=== PATIENT | female | born 1945 | race Caucasian/White ===

== ENCOUNTER 2021-12-26 06:00 | Outpatient (RCR) | payer MEDICARE, SELFPAY | END 2022-01-20 23:59 | disposition home or self-care (01) | LOC: MPT 06:00 | PROVIDERS: Referring Provider Nurse Practitioner Family; Visit Provider Nurse Practitioner Family | DX: N32.81 Overactive bladder (principal) | CPT/HCPCS: 97110; 97161; 97530 ==

== ENCOUNTER 2022-01-21 06:00 | Outpatient (RCR) | payer MEDICARE, SELFPAY | END 2022-02-20 23:59 | disposition home or self-care (01) | LOC: MPT 06:00 | PROVIDERS: Referring Provider Nurse Practitioner Family; Visit Provider Nurse Practitioner Family | DX: N32.81 Overactive bladder (principal) | CPT/HCPCS: 97140; 97530 ==

== ENCOUNTER 2022-02-21 06:00 | Outpatient (RCR) | payer MEDICARE, SELFPAY | END 2022-03-22 23:59 | disposition home or self-care (01) | LOC: MPT 06:00 | PROVIDERS: Referring Provider Nurse Practitioner Family; Visit Provider Nurse Practitioner Family | DX: N32.81 Overactive bladder (principal) | CPT/HCPCS: 97110; 97140; 97530 ==

== ENCOUNTER 2022-06-29 12:42 | Outpatient (CLI) | payer MEDICARE, SELFPAY ==
--- NOTE | 2022-06-29 12:57 | XR_ITS ---
WS: [id number] XR sacroiliac jts m 3V [id number] REASON FOR EXAM: SACROCOCCYGEAL DISORDER FINDINGS: No fracture or focal bone lesion. Orthopedic devices related to the left sacral wing and left sacroiliac joint. No previous examination for comparison. No bridging or fusion of the sacroiliac joints. There is moderate sclerosis along the margins of the joint line and distal osteophytosis. XR/XR sacroiliac jts m 3V [id number] IMPRESSION: Degenerative changes in the sacroiliac joint which may be posttraumatic.
== END 2022-06-29 12:43 | disposition home or self-care (01) ==
LOC: RAD 12:46
PROVIDERS: Visit Provider Family Medicine
DX: M53.3 Sacrococcygeal disorders, not elsewhere classified (principal)
CPT/HCPCS: 72202

== ENCOUNTER 2023-02-21 15:02 | Outpatient (CLI) | payer MEDICARE, SELFPAY ==
--- NOTE | 2023-02-21 16:19 | XR_ITS ---
WS: [id number] SCREENING DEXA SCAN [employer] CLINICAL INFORMATION: AGE RELATED OSTEOPOROSIS COMPARISON: None. FINDINGS: The LEFT forearm bone mineral density measures 0.5. This corresponds to a T score score of -4.3 and Z score of -1.6. Left femoral neck bone mineral density measures 0.757 g/cm2. This corresponds to a T score of -2.0 an d Z score of 0.2. Right femoral neck bone mineral density measures 0.733 g/cm2. This corresponds to a T score -2.2of an d Z score of 0.0. Mean femoral neck bone mineral density measures 0.745 g/cm2. This corresponds to a T score of -2.1 an d Z score of 0.1. XR/XR DEXA axial skeleton* [id number] IMPRESSION: Osteoporosis LEFT forearm. Osteopenia femoral necks. Patient's FRAX calculated 10 year probability for major osteoporotic fracture i s 16.1 % and osteoporotic hip fracture is 4.8%.
== END 2023-02-21 15:03 | disposition home or self-care (01) ==
PROVIDERS: PCP Family Medicine; Visit Provider Family Medicine
DX: M81.0 Age-related osteoporosis without current pathological fracture (principal); M85.852 Other specified disorders of bone density and structure, left thigh; M85.851 Other specified disorders of bone density and structure, right thigh
CPT/HCPCS: 77080

== ENCOUNTER → 2023-05-21 10:49 | Outpatient (BNVA) | payer MEDICARE, SELFPAY | PROVIDERS: PCP Family Medicine; Visit Provider Orthopaedic Surgery | DX: M41.56 Other secondary scoliosis, lumbar region (principal); M41.55 Other secondary scoliosis, thoracolumbar region; M47.815 Spondylosis without myelopathy or radiculopathy, thoracolumbar region; Z98.1 Arthrodesis status | CPT/HCPCS: 36415; 72100; 80053; 81003; 85025; 99204 ==

== ENCOUNTER 2023-06-17 12:04 | Outpatient (CLI) | payer MEDICARE, SELFPAY ==
--- NOTE | 2023-06-17 13:00 | MR_ITS ---
WS: [id number] MRI LUMBAR SPINE NONCONTRAST TECHNIQUE: Sagittal T1, T2 and STIR imaging. Axial T1 and T2 imaging. CLINICAL INFORMATION: Lumbar pain COMPARISON: None. FINDINGS: Severe thoracolumbar scoliosis limits evaluation. Lumbar scoliosis convex RIGHT with prior pedicle sc rew fixation L3-4. LEFT sacroiliac fusion. Small disc protrusions in the cervical spine on the credit card clerk imaging with mild central canal stenosis C3-C6. T12-L1: Mild disc bulging with slight narrowing of the subarticular recess bilaterally. Mild facet ar thropathy. Mild to moderate bilateral foraminal narrowing. L1-L2: Mild disc bulging with osteophytic ridging. Mild facet arthropathy. Moderate LEFT and mild RIG HT foraminal narrowing. L2-L3: Mild disc bulging with osteophytic ridging. Slight retrolisthesis. Mild central canal stenosis . Narrowing of the subarticular recess bilaterally. Mild bilateral foraminal narrowing. L3-L4: Slight anterolisthesis. Small canal and foramen are patent. L4-L5: Slight anterolisthesis with mild disc bulging. Narrowing of the RIGHT greater than LEFT subart icular recess. Moderate facet arthropathy. Pedicle screw fixation with dorsal fusion. Mild bilateral bony foraminal narrowing. Slight impingement on the traversing RIGHT L5 nerve root. L5-S1: Small central disc protrusion impinges the traversing S1 nerve roots bilaterally. Mild to mode rate central canal stenosis. Moderate facet arthropathy. Foramen are patent. Partially visualized tortuous lobulated thoracic and upper abdominal aortic aneurysm with extensive a theromatous disease and peripheral mural thrombus. Recommend further evaluation with CTA. IMPRESSION: 1. Advanced lumbar scoliosis with prior pedicle screw fixation L3-4. No acute compression fracture s. Slight anterolisthesis L3 on L4 and L4 on L5. 2. Mild central canal stenosis L2-3 with impingement on the traversing L3 nerve roots bilaterally. 3. Mild to moderate central canal stenosis L4-5 with impingement of traversing S1 nerve roots with a small central protrusion 4. Disc osteophytic ridging L4-5 slightly impinges the RIGHT subarticular recess and traversing RIGH T L5 nerve root. 5. Multilevel mild to moderate foraminal narrowing worse at LEFT T12-L1, LEFT L1-2 6. Partially visualized tortuous lobulated thoracic and upper abdominal aneurysm with associated mur al thrombus. Recommend further evaluation with CTA chest abdomen and pelvis. Partially visualized ass ociated mural thrombus.
== END 2023-06-17 12:05 | disposition home or self-care (01) ==
PROVIDERS: PCP Family Medicine; Visit Provider Orthopaedic Surgery
DX: Z01.818 Encounter for other preprocedural examination (principal); M41.9 Scoliosis, unspecified; M48.07 Spinal stenosis, lumbosacral region; M25.78 Osteophyte, vertebrae; I71.60 Thoracoabdominal aortic aneurysm, without rupture, unspecified; I74.8 Embolism and thrombosis of other arteries
CPT/HCPCS: 72148

== ENCOUNTER 2023-06-19 13:50 | Inpatient (IN) | payer MEDICARE, SELFPAY ==
[2023-06-18 12:14] VITALS: BMI 21.9
[2023-06-19] VITALS (30 sets, daily range): BP systolic 91–137; BP diastolic 54–93; PULSE 59–93; RESP 18–30; TEMP 36.3; O2SAT 92–100
--- NOTE | 2023-06-19 | XR_ITS ---
WS: [id number] Lumbar spine, C-arm fluoroscopy views, 06/19/2023 Clinical Data: t0 to pelvis fusion, or pic Comparison: Lumbar spine, 05/21/2023 Findings: Dr. Babb performed a thoracolumbar sacral posterior fusion Impression: Posterior thoracolumbar sacral fusion.
--- NOTE | 2023-06-19 08:39 | W.PM.OPSUD ---
Surgery/Procedure H&P Update DATE OF PROCEDURE: June 19, 2023 DATE H&P PERFORMED: 06/05/23 H&P UPDATE INFORMATION: I have reviewed H&P completed within last 30 days, I have examined patient prior to procedure and No changes to prior documentation PREOP DIAGNOSIS: Degenerative scoliosis, failed lumbar fusion lumbar stenosis PLANNED PROCEDURE: Operation Date: 06/19/23 09:50 Proposed Procedures p Thoracic Fusion(Not Applicable) - Tyler Babb DO s Sacroiliac Joint Fusion SI Joint Fusion(Not Applicable) - Tyler Babb DO
[2023-06-19] MEDS: sodium chloride 0.9% 1,000 ML 30 ML IV (08:52)
[2023-06-19] MEDS: methadone 10 mg Tablet PO (08:54)
--- NOTE | 2023-06-19 09:00 | ANES.PREANE2 ---
Pre-Anesthetic Assessment Height/Weight: Height 1.6 m Weight 56.245 kg Temp Pulse Resp BP Pulse Ox O2 Del Method 97.4 F L 67 18 137/81 99 Room Air 06/19/23 08:42 06/19/23 08:42 06/19/23 08:54 06/19/23 08:42 06/19/23 08:54 06/19/23 08:44 Preop Diagnosis: Degenerative scoliosis, failed lumbar fusion lumbar stenosis Operation Date: 06/19/23 09:50 Proposed Procedures p Thoracic Fusion(Not Applicable) - Tyler Babb DO s Sacroiliac Joint Fusion SI Joint Fusion(Not Applicable) - Tyler Babb DO Familial anesthetic complications: none Was Beta Gale taken within 24 hours: Yes Was Clonidine taken within 24 hours: N/A Last intake: Intake Last Liquid Date 06/18/23 Last Liquid Time 18:30 Last Solid Date 06/18/23 Last Solid Time 18:30 Social No alcohol and No tobacco Exam alert, oriented x 3, clear to auscultation bilaterally and regular rate & rhythm Airway Submandibular: within normal limits Cervical ROM: within normal limits Mallampati: Class II Dentition: chipped CV/HEM Hypertension, Murmur and Peripheral Vascular Disease (h/o ascending aorta repair and AVR--postop CVA) acral cyanosis Musc/skel Lower Back Pain and Osteoarthritis/DJD Neuropsych Cerebrovascular Accident (right side weak--postop from Ao repair emergently) Anesthetic Plan ASA status: 3 Anesthesia: General Other: A.line, discussed transfusion and ICU postop Medications/Allergies Home Medications Medication Instructions Recorded Confirmed Last Taken Type alendronate 70 mg tablet 70 mg PO .WEEKLY 03/13/22 06/18/23 06/15/23 History amlodipine 5 mg tablet 5 mg PO DAILY 03/13/22 06/18/23 06/18/23 History ascorbate calcium (vitamin C) 500 500 mg PO BID 03/13/22 06/18/23 06/12/23 History mg tablet aspirin 81 mg tablet,delayed 81 mg PO DAILY 03/13/22 06/18/23 06/12/23 History release calcium carbonate 600 mg calcium 600 mg PO DAILY 03/13/22 06/18/23 06/12/23 History (1,500 mg) tablet (Calcium) cetirizine 10 mg tablet 10 mg PO DAILY PRN allergies 03/13/22 06/18/23 Unknown History cholecalciferol (vitamin D3) 50 50 mcg PO DAILY 03/13/22 06/18/23 06/12/23 History mcg (2,000 unit) capsule duloxetine 60 mg capsule,delayed 60 mg PO DAILY 03/13/22 06/18/23 06/18/23 History release gabapentin 600 mg tablet 600 mg PO .HS 03/13/22 06/18/23 06/17/23 History hydrochlorothiazide 25 mg tablet 25 mg PO DAILY 03/13/22 06/18/23 06/17/23 History lisinopril 40 mg tablet 40 mg PO DAILY 03/13/22 06/18/23 06/18/23 History magnesium 30 mg tablet 60 mg PO DAILY 03/13/22 06/18/23 06/12/23 History magnesium hydroxide 400 mg/5 mL 5 ml PO .HS PRN Constipation 03/13/22 06/18/23 Unknown History oral suspension (Milk of Magnesia) metoprolol succinate 50 mg 50 mg PO DAILY 03/13/22 06/19/23 06/19/23 06:30 History tablet,extended release 24 hr potassium chloride 20 mEq 20 meq PO DAILY 03/13/22 06/18/23 06/18/23 History tablet,extended release ropinirole 1 mg tablet 1 mg PO .1 AT NOON 2 AT HS 03/13/22 06/18/23 06/18/23 History Bone growth stimulator #1 ea 06/03/23 06/18/23 Unknown Rx hydrocodone 5 mg-acetaminophen 325 1 tab PO Q4H 06/05/23 06/19/23 06/19/23 04:30 History mg tablet Allergies Allergy/AdvReac Type Severity Reaction Status Date / Time No Known Allergies Allergy Verified 06/19/23 08:38 Current Medications Generic Name Dose Route Start Last Admin Trade Name Freq PRN Reason Stop Dose Admin Sodium Chloride 1,000 mls @ 30 mls/hr 06/19/23 08:15 06/19/23 08:52 Sodium Chloride 0.9% IV 06/20/23 08:14 30 mls/hr .Q24H SHEYLA Administration PFSH Anesthesia Family History Father Depressed Heart disease Stroke Mother Hypertension Social History Smoking and tobacco status: never smoked Second hand smoke exposure: No Alcohol intake: never Data Anesthesia Cardiac Studies: No Data to Display
[2023-06-19] MEDS: ceFAZolin 2,000 MG in sodium chloride 0.9% (plus) 50 ML 100 MG IV ×2 (09:49→16:02)
[2023-06-19] MEDS: lidocaine-epi 1% 20 mL INJ INJECTION (11:06)
[2023-06-19] MEDS: vancomycin 1,000 MG SDV 1000 MG INTRA-ARTI (11:07)
[2023-06-19] MEDS: heparin, porcine 1,000 unit/mL INJ 10 mL 10000 UNIT IRRIGATION (11:07)
--- NOTE | 2023-06-19 13:34 | P.OP_ITS ---
Operative Report Date of procedure: June 19, 2023 Pre-op diagnosis: Degenerative scoliosis Post-op diagnosis: same Procedure done: 1. T10- Pelvis fusion 2. T10- S1 instrumentation 3. Lumbopelvic fixation 4. right open Sacral iliac fusion 5. Use of computer navigation 6. removal of deep hardware from spine Surgeon: Tyler Babb DO Procedure: 1. T10- Pelvis fusion 2. T10- S1 instrumentation 3. Lumbopelvic fixation 4. right open Sacral iliac fusion 5. Use of computer navigation 6. removal of deep hardware from spine Patient is brought to the operative suite.? After undergoing anesthesia, the patient had neuro monitoring attached.? Patient was then placed in the prone position on the Lucas table.? All areas of impingement were well-padded.? Patient was then prepped and draped in the normal sterile fashion.? Skin incision was then made L3 to sacrum.? Subperiosteal dissection was made out to the transverse processes of T10, T11, T12, L1, L2, L3 and L4 and L5 and sacral ala bilaterally. Previous hardware at L3-4 was identified.? The caps were removed the cross-link was removed and then the pedicle screws were removed but with a pedicle feeler and then replaced with 6 5 screws from [employer]. Next attention was brought to obtain the bone marrow aspirate.? This was done by using the regenerative bone marrow aspiration kit.? 20 cc of bone marrow aspirate were taken from the right iliac crest.? This was later used with the osteo amp bone graft. Next tension was brought to placing the fiducial for the computer navigation.? 2 pins were placed into the right iliac crest.? The fiducial was attached.? The C- arm was brought in and information from serum was then linked to the computer used for placing the screws.? The case. Next attention was brought to placing the pedicle screws.? This was done by using the gearshift probe.? The probe was used to identify the pedicle.? Then the pedicle feeler was used followed by placement of screw.? This was done at T10 bilaterally, T11 bilaterally, T12 bilaterally, L1 bilaterally, L2 bilaterally, L3 bilaterally, L4 bilaterally, L5 bilaterally and S1 bilaterally. Next attension was brought to placing the iliac screws.? This was done using the sacral ala iliac technique.? The gearshift probe linked to computer navigation was then placed through the sacral ala into the sacroiliac joint into the iliac crest.? Next the pedicle feeler was used followed by the computer navigated tap.? And then the screw was passed a 80 mm screw was placed on the right side. Next attension was brought to performing the open and sacral iliac fusion.? This was done by again using the gearshift probe linked to computer navigation.? Followed by pedicle feeler followed by placing a wire and then the drill drilled over the wire and then bone graft was packed into the sacroiliac joint and into the drill hole.? And the sacroiliac screw was then placed.? This technique was done on the right side. Wound was irrigated and the screw tulips were aligned and template was used to measure the appropriate size shbea. Rods bent to the appropriate band and attached to the screws from T10 down to S1 and attaching onto the iliac screw on the right side. Caps were torqued tightened down. This process was also repeated on the left side however there is no iliac screw on the left side. The screws were placed from T10-S1. She was brought to decorticating the lamina from T10 down to T12 and then the transverse processes of L1 to the sacral ala this was done bilaterally. Ostium bone graft was packed into the gutters and over the decortication sites then wound was closed in a layered fashion with 0 Vicryl 2-0 Vicryl and Monocryl suture. Deep drain was placed vancomycin powder was placed sterile dressings were applied patient was transferred to the PACU in stable condition.
[2023-06-19] MEDS: lactated ringers 1,000 ML 90 ML IV (14:10)
[2023-06-19] MEDS: morphine 4 mg/mL SDV 1 mL 2 MG IVP ×2 (14:16→15:54)
--- NOTE | 2023-06-19 16:38 | ANE.PACU2 ---
Inpatient post-anesthesia follow up: Airway intact: Yes Vital signs: Temperature 97.4 F Pulse Rate 67 Respiratory Rate 18 Blood Pressure 137/81 Pulse Oximetry 100 Oxygen Delivery Me thod Room Air Oxygen Flow Rate Fraction of Inspir ed Oxygen Hydration adequate: Yes Nausea and vomiting: No Pain level: 4 Mental status: Altered (sedated) Additional Comments: To ICU, extubated, stable.
[2023-06-19] MEDS: ketorolac 30 mg/mL INJ IVP (17:02)
[2023-06-19] MEDS: HYDROcodone-acetaminophen 5-325 mg Tablet PO (17:09)
[2023-06-19] MEDS: docusate sodium 100 mg Capsule PO (17:14)
[2023-06-19] MEDS: ascorbic acid 500 mg Tablet PO (17:14)
--- NOTE | 2023-06-19 18:18 | PC.NURSE ---
This nurse notified Dr. Babb of 450 ml out put from drain, order received to take train off suction
[2023-06-19] MEDS: gabapentin 300 mg Capsule 600 MG PO (20:53)
[2023-06-19] MEDS: ropinirole 1 mg Tablet 2 MG PO (20:53)
[2023-06-19] MEDS: cetirizine 10 mg Tablet PO (21:15)
[2023-06-19] MEDS: oxyCODONE-APAP 5-325 mg Tablet PO (22:15)
--- NOTE | 2023-06-19 23:07 | PC.NURSE ---
[address] Babb. Reported patient's vital signs, highlighting that her blood pressure has been trending down, drain output of 100ml bright red blood, and that her surgical dressing was reinforced with ABD pads because it was fully saturated with blood. Orders to transfuse 1 unit PRBCs.
[2023-06-20] VITALS (55 sets, daily range): BP systolic 79–132; BP diastolic 37–72; PULSE 61–122; RESP 15–37; TEMP 36.7–37; O2SAT 17–100
[2023-06-20] MEDS: lactated ringers 1,000 ML 90 ML IV ×3 (00:41→22:49)
[2023-06-20] MEDS: ceFAZolin 2,000 MG in sodium chloride 0.9% (plus) 50 ML 100 MG IV ×2 (00:41→08:25)
[2023-06-20] MEDS: oxyCODONE-APAP 5-325 mg Tablet PO ×4 (02:42→15:34)
[2023-06-20 04:47] LABS: Hematocrit 25.2 % (36-47)
--- NOTE | 2023-06-20 07:50 | PM.PN ---
Subjective Subjective: POD 1 Patient resting with family present. Reports lightheadedness and dizziness. Reports back pain. Denies chest pain shortness of breath. Vitals/I&O/Wt Last Vital Signs Temp 98.0 F 06/20/23 02:32 Pulse 74 06/20/23 06:00 Resp 20 H 06/20/23 07:34 BP 93/48 06/20/23 06:00 Pulse Ox 95 06/20/23 07:34 O2 Del Method Nasal Cannula 06/19/23 19:00 O2 Flow Rate 2 06/19/23 19:00 06/19/23 06/20/23 06/20/23 22:59 06:59 14:59 Intake Total 50 / 1100 1346.5 / 2446.5 Output Total 1050 / 1050 400 / 1450 Balance -1000 / 50 946.5 / 996.5 Weight last 48 hrs Weight 124 lb Weight 124 lb Physical Exam Narrative: Patient presents alert and oriented x3 with a good general appearance normal mood and affect. Normal coordination normal stability. Mild tenderness around the incisional site with the incision appear to have bloody discharge with Hemovac drain to gravity. No signs of erythema or drainage. No signs of infection. Patient denies any fevers or chills. 4/5 motor strength both lower extremities with negative straight leg raise bilaterally. Calves are supple no medial thigh tenderness. Pulses are 2+ at the dorsalis pedis and posterior tibial region. Good capillary refill throughout normal sensation light touch both lower extremities. Urinary Catheter Management: Hassan: Cath Placed During This Visit: yes Urinary Catheter Date of Insertion: 06/19/23 Urinary Catheter Time of Insertion: 10:25 Data 06/20/23 04:38 A&P Assessment and plan (1) Acute blood loss as cause of postoperative anemia: Continue Hemovac drain to gravity. Based on her being symptomatic with her low blood counts we will recommend 1 unit of packed red blood cells. H&H after. Abdominal binder to help with compression over the incisional site. Continue Hassan catheter. Encourage incentive spirometer for pulmonary toilet. She is high risk of bleeding so we will hold off on anticoagulants but continue SCDs for DVT prophylaxis. (2) S/P spinal fusion: Attestations Medical Necessity Statement*: Need to gain better pain control and medical stability Coding Level of Care Code Acute Code for Chg Fwd Diagnoses Acute blood loss as cause of postoperative anemia D62 S/P spinal fusion Z98.1
[2023-06-20] MEDS: cyanocobalamin 1,000 mcg Tablet 50 MCG PO (08:24)
[2023-06-20] MEDS: duloxetine 60 mg Capsule PO (08:24)
[2023-06-20] MEDS: aspirin 81 mg EC Tablet PO (08:24)
[2023-06-20] MEDS: potassium chloride ER 20 mEq Tablet PO (08:24)
[2023-06-20] MEDS: hydroCHLOROthiazide 25 mg Tablet PO (08:24)
[2023-06-20] MEDS: ascorbic acid 500 mg Tablet PO ×2 (08:24→17:00)
[2023-06-20] MEDS: docusate sodium 100 mg Capsule PO ×2 (08:24→17:00)
--- NOTE | 2023-06-20 08:44 | PC.NURSE ---
Dr. Dallin Sylvester came to bedside, gave order to transfuse 2nd unit of blood, recheck H&H after, start PT
[2023-06-20] MEDS: ropinirole 1 mg Tablet PO (11:12)
[2023-06-20] MEDS: ketorolac 30 mg/mL INJ IVP (11:57)
[2023-06-20 12:52] LABS: Basophils % 0.4 %; Eosinophils # 0.1 10^3/uL (0.0-0.8); Eosinophils % 0.9 %; Hematocrit 27.7 % (36-47); Lymphocytes # 1.1 10^3/uL (0.8-4.8); Lymphocytes % 18.8 %; Mean Corpuscular HGB Conc 33.2 g/dL (30-55); Mean Corpuscular Hemoglobin 31.3 pg (27-33); Mean Corpuscular Volume 94.2 fl (85-98); Mean Platelet Volume 9.8 fL (7.4-10.4); Monocytes # 0.4 10^3/uL (0.2-0.9); Monocytes % 7.1 %; Neutrophils # 4.11 10^3/uL (1.8-7.7); Neutrophils % 72.6 %; Nucleated Red Blood Cells % 0 %; Platelet Count 127 10^3/cmm (157-399); Red Blood Count 2.94 10^6/uL (3.85-5.65); Red Cell Distribution Width 14.6 % (12.1-15.1); White Blood Count 5.65 10^3/uL (3.29-11.43)
[2023-06-20] MEDS: morphine 4 mg/mL SDV 1 mL 2 MG IVP ×2 (13:30→16:48)
--- NOTE | 2023-06-20 15:36 | PC.NURSE ---
1330 O2 of 17 documented in error, RR of 17
[2023-06-20] MEDS: lactated ringers 500 ML 999 ML IV (16:14)
--- NOTE | 2023-06-20 16:19 | PC.NURSE ---
BP on softer side at times throughout shift, small amount of bleeding noted to back incision. Dr. Babb notified, gave order for 500 ml LR bolus
[2023-06-20 18:34] LABS: Anion Gap 10.3 (5-19); Blood Urea Nitrogen 23 mg/dL (8-23); Calcium 7.8 mg/dL (8.5-10.5); Carbon Dioxide 28 mmol/L (22-29); Chloride 104 mmol/L (98-107); Glucose 128 mg/dL (65-115); Osmolality Calculated 291 mOsm/kg (285-295); Potassium 4.3 mmol/L (3.5-5.1); Sodium 138 mmol/L (136-145)
--- NOTE | 2023-06-20 19:41 | PC.NURSE ---
Spoke to Dr. Babb to report low BP and irregular heart rhythm. Clarified order for art-line. Orders to consult [facility] for hemodynamics. Ok to discontinue art-line.
--- NOTE | 2023-06-20 19:45 | XRR_ITS ---
PROCEDURE INFORMATION: Exam: XR Chest Exam date and time: 06/20/2023 8:54 PM Age: 78 years old Clinical indication: Shortness of breath; Additional info: SOB, pain TECHNIQUE: Imaging protocol: Radiologic exam of the chest. Views: 1 view. COMPARISON: No relevant prior studies available. FINDINGS: Tubes, catheters and devices: There are sternal wires consistent with previous sternotomy incision. Lungs: Visualized portions of the lungs are clear. There is question of a 12 mm nodular opacity on the right projected over the right 3rd anterior interspace which could potentially represent pulmonary nodule. Follow-up PA and lateral radiographs are suggested to confirm this finding. Pleural spaces: Unremarkable. No pleural effusion. No pneumothorax. Heart/Mediastinum: The heart is mildly enlarged. Prosthetic aortic valve is noted. Vasculature: There is marked prominence of the aortic knob which measures almost 6 cm. This is worrisome for aneurysm of the aortic arch. Bones/joints: There are extensive surgical changes in the lower thoracic and upper lumbar spine with posterior metallic hardware including pedicle screws at multiple levels. XR/XR chest 1V portable [id number] IMPRESSION: 1. 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 Question of right pulmonary nodule, follow-up PA and lateral views suggested 3. Mild cardiomegaly 4. Postsurgical changes in the chest and spine.
--- NOTE | 2023-06-20 19:47 | ECG_ITS ---
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 Measurements Intervals [place] Rate: 68 P: 81 MA: 224 QRS: 62 QRSD: 90 T: 0 QT: 216 QTc: 230 Interpretive Statements SINUS RHYTHM WITH FIRST DEGREE AV BLOCK WITH OCCASIONAL SUPRAVENTRICULAR PREMATURE COMPLEXES LOW QRS VOLTAGE IN PRECORDIAL LEADS [QRS DEFLECTION < 1.0 mV IN CHEST LEADS] MODERATE ST DEPRESSION [0.05+ mV ST DEPRESSION] No previous ECG available for comparison Electronically Signed On 06-21-2023 10:59:52 CDT by Mehreen Palomo M.D. [email or web address]
[2023-06-20 20:16] LABS: Basophils % 0.4 %; Eosinophils # 0.1 10^3/uL (0.0-0.8); Eosinophils % 1.6 %; Hematocrit 28.3 % (36-47); Lymphocytes # 0.9 10^3/uL (0.8-4.8); Lymphocytes % 16.9 %; Mean Corpuscular HGB Conc 33.2 g/dL (30-55); Mean Corpuscular Hemoglobin 31.5 pg (27-33); Mean Platelet Volume 9.6 fL (7.4-10.4); Monocytes # 0.4 10^3/uL (0.2-0.9); Monocytes % 7.9 %; Neutrophils # 3.76 10^3/uL (1.8-7.7); Neutrophils % 72.8 %; Nucleated Red Blood Cells % 0 %; Platelet Count 129 10^3/cmm (157-399); Red Blood Count 2.98 10^6/uL (3.85-5.65); Red Cell Distribution Width 15.2 % (12.1-15.1); White Blood Count 5.16 10^3/uL (3.29-11.43)
--- NOTE | 2023-06-20 20:34 | P.CONIM_ITS ---
Providers/Reason For Consult Consulting Physician/Specialty*: Dr. Babb Reason for Consult*: Postoperative blood loss anemia, shock Attending Physician: Tyler Babb, Primary Care Provider: Flor Blount MD History of Present Illness History of Present Illness Viry Espinoza is a 78 year old female with a past medical history of aortic dissection, history of aortic valve replacement prosthetic, history of CVA, who presents to [facility] T10 to pelvis fusion, hospitalist team have been consulted due to hypotension. Currently patient is alert awake, following all commands, her back pain 3 out of 10, denies any lightheadedness, dizziness she worked with physical therapy, no lightheadedness, no dizziness, no chest pain, no palpitations, no shortness of breath. She tells me that in 2018 she had an aortic valve dissection, she was never intubated she did not require any significant blood transfusions, but 10 days after her surgery she suffered a major CVA with right-sided deficits for which she was admitted to rehab and eventually discharged home. She tells me that she was on Xarelto, she is not exactly sure why, no history of DVT or PE, but it was when she had the stroke, I asked her if she had A-fib she is not exactly sure, she tells that she was taken off Xarelto to aspirin by her primary care provider a few years ago but she does not remember the circumstances, denies any GI bleeds, no bloody or black stools, she has been told that she has iron deficiency anemia, she is never required blood transfusions, she has hypertension she is on multiple blood pressure medications, no history of significant bleeding, no history of bleeding di sorders, she did receive 4 of her blood pressure medications this morning Review of Systems Const: Denies: fever(s) Eyes: Denies: change in vision Card: Denies: chest pain Resp: Denies: dyspnea GI: Denies: abdominal pain : Denies: flank pain or difficulty voiding Musc: Reports: back pain; Denies: neck pain Skin/Breast: Denies: rash Neuro: Denies: headache(s), numbness in extremities, weakness in extremities or dizziness Endo: Denies: polyuria Medications/Allergies Home Medications Medication Instructions Recorded Confirmed Last Taken Type alendronate 70 mg tablet 70 mg PO .WEEKLY 03/13/22 06/18/23 06/15/23 History amlodipine 5 mg tablet 5 mg PO DAILY 03/13/22 06/18/23 06/18/23 History ascorbate calcium (vitamin C) 500 500 mg PO BID 03/13/22 06/18/23 06/12/23 Histo ry mg tablet aspirin 81 mg tablet,delayed 81 mg PO DAILY 03/13/22 06/18/23 06/12/23 History release calcium carbonate 600 mg calcium 600 mg PO DAILY 03/13/22 06/18/23 06/12/23 History (1,500 mg) tablet (Calcium) cetirizine 10 mg tablet 10 mg PO DAILY PRN allergies 03/13/22 06/18/23 Unknown History cholecalciferol (vitamin D3) 50 50 mcg PO DAILY 03/13/22 06/18/23 06/12/23 History mcg (2,000 unit) capsule duloxetine 60 mg capsule,delayed 60 mg PO DAILY 03/13/22 06/18/23 06/18/23 History release gabapentin 600 mg tablet 600 mg PO .HS 03/13/22 06/18/23 06/17/23 History hydrochlorothiazide 25 mg tablet 25 mg PO DAILY 03/13/22 06/18/23 06/17/23 History lisinopril 40 mg tablet 40 mg PO DAILY 03/13/22 06/18/23 06/18/23 History magnesium 30 mg tablet 60 mg PO DAILY 03/13/22 06/18/23 06/12/23 History magnesium hydroxide 400 mg/5 mL 5 ml PO .HS PRN Constipation 03/13/22 06/18/23 Unknown History oral suspension (Milk of Magnesia) metoprolol succinate 50 mg 50 mg PO DAILY 03/13/22 06/19/23 06/19/23 06:30 History tablet,extended release 24 hr potassium chloride 20 mEq 20 meq PO DAILY 03/13/22 06/18/23 06/18/23 History tablet,extended release ropinirole 1 mg tablet 1 mg PO .1 AT NOON 2 AT HS 03/13/22 06/18/23 06/18/23 His tory Bone growth stimulator #1 ea 06/03/23 06/18/23 Unknown Rx hydrocodone 5 mg-acetaminophen 325 1 tab PO Q4H 06/05/23 06/19/23 06/19/23 04:30 History mg tablet Allergies Allergy/AdvReac Type Severity Reaction Status Date / Time No Known Allergies Allergy Verified 06/19/23 08:38 Current Medications Generic Name Dose Route Start Last Admin Trade Name Frances PRN Reason Stop Dose Admin Amlodipine Besylate 5 mg 06/20/23 09:00 06/20/23 08:25 Amlodipine 5 Mg Tablet PO 5 mg DAILY SHEYLA Administration Ascorbic Acid 500 mg 06/19/23 18:00 06/20/23 17:00 Ascorbic Acid 500 Mg Tablet PO 500 mg BID SHEYLA Administration Aspirin 81 mg 06/20/23 09:00 06/20/23 08:24 Aspirin 81 Mg Ec Tablet PO 81 mg DAILY SHEYLA Administration Cetirizine HCl 10 mg 06/19/23 13:30 06/19/23 21:15 Cetirizine 10 Mg Tablet PO 10 mg DAILY PRN Administration allergies Cyanocobalamin 50 mcg 06/20/23 09:00 06/20/23 08:24 Cyanocobalamin 1,000 Mcg Tablet PO 50 mcg DAILY SHEYLA Administration Docusate Sodium 100 mg 06/19/23 18:00 06/20/23 17:00 Docusate Sodium 100 Mg Capsule PO 100 mg BID SHEYLA Administration Duloxetine HCl 60 mg 06/20/23 09:00 06/20/23 08:24 Duloxetine 60 Mg Capsule PO 60 mg DAILY SHEYLA Administration Gabapentin 600 mg 06/19/23 21:00 06/19/23 20:53 Gabapentin 300 Mg Capsule PO 600 mg BEDTIME SHEYLA Administration Hydrochlorothiazide 25 mg 06/20/23 09:00 06/20/23 08:24 Hydrochlorothiazide 25 Mg Tablet PO 25 mg DAILY SHEYLA Administration Lactated Ringer's 1,000 mls @ 90 mls/hr 06/19/23 13:30 06/20/23 12:07 Lactated Ringers IV 90 mls/hr .Q11H7M SHEYLA Administration Lisinopril 40 mg 06/20/23 09:00 06/20/23 08:23 Lisinopril 20 Mg Tablet PO 40 mg DAILY SHEYLA Administration Metoprolol Succinate 50 mg 06/20/23 09:00 06/20/23 08:24 Metoprolol Succinate Er (24 Hr) 50 Mg Tablet PO 50 mg DAILY SHEYLA Administration Morphine Sulfate 2 mg 06/19/23 13:28 06/20/23 16:48 Morphine 4 Mg/Ml Sdv 1 Ml IVP 2 mg Q1H PRN Administration SEVERE PAIN Non-Formulary Medication 600 mg 06/20/23 09:00 06/20/23 08:25 Calcium Carbonate [Calcium 600] PO Not Given DAILY SHEYLA Non-Formulary Medication 60 mg 06/20/23 09:00 06/20/23 08:26 Magnesium PO Not Given DAILY SHEYLA Oxycodone/Acetaminophen 1 - 2 tab 06/19/23 17:01 06/20/23 15:34 Oxycodone-Apap 5-325 Mg Tablet PO 1 tab Q4H PRN Administration MODERATE TO SEVERE PAIN Potassium Chloride 20 meq 06/20/23 09:00 06/20/23 08:24 Potassium Chloride Er 20 Meq Tablet PO 20 meq DAILY SHEYLA Administration Ropinirole HCl 1 mg 06/20/23 12:00 06/20/23 11:12 Ropinirole 1 Mg Tablet PO 1 mg 1200 SHEYLA Administration Ropinirole HCl 2 mg 06/19/23 21:00 06/19/23 20:53 Ropinirole 1 Mg Tablet PO 2 mg BEDTIME SHEYLA Administration PFSH Acute PFSH: Medical History (Updated 06/20/23 @ 20:40 by Gary Mclaughlin MD) Aortic dissection Essential hypertension Heart disease History of CVA (cerebrovascular accident) Hyperlipidemia Iron deficiency Surgical History (Updated 06/20/23 @ 20:39 by Gary Mclaughlin MD) History of prosthetic aortic valve Family History Father Depressed Heart disease Stroke Mother Hypertension Social History Smoking and tobacco status: never smoked Second hand smoke exposure: No Alcohol intake: never Vitals/I&O/Wt Last Vital Signs Temp 98.6 F 06/20/23 10:53 Pulse 122 H 06/20/23 18:30 Resp 17 06/20/23 18:30 BP 106/56 06/20/23 18:30 Pulse Ox 94 06/20/23 18:30 O2 Del Method Nasal Cannula 06/20/23 08:11 O2 Flow Rate 2 06/20/23 08:11 06/20/23 06/20/23 06/20/23 06:59 14:59 22:59 Intake Total 1346.5 / 2446.5 1950 / 1950 Output Total 400 / 1450 300 / 300 Balance 946.5 / 996.5 1949 / 1949 -300 / 1650 Physical Exam Const: COMMON NORMALS: no acute distress and patient oriented x3 GENERAL APPEARANCE: cooperative, well kempt and well developed HENMT: COMMON NORMALS: normocephalic, Normal external nose present and oropharynx normal HEAD & SCALP: normocephalic FACE & SINUS: normal facial exam NOSE: Normal external nose present MOUTH: Normal oral and palatal mucosa present THROAT: posterior oropharynx normal Eye: COMMON NORMALS: Equal, round and reactive pupils present, EOMs intact bilaterally, conjunctivae normal and no scleral icterus CONJUNCTIVA: Yes conjunctivae normal PUPIL: Yes Equal, round and reactive pupils present Neck/C-Spine: COMMON NORMALS: full ROM, no lymphadenopathy, no JVD, Thyroid normal and No carotid bruits THYROID: Thyroid normal Lymph: LYMPHATIC: no lymphadenopathy noted Chest: COMMONS NORMALS: normal inspection of the chest Resp: COMMON NORMALS: normal respiratory effort, No retractions, No use of accessory muscles and clear to auscultation bilaterally AUSCULTATION: clear to auscultation bilaterally Cardio: COMMON NORMALS: no JVD, regular rate, regular rhythm, S1 normal heart sound present, S2 normal heart sound present and Peripheral pulses 2+ throughout RATE: regular rate RHYTHM: regular rhythm HEART SOUNDS: S1 normal heart sound present and S2 normal heart sound present PERIPHERAL PULSES: Peripheral pulses 2+ throughout OTHER: Systolic murmur GI: COMMON NORMALS: Normal to inspection, nondistended, normoactive bowel sounds present, non-tender and No hepatosplenomegaly present PALPATION: Yes No hepatosplenomegaly present Extremity: COMMON NORMALS: normal to inspection, full ROM, capillary refill normal, no calf tenderness and no pedal edema Neuro: COMMON NORMALS: patient oriented x3, CN's II-XII intact bilaterally, moves all extremities, no focal motor deficits and no sensory deficits noted Psych: COMMON NORMALS: mental status grossly normal, Normal thought process present, cooperative and speech normal APPEARANCE: Yes well kempt SPEECH: Yes normal speech THOUGHT PROCESS: Normal thought process present Skin: COMMON NORMALS: turgor normal and no jaundice NARRATIVE SKIN EXAM: Back examination, has a PAUL drain in place, surgical site, with abdominal pads in place, T11 to pelvis surgery, abdominal pads are bloodsoaked, GENERAL SKIN EXAM: turgor normal Urinary Catheter Management: Hassan: Cath Placed During This Visit: yes Urinary Catheter Date of Insertion: 06/19/23 Urinary Catheter Time of Insertion: 10:25 Data 06/20/23 20:07 06/20/23 18:04 A&P Assessment and plan (1) Acute blood loss as cause of postoperative anemia: (2) Shock: (3) S/P spinal fusion: Plan Acute postoperative blood loss anemia, with postoperative shock -She did receive anesthetics which could be contributing -She had postoperative blood loss, total of 850cc so far, her surgical site abdominal pads are bloodsoaked, PAUL drain in place -She also received 4 blood pressure medications this morning -Her appetite and poor oral intake is also contributing -Denies any pain, no palpitations, shortness of breath Plan -CBC, CMP, lactic acid, troponin series, EKG, chest x-ray, UA -Continue normal saline -We will consider fluid boluses -Monitor hemoglobin closely -She has an art line in place, will see if its functional -No fevers, no chills -Hold blood pressure medications -She reports a history of being on Xarelto for a CVA? Unsure if it was an embo lic CVA or associate with atrial fibrillation, will get records from [facility] -For now hold aspirin -For now hold Toradol -Full code -SCDs for DVT prophylaxis Consult Attestations Medical Necessity Statement: Patient requires hospitalization, for acute postoperative blood loss anemia, postoperative shock, status post spinal fusion, Diagnoses Acute blood loss as cause of postoperative anemia D62 Shock R57.9 S/P spinal fusion Z98.1
[2023-06-20 20:38] LABS: INR 1.13 (0.8-1.2); Lactic Sepsis W/Reflex 1.8 mmol/L (0.5-2.2)
[2023-06-20 20:40] LABS: Troponin(5th) Baseline 46 ng/L (0-10)
[2023-06-20] MEDS: ropinirole 1 mg Tablet 2 MG PO (20:41)
[2023-06-20] MEDS: oxyCODONE 10 mg ER (12 HR) Tablet 20 MG PO (20:41)
[2023-06-20] MEDS: gabapentin 300 mg Capsule 600 MG PO (20:41)
[2023-06-20 20:50] LABS: Alanine Aminotransferase 11 U/L (0-33); Alkaline Phosphatase 51 U/L (35-105); Aspartate Amino Transferase 22 U/L (0-32); Blood Urea Nitrogen 22 mg/dL (8-23); C Reactive Protein 43.6 mg/L (0.0-4.9); Carbon Dioxide 27 mmol/L (22-29); Chloride 103 mmol/L (98-107); Globulin 1.5 g/dL (1.3-4.6); Glucose 169 mg/dL (65-115); NT Pro B Type Natriuretic Pept 2172 pg/mL (0-450); Osmolality Calculated 289 mOsm/kg (285-295); Sodium 136 mmol/L (136-145); Total Bilirubin 0.2 mg/dL (0.15-1.2); Total Protein 4.5 g/dL (6.6-8.7)
[2023-06-20 21:09] LABS: Urine Appearance Clear (CLEAR); Urine Color Yellow (Yellow)
[2023-06-20 21:10] LABS: Add Urine Microscopic? YES; Bilirubin Urine Neg (Negative); Blood Urine 2+ (Negative); Glucose Urine UA Norm (Normal); Ketones Urine Negative (Negative); Leukocyte Esterase Urine 1+ (Negative); Nitrate Urine Negative (Negative); Protein Urine Neg (Negative); Urobilinogen Urine Norm (Negative); pH Urine 5 (5-7)
[2023-06-20 21:11] LABS: Bacteria Urine TRACE /hpf; Hyaline Casts Urine RARE /lpf; Mucus Urine 1+ /hpf; Squamous Epithelial Cell Urine 0-4 /hpf (0-5); WBC Urine 15-25 /hpf (0-5)
[2023-06-20 21:12] LABS: Add Urine Culture? Yes
[2023-06-20 22:21] LABS: Troponin 5 2HR 48.05 ng/L (0-10)
[2023-06-20 22:25] LABS: Troponin 5 2HR Delta 2.05 ABS# (0-10)
[2023-06-20] MEDS: albumin 50 G/200 ML BAG 60 G IV (22:48)
[2023-06-20] MEDS: midodrine 5 mg TABLET 10 MG PO (22:49)
--- NOTE | 2023-06-20 23:19 | ECG_ITS ---
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 Measurements Intervals [place] Rate: 93 P: 0 NC: 0 QRS: 69 QRSD: 93 T: 0 QT: 342 QTc: 426 Interpretive Statements ATRIAL FIBRILLATION LOW QRS VOLTAGE IN PRECORDIAL LEADS [QRS DEFLECTION < 1.0 mV IN CHEST LEADS] MINIMAL ST DEPRESSION [0.025+ mV ST DEPRESSION] Compared to ECG 06/20/2023 21:02:02 Sinus rhythm no longer present First degree AV block no longer present ST (T wave) deviation still present Electronically Signed On 06-22-2023 9:44:02 CDT by Jeremiah Chester M.D. [id number]
[2023-06-21] VITALS (25 sets, daily range): BP systolic 96–143; BP diastolic 51–91; PULSE 60–107; RESP 14–24; TEMP 36.7–37; O2SAT 91–100
[2023-06-21] MEDS: oxyCODONE-APAP 5-325 mg Tablet PO ×5 (00:31→20:26)
[2023-06-21 02:25] LABS: Basophils % 0.4 %; Eosinophils # 0.1 10^3/uL (0.0-0.8); Eosinophils % 1.6 %; Lymphocytes # 0.9 10^3/uL (0.8-4.8); Lymphocytes % 17.8 %; Mean Corpuscular HGB Conc 32.8 g/dL (30-55); Mean Corpuscular Hemoglobin 30.6 pg (27-33); Mean Corpuscular Volume 93.3 fl (85-98); Mean Platelet Volume 9.9 fL (7.4-10.4); Monocytes # 0.5 10^3/uL (0.2-0.9); Monocytes % 10.2 %; Neutrophils # 3.56 10^3/uL (1.8-7.7); Neutrophils % 69.6 %; Nucleated Red Blood Cells % 0 %; Platelet Count 123 10^3/cmm (157-399); Red Blood Count 2.68 10^6/uL (3.85-5.65); Red Cell Distribution Width 15.1 % (12.1-15.1); White Blood Count 5.11 10^3/uL (3.29-11.43)
[2023-06-21 02:44] LABS: Troponin 5 6HR 52.12 ng/L (0-10)
[2023-06-21 02:47] LABS: Alanine Aminotransferase 14 U/L (0-33); Albumin Level 3.7 g/dL (3.5-5.2); Alkaline Phosphatase 51 U/L (35-105); Anion Gap 9.9 (5-19); Aspartate Amino Transferase 27 U/L (0-32); Blood Urea Nitrogen 19 mg/dL (8-23); Calcium 8.1 mg/dL (8.5-10.5); Carbon Dioxide 27 mmol/L (22-29); Chloride 103 mmol/L (98-107); Globulin 1.5 g/dL (1.3-4.6); Glucose 126 mg/dL (65-115); Magnesium 1.9 mg/dL (1.7-2.3); Osmolality Calculated 286 mOsm/kg (285-295); Phosphorus 2.1 mg/dL (2.5-4.5); Potassium 3.9 mmol/L (3.5-5.1); Sodium 136 mmol/L (136-145); Total Bilirubin 0.3 mg/dL (0.15-1.2); Total Protein 5.2 g/dL (6.6-8.7)
[2023-06-21 02:51] LABS: Troponin 5 6HR Delta 6.12 ng/L (0-12)
--- NOTE | 2023-06-21 02:53 | ECG_ITS ---
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 Measurements Intervals [place] Rate: 73 P: 78 WV: 231 QRS: 84 QRSD: 93 T: 23 QT: 328 QTc: 362 Interpretive Statements SINUS RHYTHM WITH FIRST DEGREE AV BLOCK WITH FREQUENT SUPRAVENTRICULAR PREMATURE COMPLEXES Compared to ECG 06/20/2023 23:19:32 First degree AV block now present Atrial fibrillation no longer present ST (T wave) deviation no longer present Electronically Signed On 06-21-2023 11:01:08 CDT by Mehreen Palomo M.D. [id number]
--- NOTE | 2023-06-21 06:42 | PC.NURSE ---
Reported blood pressure to Dr. Mclaughlin, clarified order for midodrine. Orders to hold AM dose of midodrine.
--- NOTE | 2023-06-21 06:47 | PM.PN ---
Subjective Subjective: POD 2 Patient resting comfortably. Very somnolent. Vitals/I&O/Wt Last Vital Signs Temp 98.1 F 06/20/23 19:00 Pulse 62 06/21/23 06:00 Resp 18 06/21/23 06:00 BP 131/75 06/21/23 06:00 Pulse Ox 96 06/21/23 06:00 O2 Del Method Nasal Cannula 06/20/23 23:05 O2 Flow Rate 2 06/20/23 23:05 06/20/23 06/20/23 06/21/23 14:59 22:59 06:59 Intake Total 1949 1063 / 3013 200 / 3213 Output Total 300 / 300 1300 / 1600 Balance 1949 763 / 2713 -1100 / 1613 Physical Exam Narrative: Patient presents alert and oriented x3 with a good general appearance normal mood and affect.? Normal coordination normal stability.? Mild tenderness around the incisional site with the incision appear to have mild bloody discharge with Hemovac drain to gravity.? No signs of erythema or drainage.? No signs of infection.? Patient denies any fevers or chills.? 4/5 motor strength both lower extremities with negative straight leg raise bilaterally.? Calves are supple no medial thigh tenderness.? Pulses are 2+ at the dorsalis pedis and posterior tibial region.? Good capillary refill throughout normal sensation light touch both lower extremities. Urinary Catheter Management: Hassan: Cath Placed During This Visit: yes Urinary Catheter Date of Insertion: 06/19/23 Urinary Catheter Time of Insertion: 10:25 Data 06/21/23 02:06 06/21/23 02:06 A&P Assessment and plan (1) S/P spinal fusion: Defer to medical team for medical management. We will discontinue the Hemovac drain. After physical therapy mobilizes and if she is medically stable would encourage discontinuation of the Hassan catheter. Encourage incentive spirometry for pulmonary toilet. Patient is high risk of bleeding so continue mechanical DVT prophylaxis with SCDs. Would request up in chair today. Continue compressive dressing to the incisional site with abdominal binder. (2) Acute blood loss as cause of postoperative anemia: Attestations Medical Necessity Statement*: Defer to medical team. Coding Level of Care Code Acute Code for Chg Fwd Diagnoses S/P spinal fusion Z98.1 Acute blood loss as cause of postoperative anemia D62
[2023-06-21] MEDS: docusate sodium 100 mg Capsule PO ×2 (08:24→17:25)
[2023-06-21] MEDS: ascorbic acid 500 mg Tablet PO ×2 (08:24→17:25)
[2023-06-21] MEDS: duloxetine 60 mg Capsule PO (08:25)
[2023-06-21] MEDS: cyanocobalamin 1,000 mcg Tablet 50 MCG PO (08:25)
[2023-06-21] MEDS: potassium chloride ER 20 mEq Tablet PO (08:25)
--- NOTE | 2023-06-21 10:28 | PC.NURSE ---
Dr. Woo came to bedside, with this nurse discussed BP, small amounts of blood noted to incision, patient up walking with PT. plan to change to med surg orders
[2023-06-21] MEDS: cefTRIAXone 1,000 MG in sodium chloride 0.9% (plus) 50 ML 100 MG IV (11:32)
[2023-06-21] MEDS: ropinirole 1 mg Tablet PO (11:32)
[2023-06-21] MEDS: midodrine 5 mg TABLET 10 MG PO ×2 (12:17→20:21)
--- NOTE | 2023-06-21 14:48 | P.PN_ITS ---
Subjective Subjective: She is working with PT. gets tired but states she is making it . Vitals/I&O/Wt Last Vital Signs Temp 98.1 F 06/20/23 19:00 Pulse 76 06/21/23 12:00 Resp 18 06/21/23 13:01 BP 125/64 06/21/23 12:00 Pulse Ox 96 06/21/23 13:01 O2 Del Method Nasal Cannula 06/20/23 23:05 O2 Flow Rate 2 06/20/23 23:05 06/20/23 06/21/23 06/21/23 22:59 06:59 14:59 Intake Total 1063 / 3013 200 / 3213 650 / 650 Output Total 300 / 300 1300 / 1600 Balance 763 / 2713 -1100 / 1613 650 / 650 Physical Exam Narrative: Up with PT and her son. Const: COMMON NORMALS: patient oriented x3 and alert GENERAL APPEARANCE: cooperative ORIENTATION/CONSCIOUSNESS: Yes awake HENMT: COMMON NORMALS: oropharynx normal Neck/C-Spine: COMMON NORMALS: no JVD Resp: COMMON NORMALS: normal respiratory effort and clear to auscultation bilaterally AUSCULTATION: clear to auscultation bilaterally Cardio: COMMON NORMALS: no JVD, regular rhythm, S1 normal heart sound present, S2 normal heart sound present and No murmurs present (Cardio) RHYTHM: regular rhythm HEART SOUNDS: S1 normal heart sound present and S2 normal heart sound present GI: COMMON NORMALS: Normal to inspection, nondistended, normoactive bowel sounds present, Soft to palpation and non-tender PALPATION: Yes Soft to palpation Back/Pelvis: OTHER: Wound drain Extremity: COMMON NORMALS: no joint enlargement and no pedal edema Neuro: COMMON NORMALS: patient oriented x3 and moves all extremities SENSORIUM/ORIENTATION: Yes alert Skin: COMMON NORMALS: no rashes or lesions noted GENERAL SKIN EXAM: no rashes or lesions noted Urinary Catheter Management: Hassan: Cath Placed During This Visit: yes Urinary Catheter Date of Insertion: 06/19/23 Urinary Catheter Time of Insertion: 10:25 Data 06/21/23 02:06 06/21/23 02:06 A&P Assessment and plan (1) Acute blood loss as cause of postoperative anemia: (2) Shock: (3) S/P spinal fusion: Plan Acute shock: Resolved so far. Clarifying with her RN she got HCTZ but did not get other BP medications, they will try to add a notation about that. Antihypertensives had since been discontinued, so far not restarted. We will withhold for now, monitor blood pressure. As blood pressure is improved so far, 125/64, will stop IV fluids. We will additionally recheck hemoglobin for symptomatic acute blood loss anemia, last hemoglobin noted 8.2 on review from this morning. Reviewed platelets as well noted on 123. She is continued on gabapentin. Ropinirole. Had been started on midodrine, continue for now. We will request orthostatic vital signs. Reviewed ortho spine notes. Discussed with case management. At risk of renal dysfunction, recheck chemistry. -She did receive anesthetics which could be contributing -She had postoperative blood loss, total of 850cc so far, her surgical site abdominal pads are bloodsoaked, PAUL drain in place -Her appetite and poor oral intake is also contributing Did need some IV morphine for pain last night. Monitor pain, DC IV pain meds if will not need any more. Continue mobilization with physical therapy. Has been walking using walker. Does get tired. States that she has a four-wheel walker at home. Discussed consideration of skilled nurse facility rehabilitation after discharge, but she and family prefer for her to return home, where she does have support from her son. Reviewed CBC, CMP, lactic acid, troponin series, EKG, chest x-ray, UA Possible UTI: ceftriaxone. Urine culture pending. Follow-up. Hx of anticoagulation, subsequently on ASA. Currently held. Attestations Medical Necessity Statement*: Continue admission for reassessment following shock, acute blood loss anemia, adjustment of antihypertensive regimen, UTI, postdischarge planning and arra ngements. Diagnoses Acute blood loss as cause of postoperative anemia D62 Shock R57.9 S/P spinal fusion Z98.1
[2023-06-21] MEDS: morphine 4 mg/mL SDV 1 mL 2 MG IVP ×2 (16:59→21:44)
--- NOTE | 2023-06-21 18:13 | PC.NURSE ---
Hemovac removed per Dr. Babb orders. Surgical dressing on back changed. No swelling, redness noted. Scant bleeding from incision site.
[2023-06-21] MEDS: ropinirole 1 mg Tablet 2 MG PO (20:21)
[2023-06-21] MEDS: gabapentin 300 mg Capsule 600 MG PO (20:21)
[2023-06-22] VITALS (15 sets, daily range): BP systolic 94–151; BP diastolic 57–92; PULSE 72–93; RESP 16–18; TEMP 36.2–36.9; O2SAT 93–99
[2023-06-22] MEDS: midodrine 5 mg TABLET 10 MG PO (04:30)
[2023-06-22] MEDS: oxyCODONE-APAP 5-325 mg Tablet PO ×5 (04:32→23:16)
[2023-06-22 04:51] LABS: Basophils % 0.2 %; Eosinophils # 0.1 10^3/uL (0.0-0.8); Hematocrit 29.7 % (36-47); Lymphocytes # 0.8 10^3/uL (0.8-4.8); Mean Corpuscular HGB Conc 33.3 g/dL (30-55); Mean Corpuscular Hemoglobin 31.4 pg (27-33); Mean Corpuscular Volume 94.3 fl (85-98); Monocytes # 0.6 10^3/uL (0.2-0.9); Monocytes % 9.9 %; Neutrophils # 4.76 10^3/uL (1.8-7.7); Nucleated Red Blood Cells % 0 %; Platelet Count 154 10^3/cmm (157-399); Red Blood Count 3.15 10^6/uL (3.85-5.65); White Blood Count 6.35 10^3/uL (3.29-11.43)
[2023-06-22] MEDS: morphine 4 mg/mL SDV 1 mL 2 MG IVP ×4 (05:01→19:56)
[2023-06-22] MEDS: ondansetron 2 mg/ML SDV 2 mL 4 MG IVP (05:01)
[2023-06-22 05:10] LABS: Alanine Aminotransferase 67 U/L (0-33); Albumin Level 3.5 g/dL (3.5-5.2); Alkaline Phosphatase 109 U/L (35-105); Aspartate Amino Transferase 95 U/L (0-32); Blood Urea Nitrogen 10 mg/dL (8-23); Calcium 8.3 mg/dL (8.5-10.5); Carbon Dioxide 30 mmol/L (22-29); Chloride 96 mmol/L (98-107); Glucose 126 mg/dL (65-115); Osmolality Calculated 277 mOsm/kg (285-295); Phosphorus 1.8 mg/dL (2.5-4.5); Sodium 133 mmol/L (136-145); Total Bilirubin 0.8 mg/dL (0.15-1.2); Total Protein 5.5 g/dL (6.6-8.7)
--- NOTE | 2023-06-22 07:13 | PM.PN ---
Subjective Subjective: POD 3 Patient resting comfortably. Continues to report back pain. Vitals/I&O/Wt Last Vital Signs Temp 98.1 F 06/22/23 03:57 Pulse 83 06/22/23 03:57 Resp 16 06/22/23 05:01 BP 151/75 06/22/23 03:57 Pulse Ox 98 06/22/23 04:32 O2 Del Method Room Air 06/22/23 03:57 O2 Flow Rate 1 06/21/23 19:54 06/21/23 06/22/23 06/22/23 22:59 06:59 14:59 Intake Total 1550 / 2200 Output Total 900 / 900 1150 / 2050 Balance 650 / 1300 -1150 / 150 Physical Exam Narrative: Patient presents alert and oriented x3 with a good general appearance normal mood and affect.? Normal coordination normal stability.? Mild tenderness around the incisional site with the incision appear to have mild bloody discharge. No signs of erythema or drainage.? No signs of infection.? Patient denies any fevers or chills.? 4/5 motor strength both lower extremities with negative straight leg raise bilaterally.? Calves are supple no medial thigh tenderness.? Pulses are 2+ at the dorsalis pedis and posterior tibial region.? Good capillary refill throughout normal sensation light touch both lower extremities. Urinary Catheter Management: Hassan: Cath Placed During This Visit: yes Urinary Catheter Date of Insertion: 06/19/23 Urinary Catheter Time of Insertion: 10:25 Data 06/22/23 04:30 06/22/23 04:30 A&P Assessment and plan (1) S/P spinal fusion: Physical therapy to continue mobilizing. Discontinue Hassan catheter. Continue incentive spirometer for pulmonary toilet. managed services consultant for placement. (2) Acute blood loss as cause of postoperative anemia: Attestations Medical Necessity Statement*: Await placement. Coding Level of Care Code Acute Code for Chg Fwd Diagnoses S/P spinal fusion Z98.1 Acute blood loss as cause of postoperative anemia D62
[2023-06-22] MEDS: docusate sodium 100 mg Capsule PO ×2 (09:02→17:26)
[2023-06-22] MEDS: ascorbic acid 500 mg Tablet PO ×2 (09:02→17:26)
[2023-06-22] MEDS: potassium chloride ER 20 mEq Tablet PO (09:03)
[2023-06-22] MEDS: duloxetine 60 mg Capsule PO (09:03)
[2023-06-22] MEDS: cefTRIAXone 1,000 MG in sodium chloride 0.9% (plus) 50 ML 100 MG IV (11:56)
[2023-06-22] MEDS: ropinirole 1 mg Tablet PO (11:57)
--- NOTE | 2023-06-22 12:15 | P.PN_ITS ---
Subjective Subjective: She has lost her Chapstick and candy. Lips are dry. Denies pain discomfort or other issues currently. No trouble breathing. Vitals/I&O/Wt Last Vital Signs Temp 98.5 F 06/22/23 08:00 Pulse 81 06/22/23 08:00 Resp 18 06/22/23 11:21 BP 133/87 06/22/23 08:00 Pulse Ox 95 06/22/23 08:00 O2 Del Method Nasal Cannula 06/22/23 07:59 O2 Flow Rate 1 06/22/23 07:59 06/21/23 06/22/23 06/22/23 22:59 06:59 14:59 Intake Total 1550 / 2200 Output Total 900 / 900 1150 / 2050 Balance 650 / 1300 -1150 / 150 Physical Exam Narrative: Up with PT and her son. Const: COMMON NORMALS: patient oriented x3 and alert GENERAL APPEARANCE: cooperative ORIENTATION/CONSCIOUSNESS: Yes awake HENMT: COMMON NORMALS: oropharynx normal Neck/C-Spine: COMMON NORMALS: no JVD Resp: COMMON NORMALS: normal respiratory effort and clear to auscultation bilaterally AUSCULTATION: clear to auscultation bilaterally Cardio: COMMON NORMALS: no JVD, regular rhythm, S1 normal heart sound present, S2 normal heart sound present and No murmurs present (Cardio) RHYTHM: regular rhythm HEART SOUNDS: S1 normal heart sound present and S2 normal heart sound present GI: COMMON NORMALS: Normal to inspection, nondistended, normoactive bowel sounds present, Soft to palpation and non-tender PALPATION: Yes Soft to palpation Extremity: COMMON NORMALS: no joint enlargement and no pedal edema Neuro: COMMON NORMALS: patient oriented x3 and moves all extremities SENSORIUM/ORIENTATION: Yes alert Skin: COMMON NORMALS: no rashes or lesions noted GENERAL SKIN EXAM: no rashes or lesions noted Urinary Catheter Management: Hassan: Cath Placed During This Visit: yes Urinary Catheter Date of Insertion: 06/19/23 Urinary Catheter Time of Insertion: 10:25 Data 06/22/23 04:30 06/22/23 04:30 Micro: Microbiology 06/20/23 20:45 Urine Culture - Preliminary Urine,Clean Catch A&P Assessment and plan (1) Acute blood loss as cause of postoperative anemia: (2) Shock: (3) S/P spinal fusion: Plan Anemia: Reviewed hemoglobin, noted with improvement to 9.9. Follow-up CBC requested. s/p 2 units RBC. Reassess blood counts, resume low-dose aspirin if safe. S/p spinal fusion: Continue PT. Reviewed case management documentation. Discu ssed with orthopedics. Arrangements for rehabilitation after discharge underway. Still requiring IV morphine for pain. Monitor pain, DC IV pain meds if will not need any more. Multimodal pain control with Tylenol, Percocet as needed. Acute shock: Blood pressures are better. Stop midodrine. Still fluctuation, down to 108/64 last night, hold off resuming her antihypertensives for now. She is continued on gabapentin. Ropinirole. Reviewed kidney function, BUN, creatinine normal. Noted mild pneumonitis, mild shock liver following acute shock, hypotension. Reassess chemistry with liver parameters. -Her appetite and poor oral intake is also contributing Possible UTI: ceftriaxone. Reviewed urine culture. So far no growth. Follow- up. Hx of anticoagulation, subsequently on ASA. Currently held. Attestations Medical Necessity Statement*: Continue admission for reassessment following shock, acute? blood loss anemia, adjustment of antihypertensive regimen, UTI, postdischarge planning and arra ngements. Diagnoses Acute blood loss as cause of postoperative anemia D62 Shock R57.9 S/P spinal fusion Z98.1
[2023-06-22] MEDS: pantoprazole DR 40 mg Tablet PO (14:04)
[2023-06-22] MEDS: magnesium hydroxide 30 mL UDC PO (17:26)
[2023-06-22] MEDS: ropinirole 1 mg Tablet 2 MG PO (20:23)
[2023-06-22] MEDS: gabapentin 300 mg Capsule 600 MG PO (20:23)
[2023-06-22] MEDS: ketorolac 30 mg/mL INJ 15 MG IVP (21:59)
[2023-06-23] VITALS (15 sets, daily range): BP systolic 101–150; BP diastolic 66–84; PULSE 69–109; RESP 14–18; TEMP 36.3–36.8; O2SAT 90–95
[2023-06-23] MEDS: morphine 4 mg/mL SDV 1 mL 2 MG IVP ×3 (01:53→23:03)
[2023-06-23] MEDS: oxyCODONE-APAP 5-325 mg Tablet PO ×5 (03:17→21:49)
[2023-06-23 05:18] LABS: Basophils % 0.4 %; Eosinophils # 0.2 10^3/uL (0.0-0.8); Eosinophils % 3.2 %; Hematocrit 26.5 % (36-47); Lymphocytes # 0.8 10^3/uL (0.8-4.8); Lymphocytes % 16.7 %; Mean Corpuscular HGB Conc 32.8 g/dL (30-55); Mean Corpuscular Hemoglobin 30.4 pg (27-33); Mean Corpuscular Volume 92.7 fl (85-98); Mean Platelet Volume 9.9 fL (7.4-10.4); Monocytes # 0.6 10^3/uL (0.2-0.9); Monocytes % 13.1 %; Neutrophils # 3.08 10^3/uL (1.8-7.7); Nucleated Red Blood Cells % 0 %; Platelet Count 187 10^3/cmm (157-399); Red Blood Count 2.86 10^6/uL (3.85-5.65); Red Cell Distribution Width 13.3 % (12.1-15.1); White Blood Count 4.67 10^3/uL (3.29-11.43)
[2023-06-23 05:40] LABS: Alanine Aminotransferase 40 U/L (0-33); Albumin Level 2.7 g/dL (3.5-5.2); Alkaline Phosphatase 107 U/L (35-105); Anion Gap 10.6 (5-19); Aspartate Amino Transferase 46 U/L (0-32); Blood Urea Nitrogen 11 mg/dL (8-23); Calcium 7.6 mg/dL (8.5-10.5); Carbon Dioxide 30 mmol/L (22-29); Chloride 92 mmol/L (98-107); Globulin 2.1 g/dL (1.3-4.6); Glucose 121 mg/dL (65-115); Magnesium 2.4 mg/dL (1.7-2.3); Osmolality Calculated 269 mOsm/kg (285-295); Phosphorus 2.1 mg/dL (2.5-4.5); Potassium 3.6 mmol/L (3.5-5.1); Sodium 129 mmol/L (136-145); Total Bilirubin 0.6 mg/dL (0.15-1.2); Total Protein 4.8 g/dL (6.6-8.7)
--- NOTE | 2023-06-23 07:33 | P.PN_ITS ---
Subjective Subjective: Patient up this morning watching [employer] with family present. Improving back and leg pain. Denies chest pain shortness of breath or headaches. Vitals/I&O/Wt Last Vital Signs Temp 97.3 F L 06/23/23 04:00 Pulse 72 06/23/23 04:00 Resp 18 06/23/23 04:00 BP 126/84 06/23/23 04:00 Pulse Ox 95 06/23/23 04:00 O2 Del Method Nasal Cannula 06/23/23 00:00 O2 Flow Rate 2 06/23/23 00:00 06/22/23 06/23/23 06/23/23 22:59 06:59 14:59 Intake Total 530 / 530 Balance 530 / -170 Physical Exam Narrative: Patient presents alert and oriented x3 with a good general appearance normal mood and affect. Normal coordination normal stability. Mild tenderness around the incisional site with the incision appear to be healing nicely. No signs of erythema or drainage. No signs of infection. Patient denies any fevers or chills. 5/5 motor strength both lower extremities with negative straight leg raise bilaterally. Calves are supple no medial thigh tenderness. Pulses are 2+ at the dorsalis pedis and posterior tibial region. Good capillary refill thr oughout normal sensation light touch both lower extremities. Urinary Catheter Management: Hassan: Cath Placed During This Visit: yes Urinary Catheter Date of Insertion: 06/19/23 Urinary Catheter Time of Insertion: 10:25 Data 06/23/23 04:45 06/23/23 04:45 Micro: Microbiology 06/20/23 20:45 Urine Culture - Preliminary Urine,Clean Catch A&P Assessment and plan (1) S/P spinal fusion: Continue mobilize with physical therapy. Okay to shower change dressing after showering. Continue incentive spirometry for pulmonary toilet. student financial services counselor were consulted to help with placement. (2) Acute blood loss as cause of postoperative anemia: Attestations Medical Necessity Statement*: Awaiting placement Coding Level of Care Code Acute Code for Chg Fwd Diagnoses S/P spinal fusion Z98.1 Acute blood loss as cause of postoperative anemia D62
[2023-06-23] MEDS: ketorolac 30 mg/mL INJ 15 MG IVP ×3 (08:02→20:29)
[2023-06-23] MEDS: pantoprazole DR 40 mg Tablet PO (09:14)
[2023-06-23] MEDS: potassium chloride ER 20 mEq Tablet PO (09:14)
[2023-06-23] MEDS: duloxetine 60 mg Capsule PO (09:14)
[2023-06-23] MEDS: docusate sodium 100 mg Capsule PO ×2 (09:14→17:24)
[2023-06-23] MEDS: ascorbic acid 500 mg Tablet PO ×2 (09:14→17:24)
[2023-06-23] MEDS: methocarbamol 500 mg Tablet PO ×2 (10:45→19:52)
[2023-06-23] MEDS: cefTRIAXone 1,000 MG in sodium chloride 0.9% (plus) 50 ML 100 MG IV (11:32)
[2023-06-23] MEDS: ropinirole 1 mg Tablet PO (11:32)
--- NOTE | 2023-06-23 15:25 | P.PN_ITS ---
Subjective Subjective: Is having pain and some spasms in the back muscles. Vitals/I&O/Wt Last Vital Signs Temp 98.2 F 06/23/23 11:40 Pulse 84 06/23/23 11:40 Resp 16 06/23/23 13:27 BP 135/82 06/23/23 11:40 Pulse Ox 93 06/23/23 11:40 O2 Del Method Nasal Cannula 06/23/23 00:00 O2 Flow Rate 2 06/23/23 00:00 06/23/23 06/23/23 06/23/23 06:59 14:59 22:59 Intake Total 530 / 530 Balance 530 / 530 Physical Exam Narrative: Visited by her daughter. Const: COMMON NORMALS: patient oriented x3 and alert GENERAL APPEARANCE: cooperative ORIENTATION/CONSCIOUSNESS: Yes awake OTHER: Uncomfortable, in pain HENMT: COMMON NORMALS: oropharynx normal Neck/C-Spine: COMMON NORMALS: no JVD Resp: COMMON NORMALS: normal respiratory effort and clear to auscultation bilaterally AUSCULTATION: clear to auscultation bilaterally Cardio: COMMON NORMALS: no JVD, regular rhythm, S1 normal heart sound present, S2 normal heart sound present and No murmurs present (Cardio) RHYTHM: regular rhythm HEART SOUNDS: S1 normal heart sound present and S2 normal heart sound present GI: COMMON NORMALS: Normal to inspection, nondistended, normoactive bowel sounds present, Soft to palpation and non-tender PALPATION: Yes Soft to palpation Extremity: COMMON NORMALS: no joint enlargement and no pedal edema Neuro: COMMON NORMALS: patient oriented x3 and moves all extremities SENSORIUM/ORIENTATION: Yes alert Skin: COMMON NORMALS: no rashes or lesions noted GENERAL SKIN EXAM: no rashes or lesions noted Urinary Catheter Management: Hassan: Cath Placed During This Visit: yes Urinary Catheter Date of Insertion: 06/19/23 Urinary Catheter Time of Insertion: 10:25 Data 06/23/23 04:45 06/23/23 04:45 Micro: Microbiology 06/20/23 20:45 Urine Culture - Final Urine,Clean Catch A&P Assessment and plan (1) Acute blood loss as cause of postoperative anemia: (2) Shock: (3) S/P spinal fusion: Plan Anemia: Reviewed hemoglobin, noted 8.7. Reviewed platelets, 187. Follow-up CBC requested. s/p 2 units RBC. Repeat CBC requested. We will check Hemoccult to locate any additional sources of anemia. Check TIBC panel, ferritin. Reassess blood counts, resume low-dose aspirin if safe. S/p spinal fusion: Bothered by pain today. Requiring IV morphine. Discussed with nursing staff, muscle relaxer has been added as well by orthopedics. Discussed with her and her daughter risks of adverse effects, delirium, hypotension, etc., monitor blood pressures, mental status. Noted muscle lectur es are scheduled, changed to as needed once symptoms better controlled. Continue PT. reviewed orthopedic note. Case working on postdischarge rehabilitation. Continue I-S. Hyponatremia: Sodium reviewed, noted 129. Regular diet. Recheck sodium level. Acute shock: Blood pressures are better. Midodrine has been stopped. Hold off resuming antihypertensives for now. BP 135/82. Monitor. Still fluctuation, down to 108/64 last night, hold off resuming her antihypertensives for now. She is continued on gabapentin. Ropinirole. Reviewed kidney function, BUN, creatinine normal. Noted mild pneumonitis, mild shock liver following acute shock, hypotension. Reassess chemistry with liver parameters. Reviewed liver parameters, shock liver resolving. Follow-up chemistry. -Her appetite and poor oral intake is also contributing Hypomagnesemia: Takes magnesium at home. Held for now, noted hypomagnesemia. Recheck magnesium level. Possible UTI: Reviewed urine culture. No growth. Stop ceftriaxone. Hx of anticoagulation, subsequently on ASA. Currently held. Attestations Medical Necessity Statement*: Continue admission for reassessment following shock, acute? blood loss anemia, pain control, postdischarge planning and arrangements. and High MDM includes described risk of complication, morbidity or mortality of management as documented Diagnoses Acute blood loss as cause of postoperative anemia D62 Shock R57.9 S/P spinal fusion Z98.1
[2023-06-23] MEDS: gabapentin 300 mg Capsule 600 MG PO (20:31)
[2023-06-23] MEDS: acetaminophen 325 mg Tablet 650 MG PO (20:32)
[2023-06-23] MEDS: ropinirole 1 mg Tablet 2 MG PO (20:33)
[2023-06-24] VITALS (10 sets, daily range): BP systolic 114–156; BP diastolic 59–95; PULSE 75–89; RESP 16–21; TEMP 36.4–36.5; O2SAT 90–97
--- NOTE | 2023-06-24 01:09 | ECG_ITS ---
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 Measurements Intervals [place] Rate: 66 P: 69 [place]: 221 QRS: 73 QRSD: 85 T: 78 QT: 377 QTc: 395 Interpretive Statements SINUS RHYTHM WITH FIRST DEGREE AV BLOCK WITH OCCASIONAL SUPRAVENTRICULAR PREMATURE COMPLEXES ST DEVIATION AND MODERATE T-WAVE ABNORMALITY, CONSIDER ANTERIOR ISCHEMIA [-0.1+ mV T-WAVE IN V3/V4] Compared to ECG 06/21/2023 02:53:59 T-wave abnormality now present Possible ischemia now present Electronically Signed On 06-24-2023 8:20:25 CDT by Jeremiah Chester M.D. [id number]
[2023-06-24] MEDS: methocarbamol 500 mg Tablet PO (04:22)
[2023-06-24] MEDS: oxyCODONE-APAP 5-325 mg Tablet PO ×4 (04:30→21:10)
[2023-06-24 05:02] LABS: Basophils % 0.6 %; Eosinophils # 0.2 10^3/uL (0.0-0.8); Eosinophils % 3.8 %; Lymphocytes # 0.9 10^3/uL (0.8-4.8); Lymphocytes % 18.3 %; Mean Corpuscular HGB Conc 32.9 g/dL (30-55); Mean Corpuscular Hemoglobin 30.4 pg (27-33); Mean Corpuscular Volume 92.5 fl (85-98); Mean Platelet Volume 9.6 fL (7.4-10.4); Monocytes # 0.6 10^3/uL (0.2-0.9); Monocytes % 12.3 %; Neutrophils # 3.23 10^3/uL (1.8-7.7); Nucleated Red Blood Cells % 0 %; Platelet Count 268 10^3/cmm (157-399); Red Blood Count 3.35 10^6/uL (3.85-5.65); Red Cell Distribution Width 12.9 % (12.1-15.1); White Blood Count 5.04 10^3/uL (3.29-11.43)
[2023-06-24 05:17] LABS: Alanine Aminotransferase 39 U/L (0-33); Albumin Level 3.2 g/dL (3.5-5.2); Alkaline Phosphatase 119 U/L (35-105); Anion Gap 11.5 (5-19); Aspartate Amino Transferase 38 U/L (0-32); Blood Urea Nitrogen 13 mg/dL (8-23); Calcium 8.4 mg/dL (8.5-10.5); Carbon Dioxide 32 mmol/L (22-29); Chloride 90 mmol/L (98-107); Globulin 2.6 g/dL (1.3-4.6); Glucose 106 mg/dL (65-115); Iron 31 ug/dL (37-145); Osmolality Calculated 269 mOsm/kg (285-295); Percent Saturation 19.8 % (20-50); Potassium 4.5 mmol/L (3.5-5.1); Sodium 129 mmol/L (136-145); Total Bilirubin 0.6 mg/dL (0.15-1.2); Total Iron Binding Capacity 156 mcg/dl; Total Protein 5.8 g/dL (6.6-8.7); Unsaturated Iron Binding 125 ug/dL (112-347)
[2023-06-24 05:23] LABS: Ferritin 339 ng/mL (15-150)
--- NOTE | 2023-06-24 06:48 | PM.PN ---
Subjective Subjective: POD 5 Patient sitting up in the chair feeling much better. Denies chest pain, shortness of breath, headaches. Vitals/I&O/Wt Last Vital Signs Temp 97.7 F 06/24/23 04:00 Pulse 75 06/24/23 04:00 Resp 18 06/24/23 04:30 BP 134/63 06/24/23 04:00 Pulse Ox 92 06/24/23 04:30 O2 Del Method Nasal Cannula 06/23/23 00:00 O2 Flow Rate 2 06/23/23 00:00 06/23/23 06/23/23 06/24/23 14:59 22:59 06:59 Intake Total 530 / 530 240 / 770 Balance 530 / 530 240 / 770 Physical Exam Narrative: Patient presents alert and oriented x3 with a good general appearance normal mood and affect.? Normal coordination normal stability.? Mild tenderness around the incisional site with the incision appear to be healing nicely.? No signs of erythema or drainage.? No signs of infection.? Patient denies any fevers or chills.? 5/5 motor strength both lower extremities with negative straight leg raise bilaterally.? Calves are supple no medial thigh tenderness.? Pulses are 2+ at the dorsalis pedis and posterior tibial region.? Good capillary refill throughout normal sensation light touch both lower extremities. Urinary Catheter Management: Hassan: Cath Placed During This Visit: yes, but has since been removed by the nurse Reason for Continuing Indwelling Catheter: Decision to DC Catheter Urinary Catheter Date of Insertion: 06/19/23 Urinary Catheter Time of Insertion: 10:25 Date Urinary Catheter Removed: 06/22/23 Time Urinary Catheter Discontinued: 13:00 Data 06/24/23 04:13 06/24/23 04:13 Micro: Microbiology 06/20/23 20:45 Urine Culture - Final Urine,Clean Catch A&P Assessment and plan (1) S/P spinal fusion: Continue to work with physical therapy for mobilization. We will await nursing home social worker consultation for placement. Continue incentive spirometry for pulmonary toilet. Okay for the patient to shower change dressing with Silver[place] after. High risk of bleeding continue SCDs for DVT prophylaxis. Attestations Medical Necessity Statement*: Awaiting placement Coding Level of Care Code Acute Code for Chg Fwd Diagnoses S/P spinal fusion Z98.1
[2023-06-24] MEDS: ketorolac 30 mg/mL INJ 15 MG IVP ×3 (08:00→21:18)
[2023-06-24] MEDS: docusate sodium 100 mg Capsule PO ×2 (09:05→17:02)
[2023-06-24] MEDS: ferrous gluconate 324 mg Tablet PO (09:05)
[2023-06-24] MEDS: duloxetine 60 mg Capsule PO (09:05)
[2023-06-24] MEDS: FUROsemide 20 mg Tablet PO (09:05)
[2023-06-24] MEDS: potassium chloride ER 20 mEq Tablet PO (09:05)
[2023-06-24] MEDS: pantoprazole DR 40 mg Tablet PO (09:05)
[2023-06-24] MEDS: ascorbic acid 500 mg Tablet PO ×2 (09:05→17:02)
[2023-06-24 09:43] LABS: Phosphorus 2.5 mg/dL (2.5-4.5)
[2023-06-24 09:54] LABS: Estmated Average Glucose 103; Hemoglobin A1C 5.2 % (4.0-6.0)
[2023-06-24 10:01] LABS: Thyroid Stimulating Hormone 1.46 uIU/mL (0.27-4.20); Vitamin B12 1553 pg/mL (232-1245)
[2023-06-24] MEDS: ropinirole 1 mg Tablet PO (12:04)
--- NOTE | 2023-06-24 12:15 | XRR_ITS ---
PROCEDURE INFORMATION: Exam: XR Abdomen Exam date and time: 06/24/2023 12:51 PM Age: 78 years old Clinical indication: Constipation; Abdominal pain; Generalized; Prior surgery; Surgery date: 6+ months; Surgery type: Back; Additional info: Abd pain, constipation TECHNIQUE: Imaging protocol: Radiologic exam of the abdomen. Views: 2 Views. Upright and supine views. COMPARISON: CR (CHEST, ) 06/20/2023 8:54 PM FINDINGS: Tubes, catheters and devices: Posterior spinal instrumentation. [place] rightward lumbar curvature. 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 Pleural spaces: Small left-sided pleural effusion. Gastrointestinal tract: Normal. No bowel dilation. Intraperitoneal space: Normal. No free air. Bones/joints: Previous median sternotomy. Previous aortic valve replacement. XR/XR acute abdomen series 68230 IMPRESSION: No acute findings.
--- NOTE | 2023-06-24 12:19 | PC.SOCIAL ---
IMM Update pg 2 of IMM updated and reviewed w/ patient. Copy provided and copy in chart dated, and initialed.
[2023-06-24] MEDS: magnesium hydroxide 30 mL UDC PO (12:23)
[2023-06-24] MEDS: cyclobenzaprine 10 mg Tablet PO ×3 (13:28→20:25)
[2023-06-24] MEDS: fentaNYL 25 mcg Patch 1 PATCH TRANSDERMA (13:28)
--- NOTE | 2023-06-24 14:47 | P.PN_ITS ---
Subjective Subjective: Hospital course, labs appreciated. Today morning seen sitting at edge of the bed with daughter at bedside. Patient seems to be in distress because of back pain. Daughter states patient having extreme back spasms. Patient also states she has not had a bowel movement since 2 days prior to admission. Complaining of abdomen distention but denies any nausea. Blood work appreciated for stable hemoglobin of 10.2, CMP showing a stable sodium of 129, potassium of 4.5. Vitals/I&O/Wt Last Vital Signs Temp 97.5 F L 06/24/23 12:00 Pulse 82 06/24/23 12:00 Resp 18 06/24/23 12:00 BP 156/95 06/24/23 12:00 Pulse Ox 97 06/24/23 12:00 O2 Del Method Nasal Cannula 06/23/23 00:00 O2 Flow Rate 2 06/23/23 00:00 06/23/23 06/24/23 06/24/23 22:59 06:59 14:59 Intake Total 240 / 770 350 / 350 Balance 240 / 770 350 / 350 Physical Exam Narrative: Visited by her daughter. Const: COMMON NORMALS: no acute distress, patient oriented x3 and alert GENERAL APPEARANCE: cooperative, well kempt and well developed ORIENTATION/CONSCIOUSNESS: Yes awake OTHER: Uncomfortable, in pain HENMT: COMMON NORMALS: normocephalic, Normal external nose present and oropharynx normal HEAD & SCALP: normocephalic FACE & SINUS: normal facial exam NOSE: Normal external nose present MOUTH: Normal oral and palatal mucosa present THROAT: posterior oropharynx normal Eye: COMMON NORMALS: Equal, round and reactive pupils present, EOMs intact bilaterally, conjunctivae normal and no scleral icterus CONJUNCTIVA: Yes conjunctivae normal PUPIL: Yes Equal, round and reactive pupils present Neck/C-Spine: COMMON NORMALS: full ROM, no lymphadenopathy, no JVD, Thyroid n ormal and No carotid bruits THYROID: Thyroid normal Lymph: LYMPHATIC: no lymphadenopathy noted Chest: COMMONS NORMALS: normal inspection of the chest Resp: COMMON NORMALS: normal respiratory effort, No retractions, No use of accessory muscles and clear to auscultation bilaterally AUSCULTATION: clear to auscultation bilaterally Cardio: COMMON NORMALS: no JVD, regular rate, regular rhythm, S1 normal heart sound present, S2 normal heart sound present, No murmurs present (Cardio) and Peripheral pulses 2+ throughout RATE: regular rate RHYTHM: regular rhythm HEART SOUNDS: S1 normal heart sound present and S2 normal heart sound present PERIPHERAL PULSES: Peripheral pulses 2+ throughout OTHER: Systolic murmur GI: COMMON NORMALS: Normal to inspection, nondistended, normoactive bowel sounds present, Soft to palpation, non-tender and No hepatosplenomegaly present PALPATION: Yes Soft to palpation and Yes No hepatosplenomegaly present Back/Pelvis: OTHER: Wound drain Extremity: COMMON NORMALS: normal to inspection, full ROM, capillary refill normal, no joint enlargement, no calf tenderness and no pedal edema Neuro: COMMON NORMALS: patient oriented x3, CN's II-XII intact bilaterally, moves all extremities, no focal motor deficits and no sensory deficits noted SENSORIUM/ORIENTATION: Yes alert Psych: COMMON NORMALS: mental status grossly normal, Normal thought process present, cooperative and speech normal APPEARANCE: Yes well kempt SPEECH: Yes normal speech THOUGHT PROCESS: Normal thought process present Skin: COMMON NORMALS: no rashes or lesions noted, turgor normal and no j aundice NARRATIVE SKIN EXAM: Back examination, has a PAUL drain in place, surgical site, with abdominal pads in place, T11 to pelvis surgery, abdominal pads are bloodsoaked, GENERAL SKIN EXAM: no rashes or lesions noted and turgor normal Urinary Catheter Management: Hassan: Cath Placed During This Visit: yes, but has since been removed by the nurse Reason for Continuing Indwelling Catheter: Decision to DC Catheter Urinary Catheter Date of Insertion: 06/19/23 Urinary Catheter Time of Insertion: 10:25 Date Urinary Catheter Removed: 06/22/23 Time Urinary Catheter Discontinued: 13:00 Data 06/24/23 04:13 06/24/23 04:13 Micro: Microbiology 06/20/23 20:45 Urine Culture - Final Urine,Clean Catch A&P Assessment and plan (1) Acute blood loss as cause of postoperative anemia: (2) Shock: (3) S/P spinal fusion: Plan Anemia: Most likely acute blood loss anemia secondary to procedure. Post 2 unit of blood transfusion. Hemoglobin stable and good response at 10.2. Appreciate CBC and iron panel. Start on oral iron supplementation every other day. Can restart home dose of baby aspirin. Anticoagulation as per primary team. S/p spinal fusion: Uncomfortable and bothered by pain. Continue with pain medication as per primary team. Add standing order of Flexeril 10 mg 3 times daily, fentanyl patch. Monitor mentation. Continue with PT. Incentive spirometry. Monitor renal functions. Constipation: Check abdominal series to rule out bowel obstruction. Aggressive bowel regimen with milk of magnesia and senna Colace. If no response will plan for enema. Discussed in detail with patient and daughter at bedside. Agreeable. Hyponatremia: Acute on chronic. Most likely in setting of pain medication and poor oral intake. Stable for now. Does take hydrochlorothiazide at home. 20 mg oral Lasix one- time. Monitor CMP daily for now. Acute shock: Most likely in setting of blood loss anemia. Blood pressures improving. Midodrine has been stopped. Monitor blood pressures daily. Goal blood pressure less than 140/90 mmHg with mean over 65. For now hold off on home antihypertensives. Will add as per goal blood pressures. Out of bed to chair. Continue home dose of gabapentin, Ropinirole. Full code Regular diet Anticoagulation as per primary team postoperatively. SCDs for now. Protonix for PUD prophylaxis Care discussed in detail with patient's daughter, patient and nurse at bedside. All the questions were answered Thank you for involving us in care of Ms. Espinoza. Please call back with any questions. Attestations Medical Necessity Statement*: As per primary team. Diagnoses Acute blood loss as cause of postoperative anemia D62 Shock R57.9 S/P spinal fusion Z98.1
[2023-06-24] MEDS: sennosides-docusate Tablet 1 TAB PO (17:02)
[2023-06-24] MEDS: ropinirole 1 mg Tablet 2 MG PO (20:25)
[2023-06-24] MEDS: gabapentin 300 mg Capsule 600 MG PO (20:25)
[2023-06-25] VITALS (11 sets, daily range): BP systolic 101–163; BP diastolic 57–83; PULSE 62–92; RESP 14–20; TEMP 36.4–37; O2SAT 92–99
[2023-06-25] MEDS: oxyCODONE-APAP 5-325 mg Tablet PO ×4 (05:19→19:46)
[2023-06-25 05:57] LABS: Basophils % 0.4 %; Eosinophils # 0.2 10^3/uL (0.0-0.8); Eosinophils % 3.3 %; Hematocrit 28.6 % (36-47); Lymphocytes # 0.7 10^3/uL (0.8-4.8); Lymphocytes % 15.4 %; Mean Corpuscular HGB Conc 33.2 g/dL (30-55); Mean Corpuscular Hemoglobin 31.1 pg (27-33); Mean Corpuscular Volume 93.8 fl (85-98); Mean Platelet Volume 9.2 fL (7.4-10.4); Monocytes # 0.6 10^3/uL (0.2-0.9); Monocytes % 12.7 %; Neutrophils # 3.23 10^3/uL (1.8-7.7); Neutrophils % 67.2 %; Nucleated Red Blood Cells % 0 %; Platelet Count 274 10^3/cmm (157-399); Red Blood Count 3.05 10^6/uL (3.85-5.65); Red Cell Distribution Width 12.8 % (12.1-15.1); White Blood Count 4.81 10^3/uL (3.29-11.43)
[2023-06-25 06:27] LABS: Magnesium 2.3 mg/dL (1.7-2.3); Phosphorus 2.3 mg/dL (2.5-4.5)
[2023-06-25 06:29] LABS: Alanine Aminotransferase 29 U/L (0-33); Albumin Level 3.1 g/dL (3.5-5.2); Alkaline Phosphatase 117 U/L (35-105); Anion Gap 11.6 (5-19); Aspartate Amino Transferase 33 U/L (0-32); Blood Urea Nitrogen 14 mg/dL (8-23); Calcium 8.6 mg/dL (8.5-10.5); Carbon Dioxide 31 mmol/L (22-29); Chloride 91 mmol/L (98-107); Globulin 2.5 g/dL (1.3-4.6); Glucose 107 mg/dL (65-115); Osmolality Calculated 269 mOsm/kg (285-295); Potassium 4.6 mmol/L (3.5-5.1); Sodium 129 mmol/L (136-145); Total Bilirubin 0.4 mg/dL (0.15-1.2); Total Protein 5.6 g/dL (6.6-8.7)
[2023-06-25 06:42] LABS: Folate Level 6.1 ng/mL (4.8-37.3)
[2023-06-25] MEDS: magnesium citrate Btl 296 mL PO (06:52)
--- NOTE | 2023-06-25 07:16 | PM.PN ---
Subjective Subjective: POD 6 Resting comfortably. No complaints this morning Vitals/I&O/Wt Last Vital Signs Temp 97.7 F 06/25/23 04:00 Pulse 72 06/25/23 04:00 Resp 18 06/25/23 05:19 BP 163/83 06/25/23 04:00 Pulse Ox 96 06/25/23 05:19 O2 Del Method Room Air 06/25/23 04:00 O2 Flow Rate 2 06/23/23 00:00 06/24/23 06/25/23 06/25/23 22:59 06:59 14:59 Intake Total 320 / 670 250 / 920 Output Total 50 / 50 Balance 270 / 620 250 / 870 Physical Exam Narrative: Patient presents alert and oriented x3 with a good general appearance normal mood and affect.? Normal coordination normal stability.? Mild tenderness around the incisional site with the incision appear to be healing nicely.? No signs of erythema or drainage.? No signs of infection.? Patient denies any fevers or chills.? 5/5 motor strength both lower extremities with negative straight leg raise bilaterally.? Calves are supple no medial thigh tenderness.? Pulses are 2+ at the dorsalis pedis and posterior tibial region.? Good capillary refill throughout normal sensation light touch both lower extremities. Urinary Catheter Management: Hassan: Cath Placed During This Visit: yes, but has since been removed by the nurse Reason for Continuing Indwelling Catheter: Decision to DC Catheter Urinary Catheter Date of Insertion: 06/19/23 Urinary Catheter Time of Insertion: 10:25 Date Urinary Catheter Removed: 06/22/23 Time Urinary Catheter Discontinued: 13:00 Data 06/25/23 05:30 06/25/23 05:30 A&P Assessment and plan (1) S/P spinal fusion: Continue to mobilize. Dressing change as needed. Continue incentive spirometer for pulmonary toilet. Ready for discharge to secondary facility once bed available. Attestations Medical Necessity Statement*: Transfer when bed available. Coding Level of Care Code Acute Code for Chg Fwd Diagnoses S/P spinal fusion Z98.1
[2023-06-25] MEDS: cyclobenzaprine 10 mg Tablet PO ×3 (09:28→20:31)
[2023-06-25] MEDS: duloxetine 60 mg Capsule PO (09:28)
[2023-06-25] MEDS: pantoprazole DR 40 mg Tablet PO (09:28)
[2023-06-25] MEDS: ascorbic acid 500 mg Tablet PO ×2 (09:28→17:28)
[2023-06-25] MEDS: ketorolac 30 mg/mL INJ 15 MG IVP ×2 (11:03→17:28)
[2023-06-25] MEDS: ropinirole 1 mg Tablet PO (11:04)
[2023-06-25] MEDS: ropinirole 1 mg Tablet 2 MG PO (20:31)
[2023-06-25] MEDS: gabapentin 300 mg Capsule 600 MG PO (20:31)
[2023-06-26] VITALS (12 sets, daily range): BP systolic 109–155; BP diastolic 59–77; PULSE 72–98; RESP 16–18; TEMP 36.4–36.7; O2SAT 93–99
[2023-06-26] MEDS: ketorolac 30 mg/mL INJ 15 MG IVP ×3 (00:27→17:08)
[2023-06-26] MEDS: oxyCODONE-APAP 5-325 mg Tablet PO ×5 (04:26→21:11)
[2023-06-26 05:45] LABS: Basophils % 0.4 %; Eosinophils # 0.2 10^3/uL (0.0-0.8); Eosinophils % 4.7 %; Hematocrit 25.5 % (36-47); Lymphocytes # 0.7 10^3/uL (0.8-4.8); Lymphocytes % 16.4 %; Mean Corpuscular HGB Conc 32.5 g/dL (30-55); Mean Corpuscular Hemoglobin 30.9 pg (27-33); Mean Corpuscular Volume 94.8 fl (85-98); Mean Platelet Volume 9.1 fL (7.4-10.4); Monocytes # 0.6 10^3/uL (0.2-0.9); Monocytes % 14.2 %; Neutrophils # 2.82 10^3/uL (1.8-7.7); Neutrophils % 62.5 %; Nucleated Red Blood Cells % 0 %; Platelet Count 274 10^3/cmm (157-399); Red Blood Count 2.69 10^6/uL (3.85-5.65); White Blood Count 4.51 10^3/uL (3.29-11.43)
[2023-06-26 06:05] LABS: Albumin Level 2.9 g/dL (3.5-5.2); Chloride 92 mmol/L (98-107); Potassium 4.7 mmol/L (3.5-5.1); Sodium 127 mmol/L (136-145)
[2023-06-26 06:11] LABS: Magnesium 2.5 mg/dL (1.7-2.3); Phosphorus 3.2 mg/dL (2.5-4.5)
[2023-06-26 06:28] LABS: Alanine Aminotransferase 29 U/L (0-33); Alkaline Phosphatase 111 U/L (35-105); Anion Gap 12.9 (5-19); Aspartate Amino Transferase 32 U/L (0-32); Blood Urea Nitrogen 22 mg/dL (8-23); Calcium 8.3 mg/dL (8.5-10.5); Carbon Dioxide 28 mmol/L (22-29); Globulin 1.7 g/dL (1.3-4.6); Glucose 98 mg/dL (65-115); Osmolality Calculated 269 mOsm/kg (285-295); Total Bilirubin 0.3 mg/dL (0.15-1.2); Total Protein 4.6 g/dL (6.6-8.7)
--- NOTE | 2023-06-26 06:51 | PM.PN ---
Subjective Subjective: POD 7 Patient with no complaints, awaiting placement Vitals/I&O/Wt Last Vital Signs Temp 97.9 F 06/26/23 04:15 Pulse 72 06/26/23 04:15 Resp 16 06/26/23 04:26 BP 109/65 06/26/23 04:15 Pulse Ox 93 06/26/23 04:26 O2 Del Method Room Air 06/26/23 00:00 O2 Flow Rate 2 06/23/23 00:00 06/25/23 06/25/23 06/26/23 14:59 22:59 06:59 Intake Total 720 / 720 740 / 1460 500 / 1960 Balance 720 / 720 740 / 1460 500 / 1960 Physical Exam Narrative: Patient presents alert and oriented x3 with a good general appearance normal mood and affect.? Normal coordination normal stability.? Mild tenderness around the incisional site with the incision appear to be healing nicely.? No signs of erythema or drainage.? No signs of infection.? Patient denies any fevers or chills.? 5/5 motor strength both lower extremities with negative straight leg raise bilaterally.? Calves are supple no medial thigh tenderness.? Pulses are 2+ at the dorsalis pedis and posterior tibial region.? Good capillary refill throughout normal sensation light touch both lower extremities. Urinary Catheter Management: Hassan: Cath Placed During This Visit: yes, but has since been removed by the nurse Reason for Continuing Indwelling Catheter: Decision to DC Catheter Urinary Catheter Date of Insertion: 06/19/23 Urinary Catheter Time of Insertion: 10:25 Date Urinary Catheter Removed: 06/22/23 Time Urinary Catheter Discontinued: 13:00 Data 06/26/23 05:25 06/26/23 05:25 Micro: Microbiology 06/25/23 09:10 Occult Blood (FIT) - Final Stool Routine Collection A&P Assessment and plan (1) S/P spinal fusion: Ready for transfer when placement found. Follow-up in the office in 1 week's time for wound check. Continue walking program no bending lifting or twisting. Attestations Medical Necessity Statement*: Awaiting placement Coding Level of Care Code Acute Code for Chg Fwd Diagnoses S/P spinal fusion Z98.1
[2023-06-26] MEDS: ascorbic acid 500 mg Tablet PO ×2 (08:05→16:34)
[2023-06-26] MEDS: pantoprazole DR 40 mg Tablet PO ×2 (08:05→16:34)
[2023-06-26] MEDS: duloxetine 60 mg Capsule PO (08:05)
[2023-06-26] MEDS: ferrous gluconate 324 mg Tablet PO (08:06)
[2023-06-26] MEDS: cyclobenzaprine 10 mg Tablet PO ×3 (08:06→21:12)
[2023-06-26 10:47] LABS: SARS Covid-2 Antigen negative (Negative)
[2023-06-26] MEDS: ropinirole 1 mg Tablet PO (11:08)
[2023-06-26] MEDS: sucralfate 1 gm Tablet PO ×3 (11:10→21:12)
--- NOTE | 2023-06-26 16:47 | P.PN_ITS ---
Subjective Subjective: No acute events overnight. Patient has remained hemodynamically stable and afebrile. Today morning seen sitting up in chair. Has worked with physical therapy. States overall she is feeling fine other than the pain in her back especially during ambulation. Blood work shows hemoglobin down to 8.3.5 yesterday. Patient denies any melena. Sodium level 127 from 129 yesterday. Stool for occult blood positive. Vitals/I&O/Wt Last Vital Signs Temp 98.0 F 06/26/23 15:58 Pulse 98 06/26/23 15:58 Resp 18 06/26/23 15:58 BP 122/72 06/26/23 15:58 Pulse Ox 98 06/26/23 11:16 O2 Del Method Room Air 06/26/23 11:16 O2 Flow Rate 2 06/23/23 00:00 06/26/23 06/26/23 06/26/23 06:59 14:59 22:59 Intake Total 500 / 1960 240 / 240 Balance 500 / 1960 240 / 240 Physical Exam Narrative: Visited by her daughter. Const: COMMON NORMALS: no acute distress, patient oriented x3 and alert GENERAL APPEARANCE: cooperative, well kempt and well developed ORIENT ATION/CONSCIOUSNESS: Yes awake OTHER: Uncomfortable, in pain HENMT: COMMON NORMALS: normocephalic, Normal external nose present and oropharynx normal HEAD & SCALP: normocephalic FACE & SINUS: normal facial exam NOSE: Normal external nose present MOUTH: Normal oral and palatal mucosa present THROAT: posterior oropharynx normal Eye: COMMON NORMALS: Equal, round and reactive pupils present, EOMs intact bilaterally, conjunctivae normal and no scleral icterus CONJUNCTIVA: Yes conjunctivae normal PUPIL: Yes Equal, round and reactive pupils present Neck/C-Spine: COMMON NORMALS: full ROM, no lymphadenopathy, no JVD, Thyroid normal and No carotid bruits THYROID: Thyroid normal Lymph: LYMPHATIC: no lymphadenopathy noted Chest: COMMONS NORMALS: normal inspection of the chest Resp: COMMON NORMALS: normal respiratory effort, No retractions, No use of accessory muscles and clear to auscultation bilaterally AUSCULTATION: clear to auscultation bilaterally Cardio: COMMON NORMALS: no JVD, regular rate, regular rhythm, S1 normal heart sound present, S2 normal heart sound present, No murmurs present (Cardio) and Peripheral pulses 2+ throughout RATE: regular rate RHYTHM: regular rhythm HEART SOUNDS: S1 normal heart sound present and S2 normal heart sound present PERIPHERAL PULSES: Peripheral pulses 2+ throughout OTHER: Systolic murmur GI: COMMON NORMALS: Normal to inspection, nondistended, normoactive bowel sounds present, Soft to palpation, non-tender and No hepatosplenomegaly present PALPATION: Yes Soft to palpation and Yes No hepatosplenomegaly present Back/Pelvis: OTHER: Wound drain Extremity: COMMON NORMALS: normal to inspection, full ROM, capillary refill normal, no joint enlargement, no calf tenderness and no pedal edema Neuro: COMMON NORMALS: patient oriented x3, CN's II-XII intact bilaterally, moves all extremities, no focal motor deficits and no sensory deficits noted SENSORIUM/ORIENTATION: Yes alert Psych: COMMON NORMALS: mental status grossly normal, Normal thought process present, cooperative and speech normal APPEARANCE: Yes well kempt SPEECH: Yes normal speech THOUGHT PROCESS: Normal thought process present Skin: COMMON NORMALS: no rashes or lesions noted, turgor normal and no jaundice NARRATIVE SKIN EXAM: Back examination, has a PAUL drain in place, surgical site, with abdominal pads in place, T11 to pelvis surgery, abdominal pads are bloodsoaked, GENERAL SKIN EXAM: no rashes or lesions noted and turgor normal Urinary Catheter Management: Hassan: Cath Placed During This Visit: yes, but has since been removed by the nurse Reason for Continuing Indwelling Catheter: Decision to DC Catheter Urinary Catheter Date of Insertion: 06/19/23 Urinary Catheter Time of Insertion: 10:25 Date Urinary Catheter Removed: 06/22/23 Time Urinary Catheter Discontinued: 13:00 Data 06/26/23 05:25 06/26/23 05:25 Micro: Microbiology 06/25/23 09:10 Occult Blood (FIT) - Final Stool Routine Collection A&P Assessment and plan (1) Acute blood loss as cause of postoperative anemia: (2) Shock: (3) S/P spinal fusion: Plan Anemia: Most likely acute blood loss anemia secondary to procedure. Post 2 unit of blood transfusion. Hemoglobin slightly trending down to 8.3. No melena. Protonix twice daily, Carafate ACHS. Hold off on baby aspirin. Oral iron supplementation. S/p spinal fusion: Uncomfortable and bothered by pain. Continue with pain medication as per primary team. Add standing order of Flexeril 10 mg 3 times daily, fentanyl patch. Monitor mentation. Continue with PT. Incentive spirometry. Monitor renal functions. Constipation: Check abdominal series to rule out bowel obstruction. Aggressive bowel regimen with milk of magnesia and senna Colace. If no response will plan for enema. Discussed in detail with patient and daughter at bedside. Agreeable. Hyponatremia: Acute on chronic. Most likely in setting of pain medication and poor oral intake. Stable for now. Does take hydrochlorothiazide at home. 20 mg oral Lasix one- time. Monitor CMP daily for now. Acute shock: Most likely in setting of blood loss anemia. Blood pressures improving. Midodrine has been stopped. Monitor blood pressures daily. Goal blood pressure less than 140/90 mmHg with mean over 65. For now hold off on home antihypertensives. Will add as per goal blood pressures. Out of bed to chair. Continue home dose of gabapentin, Ropinirole. Full code Regular diet Anticoagulation as per primary team postoperatively. SCDs for now. Protonix for PUD prophylaxis Plan for the day: Continue with regular diet. Start on oral salt supplementation. We will plan for 14 days of oral salt tablets twice daily. Hemoglobin so far over 8. No melena. Stool for occult blood positive. Continue with oral iron supplementation. Change Protonix to 40 mg twice daily. Add Carafate ACHS. Patient should be discharged on Carafate before meals and at bedtime for next 4 weeks and Protonix twice daily. Will advise patient to get a repeat CBC and CMP done in 1 week. Patient is stable to be discharged from medicine team once placement is sought. Discussed discharge planning in detail with patient. Discussed recommendation for repeat CBC and CMP in 1 week and continuation of PPIs twice daily along with Carafate for next 4 weeks. Patient verbalized understanding. Care discussed in detail with patient's daughter, patient and nurse at bedside. All the questions were answered Thank you for involving us in care of Ms. Espinoza. Please call back with any questions. Attestations Medical Necessity Statement*: As per primary team. Diagnoses Acute blood loss as cause of postoperative anemia D62 Shock R57.9 S/P spinal fusion Z98.1
[2023-06-26] MEDS: sodium chloride 1 gm Tablet PO (17:04)
[2023-06-26] MEDS: gabapentin 300 mg Capsule 600 MG PO (21:12)
[2023-06-26] MEDS: ropinirole 1 mg Tablet 2 MG PO (21:12)
[2023-06-27 04:12] VITALS: BP 122/60; PULSE 64; RESP 18; TEMP 36.4; O2SAT 99
[2023-06-27 04:25] VITALS: RESP 18
[2023-06-27] MEDS: oxyCODONE-APAP 5-325 mg Tablet PO ×2 (04:25→12:41)
[2023-06-27 06:02] LABS: Magnesium 2.6 mg/dL (1.7-2.3); Phosphorus 4.3 mg/dL (2.5-4.5)
--- NOTE | 2023-06-27 07:37 | PM.PN ---
Subjective Subjective: Patient mobilizing in the room ready for discharge. Vitals/I&O/Wt Last Vital Signs Temp 97.6 F 06/27/23 04:12 Pulse 64 06/27/23 04:12 Resp 18 06/27/23 04:25 BP 122/60 06/27/23 04:12 Pulse Ox 99 06/27/23 04:12 O2 Del Method Room Air 06/27/23 04:12 O2 Flow Rate 2 06/23/23 00:00 06/26/23 06/27/23 06/27/23 22:59 06:59 14:59 Intake Total 240 / 480 Balance 240 / 480 Physical Exam Narrative: Patient presents alert and oriented x3 with a good general appearance normal mood and affect. Normal coordination normal stability. Mild tenderness around the incisional site with the incision appear to be healing nicely. No signs of erythema or drainage. No signs of infection. Patient denies any fevers or chills. 5/5 motor strength both lower extremities with negative straight leg raise bilaterally. Calves are supple no medial thigh tenderness. Pulses are 2+ at the dorsalis pedis and posterior tibial region. Good capillary refill throughout normal sensation light touch both lower extremities. Urinary Catheter Management: Hassan: Cath Placed During This Visit: yes, but has since been removed by the nurse Reason for Continuing Indwelling Catheter: Decision to DC Catheter Urinary Catheter Date of Insertion: 06/19/23 Urinary Catheter Time of Insertion: 10: Date Urinary Catheter Removed: 06/22/23 Time Urinary Catheter Discontinued: 13:00 Data 06/26/23 05:25 06/26/23 05:25 A&P Assessment and plan (1) S/P spinal fusion: Transfer when bed available. Return to the office in 1 to 2 weeks for wound check. Continue incentive spirometry for pulmonary toilet. Continue mobilizing with physical therapy. Attestations Medical Necessity Statement*: Ready for discharge when bed available. Coding Level of Care Code Acute Code for Chg Fwd Diagnoses S/P spinal fusion Z98.1
[2023-06-27 07:46] VITALS: BP 155/76; PULSE 96; RESP 16; TEMP 36.7; O2SAT 96
[2023-06-27] MEDS: sucralfate 1 gm Tablet PO (09:26)
[2023-06-27] MEDS: sodium chloride 1 gm Tablet PO (09:26)
[2023-06-27] MEDS: ascorbic acid 500 mg Tablet PO (09:26)
[2023-06-27] MEDS: cyclobenzaprine 10 mg Tablet PO (09:26)
[2023-06-27] MEDS: sennosides-docusate Tablet 1 TAB PO (09:26)
[2023-06-27] MEDS: pantoprazole DR 40 mg Tablet PO (09:27)
[2023-06-27] MEDS: docusate sodium 100 mg Capsule PO (09:27)
[2023-06-27] MEDS: duloxetine 60 mg Capsule PO (09:27)
--- NOTE | 2023-06-27 09:44 | PC.NURSE ---
0830 - Walks in pt room to perform assessment and administer pain medication. Pt states, you're too late. I already took my own. Pt proceeds to show this nurse 8 Hydrocodone 5-325mg tablets. She states that she will not give them to this nurse. She admits to taking 2 pills. Charge nurse, Kira, is able to retrieve pain medication from pt. Counted Hydrocodone, filled out paperwork per protocol, and places into [facility]. Notified Dallin , physician shipping and receiving assistant for Dr. Babb. Dallin states to administer next dose based on time that she took home medications. Next dose of pain medication due at 1230 based on Q4H schedule.
[2023-06-27 12:00] VITALS: BP 125/82; PULSE 99; RESP 16; TEMP 36.6; O2SAT 96
[2023-06-27] MEDS: fentaNYL 25 mcg Patch 1 PATCH TRANSDERMA (12:40)
[2023-06-27] MEDS: ropinirole 1 mg Tablet PO (12:41)
--- NOTE | 2023-06-27 12:44 | PC.NURSE ---
Fentanyl patch placed on 06/24/2023 not found. Verified with Charge Nurse, Kira Escobedo RN. New Fentanyl patch placed per order on right lower abd.
--- NOTE | 2023-06-27 12:48 | P.PN_ITS ---
Subjective Subjective: No acute events overnight. Patient had a restful night. As per the case management she has been discharged to SNF today. As per the nursing staff they found out that patient has been taking her own home medications as well while being given medication from the hospital also. She was counseled in detail not to do the same in future as it could be dangerous for her without monitoring of her medications they could be duplication. Patient verbalized understanding. Vitals/I&O/Wt Last Vital Signs Temp 97.9 F 06/27/23 12:00 Pulse 99 06/27/23 12:00 Resp 16 06/27/23 12:00 BP 125/82 06/27/23 12:00 Pulse Ox 96 06/27/23 12:00 O2 Del Method Room Air 06/27/23 04:12 O2 Flow Rate 2 06/23/23 00:00 06/26/23 06/27/23 06/27/23 22:59 06:59 14:59 Intake Total 240 / 480 480 / 480 Balance 240 / 480 480 / 480 Physical Exam Narrative: Visited by her daughter. Const: COMMON NORMALS: no acute distress, patient oriented x3 and alert GENERAL APPEARANCE: cooperative, well kempt and well developed ORIENTATION/CONSCIOUSNESS: Yes awake OTHER: Uncomfortable, in pain HENMT: COMMON NORMALS: normocephalic, Normal external nose present and oropharynx normal HEAD & SCALP: normocephalic FACE & SINUS: normal facial exam NOSE: Normal external nose present MOUTH: Normal oral and palatal mucosa present THROAT: posterior oropharynx normal Eye: COMMON NORMALS: Equal, round and reactive pupils present, EOMs intact bilaterally, conjunctivae normal and no scleral icterus CONJUNCTIVA: Yes conjunctivae normal PUPIL: Yes Equal, round and reactive pupils present Neck/C-Spine: COMMON NORMALS: full ROM, no lymphadenopathy, no JVD, Thyroid normal and No carotid bruits THYROID: Thyroid normal Lymph: LYMPHATIC: no lymphadenopathy noted Chest: COMMONS NORMALS: normal inspection of the chest Resp: COMMON NORMALS: normal respiratory effort, No retractions, No use of accessory muscles and clear to auscultation bilaterally AUSCULTATION: clear to auscultation bilaterally Cardio: COMMON NORMALS: no JVD, regular rate, regular rhythm, S1 normal heart sound present, S2 normal heart sound present, No murmurs present (Cardio) and Peripheral pulses 2+ throughout RATE: regular rate RHYTHM: regular rhythm HEART SOUNDS: S1 normal heart sound present and S2 normal heart sound present PERIPHERAL PULSES: Peripheral pulses 2+ throughout OTHER: Systolic murmur GI: COMMON NORMALS: Normal to inspection, nondistended, normoactive bowel sounds present, Soft to palpation, non-tender and No hepatosplenomegaly present PALPATION: Yes Soft to palpation and Yes No hepatosplenomegaly present Back/Pelvis: OTHER: Wound drain Extremity: COMMON NORMALS: normal to inspection, full ROM, capillary refill normal, no joint enlargement, no calf tenderness and no pedal edema Neuro: COMMON NORMALS: patient oriented x3, CN's II-XII intact bilaterally, moves all extremities, no focal motor deficits and no sensory deficits noted SENSORIUM/ORIENTATION: Yes alert Psych: COMMON NORMALS: mental status grossly normal, Normal thought process present, cooperative and speech normal APPEARANCE: Yes well kempt SPEECH: Yes normal speech THOUGHT PROCESS: Normal thought process present Skin: COMMON NORMALS: no rashes or lesions noted, turgor normal and no jaundi ce NARRATIVE SKIN EXAM: Back examination, has a PAUL drain in place, surgical site, with abdominal pads in place, T11 to pelvis surgery, abdominal pads are bloodsoaked, GENERAL SKIN EXAM: no rashes or lesions noted and turgor normal Urinary Catheter Management: Hassan: Cath Placed During This Visit: yes, but has since been removed by the nurse Reason for Continuing Indwelling Catheter: Decision to DC Catheter Urinary Catheter Date of Insertion: 06/19/23 Urinary Catheter Time of Insertion: 10:25 Date Urinary Catheter Removed: 06/22/23 Time Urinary Catheter Discontinued: 13:00 Data 06/26/23 05:25 06/26/23 05:25 A&P Assessment and plan (1) Acute blood loss as cause of postoperative anemia: (2) Shock: (3) S/P spinal fusion: Plan Anemia: Most likely acute blood loss anemia secondary to procedure. Post 2 unit of blood transfusion. Hemoglobin slightly trending down to 8.3. No melena. Protonix twice daily, Carafate ACHS. Hold off on baby aspirin. Oral iron supplementation. S/p spinal fusion: Uncomfortable and bothered by pain. Continue with pain medication as per primary team. Add standing order of Flexeril 10 mg 3 times daily, fentanyl patch. Monitor mentation. Continue with PT. Incentive spirometry. Monitor renal functions. Constipation: Check abdominal series to rule out bowel obstruction. Aggressive bowel regimen with milk of magnesia and senna Colace. If no response will plan for enema. Discussed in detail with patient and daughter at bedside. Agreeable. Hyponatremia: Acute on chronic. Most likely in setting of pain medication and poor oral intake. Stable for now. Does take hydrochlorothiazide at home. 20 mg oral Lasix one- time. Monitor CMP daily for now. Acute shock: Most likely in setting of blood loss anemia. Blood pressures improving. Midodrine has been stopped. Monitor blood pressures daily. Goal blood pressure less than 140/90 mmHg with mean over 65. For now hold off on home antihypertensives. Will add as per goal blood pressures. Out of bed to chair. Continue home dose of gabapentin, Ropinirole. Full code Regular diet Anticoagulation as per primary team postoperatively. SCDs for now. Protonix for PUD prophylaxis Plan for the day: Plan to discharge as per primary team patient has been accepted to SNF. Can be discharged on current medications. Amlodipine 5 mg daily will be added to medication list. Patient to also take Protonix twice daily for next 4 weeks along with Carafate ACHS. She should have a repeat CBC and a CMP in next 1 week. Care discussed in detail with patient's daughter, patient and nurse at bedside. All the questions were answered Thank you for involving us in care of Ms. Espinoza. Please call back with any questions. Attestations Medical Necessity Statement*: Per primary team being discharged to SNF today. Diagnoses Acute blood loss as cause of postoperative anemia D62 Shock R57.9 S/P spinal fusion Z98.1
--- NOTE | 2023-06-27 13:25 | DCPLANNER ---
Report called into [facility] at [facility].
--- NOTE | 2023-06-27 14:20 | PC.NURSE ---
Pt does not have discharge orders for Fentanyl Patch. Removed and wasted with Keiry Godfrey RN.
--- NOTE | 2023-06-27 14:42 | PC.NURSE ---
Eight Hydrocodone pills sent with daughter upon discharge.
[2023-06-27 15:00] VITALS: BP 125/82; PULSE 99; RESP 16; TEMP 36.6; O2SAT 96
--- NOTE | 2023-07-01 06:36 | PM.DCS ---
Discharge Providers Date of Admission: 06/19/23 13:50 Date of Discharge: June 27, 2023 Attending Provider at Admission: Tyler Babb DO Attending Provider at Discharge: Tyler Babb DO Primary Care Provider: Flor Blount MD Diagnoses at Discharge Discharge Diagnosis (1) Acute blood loss as cause of postoperative anemia: Status: Acute (2) Shock: Status: Resolved (3) S/P spinal fusion: Status: Acute Reason for Visit Reason for Visit: m54.9, m54.50 Physical Exam Urinary Catheter Management: Hassan: Cath Placed During This Visit: yes, but has since been removed by the nurse Reason for Continuing Indwelling Catheter: Decision to DC Catheter Urinary Catheter Date of Insertion: 06/19/23 Urinary Catheter Time of Insertion: 10:25 Date Urinary Catheter Removed: 06/22/23 Time Urinary Catheter Discontinued: 13:00 Discharge Data Studies Completed and Pending Completed Studies During Hospitalization Category Date Time Status XR acute abdomen series [id number] Routine Exams 06/24/23 12:15 Completed XR chest 1V portable [id number] Routine Exams 06/20/23 19:45 Completed XR lumbar spine 2-3V* [id number] Routine Exams 06/19/23 Completed Radiology Impressions Chest X-Ray 06/20/23 19:45 IMPRESSION: 1. 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 Question of right pulmonary nodule, follow-up PA and lateral views suggested 3. Mild cardiomegaly 4. Postsurgical changes in the chest and spine. Chest/Abdomen X-ray 06/24/23 12:15 IMPRESSION: No acute findings. Laboratory Results WBC 4.51 10^3/uL (3.29-11.43) 06/26/23 05:25 RBC 2.69 10^6/uL (3.85-5.65) L 06/26/23 05:25 Hgb 8.30 g/dL (11.27-16.99) L 06/26/23 05:25 Hct 25.5 % (36-47) L 06/26/23 05:25 MCV 94.8 fl (85-98) 06/26/23 05:25 MCH 30.9 pg (27-33) 06/26/23 05:25 MCHC 32.5 g/dL (30-55) 06/26/23 05:25 RDW 13.0 % (12.1-15.1) 06/26/23 05:25 Plt Count 274 10^3/cmm (157-399) 06/26/23 05:25 MPV 9.1 fL (7.4-10.4) 06/26/23 05:25 Neut % (Auto) 62.5 % 06/26/23 05:25 Lymph % (Auto) 16.4 % 06/26/23 05:25 [place] % (Auto) 14.2 % 06/26/23 05:25 Eos % (Auto) 4.7 % 06/26/23 05:25 Baso % (Auto) 0.4 % 06/26/23 05:25 Neut # (Auto) 2.82 10^3/uL (1.8-7.7) 06/26/23 05:25 Lymph # (Auto) 0.7 10^3/uL (0.8-4.8) L 06/26/23 05:25 [place] # (Auto) 0.6 10^3/uL (0.2-0.9) 06/26/23 05:25 Eos # (Auto) 0.2 10^3/uL (0.0-0.8) 06/26/23 05:25 Baso # (Auto) 0.0 10^3/uL (0.0-0.1) 06/26/23 05:25 Nucleated RBC % (auto) 0 % 06/26/23 05:25 Nucleated RBCs # 0.0 /100WBC 06/26/23 05:25 PT 14.90 SECONDS (12.1-14.9) 06/20/23 20:07 INR 1.13 (0.8-1.2) 06/20/23 20:07 Sodium 127 mmol/L (136-145) L 06/26/23 05:25 Potassium 4.7 mmol/L (3.5-5.1) 06/26/23 05:25 Chloride 92 mmol/L (98-107) L 06/26/23 05:25 Carbon Dioxide 28 mmol/L (22-29) 06/26/23 05:25 Anion Gap 12.9 (5-19) 06/26/23 05:25 BUN 22 mg/dL (8-23) 06/26/23 05:25 Creatinine 0.8 mg/dL (0.5-0.9) 06/26/23 05:25 GFR Calculation Not Reportable 06/26/23 05:25 Glucose 98 mg/dL (65-115) 06/26/23 05:25 Estimat Average Glucose 103 06/24/23 04:13 Hemoglobin A1c 5.2 % (4.0-6.0) 06/24/23 04:13 Calculated Osmolality 269 mOsm/kg (285-295) L 06/26/23 05:25 Lactic Acid 1.8 mmol/L (0.5-2.2) 06/20/23 20:07 Calcium 8.3 mg/dL (8.5-10.5) L 06/26/23 05:25 Phosphorus 4.3 mg/dL (2.5-4.5) 06/27/23 05:09 Magnesium 2.6 mg/dL (1.7-2.3) H 06/27/23 05:09 Iron 31 ug/dL (37-145) L 06/24/23 04:13 TIBC 156 mcg/dl 06/24/23 04:13 % Saturation 19.8 % (20-50) L 06/24/23 04:13 Unsat Iron Binding 125 ug/dL (112-347) 06/24/23 04:13 Ferritin 339 ng/mL (15-150) H 06/24/23 04:13 Total Bilirubin 0.3 mg/dL (0.15-1.2) 06/26/23 05:25 AST 32 U/L (0-32) 06/26/23 05:25 ALT 29 U/L (0-33) 06/26/23 05:25 Alkaline Phosphatase 111 U/L (35-105) H 06/26/23 05:25 Troponin T Baseline 46 ng/L (0-10) H 06/20/23 20:07 Troponin T 120 Minute 48.05 ng/L (0-10) H 06/20/23 21:58 Delta Troponin T 2.05 ABS# (0-10) 06/20/23 21:58 Troponin T Hi Sens 6Hr 52.12 ng/L (0-10) H 06/21/23 02:06 Troponin T Hi Sens 6Hr Delta 6.12 ng/L (0-12) 06/21/23 02:06 C-Reactive Protein 43.6 mg/L (0.0-4.9) H 06/20/23 20:07 NT-Pro-B Natriuret Pep 2172 pg/mL (0-450) H 06/20/23 20:07 Total Protein 4.6 g/dL (6.6-8.7) L 06/26/23 05:25 Albumin 2.9 g/dL (3.5-5.2) L 06/26/23 05:25 Globulin 1.7 g/dL (1.3-4.6) 06/26/23 05:25 Vitamin B12 1553 pg/mL (232-1245) H 06/24/23 04:13 Folate 6.1 ng/mL (4.8-37.3) 06/25/23 05:30 TSH 1.46 uIU/mL (0.27-4.20) 06/24/23 04:13 Urine Color Yellow (Yellow) 06/20/23 20:45 Urine Appearance Clear (CLEAR) 06/20/23 20:45 Urine pH 5 (5-7) 06/20/23 20:45 Ur Specific [place] 1.020 (1.005-1.030) 06/20/23 20:45 Urine Protein Neg (Negative) 06/20/23 20:45 Urine Glucose (UA) Norm (Normal) 06/20/23 20:45 Urine Ketones Negative (Negative) 06/20/23 20:45 Urine Blood 2+ (Negative) H 06/20/23 20:45 Urine Nitrate Negative (Negative) 06/20/23 20:45 Urine Bilirubin Neg (Negative) 06/20/23 20:45 Urine Urobilinogen Norm mg/dL (Negative) 06/20/23 20:45 Ur Leukocyte Esterase 1+ (Negative) H 06/20/23 20:45 Urine RBC 10-15 /hpf (0-2) H 06/20/23 20:45 Urine WBC 15-25 /hpf (0-5) H 06/20/23 20:45 Ur Squamous Epith Cells 0-4 /hpf (0-5) H 06/20/23 20:45 Amorphous Sediment Not Reportable 06/20/23 20:45 Urine Bacteria Trace /hpf (NONE) 06/20/23 20:45 Hyaline Casts Rare /lpf 06/20/23 20:45 Urine Mucus 1+ /hpf 06/20/23 20:45 SARS-CoV-2 Ag (Rapid) negative (Negative) 06/26/23 10:25 Blood Type A Positive 06/19/23 08:45 Rho(D) Type Positive 06/19/23 08:45 Antibody Screen Negative 06/19/23 08:45 Crossmatch See Detail 06/19/23 08:45 Vitals Last Vital Signs Temp 97.9 F 06/27/23 15:00 Pulse 99 06/27/23 15:00 Resp 16 06/27/23 15:00 BP 125/82 06/27/23 15:00 Pulse Ox 96 06/27/23 15:00 O2 Del Method Room Air 06/27/23 04:12 O2 Flow Rate 2 06/23/23 00:00 Discharge Plan Discharge Patient Disposition: Xfer SNF Condition: Stable Prescriptions: New sucralfate 1 gram Tablet 1 g PO AC&BEDTIME 28 Days Qty: 120 0RF pantoprazole 40 mg Tablet,Delayed Release (Dr/Ec) 40 mg PO BID Qty: 60 0RF Continued alendronate 70 mg tablet 70 mg PO .WEEKLY aspirin 81 mg tablet,delayed release (DR/EC) 81 mg PO DAILY calcium carbonate [Calcium 600] 600 mg calcium (1,500 mg) tablet 600 mg PO DAILY cetirizine 10 mg tablet 10 mg PO DAILY PRN (Reason: allergies) duloxetine 60 mg capsule,delayed release(DR/EC) 60 mg PO DAILY gabapentin 600 mg tablet 600 mg PO .HS hydrochlorothiazide 25 mg tablet 25 mg PO DAILY lisinopril 40 mg tablet 40 mg PO DAILY magnesium 30 mg tablet 60 mg PO DAILY metoprolol succinate 50 mg tablet extended release 24 hr 50 mg PO DAILY magnesium hydroxide [Milk of Magnesia] 400 mg/5 mL suspension 5 ml PO .HS PRN (Reason: Constipation) potassium chloride 20 mEq tablet extended release 20 meq PO DAILY ropinirole 1 mg tablet 1 mg PO .1 AT NOON 2 AT HS ascorbate calcium (vitamin C) 500 mg tablet 500 mg PO BID cholecalciferol (vitamin D3) 50 mcg (2,000 unit) capsule 50 mcg PO DAILY (DME) Bone growth stimulator See Rx Instructions .Route .MEDSUPPLY Qty: 1 0RF Rx Instructions: As directed Changed amlodipine 5 mg tablet 10 mg PO DAILY Qty: 60 0RF No Action hydrocodone-acetaminophen 5-325 mg tablet 1 tab PO Q4H 5 Days Qty: 30 0RF fentanyl 25 mcg/hr patch 72 hour 1 patch transdermal Q72H Qty: 2 0RF Discharge Orders: Discharge Order (Routine); Ordered 06/27/23 Ordered By: Dallin Verdugo Referrals: [facility] [Outside] Tyler Babb DO [Physician] - 07/02/23 8:30 am Discharge Diet: Advance as tolerated Discharge Activity: Limit activity as instructed Patient Instructions: Sucralfate (By mouth) (Carafate), Pantoprazole (By mouth) (Protonix), Lumbar Spinal Fusion (DC), Opioid Safety Activity Restrictions/Additional Instructions: Thank you for choosing [facility] for your care! The following is a list of instructions, from your provider, to follow upon your discharge to ensure you have the optimal recovery from your recent injury or surgery. Follow-up care is a noble part of your treatment and safety. Be sure to make and go to all appointments and call your doctor if you are having problems. If you do not already have a follow-up appointment made, call Dr. Babb's] office in the next 1-3 days to make follow up appointment for [1-2] weeks at [phone]. It is also a good idea to know your test results and keep a list of the medicines you take. Medications will be prescribed for you at your provider's discretion. These medications are to be used as instructed; if they are taken more often that prescribed they will not be refilled early and in most cases will not be refilled at all. > When a refill is needed, you should contact miquel carpenter 2-3 business days before your prescription runs out. Medications will NOT be refilled by application chemist providers after hours! > Many pain medications contain Tylenol (Acetaminophen). Do not consume more than 4,000 mg of Tylenol per day in total with any combination of medications. > Pain medications can cause constipation. Please use an over the counter stool softener as directed, while taking pain medications. Consult your local pharmacist with questions or recommendations on stool softeners. If constipation persists, contact our office or your primary care provider. > While under our care, you are not to receive pain medications or other controlled substances from any other provider unless our office is notified and approves. Any attempts to do so will result in refusal to prescribe any further pain medications and possible dismissal from our practice. ? Walking is essential for the healing process after surgery. We would like you to slowly advance your walking. This should be done on relatively flat clear ground (inside or out) or can be done on a treadmill. Remember this goal does not have to happen all at once, slowly increase your distance and duration. This can be broken into more more than one walk per day as tolerated. Patients who walk as directed after surgery rarely require Physical Therapy. In the unlikely event this issue arises your provider will direct hospital staff to make the appropriate arrangements. ? No lifting over 5 pounds {a gallon of milk) or bending/twisting until further notice. Each of these activities places an unnecessary amount of stress onto the body and can impede the delicate healing process. > Instead of bending at the waist, keep your back straight and bend at the knees. > Instead of twisting your torso, keep your back straight and turn your entire body with your feet. ? You may sleep in any position which makes you comfortable. Many patients find comfort sleeping in a reclining chair. It is not abnormal to have difficulty sleeping for the first several weeks following your surgery. We recommend trying Benadry! or Tylenol PM as directed to help with your sleeping difficulties. Both medications are over the counter and available without prescription. ? NO SMOKING!!! Smoking dramatically increases the probability of developing postoperative wound infections. ? Common complaints after lumbar and/or thoracic spine surgery include, but are not limited to: numbness and/or tingling in the legs, pain around the incision and surrounding tissues, muscle spasms, or stiffness of the middle to low back. Contact our office if these symptoms persist or if an acute change occurs. ? No driving for the first 3-5days, and not while taking narcotics until seen at your follow-up appointment and cleared. There are no restrictions for riding on short trips, however if you take a longer trip, arrangements should be made to make regular stops to get out of the vehicle and stretch . ? Swelling is an unfortunate event that will take place with any surgery and is the primary source of your postoperative discomfort. While walking and regular approved activities helps control inflammation, there are additional steps you can take to minimize swelling. > Place ice over the surgical site and surrounding tissue for twenty minutes, followed by applying a low/medium heat (heating pad) for an additional twenty minutes every 1-2 hours as needed for painrelief. > You may use of over the counter anti-inflammatory medications (Ibuprofen, Motrin, Aleve, Advil, etc) as directed on the package label. These types of medicines will significantly reduce the amount of discomfort you experience after surgery from swelling. It should be noted that if you have and allergy to any of these medications, or a history of ulcers or kidney disease you should consult you primary care provider prior to starting these medications. Repeat CBC and CMP in next 1 week. Discharge Attestations Time Spent in Discharge Care*: less than 30 min Quality Metrics Clinical Quality Measures [ No reported AMI, CVA or VTE this stay] Coding Level of Care Code Acute Code for Chg Fwd Diagnoses Acute blood loss as cause of postoperative anemia D62 Shock R57.9 S/P spinal fusion Z98.1
== END 2023-06-27 15:01 | disposition skilled nursing facility (03) | DRG 453 ==
LOC: ICU 13:50 → MEDSURG 06-21 14:24
PROVIDERS: Family Medicine; Internal Medicine; Physician Assistant; Student in an Organized Health Care Education/Training Program; Admitting Provider Orthopaedic Surgery; PCP Family Medicine; Visit Provider Orthopaedic Surgery
PROC: 0RG707J Fusion of 2 to 7 Thoracic Vertebral Joints with Autologous Tissue Substitute, Posterior Approach, Anterior Column, Open Approach (ICD-10-PCS; principal; 2023-06-19 09:50)
PROC: 0RG707J Fusion of 2 to 7 Thoracic Vertebral Joints with Autologous Tissue Substitute, Posterior Approach, Anterior Column, Open Approach (ICD-10-PCS; CPT 27280; 2023-06-19 09:50)
DX: T84.296A Other mechanical complication of internal fixation device of vertebrae, initial encounter (principal); T81.19XA Other postprocedural shock, initial encounter; D62 Acute posthemorrhagic anemia; E87.1 Hypo-osmolality and hyponatremia; N39.0 Urinary tract infection, site not specified; I69.951 Hemiplegia and hemiparesis following unspecified cerebrovascular disease affecting right dominant side; M48.061 Spinal stenosis, lumbar region without neurogenic claudication; Y79.8 Miscellaneous orthopedic devices associated with adverse incidents, not elsewhere classified; M41.56 Other secondary scoliosis, lumbar region; Y83.8 Other surgical procedures as the cause of abnormal reaction of the patient, or of later complication, without mention of misadventure at the time of the procedure; K59.00 Constipation, unspecified; Z79.82 Long term (current) use of aspirin; Z79.891 Long term (current) use of opiate analgesic; M62.830 Muscle spasm of back; Z75.1 Person awaiting admission to adequate facility elsewhere; E78.5 Hyperlipidemia, unspecified; I95.81 Postprocedural hypotension; Z95.2 Presence of prosthetic heart valve; I73.9 Peripheral vascular disease, unspecified; R01.1 Cardiac murmur, unspecified; I10 Essential (primary) hypertension; M41.55 Other secondary scoliosis, thoracolumbar region
CPT/HCPCS: 36415; 36430; 51702; 71045; 72100; 72148; 74022; 76000; 80048; 80053; 81001; 82274; 82607; 82728; 82746; 83036; 83540; 83550; 83605; 83735; 83880; 84100; 84443; 84484; 85014; 85018; 85025; 85610; 86140; 86850; 86900; 86920; 87086; 87426; 93005; 97110; 97116; 97163; 97530; C1713; C1762; J0131; J0330; J0690; J0696; J1100; J1170; J1644; J1885; J2270; J2405; J2704; J3010; J3370; J3490; J7030; J7120; P9016; P9045; P9046

== ENCOUNTER 2023-06-28 18:51 | Emergency (ER) | payer MEDICARE, SELFPAY ==
[2023-06-28 18:55] VITALS: BP 133/67; PULSE 70; RESP 20; TEMP 36.6; O2SAT 98
[2023-06-28 19:06] VITALS: BP 133/67; PULSE 66; RESP 16; O2SAT 98
--- NOTE | 2023-06-28 19:14 | CTR_ITS ---
PROCEDURE INFORMATION: Exam: CT Lumbar Spine With Contrast Exam date and time: 06/28/2023 7:29 PM Age: 78 years old Clinical indication: Other: Incision drainage; Prior surgery; Surgery date: <1 month; Surgery type: Spinal/sacral fusion 06/19/2023; Patient HX: C/O worsening low back pain with drainage to incision site post spinal/sacral fusion on 06/19/2023. History of aortic dissection. ; Additional info: Back pain, drainage sp lumbar fusion TECHNIQUE: Imaging protocol: Computed tomography of the lumbar spine with contrast. Radiation optimization: All CT scans at this facility use at least one of these dose optimization techniques: automated exposure control; mA and/or kV adjustment per patient size (includes targeted exams where dose is matched to clinical indication); or iterative reconstruction. Contrast material: OMNI 350; Contrast volume: 100 ml; Contrast route: INTRAVENOUS (IV); REPORTING DATA: Count of CT and Cardiac NM exams in prior 12 months: This patient has received 0 known CTs and 0 known cardiac nuclear medicine studies in the 12 months prior to the current study. COMPARISON: MR lumbar spine wo con* [id number] 06/17/2023 1:23 PM RADIATION DOSE METRICS: Total DLP (mGy-cm): 709.42 FINDINGS: Bones/joints: Scoliosis of the lumbar spine, convex to the right. Status post posterior fusion. There are paired spinal rods with anchoring pedicle screws from T10 through S1. Hardware appears intact. Intervertebral spacers are noted at the L3-L4 and L4-L5 levels. No acute lumbar fractures are noted. 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 Soft tissues: Paraspinous soft tissues appear unremarkable. CT/CT lumbar spine w con [id number] IMPRESSION: 1. Scoliosis of the lumbar spine, convex to the right. 2. Status post posterior fusion. There are paired spinal rods with anchoring pedicle screws from T10 through S1. Hardware appears intact. 3. No acute osseous abnormality demonstrated. 4. 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 No previous CT studies of the chest or abdomen available for further comparison.
--- NOTE | 2023-06-28 19:20 | W.ED.WOUNDLC ---
HPI - Wound/Laceration General: Chief Complaint: Wound/Laceration Stated Complaint: low back pain Time Seen by Provider: 06/28/23 18:55 Source: patient History of Present Illness: 78-year-old female who is status post lumbar fusion surgery last week. She is currently in a residential environment. She complains of significant lower back pain. No fever. No nausea vomiting. She has had some drainage from her incision. It was last changed today. No radicular pain down the legs. Onset (ago): day(s) Associated symptoms: Denies fever(s), nausea or vomiting Review of Systems Const: Denies: fever(s) Card: Denies: chest pain Resp: Denies: dyspnea, productive cough or non-productive cough GI: Denies: abdominal pain, nausea or vomiting Skin/Breast: Denies: rash PFSH ED PFSH: Medical History Aortic dissection Essential hypertension Heart disease History of CVA (cerebrovascular accident) Hyperlipidemia Iron deficiency Surgical History History of prosthetic aortic valve S/P spinal fusion Family History Father Depressed Heart disease Stroke Mother Hypertension Social History Smoking and tobacco status: never smoked Second hand smoke exposure: No Alcohol intake: never Physical Exam Const: COMMON NORMALS: no acute distress GENERAL APPEARANCE: not ill appearing HENMT: COMMON NORMALS: normocephalic and atraumatic HEAD & SCALP: normocephalic and atraumatic FACE & SINUS: normal facial exam Eye: COMMON NORMALS: Equal, round and reactive pupils present and EOMs intact bilaterally PUPIL: Yes Equal, round and reactive pupils present Chest: CHEST: Yes Symmetrical chest wall rise Resp: COMMON NORMALS: normal respiratory effort Cardio: COMMON NORMALS: regular rate and regular rhythm RATE: regular rate RHYTHM: regular rhythm GI: COMMON NORMALS: Soft to palpation and non-tender PALPATION: Yes Soft to palpation Extremity: COMMON NORMALS: no pedal edema Neuro: ALEXUS COMA SCALE: document GCS findings [place] coma scale eye opening: Spontaneous [place] coma scale verbal response: Orientated Alexus coma scale motor response: Obey commands [place] coma scale total score: 15 Psych: COMMON NORMALS: mental status grossly normal Skin: NARRATIVE SKIN EXAM: Incision closed. Mild amount of bloody drainage inferiorly. No cellulitis. Course Vital Signs: Vital signs: Vital Signs Temperature 98 F 06/28/23 18:55 Pulse Rate 97 06/28/23 20:28 Respiratory Rate 16 06/28/23 20:28 Blood Pressure 142/89 06/28/23 20:28 Pulse Oximetry 97 06/28/23 20:28 Oxygen Delivery Me thod Room Air 06/28/23 20:28 MDM - Wound/Laceration Medical Decision Making No fever, no leukocytosis. Hemoglobin is stable. Sodium is 132 which is actually increased from her admission. CRP is minimally elevated. Procalcitonin is not. Lumbar spine CT shows intact hardware with no significant hematoma. Known thoraco abdominal aortic dissection is again seen. Pain control has been inadequate. She was switched back to oxycodone in the residential 5 mg. This is still not adequate to control her pain. We will place her on low-dose Duragesic patch for baseline pain control, and use Percocet for breakthrough pain. She will go back to the residential. Lab Data 06/28/23 19:06/28/23 19:22 Radiology Impressions Lumbar Spine CT 06/28/23 19:14 IMPRESSION: 1. Scoliosis of the lumbar spine, convex to the right. 2. Status post posterior fusion. There are paired spinal rods with anchoring pedicle screws from T10 through S1. Hardware appears intact. 3. No acute osseous abnormality demonstrated. 4. 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 No previous CT studies of the chest or abdomen available for further comparison. Laboratory Results WBC 5.43 10^3/uL (3.29-11.43) 06/28/23 19: RBC 3.16 10^6/uL (3.85-5.65) L 06/28/23 19: Hgb 9.60 g/dL (11.27-16.99) L 06/28/23 19: Hct 29.7 % (36-47) L 06/28/23 19: MCV 94.0 fl (85-98) 06/28/23 19: MCH 30.4 pg (27-33) 06/28/23 19:22 MCHC 32.3 g/dL (30-55) 06/28/23 19:22 RDW 13.2 % (12.1-15.1) 06/28/23 19:22 Plt Count 336 10^3/cmm (157-399) 06/28/23 19:22 MPV 8.5 fL (7.4-10.4) 06/28/23 19:22 Neut % (Auto) 71.1 % 06/28/23 19:22 Lymph % (Auto) 15.1 % 06/28/23 19:22 [place] % (Auto) 9.6 % 06/28/23 19:22 Eos % (Auto) 2.0 % 06/28/23:22 Baso % (Auto) 0.7 % 06/28/23: Neut # (Auto) 3.86 10^3/uL (1.8-7.7) 06/28/23 19:22 Lymph # (Auto) 0.8 10^3/uL (0.8-4.8) 06/28/23 19:22 [place] # (Auto) 0.5 10^3/uL (0.2-0.9) 06/28/23 19:22 Eos # (Auto) 0.1 10^3/uL (0.0-0.8) 06/28/23:22 Baso # (Auto) 0.0 10^3/uL (0.0-0.1) 06/28/23 19:22 Nucleated RBC % (auto) 0 % 06/28/23: Nucleated RBCs # 0.0 /100WBC 06/28/23 19:22 Sodium 132 mmol/L (136-145) L 06/28/23 19:22 Potassium 4.3 mmol/L (3.5-5.1) 06/28/23 19:22 Chloride 94 mmol/L (98-107) L 06/28/23 19:22 Carbon Dioxide 28 mmol/L (22-29) 06/28/23 19:22 Anion Gap 14.3 (5-19) 06/28/23 19:22 BUN 14 mg/dL (8-23) 06/28/23 19:22 Creatinine 0.7 mg/dL (0.5-0.9) 06/28/23 19:22 GFR Calculation Not Reportable 06/28/23 19:22 Glucose 122 mg/dL (65-115) H 06/28/23 19:22 Calculated Osmolality 276 mOsm/kg (285-295) L 06/28/23 19:22 Calcium 9.4 mg/dL (8.5-10.5) 06/28/23 19:22 Total Bilirubin 0.4 mg/dL (0.15-1.2) 06/28/23 19:22 AST 34 U/L (0-32) H 06/28/23 19:22 ALT 34 U/L (0-33) H 06/28/23 19:22 Alkaline Phosphatase 190 U/L (35-105) H 06/28/23 19:22 C-Reactive Protein 65.2 mg/L (0.0-4.9) H 06/28/23 19:22 Total Protein 6.3 g/dL (6.6-8.7) L 06/28/23 19:22 Albumin 3.6 g/dL (3.5-5.2) 06/28/23 19:22 Globulin 2.7 g/dL (1.3-4.6) 06/28/23 19:22 Procalcitonin 0.06 ng/mL (0-0.5) 06/28/23 19:22 All radiology interpretation(s) finalized by discharge Discharge Plan Discharge Patient Disposition: Home Clinical Impression: S/P spinal fusion, Back pain Condition: Stable Prescriptions: New fentanyl 25 mcg/hr patch 72 hour 1 patch transdermal Q72H Qty: 2 0RF No Action alendronate 70 mg tablet 70 mg PO .WEEKLY aspirin 81 mg tablet,delayed release (DR/EC) 81 mg PO DAILY calcium carbonate [Calcium 600] 600 mg calcium (1,500 mg) tablet 600 mg PO DAILY cetirizine 10 mg tablet 10 mg PO DAILY PRN (Reason: allergies) duloxetine 60 mg capsule,delayed release(DR/EC) 60 mg PO DAILY gabapentin 600 mg tablet 600 mg PO .HS hydrochlorothiazide 25 mg tablet 25 mg PO DAILY lisinopril 40 mg tablet 40 mg PO DAILY magnesium 30 mg tablet 60 mg PO DAILY metoprolol succinate 50 mg tablet extended release 24 hr 50 mg PO DAILY magnesium hydroxide [Milk of Magnesia] 400 mg/5 mL suspension 5 ml PO .HS PRN (Reason: Constipation) potassium chloride 20 mEq tablet extended release 20 meq PO DAILY ropinirole 1 mg tablet 1 mg PO .1 AT NOON 2 AT HS ascorbate calcium (vitamin C) 500 mg tablet 500 mg PO BID cholecalciferol (vitamin D3) 50 mcg (2,000 unit) capsule 50 mcg PO DAILY (DME) Bone growth stimulator See Rx Instructions .Route .MEDSUPPLY Qty: 1 0RF Rx Instructions: As directed hydrocodone-acetaminophen 5-325 mg tablet 1 tab PO Q4H 5 Days Qty: 30 0RF sucralfate 1 gram Tablet 1 g PO AC&BEDTIME 28 Days Qty: 120 0RF pantoprazole 40 mg Tablet,Delayed Release (Dr/Ec) 40 mg PO BID Qty: 60 0RF amlodipine 5 mg tablet 10 mg PO DAILY Qty: 60 0RF Discharge Orders: Discharge ED (Routine); Ordered 06/28/23 Ordered By: Santo Haskins Referrals: Tyler Babb DO [Physician] - 1-3 days Flor Blount MD [Primary Care Provider] - Patient Instructions: Back Pain (ED), Opioid Safety, Pain Management Activity Restrictions/Additional Instructions: Use the small dose fentanyl patch in conjunction with oxycodone previously ordered. If you are feeling sedated, peel the patch off. Return for altered mental status, fever, worsening drainage, other concerning symptoms. Coding Level of Care Code ED Quality Assurance Representative for Raoul [facility]
[2023-06-28 19:28] LABS: Basophils % 0.7 %; Eosinophils # 0.1 10^3/uL (0.0-0.8); Hematocrit 29.7 % (36-47); Lymphocytes # 0.8 10^3/uL (0.8-4.8); Lymphocytes % 15.1 %; Mean Corpuscular HGB Conc 32.3 g/dL (30-55); Mean Corpuscular Hemoglobin 30.4 pg (27-33); Mean Platelet Volume 8.5 fL (7.4-10.4); Monocytes # 0.5 10^3/uL (0.2-0.9); Monocytes % 9.6 %; Neutrophils # 3.86 10^3/uL (1.8-7.7); Neutrophils % 71.1 %; Nucleated Red Blood Cells % 0 %; Platelet Count 336 10^3/cmm (157-399); Red Blood Count 3.16 10^6/uL (3.85-5.65); Red Cell Distribution Width 13.2 % (12.1-15.1); White Blood Count 5.43 10^3/uL (3.29-11.43)
[2023-06-28] MEDS: iohexol 350 mg/mL 500 mL Btl (per mL) IV (19:33)
[2023-06-28 19:49] LABS: Alanine Aminotransferase 34 U/L (0-33); Albumin Level 3.6 g/dL (3.5-5.2); Alkaline Phosphatase 190 U/L (35-105); Anion Gap 14.3 (5-19); Aspartate Amino Transferase 34 U/L (0-32); Blood Urea Nitrogen 14 mg/dL (8-23); C Reactive Protein 65.2 mg/L (0.0-4.9); Calcium 9.4 mg/dL (8.5-10.5); Carbon Dioxide 28 mmol/L (22-29); Chloride 94 mmol/L (98-107); Globulin 2.7 g/dL (1.3-4.6); Glucose 122 mg/dL (65-115); Osmolality Calculated 276 mOsm/kg (285-295); Potassium 4.3 mmol/L (3.5-5.1); Sodium 132 mmol/L (136-145); Total Bilirubin 0.4 mg/dL (0.15-1.2); Total Protein 6.3 g/dL (6.6-8.7)
[2023-06-28 19:54] LABS: Procalcitonin 0.06 ng/mL (0-0.5)
[2023-06-28] MEDS: ondansetron 2 mg/ML SDV 2 mL 4 MG IVP (20:23)
[2023-06-28 20:26] VITALS: RESP 16; O2SAT 96
[2023-06-28] MEDS: morphine 4 mg/mL SDV 1 mL IVP (20:26)
[2023-06-28 20:28] VITALS: BP 142/89; PULSE 97; RESP 16; O2SAT 97
[2023-06-28] MEDS: fentaNYL 25 mcg Patch 1 PATCH TRANSDERMA (21:44)
[2023-06-29] MEDS: ondansetron 2 mg/ML SDV 2 mL 4 MG IVP (00:03)
[2023-06-29] MEDS: ketorolac 30 mg/mL INJ 15 MG IVP (00:04)
[2023-06-29 00:05] VITALS: RESP 20; O2SAT 94
[2023-06-29] MEDS: oxyCODONE-APAP 5-325 mg Tablet 1 TAB PO (00:05)
[2023-06-29 03:57] VITALS: BP 134/70; PULSE 92; RESP 16; O2SAT 94
== END 2023-06-29 03:59 | disposition home or self-care (01) ==
PROVIDERS: Emergency Provider Emergency Medicine; PCP Family Medicine
DX: M54.50 Low back pain, unspecified (principal); Z98.890 Other specified postprocedural states; Z79.82 Long term (current) use of aspirin; M41.9 Scoliosis, unspecified; I10 Essential (primary) hypertension; Z86.73 Personal history of transient ischemic attack (TIA), and cerebral infarction without residual deficits; E78.5 Hyperlipidemia, unspecified
CPT/HCPCS: 36415; 72132; 80053; 84145; 85025; 86140; 96374; 96375; 96376; 99285; J1885; J2270; J2405; Q9967

== ENCOUNTER → 2023-07-02 15:05 | Outpatient (BNVA) | payer MEDICARE, SELFPAY | PROVIDERS: PCP Family Medicine; Visit Provider Orthopaedic Surgery | DX: Z98.1 Arthrodesis status (principal); Z47.89 Encounter for other orthopedic aftercare | CPT/HCPCS: 72100; 99024 ==

== ENCOUNTER → 2023-07-30 15:20 | Outpatient (BNVA) | payer MEDICARE, SELFPAY | PROVIDERS: PCP Family Medicine; Visit Provider Orthopaedic Surgery | DX: Z98.1 Arthrodesis status (principal) | CPT/HCPCS: 72100; 99024 ==

== ENCOUNTER → 2023-09-10 15:12 | Outpatient (BNVA) | payer MEDICARE, SELFPAY | PROVIDERS: PCP Family Medicine; Visit Provider Orthopaedic Surgery | DX: Z98.1 Arthrodesis status (principal); Z01.812 Encounter for preprocedural laboratory examination; M48.54XA Collapsed vertebra, not elsewhere classified, thoracic region, initial encounter for fracture; Z47.89 Encounter for other orthopedic aftercare | CPT/HCPCS: 72100; 80053; 81001; 85025; 99024 ==

== ENCOUNTER → 2023-10-30 11:14 | Outpatient (BNVA) | payer MEDICARE, SELFPAY | PROVIDERS: PCP Family Medicine; Visit Provider Family Medicine | DX: Z01.818 Encounter for other preprocedural examination (principal) | CPT/HCPCS: 80053; 81003; 85025 ==

== ENCOUNTER 2023-11-06 10:13 | Inpatient (IN) | payer MEDICARE, SELFPAY ==
[2023-11-06] VITALS (19 sets, daily range): BP systolic 93–168; BP diastolic 49–105; PULSE 62–112; RESP 14–23; TEMP 35.9–36.8; O2SAT 92–100; BMI 23.6
--- NOTE | 2023-11-06 | XR_ITS ---
WS: [id number] Lumbar spine, C-arm fluoroscopy views, 11/06/2023 Clinical Data: HARDWARE REVISION Comparison: Lumbar spine, 09/10/2023 Findings: Dr. Babb revised the thoracolumbar fusion. Impression: Revision of fusion of thoracolumbar spine.
[2023-11-06] MEDS: sodium chloride 0.9% 1,000 ML 30 ML IV (06:18)
[2023-11-06] MEDS: methadone 10 mg Tablet PO (06:23)
--- NOTE | 2023-11-06 06:27 | W.PM.OPSUD ---
Surgery/Procedure H&P Update DATE OF PROCEDURE: November 06, 2023 DATE H&P PERFORMED: 10/30/23 H&P UPDATE INFORMATION: I have reviewed H&P completed within last 30 days, I have examined patient prior to procedure and No changes to prior documentation PLANNED PROCEDURE: Operation Date: 11/06/23 07:00 Proposed Procedures p Thoracic Fusion(Not Applicable) - Tyler Babb DO
[2023-11-06] MEDS: ceFAZolin 2,000 MG in sodium chloride 0.9% (plus) 50 ML 100 MG IV ×3 (07:04→18:20)
--- NOTE | 2023-11-06 07:42 | ANES.PREANE2 ---
Pre-Anesthetic Assessment Height/Weight: Height 1.6 m Weight 56.699 kg Temp Pulse Resp BP Pulse Ox O2 Del Method 97.6 F 87 17 166/105 96 Room Air 11/06/23 06:03 11/06/23 06:03 11/06/23 06:03 11/06/23 06:03 11/06/23 06:03 11/06/23 06:03 Preop Diagnosis: proximal junctional kyphosis Operation Date: 11/06/23 07:00 Proposed Procedures p Thoracic Fusion(Not Applicable) - Tyler Babb DO Familial anesthetic complications: none Was Beta Gale taken within 24 hours: Yes Was Clonidine taken within 24 hours: N/A Last intake: Intake Last Liquid Date 11/05/23 Last Liquid Time 18:00 Last Solid Date 11/05/23 Last Solid Time 18:00 Social No alcohol and No tobacco Exam alert, oriented x 3 and regular rate & rhythm Airway Submandibular: within normal limits Cervical ROM: within normal limits Mallampati: Class II Dentition: chipped CV/HEM Anemia and Hypertension PVDz Metabolic Hyperlipidemia [facility] [place] Lower Back Pain and Osteoarthritis/DJD Neuropsych Cerebrovascular Accident Anesthetic Plan ASA status: 3 Anesthesia: General Other: A.line, discussed transfusion and postop ICU Medications/Allergies Home Medications Medication Instructions Recorded Confirmed Last Taken Type alendronate 70 mg tablet 70 mg PO .WEEKLY 03/13/22 11/06/23 11/05/23 History ascorbate calcium (vitamin C) 500 500 mg PO BID 03/13/22 11/06/23 11/05/23 History mg tablet aspirin 81 mg tablet,delayed 81 mg PO DAILY 03/13/22 11/05/23 1 Week Ago History release ~10/29/23 calcium carbonate 600 mg calcium 600 mg PO DAILY 03/13/22 11/06/23 06/12/23 History (1,500 mg) tablet (Calcium) cetirizine 10 mg tablet 10 mg PO DAILY PRN allergies 03/13/22 11/06/23 Unknown History cholecalciferol (vitamin D3) 50 50 mcg PO DAILY 03/13/22 11/06/23 11/05/23 History mcg (2,000 unit) capsule duloxetine 60 mg capsule,delayed 60 mg PO DAILY 03/13/22 11/06/23 11/05/23 History release gabapentin 600 mg tablet 600 mg PO .HS 03/13/22 11/05/23 1 Day Ago History ~11/04/23 lisinopril 40 mg tablet 40 mg PO DAILY 03/13/22 11/06/23 11/05/23 History magnesium 30 mg tablet 60 mg PO DAILY 03/13/22 11/06/23 11/05/23 History magnesium hydroxide 400 mg/5 mL 5 ml PO .HS PRN Constipation 03/13/22 11/05/23 Unknown History oral suspension (Milk of Magnesia) metoprolol succinate 50 mg 50 mg PO DAILY 03/13/22 11/06/23 11/05/23 History tablet,extended release 24 hr potassium chloride 20 mEq 20 meq PO DAILY 03/13/22 11/06/23 11/05/23 History tablet,extended release ropinirole 1 mg tablet 1 mg PO .1 AT NOON 2 AT HS 03/13/22 11/06/23 11/05/23 History Bone growth stimulator #1 ea 06/03/23 09/10/23 Unknown Rx amlodipine 5 mg tablet 10 mg (2 x 5 mg) PO DAILY #60 tabs 06/26/23 11/06/23 11/05/23 Rx hydrocodone 5 mg-acetaminophen 325 1 tab PO Q4H Postoperative pain 5 06/27/23 11/06/23 11/05/23 Rx mg tablet days #30 tabs mirabegron 25 mg tablet,extended 25 mg PO DAILY 10/30/23 11/06/23 11/05/23 History release 24 hr (Myrbetriq) simvastatin 20 mg tablet 20 mg PO DAILY 10/30/23 11/06/23 11/05/23 History Allergies Allergy/AdvReac Type Severity Reaction Status Date / Time No Known Allergies Allergy Verified 11/05/23 17:24 Current Medications Generic Name Dose Route Start Last Admin Trade Name Freq PRN Reason Stop Dose Admin Sodium Chloride 1,000 mls @ 30 mls/hr 11/06/23 05:45 11/06/23 06:18 Sodium Chloride 0.9% IV 11/07/23 05:44 30 mls/hr .Q24H SHEYLA Administration PFSH Anesthesia Medical History Aortic dissection Essential hypertension Hyperlipidemia Heart disease Iron deficiency History of CVA (cerebrovascular accident) Surgical History History of prosthetic aortic valve S/P spinal fusion Family History Father Depression Heart disease Stroke Mother Hypertension Social History Smoking and tobacco/nicotine status: never used tobacco/nicotine Second hand smoke exposure: No Alcohol intake: never Data Anesthesia Blood Bank 11/06/23 06:17 Blood Type A Positive Rho(D) Type Rh positive Antibody Screen Negative Cardiac Studies: No Data to Display
[2023-11-06] MEDS: lidocaine-epi 1% 20 mL INJ INJECTION (08:49)
[2023-11-06] MEDS: vancomycin 1,000 MG SDV 1000 MG XX (08:50)
--- NOTE | 2023-11-06 10:29 | PM.OP ---
Operative Report Date of procedure: November 06, 2023 Pre-op diagnosis: Proximal junctional kyphosis Post-op diagnosis: same Procedure done: 1. T6-T10 posterior spine fusion 2. T6-T10 instrumentation posterior 3. Use of computer navigation/stereotactic for spine 4. Deformity correction of thoracolumbar spine 5. Removal of deep hardware from spine 6. Use of allograft. Surgeon: Tyler Babb DO Estimated blood loss (mL): 100 Procedure: 1. T6-T10 posterior spine fusion 2. T6-T10 instrumentation posterior 3. Use of computer navigation/stereotactic for spine 4. Deformity correction of thoracolumbar spine 5. Removal of deep hardware from spine 6. Use of allograft Patient brought the op suite after undergoing anesthesia was placed in the prone position. All eyes appear well-padded patient's prepped draped normal fashion. Skin incision made over the previous incision at the top and extended up to the T6 level. Subperiosteal dissection was made out from T6 to the TPs down to T10 where the previous hardware was T11 screw was also exposed. The caps for T10 and T11 were removed. And then the T10 screws were removed. The rods were then bent down in order to align with where the upper thoracic screws would go. Next the fiducial was attached to the spinous process at T10. The C-arm was then brought in and spun around the patient. The information from the C-arm was then loaded in the computer this was later used for placing the pedicle screws. It was brought to placing the pedicle screws. This was done by using the gearshift probe after using the drill gearshift probe was placed on the pedicle. Measured and then pedicle feeler was used followed by placement of screws using computer navigation. These were all 5 5 screws placed there were 40 mm in length. This was done at T9 bilaterally T8 bilaterally T7 bilaterally and T6 bilaterally. Next the della connector was placed at the end of the sheba. Tightened down and then the connecting sheba was then connected and then 4 caps were placed to hold the sheba in position on the 4 screws. This was done bilaterally. The screws were then torqued into place position. Wound was then irrigated. Decorticated and posterior bone graft was then used back in the gutters. And vancomycin powder was placed deep drain was placed. And wound was closed in layered fashion with 0 Vicryl 2-0 Vicryl and Monocryl suture. Patient was then transferred to the PACU in stable condition.
[2023-11-06] MEDS: ketorolac 30 mg/mL INJ IVP ×2 (12:05→18:19)
[2023-11-06] MEDS: ropinirole 1 mg Tablet PO (12:12)
[2023-11-06] MEDS: lactated ringers 1,000 ML 90 ML IV ×2 (12:16→23:55)
--- NOTE | 2023-11-06 13:39 | ANE.PACU2 ---
Inpatient post-anesthesia follow up: Airway intact: Yes Vital signs: Temperature 96.7 F Pulse Rate 94 Respiratory Rate 17 Blood Pressure 168/87 Pulse Oximetry 100 Oxygen Delivery Me thod Nasal Cannula Oxygen Flow Rate 4 Fraction of Inspir ed Oxygen Hydration adequate: Yes Nausea and vomiting: No Pain level: 3 Mental status: Baseline
[2023-11-06] MEDS: docusate sodium 100 mg Capsule PO (17:24)
[2023-11-06] MEDS: HYDROcodone-acetaminophen 5-325 mg Tablet PO ×2 (17:25→23:56)
[2023-11-06] MEDS: gabapentin 300 mg Capsule 600 MG PO (22:06)
[2023-11-06] MEDS: ropinirole 1 mg Tablet 2 MG PO (22:07)
[2023-11-07] VITALS (8 sets, daily range): BP systolic 94–116; BP diastolic 54–72; PULSE 51–75; RESP 16–18; TEMP 36.3–36.9; O2SAT 91–95
[2023-11-07] MEDS: ceFAZolin 2,000 MG in sodium chloride 0.9% (plus) 50 ML 100 MG IV (04:13)
[2023-11-07] MEDS: HYDROcodone-acetaminophen 5-325 mg Tablet PO ×3 (06:42→15:12)
--- NOTE | 2023-11-07 06:51 | PM.PN ---
Subjective Subjective: Patient complaining of severe pain this morning. Has not received any pain meds since 11 PM last night. Vitals/I&O/Wt Last Vital Signs Temp 97.4 F L 11/07/23 05:12 Pulse 69 11/07/23 05:12 Resp 16 11/07/23 05:12 BP 100/57 11/07/23 05:12 Pulse Ox 94 11/07/23 05:12 O2 Del Method Room Air 11/07/23 05:12 O2 Flow Rate 2 11/06/23 19:22 11/06/23 11/06/23 11/07/23 14:59 22:59 06:59 Intake Total 1850 / 1850 170 / 2020 1110 / 3130 Output Total 2700 / 2700 300 / 3000 1325 / 4325 Balance -850 / -850 -130 / -980 -215 / -1195 Weight last 48 hrs Weight 140 lb 3.2 oz Weight 133 lb 8 oz Weight 125 lb Physical Exam Narrative: Patient is slouched over in bed TV on extremely loud hard to hear her. Urinary Catheter Management: Hassan: Cath Placed During This Visit: yes Reason for Continuing Indwelling Catheter: Required Immobilization for Trauma or Surgery or Anesthesia Urinary Catheter Date of Insertion: 11/06/23 Urinary Catheter Time of Insertion: 07:30 A&P Assessment and plan (1) Status post lumbar spinal fusion: Patient is postop day #1 T6-T10 posterior spine fusion. Up with physical therapy Encourage getting pain meds on a regular basis DC Hemovac drain Will recheck this afternoon Attestations Medical Necessity Statement*: Pain control Coding Level of Care Code Acute Code for Chg Fwd Diagnoses Status post lumbar spinal fusion Z98.1
[2023-11-07] MEDS: atorvastatin 40 mg Tablet 20 MG PO (08:22)
[2023-11-07] MEDS: docusate sodium 100 mg Capsule PO ×2 (08:23→17:35)
[2023-11-07] MEDS: potassium chloride ER 20 mEq Tablet PO (08:24)
[2023-11-07] MEDS: lisinopril 20 mg Tablet 40 MG PO (08:24)
[2023-11-07] MEDS: amlodipine 5 mg Tablet 10 MG PO (08:25)
[2023-11-07] MEDS: metoprolol succinate ER (24 HR) 50 mg Tablet PO (08:25)
[2023-11-07] MEDS: duloxetine 60 mg Capsule PO (08:25)
[2023-11-07] MEDS: ketorolac 30 mg/mL INJ IVP ×2 (08:26→17:35)
--- NOTE | 2023-11-07 09:01 | PC.PHAR ---
PT STATES DOSAGE CHANGED ON ROPINEROLE 1 MG TO 1 IN AM, 1 AT NOON, AND 2 AT BEDTIME. PT ALSO STATES TAKING NORCO 5/325 1/2 TABLET TWICE DAILY- TO WEEN OFF. PHARMACY VERIFIED AMLODIPINE IS 5 MG IN AM, AND SIMVASTATIN IS 20 MG DAILY. 11/07/23
[2023-11-07] MEDS: lactated ringers 1,000 ML 90 ML IV ×2 (11:36→23:03)
[2023-11-07] MEDS: ropinirole 1 mg Tablet PO (12:55)
--- NOTE | 2023-11-07 17:39 | PC.NURSE ---
hemovac Pulled hemovac drain after looking at old orders.
[2023-11-07] MEDS: ropinirole 1 mg Tablet 2 MG PO (20:19)
[2023-11-07] MEDS: gabapentin 300 mg Capsule 600 MG PO (20:19)
[2023-11-08] VITALS: BP 121/73; PULSE 76; RESP 18; TEMP 36.8; O2SAT 90
[2023-11-08 05:59] VITALS: BP 144/77; PULSE 96; RESP 19; TEMP 36.4; O2SAT 96; BMI 25.1
[2023-11-08] MEDS: HYDROcodone-acetaminophen 5-325 mg Tablet PO ×2 (06:02→10:21)
[2023-11-08 07:31] VITALS: BP 148/76; PULSE 67; RESP 18; TEMP 36.4; O2SAT 96
--- NOTE | 2023-11-08 07:49 | P.DS_ITS ---
Discharge Providers Date of Admission: 11/06/23 10:13 Date of Discharge: November 08, 2023 Attending Provider at Admission: Tyler Babb DO Attending Provider at Discharge: Tyler Babb DO Primary Care Provider: Terry Beasley Diagnoses at Discharge Discharge Diagnosis (1) Status post lumbar spinal fusion: Status: Acute Reason for Visit Reason for Visit: Z98.1 Physical Exam Narrative: Patient comfortable sitting up in chair. Urinary Catheter Management: Hassan: Cath Placed During This Visit: yes, but has since been removed by the nurse Reason for Continuing Indwelling Catheter: Decision to DC Catheter Urinary Catheter Date of Insertion: 11/06/23 Urinary Catheter Time of Insertion: 07:30 Date Urinary Catheter Removed: 11/07/23 Time Urinary Catheter Discontinued: 07:00 Discharge Data Studies Completed and Pending Completed Studies During Hospitalization Category Date Time Status XR lumbar spine 1V 12610 Routine Exams 11/06/23 Completed Laboratory Results Blood Type A Positive 11/06/23 06:17 Rho(D) Type Rh positive 11/06/23 06:17 Antibody Screen Negative 11/06/23 06:17 Vitals Last Vital Signs Temp 97.5 F L 11/08/23 07:31 Pulse 67 11/08/23 07:31 Resp 18 11/08/23 07:31 BP 148/76 11/08/23 07:31 Pulse Ox 96 11/08/23 07:31 O2 Del Method Room Air 11/08/23 07:31 O2 Flow Rate 2 11/06/23 19:22 Discharge Plan Discharge Patient Disposition: Home Condition: Stable Prescriptions: New hydrocodone-acetaminophen 5-325 mg tablet 1 - 2 tab PO .Q4-6H Qty: 40 0RF Continued simvastatin 20 mg tablet 20 mg PO DAILY Myrbetriq 25 mg tablet extended release 24 hr 25 mg PO DAILY alendronate 70 mg tablet 70 mg PO .WEEKLY Rx Instructions: ON SATURDAY aspirin 81 mg tablet,delayed release (DR/EC) 81 mg PO DAILY cetirizine 10 mg tablet 10 mg PO DAILY PRN (Reason: allergies) duloxetine 60 mg capsule,delayed release(DR/EC) 60 mg PO DAILY gabapentin 600 mg tablet 600 mg PO BEDTIME lisinopril 40 mg tablet 40 mg PO DAILY potassium chloride 20 mEq tablet extended release 20 meq PO DAILY ropinirole 1 mg tablet See Rx Instructions .ROUTE .COMPLEX Rx Instructions: TAKE 1 TABLET BY MOUTH IN THE MORNING, 1 TABLET AT NOON, AND 2 TABLETS AT BEDTIME. ascorbate calcium (vitamin C) 500 mg tablet 500 mg PO DAILY cholecalciferol (vitamin D3) 50 mcg (2,000 unit) capsule 50 mcg PO DAILY (DME) Bone growth stimulator See Rx Instructions .Route .MEDSUPPLY Qty: 1 0RF Rx Instructions: As directed hydrocodone-acetaminophen 5-325 mg tablet 1 tab PO Q4H 5 Days Qty: 30 0RF Patient Comments: take 1-2 per day, trying to get off of them magnesium gluconate 30 mg (550 mg) Tablet 30 mg PO DAILY calcium carbonate 500 mg calcium (1,250 mg) Tablet 500 mg PO DAILY amlodipine 5 mg tablet 5 mg PO QAM Discharge Orders: Discharge Order (Routine); Ordered 11/08/23 Ordered By: Tyler Babb Discharge Diet: Advance as tolerated Discharge Activity: Limit activity as instructed Patient Instructions: Opioid Safety Activity Restrictions/Additional Instructions: Thank you for [facility] for your care! The following is a list of instructions, from your provider, to follow upon your discharge to ensure you have the optimal recovery from your recent injury orsurgery. Follow-up care is a noble part of your treatment and safety. Be sure to make and go to all appointments, and call your doctor if you are having problems. If you do not already have a follow-up appointment made, call Dr. Babb office in the next 1-3 days to make follow up appointment for 2 weeks at [phone]. It is also a good idea to know your test results and keep a list of the medicines you take. Medications will be prescribed for you at your provider's discretion. These medications are to be used as instructed; if they are taken more often that prescribed they will not be refilled early and in most cases will not be refilled at all. > When a refill is needed,you should contact miquel carpenter 2-3 business days before your prescription runs out. Medications will NOT be refilled by [employer] providers after hours! > Many pain medications contain Tylenol (Acetaminophen). Do not consume more than 4,000 mg of Tylenol per day in total with any combination ofmedications. > Pain medications can cause constipation. Please use an over the counter stool softener as directed, while taking pain medications. Consulty our local pharmacist with questions or recommendations on stool softeners. If constipation persists, contact our office or your primary care provider. > While under our care,you are not to receive pain medications or other controlled substances from any other provider unless our office is notified and approves. Any attempts to do so will result in refusal to prescribe any further pain medications and possible dismissal from our practice. ? Your wound and/or dressing should remain clean and dry for 2 days after surgery. On postoperative day 2 (48 hours after your surgery) the dressing (if present) should be removed and it is okay to shower and get the incision wet. Pad dry afterwards. No further dressing should be required from that point on. Do not put any creams or ointments on theincision > It is normal for there to be a small amount of discharge (bloody or blood tinged) present from a surgical wound for the first 1-3days. > The wound should be examined twice a day for signs of infection. Mild redness or bruising is to be expected but indications that an infection maybe starting would include; An increase in redness, swelling, or discharge, a foul odor present around the incision, and/or a fever greater than 101 ?F ? Showering is permitted, however we ask that you do not take a bath, sit in a whirlpool / Jacuzzi, or go swimming for 1 month. For only the first 2 days after surgery, lt wilt be necessary for you to cover your wound/dressing with plastic and tape to keep it dry. ? Walking is essential for the healing process after surgery. We would like you to slowly advance your walking. This should be done on relatively flat clear ground (inside or out) or can be done on a treadmill. Remember this goal does not have to happen all at once, slowly increase your distance and duration. This can be broken into more more than one walk per day a s tolerated. Patients who walk as directed after surgery rarely require Physical Therapy. In the unlikely event this issue arises your provider will direct hospital staff to make the appropriate arrangements. ? No lifting over 5 pounds {a gallon of milk) or bending/twisting until further notice. Each of these activities places an unnecessary amount of stress onto the body and can impede the delicate healing process. > Instead of bending at the waist, keep your back straight and bend at the knees. > Instead of twisting your torso, keep your back straight and turn your entire body with your feet. ? You may sleep in any position which makes you comfortable. Many patients find comfort sleeping in a reclining chair. It is not abnormal to have difficulty sleeping for the first several weeks following your surgery. We recommend trying Benadry! or Tylenol PM as directed to help with your sleeping difficulties. Both medications are over the counter and available wit houtprescription. ? NO SMOKING!!! Smoking dramatically increases the probability of developing postoperative wound infections. ? Common complaints after lumbar and/or thoracic spine surgery include, but are not limited to: numbness and/or tingling in the legs, pain around the incision and surrounding tissues, muscle spasms, or stiffness of the middle to low back. Contact our office if these symptoms persist or if an acute change occurs. ? No driving for the first 3-5days, and not while taking narcotics until seen at your follow-up appointment and cleared. There are no restrictions for riding on short trips, however if you take a longer trip, arrangements should be made to make regular stops to get out of the vehicle and stretch . ? Swelling is an unfortunate event that will take place with any surgery and is the primary source of your postoperative discomfort. While walking and regular approved activities helps control inflammation, there are additional steps you can take to minimizeswelling. > Place ice over the surgical site and surrounding tissue for twenty minutes, followed by applying a low/medium heat (heating pad) for an additional twenty minutes every 1-2 hours as needed for painrelief. > You may use of over the counter anti-inflammatory medications (Ibuprofen, Motrin, Aleve, Advil, etc) as directed on the package label. These types of medicines wm significantly reduce the amount of discomfort you experience after surgery from swelling. It should be noted that if you have and allergy to any of these medications, or a history of ulcers or kidney disease you should consult you primary care provider prior to starting these medications. Discharge Attestations Time Spent in Discharge Care*: less than 30 min Quality Metrics Clinical Quality Measures [ No reported AMI, CVA or VTE this stay] Coding Level of Care Code Acute Code for Chg Fwd Diagnoses Status post lumbar spinal fusion Z98.1
[2023-11-08] MEDS: metoprolol succinate ER (24 HR) 50 mg Tablet PO (08:35)
[2023-11-08] MEDS: duloxetine 60 mg Capsule PO (08:35)
[2023-11-08] MEDS: atorvastatin 40 mg Tablet 20 MG PO (08:35)
[2023-11-08] MEDS: lisinopril 20 mg Tablet 40 MG PO (08:35)
[2023-11-08] MEDS: docusate sodium 100 mg Capsule PO (08:36)
[2023-11-08] MEDS: potassium chloride ER 20 mEq Tablet PO (08:36)
[2023-11-08] MEDS: amlodipine 5 mg Tablet 10 MG PO (08:36)
[2023-11-08 11:32] VITALS: BP 146/88; PULSE 88; RESP 20; TEMP 36.2; O2SAT 92
--- NOTE | 2023-11-08 11:32 | PC.SOCIAL ---
IMM Update pg 2 of IMM updated and reviewed w/ patient. Copy provided and copy dated, initialed and placed in chart.
[2023-11-08] MEDS: ropinirole 1 mg Tablet PO (12:39)
[2023-11-08] MEDS: acetaminophen 325 mg Tablet 650 MG PO (12:41)
[2023-11-08 14:15] VITALS: BP 146/88; PULSE 88; RESP 20; TEMP 36.2; O2SAT 92
== END 2023-11-08 14:00 | disposition home or self-care (01) | DRG 457 ==
LOC: MEDSURG 11:12
PROVIDERS: Admitting Provider Orthopaedic Surgery; PCP Family Medicine; Visit Provider Orthopaedic Surgery
PROC: 8E0WXBZ Computer Assisted Procedure of Trunk Region (ICD-10-PCS; principal; 2023-11-06 07:00)
DX: M48.54XA Collapsed vertebra, not elsewhere classified, thoracic region, initial encounter for fracture (principal); T84.296A Other mechanical complication of internal fixation device of vertebrae, initial encounter; M40.294 Other kyphosis, thoracic region; E78.5 Hyperlipidemia, unspecified; Z86.73 Personal history of transient ischemic attack (TIA), and cerebral infarction without residual deficits; Z95.2 Presence of prosthetic heart valve; I11.9 Hypertensive heart disease without heart failure; Z79.82 Long term (current) use of aspirin; Z86.79 Personal history of other diseases of the circulatory system; Y79.3 Surgical instruments, materials and orthopedic devices (including sutures) associated with adverse incidents
CPT/HCPCS: 36415; 51702; 72020; 76000; 86850; 86900; 97116; 97161; 97530; C1713; J0690; J1170; J1885; J2704; J3010; J3370; J3490; J7030; J7120; L0456; P9045

== ENCOUNTER 2023-11-12 17:00 | Emergency (ER) | payer MEDICARE, SELFPAY ==
[2023-11-12 17:01] VITALS: BP 104/69; PULSE 93; RESP 16; TEMP 36.3; O2SAT 99
--- NOTE | 2023-11-12 17:27 | XRR_ITS ---
PROCEDURE INFORMATION: Exam: XR Thoracic Spine Exam date and time: 11/12/2023 5:45 PM Age: 78 years old Clinical indication: Injury or trauma; Fall; Blunt trauma (contusions or hematomas); Prior surgery; Surgery date: 3-7 days post-operative; Surgery type: T. Spine L. Spine; Additional info: Fall, pain, 6d S/P spinal fusion TECHNIQUE: Imaging protocol: Radiologic exam of the thoracic spine. Views: 3 views. COMPARISON: CR (CHEST, ) 11/12/2023 5:42 PM FINDINGS: Bones/joints: Extensive thoracolumbar spinal fusion hardware appears intact. There is exaggeration of the normal thoracic kyphosis. There is fracture of a lower thoracic vertebral body which is chronic. No acute fractures are seen. Soft tissues: Unremarkable. XR/XR thoracic spine 3V* [id number] IMPRESSION: No plain film evidence of acute fracture.
--- NOTE | 2023-11-12 17:27 | XRR_ITS ---
PROCEDURE INFORMATION: Exam: XR Lumbosacral Spine Exam date and time: 11/12/2023 5:49 PM Age: 78 years old Clinical indication: Injury or trauma; Fall; Blunt trauma (contusions or hematomas); Prior surgery; Surgery date: 3-7 days post-operative; Surgery type: T. Spine L. Spine; Additional info: Fall, pain, 6d S/P spinal fusion TECHNIQUE: Imaging protocol: Radiologic exam of the lumbosacral spine. Views: 2 or 3 views. COMPARISON: CR XR lumbar spine 2-3V* [id number] 09/10/2023 3:13 PM FINDINGS: Bones/joints: Extensive lumbosacral fusion hardware appears intact. The bones are demineralized. No obvious fractures are seen on plain film radiography though evaluation is limited by osseous demineralization. The appearance is grossly stable compared to 09/10/2023. Soft tissues: Unremarkable. Vasculature: Atherosclerotic calcifications of the aorta. XR/XR lumbar spine 2-3V* [id number] IMPRESSION: No plain film evidence of acute fracture. Evaluation limited by osseous demineralization.
--- NOTE | 2023-11-12 17:27 | XRR_ITS ---
PROCEDURE INFORMATION: Exam: XR Chest Exam date and time: 11/12/2023 5:42 PM Age: 78 years old Clinical indication: Injury or trauma; Fall; Blunt trauma (contusions or hematomas); Prior surgery; Surgery date: 3-7 days post-operative; Surgery type: T. Spine L. Spine; Additional info: Fall, pain TECHNIQUE: Imaging protocol: Radiologic exam of the chest. Views: 1 view. COMPARISON: CR (CHEST, ) 06/20/2023 8:54 PM FINDINGS: Lungs: Mild left basilar atelectasis and possible consolidation. The lungs are otherwise clear. Pleural spaces: Minimal blunting of the left costophrenic angle suggesting trace left pleural effusion. No pneumothorax. Heart/Mediastinum: Unchanged mediastinum. Bones/joints: Extensive thoracolumbar fusion hardware extending from the lower thoracolumbar spine compared to prior study. XR/XR chest 1V portable [id number] IMPRESSION: Trace left pleural effusion with adjacent atelectasis and/or consolidation.
--- NOTE | 2023-11-12 17:27 | W.ED.BACK ---
HPI - Back Pain/Injury General: Chief Complaint: Back Pain/Injury Stated Complaint: 6 days post surgey, fall, back pain Time Seen by Provider: 11/12/23 17:14 Source: patient and family Mode of arrival: ambulatory Limitations: no limitations History of Present Illness: 78yo female presents with friend for evaluation of upper back pain that has been ongoing since she fell out of bed 2 days ago. Patient reports she is not certain, but she may have struck her stool that she uses to get into bed as well as landed on her walker. She states that she was unable to get up on her own. She reports that she did lay on the floor until her was able to help her up Saturday morning. States that she has been able to walk with her walker, but she is slow with her activity. Patient states that she does have persistent pain to the midline upper back, at the area of surgery. Family member reports that her surgery was in order to place an extension on her previous lumbar fusion due to the bones collapsing. Patient denies fever, headache, numbness/tingling, incontinence, any other concern at this time. Associated symptoms: Deny chills, fever(s) or vomiting Review of Systems Const: Denies: fever(s) or chills Card: Denies: chest pain Resp: Denies: dyspnea GI: Denies: vomiting Musc: Reports: back pain; Denies: extremity swelling Neuro: Denies: headache(s), numbness in extremities or weakness in extremities CR[facility] ACCESS [facility] ED PFSH: Medical History Aortic dissection Essential hypertension Hyperlipidemia Heart disease Iron deficiency History of CVA (cerebrovascular accident) Surgical History History of prosthetic aortic valve S/P spinal fusion Family History Father Depression Heart disease Stroke Mother Hypertension Social History Smoking and tobacco/nicotine status: never used tobacco/nicotine Second hand smoke exposure: No Alcohol intake: never Physical Exam Const: COMMON NORMALS: no acute distress and alert ORIENTATION/CONSCIOUSNESS: Yes awake OTHER: Patient is sitting upright on stretcher no acute distress. She is able to give history with no difficulty. She is interactive with exam appropriately. Family/friend at bedside HENMT: COMMON NORMALS: normocephalic HEAD & SCALP: normocephalic Neck/C-Spine: COMMON NORMALS: full ROM Chest: CHEST: Yes Symmetrical chest wall rise Resp: COMMON NORMALS: normal respiratory effort and clear to auscultation bilaterally EFFORT & INSPECTION: Yes able to speak in complete sentences AUSCULTATION: clear to auscultation bilaterally Cardio: COMMON NORMALS: regular rate RATE: regular rate Back/Pelvis: THORACIC SPINE/UPPER BACK: Yes thoracic spinal tenderness T-spine tenderness location: T4 T-spine tenderness details: other (surgical dressing in place to midline spine. No saturation of dressing noted. ) Extremity: NARRATIVE EXTREMITY EXAM: Patient is able to straight leg raise bilaterally with no significant difficulty. + Movement bilateral toes. Sensation intact and equal bilateral lower extremities. Neuro: SENSORIUM/ORIENTATION: Yes alert Psych: ATTITUDE: Yes calm Skin: WOUNDS: Yes surgical site (Dressing is clean, dry, and intact to midline spine) Course Vital Signs: Vital signs: Vital Signs Temperature 97.4 F L 11/12/23 17:01 Pulse Rate 93 11/12/23 17:01 Respiratory Rate 16 11/12/23 17:01 Blood Pressure 104/69 11/12/23 17:01 Pulse Oximetry 99 11/12/23 17:01 Oxygen Delivery Me thod Room Air 11/12/23 17:01 MDM - Back Pain/Injury Medical Decision Making 78yo female here with friend/family for persistent upper back pain after falling out of the bed 2 nights ago. Patient is 6 days status post spinal fusion. Patient does state that she contacted her surgeon's office today, but did not hear back from them. She reports that she is taking her hydrocodone, gabapentin, and duloxetine as prescribed but is still having pain. Patient denies fever, headache, extremity weakness, incontinence, decrease sensation to her extremities. Patient is nontoxic in appearance. Vital signs are stable. On exam, surgical bandage was noted to be in place to the midline spine. Patient declined removal of the bandage. Bandage was noted to be clean, dry, and intact. Proceeded with imaging given patient's recent surgery and fall. Differential diagnosis include, but not limited to: spinal fracture, rib fracture, displacement of hardware, muscular injury, contusion, wound dehiscence X-ray of the lumbar spine and x-ray thoracic spine with hardware noted, but no acute bony abnormalities noted. Chest x-ray with concern of consolidation versus atelectasis to the left lower lobe. Given that the patient is 6 days that is post fusion and has not been moving around as much as she typically would, increase likelihood of consolidation. Will begin doxycycline for treatment of pneumonia. Will add tizanidine to patient's current medication regimen to see if that will help her pain more. Discussed sedation precautions. Strongly encourage patient to call her surgeon again tomorrow to discuss her fall as well as a follow-up. Recommend she return to the emergency department if any rapid worsening symptoms, further injury, and as needed. Patient and friend state understanding and have no further questions or concerns at this time. Medical Records I reviewed the patient's medical records. Labs Radiology Impressions Chest X-Ray 11/12/23 17:27 IMPRESSION: Trace left pleural effusion with adjacent atelectasis and/or consolidation. Lumbar Spine X-Ray 11/12/23 17:27 IMPRESSION: No plain film evidence of acute fracture. Evaluation limited by osseous demineralization. Thoracic Spine X-Ray 11/12/23 17:27 IMPRESSION: No plain film evidence of acute fracture. All radiology interpretation(s) finalized by discharge Discharge Plan Discharge Patient Disposition: Home Clinical Impression: Left lower lobe consolidation, S/P spinal fusion, Thoracic back pain, Fall from bed Condition: Stable Prescriptions: New doxycycline hyclate 100 mg capsule 100 mg PO BID 10 Days Qty: 20 0RF tizanidine 2 mg tablet 2 mg PO Q8H PRN (Reason: muscle spasticity, pain) Qty: 20 0RF No Action simvastatin 20 mg tablet 20 mg PO DAILY Myrbetriq 25 mg tablet extended release 24 hr 25 mg PO DAILY alendronate 70 mg tablet 70 mg PO .WEEKLY Rx Instructions: ON SATURDAY aspirin 81 mg tablet,delayed release (DR/EC) 81 mg PO DAILY cetirizine 10 mg tablet 10 mg PO DAILY PRN (Reason: allergies) duloxetine 60 mg capsule,delayed release(DR/EC) 60 mg PO DAILY gabapentin 600 mg tablet 600 mg PO BEDTIME lisinopril 40 mg tablet 40 mg PO DAILY potassium chloride 20 mEq tablet extended release 20 meq PO DAILY ropinirole 1 mg tablet See Rx Instructions .ROUTE .COMPLEX Rx Instructions: TAKE 1 TABLET BY MOUTH IN THE MORNING, 1 TABLET AT NOON, AND 2 TABLETS AT BEDTIME. ascorbate calcium (vitamin C) 500 mg tablet 500 mg PO DAILY cholecalciferol (vitamin D3) 50 mcg (2,000 unit) capsule 50 mcg PO DAILY (DME) Bone growth stimulator See Rx Instructions .Route .MEDSUPPLY Qty: 1 0RF Rx Instructions: As directed hydrocodone-acetaminophen 5-325 mg tablet 1 tab PO Q4H 5 Days Qty: 30 0RF Patient Comments: take 1-2 per day, trying to get off of them magnesium gluconate 30 mg (550 mg) Tablet 30 mg PO DAILY calcium carbonate 500 mg calcium (1,250 mg) Tablet 500 mg PO DAILY amlodipine 5 mg tablet 5 mg PO QAM hydrocodone-acetaminophen 5-325 mg tablet 1 - 2 tab PO .Q4-6H Qty: 40 0RF Discharge Orders: Discharge ED (Routine); Ordered 11/12/23 Ordered By: Boris Thurston Referrals: Terry Beasley [Primary Care Provider] - Discharge Diet: Usual diet Discharge Activity: Increase activity as tolerated Patient Instructions: Opioid Safety, Pain Management Activity Restrictions/Additional Instructions: No fractures or acute bony abnormalities noted on the imaging today There was concern of a possible pneumonia in the left lower lung. We have started doxycycline to treat the possible pneumonia Tizanidine has been sent to your pharmacy to use in addition to your previously prescribed medications. Please do not take this medication at the same time that you are taking your hydrocodone as it may cause increased sedation. It would be best to wait a couple of hours after taking your hydrocodone before taking the tizanidine Please call your surgeon again tomorrow to let them know that you were seen in the emergency department and to discuss a possible recheck Return to the emergency department if any further injury, rapid worsening symptoms, and as needed Coding Level of Care Code ED [employer] for Raoul Camp
[2023-11-12] MEDS: tizanidine 4 mg Tablet 2 MG PO (19:23)
[2023-11-12] MEDS: doxycycline 100 mg Tablet PO (19:24)
[2023-11-12 19:43] VITALS: BP 95/60; PULSE 62; O2SAT 97
== END 2023-11-12 19:45 | disposition home or self-care (01) ==
PROVIDERS: Emergency Provider Nurse Practitioner; PCP Family Medicine
DX: M54.6 Pain in thoracic spine (principal); J18.1 Lobar pneumonia, unspecified organism; Z98.890 Other specified postprocedural states; Z79.82 Long term (current) use of aspirin; I10 Essential (primary) hypertension; E78.5 Hyperlipidemia, unspecified; Z86.73 Personal history of transient ischemic attack (TIA), and cerebral infarction without residual deficits
CPT/HCPCS: 71045; 72072; 72100; 99284

== ENCOUNTER 2023-11-18 19:35 | Emergency (ER) | payer MEDICARE, SELFPAY ==
--- NOTE | 2023-11-18 19:39 | XRR_ITS ---
PROCEDURE INFORMATION: Exam: XR Chest Exam date and time: 11/18/2023 8:07 PM Age: 78 years old Clinical indication: Shortness of breath; Additional info: SOB TECHNIQUE: Imaging protocol: Radiologic exam of the chest. Views: 1 view. COMPARISON: CR (CHEST, ) 11/12/2023 5:42 PM FINDINGS: Lungs: Unremarkable. No consolidation or mass. Pleural spaces: Unremarkable. No pleural effusion. No pneumothorax. Heart/Mediastinum: See Bones/joints finding. Bones/joints: Sternal sutures are noted along with a prosthetic heart valve. Metallic rods are noted throughout the thoracolumbar spine. XR/XR chest 1V portable [id number] IMPRESSION: I see no acute abnormality.
--- NOTE | 2023-11-18 19:43 | ECG_ITS ---
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 Measurements Intervals [place] Rate: 102 P: 0 CA: 0 QRS: 100 QRSD: 89 T: -90 QT: 363 QTc: 475 Interpretive Statements ATRIAL FIBRILLATION WITH RAPID VENTRICULAR RESPONSE INDETERMINATE AXIS POSSIBLE RIGHT VENTRICULAR CONDUCTION DELAY [RSR (QR) IN V1/V2] ST DEVIATION AND MODERATE T-WAVE ABNORMALITY, CONSIDER ANTERIOR ISCHEMIA [-0.1+ mV T-WAVE IN V3/V4] Compared to ECG 06/24/2023 01:09:02 Indeterminate axis now present Sinus rhythm no longer present First degree AV block no longer present T-wave abnormality still present Possible ischemia still present Electronically Signed On 11-19-2023 0:41:41 [employer] by Kurt Weathers M.D. [id number]
[2023-11-18 19:49] VITALS: BP 148/90; PULSE 100; RESP 12; TEMP 36.6; O2SAT 98; BMI 22.1
[2023-11-18 20:00] LABS: Basophils % 0.3 %; Eosinophils # 0.1 10^3/uL (0.0-0.8); Eosinophils % 0.9 %; Hematocrit 36.9 % (36-47); Lymphocytes # 1.1 10^3/uL (0.8-4.8); Lymphocytes % 16.7 %; Mean Corpuscular Hemoglobin 26.9 pg (27-33); Mean Corpuscular Volume 84.1 fl (85-98); Mean Platelet Volume 8.6 fL (7.4-10.4); Monocytes # 0.5 10^3/uL (0.2-0.9); Monocytes % 8.3 %; Neutrophils # 4.62 10^3/uL (1.8-7.7); Neutrophils % 72.9 %; Nucleated Red Blood Cells % 0 %; Platelet Count 417 10^3/cmm (157-399); Red Blood Count 4.39 10^6/uL (3.85-5.65); Red Cell Distribution Width 16.3 % (12.1-15.1); White Blood Count 6.35 10^3/uL (3.29-11.43)
[2023-11-18 20:07] LABS: INR 0.98 (0.8-1.2)
[2023-11-18 20:12] LABS: Troponin(5th) Baseline 26 ng/L (0-10)
[2023-11-18 20:27] LABS: Alanine Aminotransferase 16 U/L (0-33); Alkaline Phosphatase 142 U/L (35-105); Aspartate Amino Transferase 26 U/L (0-32); Blood Urea Nitrogen 12 mg/dL (8-23); Calcium 9.3 mg/dL (8.5-10.5); Carbon Dioxide 31 mmol/L (22-29); Chloride 89 mmol/L (98-107); Creatinine Clr Calc Pharmacy 47.9184; Globulin 2.5 g/dL (1.3-4.6); Glucose 122 mg/dL (65-115); NT Pro B Type Natriuretic Pept 751 pg/mL (0-450); Osmolality Calculated 275 mOsm/kg (285-295); Sodium 132 mmol/L (136-145); Total Bilirubin 0.4 mg/dL (0.15-1.2); Total Protein 6.5 g/dL (6.6-8.7)
[2023-11-18 20:58] VITALS: BP 151/113; PULSE 96; RESP 16; O2SAT 99
--- NOTE | 2023-11-18 21:05 | ED_ITS ---
Documented by User: Ishan Logan DO 11/19/23 05:30 HPI - Chest Pain 2 General: Chief Complaint: Chest Pain Stated Complaint: sob pnemonia + pain in chest when breath Time Seen by Provider: 11/18/23 20:53 History of Present Illness: Patient presents to the ER with worsening chest pain when she takes a big deep breath or moves. Patient had a recent fall and came to the ER last Saturday and was diagnosed with pneumonia and was told she had some bruising most likely from falling. Now patient states it hurts to breathe or move. Patient has taken hydrocodone once or twice at home since then and does not seem to help. Patient satting 99% on room air and does not appear to be in acute distress. 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 Sarmiento at [facility] in [place] repaired it and replaced a valve. This was back in 2018. Review of Systems 2 General: Reports: 10 or more systems reviewed and unremarkable except in HPI and below PFSH ED 2 PFSH: Medical History Aortic dissection Essential hypertension Hyperlipidemia Heart disease Iron deficiency History of CVA (cerebrovascular accident) Surgical History History of prosthetic aortic valve S/P spinal fusion Family History Father Depression Heart disease Stroke Mother Hypertension Social History Smoking and tobacco/nicotine status: never used tobacco/nicotine Second hand smoke exposure: No Alcohol intake: never Physical Exam 2 Const: COMMON NORMALS: no acute distress, average body habitus, patient oriented x3, no limitations, healthy appearing, alert and well nourished HENMT: COMMON NORMALS: normocephalic, atraumatic, hearing grossly normal bilaterally, external ears normal, EAC's normal, Normal external nose present, moist oral mucous membranes and oropharynx normal HEAD & SCALP: normocephalic and atraumatic NOSE: Normal external nose present EXTERNAL EAR: Yes external ears normal EXTERNAL AUDITORY CANAL: EAC's normal Neck/C-Spine: COMMON NORMALS: no JVD Chest: COMMONS NORMALS: normal inspection of the chest and normal palpation of entire chest wall Resp: COMMON NORMALS: normal respiratory effort, No retractions, No use of accessory muscles and clear to auscultation bilaterally AUSCULTATION: clear to auscultation bilaterally Cardio: COMMON NORMALS: no JVD, regular rate, S1 normal heart sound present, S2 normal heart sound present, No gallops present (Cardio), No clicks present (Cardio), No murmurs present (Cardio) and No rub (Cardio); negative for regular rhythm (Irregular irregular rhythm) RATE: regular rate RHYTHM: abnormal rhythm (Irregular irregular rhythm) HEART SOUNDS: S1 normal heart sound present and S2 normal heart sound present GI: COMMON NORMALS: Normal to inspection, nondistended, normoactive bowel sounds present, Soft to palpation, non-tender, No hepatosplenomegaly present and no masses PALPATION: Yes Soft to palpation and Yes No hepatosplenomegaly present Neuro: COMMON NORMALS: patient oriented x3 SENSORIUM/ORIENTATION: Yes alert Course 2 Vital Signs: Vital signs: Vital Signs Temperature 97.9 F 11/18/23 19:49 Pulse Rate 100 11/19/23 11:29 Respiratory Rate 17 11/19/23 11:15 Blood Pressure 135/96 11/19/23 11:00 Pulse Oximetry 100 11/19/23 11:00 Oxygen Delivery Me thod Room Air 11/19/23 11:00 MDM - Chest Pain Medical Decision Making Discussed case with Dr. Sarmiento CT surgeon who did do an patient's original surgery Prater read him the official report he feels that the ascending aorta that he repaired in the past will still show a chronic dissection but he cannot comment on the descending aorta but if the aneurysms are increasing in size they do need to be dealt with. We called the transfer center back at [facility] and asked to speak to either the vascular surgeon or the in-house radiologist as we want someone to actually look at the images we have put up on the cloud and compared them to their images to see if this is changing. We have called them multiple times we have not been able to speak with anyone except the flight operations coordinator. charge coordinator said she has called them multiple times and is unable to get anyone to answer their phone. The patient and the her family was informed of this and due to the potential severity of the situation they are electing to stay here until we figure out if this has any acute changes. charge coordinator called back and said she finally got a hold of someone and they are sending the images from 2018 that they have to [facility] so they can compare their images to our images done today. Differential Diagnosis Unlikely acute massive pulmonary embolism, acute respiratory failure, acute myocardial infarction, cardiac arrest or sudden cardiac Medical Records I reviewed the patient's medical records. Lab Data I reviewed the patient's lab results. 11/18/23 19:50 11/18/23 19:50 Radiology Impressions Chest X-Ray 11/18/23 19:39 IMPRESSION: I see no acute abnormality. Chest CT 11/18/23 23:02 IMPRESSION: 1. Negative for acute traumatic injury to the chest. 2. Small to moderate bilateral pleural effusions. 3. Cardiomegaly. 4. CABG changes. 5. Thoracic arge aneurysmal dilation to 5 cm along with descending thoracic aortic aneurysmal dilation to 4.9 cm. Possible descending thoracic aortic dissection is seen, for instance on series 5, image 30, a CT with contrast could better assess this. 6. Sternotomy wires. 7. Surgical hardware throughout the spine bridging a T10 vertebral body likely chronic compression fracture. Chest/Abdomen/Pelvis CTA 11/18/23 23:56 IMPRESSION: 1. Aortic dissection seen in the ascending thoracic aorta, thoracic aortic arch and descending thoracic aorta with aneurysmal dilation of the thoracic aortic arch to 5 cm and descending thoracic aorta to 5.1 cm. The dissection extends to the level of the renal arteries in the abdominal aorta. Negative for rupture seen. Finding may potentially be chronic, please correlate with history. 2. Emphysematous changes. 3. Small bilateral pleural effusions. 4. Bilateral dependent atelectasis versus infiltrate. 5. Surgical hardware seen throughout the spine with a chronic T10 vertebral body compression fracture. 6. Median sternotomy wires. 7. Constipation. 8. Left kidney cyst, negative for follow-up advised. 9. Bilateral dependent atelectasis versus minimal infiltrate. 10. Artificial aortic valve. ADDENDUM: 11/19/23 0045 THIS REPORT CONTAINS FINDINGS THAT MAY BE CRITICAL TO PATIENT CARE. The findings were verbally communicated via telephone conference with Ishan Logan at 12:43 AM BLUNGER MACHINE OPERATOR on 11/19/2023. The findings were acknowledged and understood. ADDENDUM: 11/19/23 0747 Addendum: I was asked to compare this study with the prior from 06/27/2018 and determine if there have been changes in the aortic aneurysm risen/dissection. Within the ascending aorta, the dissection appears different in the the true lumen has become larger in the false lumen has become smaller. Both now enhance to the same degree. When measured on series 13, image 58, it measures 5.6 x 4.3 cm. When measured in a similar location on the previous study, it measured 5.3 x 4.3 cm. This is minimally bigger in transverse dimension. Beginning in the arch however it becomes markedly larger primarily due to interval enlargement of the false lumen. The true lumen is also larger but the false lumen is much larger than before. The false lumen is partially thrombosed posteriorly When measured on series 13, image 77, it measures 5.9 x 5.0 cm. When measured in a similar location on the previous study, it measured 3.1 x 3.2 cm. This continues to involve the entire descending thoracic aorta and extend into the upper abdominal aorta. When measured just above the diaphragms, it measures 5.0 x 4.7 cm. When measured in a similar location on the previous study, it measured 3.1 x 3.1 cm. Within the abdomen, previously, the false lumen was not demonstrated to be patent. It is patent on the current study. The celiac axis comes off the false lumen and is patent. The superior mesenteric artery and both renal arteries, off the true lumen. When measured just above the celiac axis, it measures 5.6 x 3.1 cm. When measured in a similar location on the prior study it measured 4.0 x 2.3 cm. This addendum was discussed with Dr. Espinoza on 11/19/2023 725 a.m. central time. Laboratory Results WBC 6.35 10^3/uL (3.29-11.43) 11/18/23 19:50 RBC 4.39 10^6/uL (3.85-5.65) 11/18/23 19:50 Hgb 11.80 g/dL (11.27-16.99) 11/18/23 19:50 Hct 36.9 % (36-47) 11/18/23 19:50 MCV 84.1 fl (85-98) L 11/18/23 19:50 MCH 26.9 pg (27-33) L 11/18/23 19:50 MCHC 32.0 g/dL (30-55) 11/18/23 19:50 RDW 16.3 % (12.1-15.1) H 11/18/23 19:50 Plt Count 417 10^3/cmm (157-399) H 11/18/23 19:50 MPV 8.6 fL (7.4-10.4) 11/18/23 19:50 Neut % (Auto) 72.9 % 11/18/23 19:50 Lymph % (Auto) 16.7 % 11/18/23 19:50 Mckenzie % (Auto) 8.3 % 11/18/23 19:50 Eos % (Auto) 0.9 % 11/18/23 19:50 Baso % (Auto) 0.3 % 11/18/23 19:50 Neut # (Auto) 4.62 10^3/uL (1.8-7.7) 11/18/23 19:50 Lymph # (Auto) 1.1 10^3/uL (0.8-4.8) 11/18/23 19:50 Mckenzie # (Auto) 0.5 10^3/uL (0.2-0.9) 11/18/23 19:50 Eos # (Auto) 0.1 10^3/uL (0.0-0.8) 11/18/23 19:50 Baso # (Auto) 0.0 10^3/uL (0.0-0.1) 11/18/23 19:50 Nucleated RBC % (auto) 0 % 11/18/23 19:50 Nucleated RBCs # 0.0 /100WBC 11/18/23 19:50 PT 13.30 SECONDS (12.1-14.9) 11/18/23 19:50 INR 0.98 (0.8-1.2) 11/18/23 19:50 Sodium 132 mmol/L (136-145) L 11/18/23 19:50 Potassium 3.0 mmol/L (3.5-5.1) L 11/18/23 19:50 Chloride 89 mmol/L (98-107) L 11/18/23 19:50 Carbon Dioxide 31 mmol/L (22-29) H 11/18/23 19:50 Anion Gap 15.0 (5-19) 11/18/23 19:50 BUN 12 mg/dL (8-23) 11/18/23 19:50 Creatinine 0.6 mg/dL (0.5-0.9) 11/18/23 19:50 GFR Calculation Not Reportable 11/18/23 19:50 Glucose 122 mg/dL (65-115) H 11/18/23 19:50 Calculated Osmolality 275 mOsm/kg (285-295) L 11/18/23 19:50 Calcium 9.3 mg/dL (8.5-10.5) 11/18/23 19:50 Total Bilirubin 0.4 mg/dL (0.15-1.2) 11/18/23 19:50 AST 26 U/L (0-32) 11/18/23 19:50 ALT 16 U/L (0-33) 11/18/23 19:50 Alkaline Phosphatase 142 U/L (35-105) H 11/18/23 19:50 Troponin T Baseline 26 ng/L (0-10) H 11/18/23 19:50 Troponin T 120 Minute 29.38 ng/L (0-10) H 11/18/23 21:30 Delta Troponin T 3.38 ABS# (0-10) 11/18/23 21:30 Troponin T Hi Sens 6Hr 22.96 ng/L (0-10) H 11/19/23 02:05 Troponin T Hi Sens 6Hr Delta -3.04 ng/L (0-12) L 11/19/23 02:05 NT-Pro-B Natriuret Pep 751 pg/mL (0-450) H 11/18/23 19:50 Total Protein 6.5 g/dL (6.6-8.7) L 11/18/23 19:50 Albumin 4.0 g/dL (3.5-5.2) 11/18/23 19:50 Globulin 2.5 g/dL (1.3-4.6) 11/18/23 19:50 Influenza Type A Ag negative (Negative) 11/18/23 21:00 Influenza Type B Ag negative (Negative) 11/18/23 21:00 All radiology interpretation(s) finalized by discharge EKG Data EKG 1: I personally reviewed and interpreted this EKG as follows: EKG interpretation date: 02/26/24 EKG interpretation time: 19:43 Prior EKG tracings: not available for review Interpretation: Ventricular rate 102 bpm, QRS duration 89, QTc of 422, atrial fibrillation with rapid ventricular response, EKG 2: I personally reviewed and interpreted this EKG as follows: EKG interpretation date: 11/18/23 EKG interpretation time: 22:31 Prior EKG tracings: not available for review Interpretation: Ventricular rate 84 bpm, MD interval 205, QRS duration 85, QTc of 416, sinus rhythm with frequent PVCs, Discharge Plan Discharge Patient Disposition: Xfer Short-Term Hosp Clinical Impression: Thoracoabdominal aortic dissection, HTN (hypertension) Condition: Stable Referrals: Terry Beasley [Primary Care Provider] - Coding Level of Care Code ED Tire Balancer for Chg Fwd Documented by User: John Espinoza DO 11/21/23 06:02 HPI - Chest Pain 2 General: Chief Complaint: Chest Pain Stated Complaint: sob pnemonia + pain in chest when breath Time Seen by Provider: 11/18/23 20:53 PFSH ED 2 PFSH: Medical History Aortic dissection Essential hypertension Hyperlipidemia Heart disease Iron deficiency History of CVA (cerebrovascular accident) Surgical History History of prosthetic aortic valve S/P spinal fusion Family History Father Depression Heart disease Stroke Mother Hypertension Social History Smoking and tobacco/nicotine status: never used tobacco/nicotine Second hand smoke exposure: No Alcohol intake: never Course 2 Vital Signs: Vital signs: Vital Signs Temperature 97.9 F 11/18/23 19:49 Pulse Rate 100 11/19/23 11:29 Respiratory Rate 17 11/19/23 11:15 Blood Pressure 135/96 11/19/23 11:00 Pulse Oximetry 100 02/27/24 11:00 Oxygen Delivery Me thod Room Air 11/19/23 11:00 MDM - Chest Pain Medical Decision Making Discussed case with Dr. Sarmiento CT surgeon who did do an patient's original surgery Prater read him the official report he feels that the ascending aorta that he repaired in the past will still show a chronic dissection but he cannot comment on the descending aorta but if the aneurysms are increasing in size they do need to be dealt with. We called the transfer center back at [facility] and asked to speak to either the vascular surgeon or the in-house radiologist as we want someone to actually look at the images we have put up on the cloud and compared them to their images to see if this is changing. We have called them multiple times we have not been able to speak with anyone except the flight operations coordinator. charge coordinator said she has called them multiple times and is unable to get anyone to answer their phone. The patient and the her family was informed of this and due to the potential severity of the situation they are electing to stay here until we figure out if this has any acute changes. charge coordinator called back and said she finally got a hold of someone and they are sending the images from 2018 that they have to [facility] so they can compare their images to our images done today. Discussed patient with Dr. Cooper at [facility], he has reviewed the films and feels the aneurysm from the transverse portion of the aortic arch extending inferiorly is a new dissection. He does not feel that they can manage at [facility] and recommends transfer to [place]. Discussed with on-call vascular surgery at [place]. They will accept the patient on transfer to their ER. Patient has been started on nicardipine and esmolol. Transferred via air ambulance. Lab Data 11/18/23 19:50 11/18/23 19:50 Radiology Impressions Chest X-Ray 11/18/23 19:39 IMPRESSION: I see no acute abnormality. Chest CT 11/18/23 23:02 IMPRESSION: 1. Negative for acute traumatic injury to the chest. 2. Small to moderate bilateral pleural effusions. 3. Cardiomegaly. 4. CABG changes. 5. Thoracic arge aneurysmal dilation to 5 cm along with descending thoracic aortic aneurysmal dilation to 4.9 cm. Possible descending thoracic aortic dissection is seen, for instance on series 5, image 30, a CT with contrast could better assess this. 6. Sternotomy wires. 7. Surgical hardware throughout the spine bridging a T10 vertebral body likely chronic compression fracture. Chest/Abdomen/Pelvis CTA 11/18/23 23:56 IMPRESSION: 1. Aortic dissection seen in the ascending thoracic aorta, thoracic aortic arch and descending thoracic aorta with aneurysmal dilation of the thoracic aortic arch to 5 cm and descending thoracic aorta to 5.1 cm. The dissection extends to the level of the renal arteries in the abdominal aorta. Negative for rupture seen. Finding may potentially be chronic, please correlate with history. 2. Emphysematous changes. 3. Small bilateral pleural effusions. 4. Bilateral dependent atelectasis versus infiltrate. 5. Surgical hardware seen throughout the spine with a chronic T10 vertebral body compression fracture. 6. Median sternotomy wires. 7. Constipation. 8. Left kidney cyst, negative for follow-up advised. 9. Bilateral dependent atelectasis versus minimal infiltrate. 10. Artificial aortic valve. ADDENDUM: 11/19/23 0045 THIS REPORT CONTAINS FINDINGS THAT MAY BE CRITICAL TO PATIENT CARE. The findings were verbally communicated via telephone conference with Ishan Logan at 12:43 AM BLUNGER MACHINE OPERATOR on 11/19/2023. The findings were acknowledged and understood. ADDENDUM: 11/19/23 0747 Addendum: I was asked to compare this study with the prior from 06/27/2018 and determine if there have been changes in the aortic aneurysm risen/dissection. Within the ascending aorta, the dissection appears different in the the true lumen has become larger in the false lumen has become smaller. Both now enhance to the same degree. When measured on series 13, image 58, it measures 5.6 x 4.3 cm. When measured in a similar location on the previous study, it measured 5.3 x 4.3 cm. This is minimally bigger in transverse dimension. Beginning in the arch however it becomes markedly larger primarily due to interval enlargement of the false lumen. The true lumen is also larger but the false lumen is much larger than before. The false lumen is partially thrombosed posteriorly When measured on series 13, image 77, it measures 5.9 x 5.0 cm. When measured in a similar location on the previous study, it measured 3.1 x 3.2 cm. This continues to involve the entire descending thoracic aorta and extend into the upper abdominal aorta. When measured just above the diaphragms, it measures 5.0 x 4.7 cm. When measured in a similar location on the previous study, it measured 3.1 x 3.1 cm. Within the abdomen, previously, the false lumen was not demonstrated to be patent. It is patent on the current study. The celiac axis comes off the false lumen and is patent. The superior mesenteric artery and both renal arteries, off the true lumen. When measured just above the celiac axis, it measures 5.6 x 3.1 cm. When measured in a similar location on the prior study it measured 4.0 x 2.3 cm. This addendum was discussed with Dr. Espinoza on 11/19/2023 725 a.m. central time. Laboratory Results WBC 6.35 10^3/uL (3.29-11.43) 11/18/23 19:50 RBC 4.39 10^6/uL (3.85-5.65) 11/18/23 19:50 Hgb 11.80 g/dL (11.27-16.99) 11/18/23 19:50 Hct 36.9 % (36-47) 11/18/23 19:50 MCV 84.1 fl (85-98) L 11/18/23 19:50 MCH 26.9 pg (27-33) L 11/18/23 19:50 MCHC 32.0 g/dL (30-55) 11/18/23 19:50 RDW 16.3 % (12.1-15.1) H 11/18/23 19:50 Plt Count 417 10^3/cmm (157-399) H 11/18/23 19:50 MPV 8.6 fL (7.4-10.4) 11/18/23 19:50 Neut % (Auto) 72.9 % 11/18/23 19:50 Lymph % (Auto) 16.7 % 11/18/23 19:50 Mckenzie % (Auto) 8.3 % 11/18/23 19:50 Eos % (Auto) 0.9 % 11/18/23 19:50 Baso % (Auto) 0.3 % 11/18/23 19:50 Neut # (Auto) 4.62 10^3/uL (1.8-7.7) 11/18/23 19:50 Lymph # (Auto) 1.1 10^3/uL (0.8-4.8) 11/18/23 19:50 Mckenzie # (Auto) 0.5 10^3/uL (0.2-0.9) 11/18/23 19:50 Eos # (Auto) 0.1 10^3/uL (0.0-0.8) 11/18/23 19:50 Baso # (Auto) 0.0 10^3/uL (0.0-0.1) 11/18/23 19:50 Nucleated RBC % (auto) 0 % 11/18/23 19:50 Nucleated RBCs # 0.0 /100WBC 11/18/23 19:50 PT 13.30 SECONDS (12.1-14.9) 11/18/23 19:50 INR 0.98 (0.8-1.2) 11/18/23 19:50 Sodium 132 mmol/L (136-145) L 11/18/23 19:50 Potassium 3.0 mmol/L (3.5-5.1) L 11/18/23 19:50 Chloride 89 mmol/L (98-107) L 11/18/23 19:50 Carbon Dioxide 31 mmol/L (22-29) H 11/18/23 19:50 Anion Gap 15.0 (5-19) 11/18/23 19:50 BUN 12 mg/dL (8-23) 11/18/23 19:50 Creatinine 0.6 mg/dL (0.5-0.9) 11/18/23 19:50 GFR Calculation Not Reportable 11/18/23 19:50 Glucose 122 mg/dL (65-115) H 11/18/23 19:50 Calculated Osmolality 275 mOsm/kg (285-295) L 11/18/23 19:50 Calcium 9.3 mg/dL (8.5-10.5) 11/18/23 19:50 Total Bilirubin 0.4 mg/dL (0.15-1.2) 11/18/23 19:50 AST 26 U/L (0-32) 11/18/23 19:50 ALT 16 U/L (0-33) 11/18/23 19:50 Alkaline Phosphatase 142 U/L (35-105) H 11/18/23 19:50 Troponin T Baseline 26 ng/L (0-10) H 11/18/23 19:50 Troponin T 120 Minute 29.38 ng/L (0-10) H 11/18/23 21:30 Delta Troponin T 3.38 ABS# (0-10) 11/18/23 21:30 Troponin T Hi Sens 6Hr 22.96 ng/L (0-10) H 11/19/23 02:05 Troponin T Hi Sens 6Hr Delta -3.04 ng/L (0-12) L 11/19/23 02:05 NT-Pro-B Natriuret Pep 751 pg/mL (0-450) H 11/18/23 19:50 Total Protein 6.5 g/dL (6.6-8.7) L 11/18/23 19:50 Albumin 4.0 g/dL (3.5-5.2) 11/18/23 19:50 Globulin 2.5 g/dL (1.3-4.6) 11/18/23 19:50 Influenza Type A Ag negative (Negative) 11/18/23 21:00 Influenza Type B Ag negative (Negative) 11/18/23 21:00 Discharge Plan Discharge Patient Disposition: Xfer Short-Term Hosp Clinical Impression: Thoracoabdominal aortic dissection, HTN (hypertension) Condition: Stable Referrals: Terry Beasley [Primary Care Provider] - Coding Level of Care Code ED Tire Balancer for [place]
[2023-11-18] MEDS: ketorolac 30 mg/mL INJ IM (21:12)
[2023-11-18] MEDS: potassium chloride ER 20 mEq Tablet 40 MEQ PO (21:12)
[2023-11-18] MEDS: ondansetron 2 mg/ML SDV 2 mL 4 MG IM (21:12)
[2023-11-18 21:20] LABS: Influenza A by IFA negative (Negative); Influenza B by IFA negative (Negative)
[2023-11-18 21:56] LABS: Troponin 5 2HR 29.38 ng/L (0-10); Troponin 5 2HR Delta 3.38 ABS# (0-10)
--- NOTE | 2023-11-18 22:31 | ECG_ITS ---
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 Measurements Intervals [facility] Rate: 84 P: 106 AK: 205 QRS: 106 QRSD: 85 T: 3 QT: 375 QTc: 444 Interpretive Statements SINUS RHYTHM WITH FREQUENT SUPRAVENTRICULAR PREMATURE COMPLEXES INDETERMINATE AXIS POSSIBLE RIGHT VENTRICULAR CONDUCTION DELAY [RSR (QR) IN V1/V2] NONSPECIFIC T-WAVE ABNORMALITY Compared to ECG 11/18/2023 19:43:14 Atrial fibrillation no longer present Possible ischemia no longer present T-wave abnormality still present Electronically Signed On 11-19-2023 7:52:15 CHILD DAY CARE PROVIDER by Jeremiah Chester M.D. [email or web address]
[2023-11-18 22:58] VITALS: BP 160/99; PULSE 91; RESP 16; O2SAT 96
--- NOTE | 2023-11-18 23:02 | CTR_ITS ---
PROCEDURE INFORMATION: Exam: CT Chest Without Contrast; Diagnostic Exam date and time: 11/18/2023 11:11 PM Age: 78 years old Clinical indication: Injury or trauma; Dyspnea and shortness of breath; Blunt trauma (contusions or hematomas); Prior surgery; Surgery date: 6+ months; Surgery type: Aortic valve. Spinal fusion; Patient HX: SOB with dyspnea. Recent pneumonia. Fall one week ago. ; Additional info: Fall, rib/chest pain, hurts to breath TECHNIQUE: Imaging protocol: Diagnostic computed tomography of the chest without contrast. Radiation optimization: All CT scans at this facility use at least one of these dose optimization techniques: automated exposure control; mA and/or kV adjustment per patient size (includes targeted exams where dose is matched to clinical indication); or iterative reconstruction. COMPARISON: CR XR chest 1V portable [id number] 11/18/2023 8:07 PM RADIATION DOSE METRICS: Total DLP (mGy-cm): 1221.8 FINDINGS: Lungs: Unremarkable. No consolidation. No masses. Pleural spaces: Small to moderate bilateral pleural effusions. Heart: Cardiomegaly. Coronary arteries: CABG changes. Lymph nodes: Unremarkable. No enlarged lymph nodes. Vasculature: Thoracic arge aneurysmal dilation to 5 cm along with descending thoracic aortic aneurysmal dilation to 4.9 cm. Possible descending thoracic aortic dissection is seen, for instance on series 5, image 30, a CT with contrast could better assess this. Bones/joints: Sternotomy wires. Surgical hardware throughout the spine bridging a T10 vertebral body likely chronic compression fracture. Soft tissues: Unremarkable. CT/CT chest wo con [id number] IMPRESSION: 1. Negative for acute traumatic injury to the chest. 2. Small to moderate bilateral pleural effusions. 3. Cardiomegaly. 4. CABG changes. 5. Thoracic arge aneurysmal dilation to 5 cm along with descending thoracic aortic aneurysmal dilation to 4.9 cm. Possible descending thoracic aortic dissection is seen, for instance on series 5, image 30, a CT with contrast could better assess this. 6. Sternotomy wires. 7. Surgical hardware throughout the spine bridging a T10 vertebral body likely chronic compression fracture.
--- NOTE | 2023-11-18 23:56 | CTR_ITS ---
PROCEDURE INFORMATION: Exam: CTA Abdomen and Pelvis With Contrast Exam date and time: 11/19/2023 12:04 AM Age: 78 years old Clinical indication: Other: Possible dissection; Prior surgery; Surgery date: 6+ months; Surgery type: Aortic valve. Spinal fusion; Patient HX: Concern for dissection on chest w/o. ; Additional info: Abnormal aorta on noncon CT chest, chest pain TECHNIQUE: Imaging protocol: Computed tomographic angiography of the abdomen and pelvis with contrast. Exam focused on the arteries. 3D rendering (Not supervised by radiologist): MIP and/or 3D reconstructed images were created by the technologist. Radiation optimization: All CT scans at this facility use at least one of these dose optimization techniques: automated exposure control; mA and/or kV adjustment per patient size (includes targeted exams where dose is matched to clinical indication); or iterative reconstruction. Contrast material: OMNI 350; Contrast volume: 100 ml; Contrast route: INTRAVENOUS (IV); COMPARISON: CR XR acute abdomen series [id number] 06/24/2023 12:51 PM RADIATION DOSE METRICS: Total DLP (mGy-cm): 573.2 FINDINGS: Lungs: Emphysematous changes. Bilateral dependent atelectasis versus infiltrate. Bilateral dependent atelectasis versus minimal infiltrate. Pleural spaces: Small bilateral pleural effusions. Heart: Artificial aortic valve. Aorta: Aortic dissection seen in the ascending thoracic aorta, thoracic aortic arch and descending thoracic aorta with aneurysmal dilation of the thoracic aortic arch to 5 cm and descending thoracic aorta to 5.1 cm. The dissection extends to the level of the renal arteries in the abdominal aorta. Negative for rupture seen. Celiac trunk and mesenteric arteries: No occlusion or significant stenosis. Renal arteries: See Aorta finding. Right iliac arteries: No occlusion or significant stenosis. Left iliac arteries: No occlusion or significant stenosis. Liver: No mass. Gallbladder and bile ducts: Unremarkable. No calcified stones. No ductal dilation. Pancreas: Unremarkable. No mass. No ductal dilation. Spleen: Unremarkable. No splenomegaly. Adrenal glands: Unremarkable. No mass. Kidneys and ureters: Left kidney cyst, negative for follow-up advised. Stomach and bowel: Constipation. Appendix: No evidence of appendicitis. Intraperitoneal space: Unremarkable. No free air. No significant fluid collection. Lymph nodes: Unremarkable. No enlarged lymph nodes. Urinary bladder: Unremarkable. No mass. Reproductive: Unremarkable as visualized. Bones/joints: Surgical hardware seen throughout the spine with a chronic T10 vertebral body compression fracture. Median sternotomy wires. Soft tissues: Unremarkable. CT/CT rosi harman abdpel [id number] IMPRESSION: 1. Aortic dissection seen in the ascending thoracic aorta, thoracic aortic arch and descending thoracic aorta with aneurysmal dilation of the thoracic aortic arch to 5 cm and descending thoracic aorta to 5.1 cm. The dissection extends to the level of the renal arteries in the abdominal aorta. Negative for rupture seen. Finding may potentially be chronic, please correlate with history. 2. Emphysematous changes. 3. Small bilateral pleural effusions. 4. Bilateral dependent atelectasis versus infiltrate. 5. Surgical hardware seen throughout the spine with a chronic T10 vertebral body compression fracture. 6. Median sternotomy wires. 7. Constipation. 8. Left kidney cyst, negative for follow-up advised. 9. Bilateral dependent atelectasis versus minimal infiltrate. 10. Artificial aortic valve.
[2023-11-19] VITALS (18 sets, daily range): BP systolic 135–153; BP diastolic 89–118; PULSE 91–117; RESP 16–33; O2SAT 91–100
[2023-11-19] MEDS: iohexol 350 mg/mL 500 mL Btl (per mL) IV (00:15)
[2023-11-19 02:27] LABS: Troponin 5 6HR 22.96 ng/L (0-10)
[2023-11-19] MEDS: ondansetron 2 mg/ML SDV 2 mL 4 MG IVP ×2 (02:29→09:54)
[2023-11-19] MEDS: morphine 4 mg/mL SDV 1 mL 2 MG IVP ×2 (02:29→09:53)
[2023-11-19 02:31] LABS: Troponin 5 6HR Delta -3.04 ng/L (0-12)
--- NOTE | 2023-11-19 07:29 | PC.PHAR ---
Addendum entered by Mis García 11/19/23 07:33: pt states she dced her metoprolol succinate er 25mg daily filled 05/13/23 90d/s and hctz 25mg daily filled 04/13/23 90d/s and premarin vag cream three times a week Original Note: pt and pts daughter verified pts medications-pt states she is still taking gabapentin 600mg hs ext shows last filled 08/07/23 30d/s-pt also states she is still taking prescription kcl 20meq daily ext shows last filled 07/23/23 30d/s-notes are made in the pharmacy comment
[2023-11-19] MEDS: amlodipine 5 mg Tablet PO (08:51)
[2023-11-19] MEDS: lisinopril 20 mg Tablet 40 MG PO (08:51)
[2023-11-19] MEDS: sodium chlor 0.9% + KCl 20 mEq 20 MEQ/1,000 ML BAG 100 MEQ IV (10:13)
[2023-11-19] MEDS: nicardipine 20 MG/200 ML PREMIX 50 MG IV (10:42)
[2023-11-19] MEDS: esmolol drip 2,500 MG/250 ML PREMIX 17.0100000000000016 MG IV (10:59)
[2023-11-19] MEDS: HYDROmorphone 1 mg/mL INJ 1 mL 0.5 MG IVP (11:15)
== END 2023-11-19 11:33 | disposition short-term general hospital (02) ==
PROVIDERS: Emergency Medicine; Emergency Provider Family Medicine; PCP Family Medicine
DX: I71.03 Dissection of thoracoabdominal aorta (principal); I10 Essential (primary) hypertension; E78.5 Hyperlipidemia, unspecified; Z86.73 Personal history of transient ischemic attack (TIA), and cerebral infarction without residual deficits
CPT/HCPCS: 36415; 71045; 71250; 71275; 74174; 80053; 83880; 84484; 85025; 85610; 87804; 93005; 96372; 96374; 96375; 96376; 99285; J1170; J1885; J2270; J2405; J3480; J3490; Q9967

== ENCOUNTER 2024-02-26 06:00 | Outpatient (RCR) | payer MEDICARE, SELFPAY | END 2024-03-22 23:59 | disposition home or self-care (01) | LOC: MPT 06:00 | PROVIDERS: PCP Family Medicine; Visit Provider Nurse Practitioner Family | DX: M54.16 Radiculopathy, lumbar region (principal) | CPT/HCPCS: 97110; 97140; 97162; G0283 ==

== ENCOUNTER → 2024-02-28 18:03 | Outpatient (BNVA) | payer MEDICARE, SELFPAY | PROVIDERS: PCP Nurse Practitioner Family; Visit Provider Emergency Medicine | DX: R30.0 Dysuria (principal); Z98.1 Arthrodesis status | CPT/HCPCS: 81000; 87077; 87086; 87184 ==

== ENCOUNTER 2024-03-23 06:00 | Outpatient (RCR) | payer MEDICARE, SELFPAY | END 2024-04-22 23:59 | disposition home or self-care (01) | LOC: MPT 06:00 | PROVIDERS: PCP Nurse Practitioner Family; Visit Provider Nurse Practitioner Family | DX: M54.16 Radiculopathy, lumbar region (principal) | CPT/HCPCS: 97110; G0283 ==

== ENCOUNTER 2024-04-23 06:00 | Outpatient (RCR) | payer MEDICARE, SELFPAY | END 2024-05-23 23:59 | disposition home or self-care (01) | LOC: MPT 06:00 | PROVIDERS: PCP Nurse Practitioner; Visit Provider Nurse Practitioner Family | DX: M54.16 Radiculopathy, lumbar region (principal) | CPT/HCPCS: 97110; G0283 ==

== ENCOUNTER 2024-05-24 06:00 | Outpatient (RCR) | payer MEDICARE, SELFPAY | END 2024-06-22 23:59 | disposition home or self-care (01) | LOC: MPT 06:00 | PROVIDERS: PCP Nurse Practitioner; Visit Provider Nurse Practitioner Family | DX: M54.16 Radiculopathy, lumbar region (principal) | CPT/HCPCS: 97110; G0283 ==

== ENCOUNTER → 2024-07-08 09:51 | Outpatient (BNVA) | payer MEDICARE, SELFPAY | PROVIDERS: PCP Nurse Practitioner; Visit Provider Obstetrics & Gynecology | DX: N39.46 Mixed incontinence (principal) | CPT/HCPCS: 81001; 87086 ==

== ENCOUNTER 2024-07-28 09:52 | Observation (INO) | payer MEDICARE, SELFPAY ==
[2024-07-08 13:11] LABS: Bilirubin Urine Negative (Negative); Blood Urine Negative (Negative); Glucose Urine UA Negative (Normal); Ketones Urine Negative (Negative); Leukocyte Esterase Urine Trace (Negative); Nitrate Urine Positive (Negative); Protein Urine Trace (Negative); Specific Gravity, Urine 1.015 (1.005-1.030); Urine Appearance Turbid (CLEAR); Urine Color Yellow (Yellow); pH Urine 7.5 (5-7)
[2024-07-08 13:15] LABS: Add Urine Microscopic? YES; Bacteria Urine 4+ /hpf; Hyaline Casts Urine 1.21 /lpf; RBC Urine 0-2 /hpf (0-2); Squamous Epithelial Cell Urine 0-5 /hpf (0-5)
--- NOTE | 2024-07-08 13:19 | P.ANESASSM_ITS ---
Pre-Anesthetic Assessment Height/Weight: Height 5 ft 2 in Preop Diagnosis: mixed incontinence Operation Date: 07/28/24 07:10 Proposed Procedures p Sling Single Incision Midurethral Sling 53130, N39.3(Not Applicable) - Gerald Ram MD Was Beta Gale taken within 24 hours: N/A Was Clonidine taken within 24 hours: N/A Social No alcohol and No tobacco Exam alert, oriented x 3, clear to auscultation bilaterally and regular rate & rhythm Airway Submandibular: within normal limits Cervical ROM: within normal limits Mallampati: Class II Dentition: full Anesthetic Plan ASA status: 3 Anesthesia: General Other: Patient reports no prior issues with anesthesia Plan to be n.p.o. midnight prior to surgery Labs today are pending Patient has a history of aortic root replacement with artificial aortic valve. Significant systolic flow murmur on auscultation. Patient has been off Xarelto for 3 years Patient notes ambulating with walker, denies shortness of breath with exertion. Able to perform ADLs History of hypertension on lisinopril and amlodipine S/p spinal fusion EKG showing sinus rhythm with PVCs. Mild ventricular conduction delay noted Plan for general anesthesia Medications/Allergies Home Medications Medication Instructions Recorded Confirmed Last Taken Type alendronate 70 mg tablet 70 mg PO Q7D 03/13/22 07/08/24 07/04/24 History ascorbate calcium (vitamin C) 500 500 mg PO DAILY 03/13/22 07/08/24 07/08/24 History mg tablet aspirin 81 mg tablet,delayed 81 mg PO DAILY 03/13/22 07/08/24 07/08/24 History release cetirizine 10 mg tablet 10 mg PO DAILY 03/13/22 07/08/24 07/08/24 History potassium chloride 20 mEq 20 meq PO DAILY 03/13/22 07/08/24 07/08/24 History tablet,extended release simvastatin 20 mg tablet 20 mg PO DAILY 10/30/23 07/08/24 07/08/24 History calcium carbonate 500 mg PO DAILY 11/07/23 07/08/24 07/08/24 History cholecalciferol (vitamin D3) 25 25 mcg PO DAILY 11/19/23 07/08/24 07/08/24 History mcg (1,000 unit) capsule (Vitamin D3) duloxetine 60 mg capsule,delayed 60 mg PO DAILY 04/14/24 07/08/24 07/08/24 History release amlodipine 5 mg tablet 5 mg PO DAILY #90 tabs 04/16/24 07/08/24 07/08/24 Rx lisinopril 10 mg tablet 10 mg PO DAILY #90 tabs 04/16/24 07/08/24 07/08/24 Rx celecoxib 200 mg capsule (Celebrex) 200 mg PO BID #60 caps 04/23/24 07/08/24 07/08/24 Rx oxybutynin chloride 5 mg 5 mg PO DAILY #30 tabs 06/12/24 07/08/24 07/08/24 Rx tablet,extended release 24 hr capsicum (cayenne) 447 mg capsule 447 mg PO DAILY 07/08/24 07/08/24 07/08/24 History ropinirole 1 mg tablet 1 mg PO DAILY 07/08/24 07/08/24 07/08/24 History Allergies Allergy/AdvReac Type Severity Reaction Status Date / Time No Known Allergies Allergy Verified 07/08/24 09:07 [facility] Anesthesia Medical History Generalized anxiety disorder COPD (chronic obstructive pulmonary disease) RLS (restless legs syndrome) Lumbar spondylolysis Scoliosis Aortic dissection Essential hypertension Hyperlipidemia Heart disease Iron deficiency History of CVA (cerebrovascular accident) Surgical History History of prosthetic aortic valve S/P spinal fusion Family History (Updated 06/12/24 @ 09:49 by Shira Power) Father Depression Heart disease Stroke Mother Hypertension Sister Hypertension Denies family history of Colon cancer Ovarian cancer Prostate cancer Diabetes Hyperlipidemia Breast cancer Uterine cancer Thyroid disease Social History Smoking and tobacco/nicotine status: never used tobacco/nicotine Second hand smoke exposure: No Alcohol intake: never Data Anesthesia Cardiac Studies: No Data to Display
--- NOTE | 2024-07-08 13:22 | SUR.PREOP ---
1250 pt here for in person pre-op,urine collected and pt refused blood-work,stated that she would get day of surgery
[2024-07-08 13:56] LABS: Add Urine Culture? Yes
[2024-07-28] VITALS (15 sets, daily range): BP systolic 118–176; BP diastolic 65–105; PULSE 56–95; RESP 16–18; TEMP 36.1–36.6; O2SAT 94–100; BMI 22.1
[2024-07-28 07:54] LABS: Basophils % 0.5 %; Eosinophils # 0.1 10^3/uL (0.0-0.8); Eosinophils % 3.1 %; Hematocrit 36.2 % (36-47); Lymphocytes # 0.9 10^3/uL (0.8-4.8); Lymphocytes % 21.7 %; Mean Corpuscular Hemoglobin 31.1 pg (27-33); Mean Corpuscular Volume 97.1 fl (85-98); Mean Platelet Volume 10.6 fL (7.4-10.4); Monocytes # 0.4 10^3/uL (0.2-0.9); Neutrophils % 64.5 %; Nucleated Red Blood Cells % 0 %; Platelet Count 174 10^3/cmm (157-399); Red Blood Count 3.73 10^6/uL (3.85-5.65); Red Cell Distribution Width 13.2 % (12.1-15.1); White Blood Count 4.19 10^3/uL (3.29-11.43)
[2024-07-28] MEDS: sodium chloride 0.9% 500 ML IV (07:57)
[2024-07-28] MEDS: scopolamine 1.5 Patch 1 PATCH TRANSDERMA (07:57)
[2024-07-28] MEDS: enoxaparin 30 mg/0.3 mL Syringe SUBCUT (07:58)
--- NOTE | 2024-07-28 08:15 | P.ANESUD_ITS ---
Pre-Anesthetic Update Pre-Anesthetic Assessment: Date of Surgery/Procedure: 07/28/24 Preop Destini gnosis: mixed incontinence Proposed Procedure: Operation Date: 07/28/24 08:15 Proposed Procedures p Sling Single Incision Midurethral Sling 46560, N39.3(Not Applicable) - Gerald Ram MD Any changes to Pre-Anesthetic Assessment?: No Last Intake: Intake Last Liquid Date 07/27/24 Last Solid Date 07/27/24 Labs Last 48hrs: Short CBC 07/28/24 Range/Units 07:45 WBC 4.19 (3.29-11.43) 10^ 3/uL Hgb 11.60 (11.27-16.99) g/ dL Hct 36.2 (36-47) % MCV 97.1 (85-98) fl Plt Count 174 (157-399) 10^3/c mm Neut % (Auto) 64.5 % Neut # (Auto) 2.70 (1.8-7.7) 10^3/u L Vitals: Temperature 97.3 F L 07/28/24 07:51 Temperature Source Temporal Artery S can 07/28/24 07:51 Pulse Rate 56 L 07/28/24 07:51 Pulse Rhythm Regular 07/28/24 07:44 Pulse Strength 3+ Normal 07/28/24 07:44 Respiratory Rate 16 07/28/24 07:51 Blood Pressure 156/81 07/28/24 07:51 Blood Pressure Abbie n 106 07/28/24 07:51 Pulse Oximetry 96 07/28/24 07:51 Oxygen Delivery Me thod Room Air 07/28/24 07:51 Exam: Pre-Anes Outpt Exam: alert, oriented x 3, clear to auscultation bilaterally and regular rate & rhythm Cardiac Studies: No Data to Display
--- NOTE | 2024-07-28 08:16 | W.PM.OPSUD ---
Surgery/Procedure H&P Update DATE OF PROCEDURE: July 28, 2024 DATE H&P PERFORMED: 07/08/24 H&P UPDATE INFORMATION: I have reviewed H&P completed within last 30 days, I have examined patient prior to procedure and No changes to prior documentation PREOP DIAGNOSIS: mixed incontinence PLANNED PROCEDURE: Operation Date: 07/28/24 08:15 Proposed Procedures p Sling Single Incision Midurethral Sling 76236, N39.3(Not Applicable) - Gerald Ram MD
[2024-07-28 08:17] LABS: Blood Urea Nitrogen 24 mg/dL (8-23); Calcium 8.5 mg/dL (8.5-10.5); Carbon Dioxide 26 mmol/L (22-29); Chloride 101 mmol/L (98-107); Creatinine Clr Calc Pharmacy 45.2865; Glucose 94 mg/dL (65-115); Osmolality Calculated 288 mOsm/kg (285-295); Sodium 137 mmol/L (136-145)
[2024-07-28 08:26] LABS: Anion Gap 14.3 (5-19); Potassium 4.3 mmol/L (3.5-5.1)
[2024-07-28] MEDS: ceFAZolin 2,000 mg SDV 2000 MG IVP (08:40)
[2024-07-28] MEDS: lidocaine-epi 1% PF 1:200,000 30 mL SDV 10 ML INJECTION (09:00)
--- NOTE | 2024-07-28 09:31 | PM.OP ---
Operative Report Date of procedure: July 28, 2024 Pre-op diagnosis: Mixed urinary incontinence Post-op diagnosis: same Procedure done: Mid urethral sling Implants: Coloplast Altis sling Surgeon: Gerald Ram MD Estimated blood loss (mL): 10 IV fluids (mL): 1,000 Urine output (mL): 150 Complications: none Brief History: Mrs. Espinoza 79-year-old female with a history of post colpocleisis experiencing mixed urinary incontinence. Postop report for colpocleisis did not described placement of mid urethral sling. Procedure: After obtaining informed consent, the patient was taken to the operating room and placed in the supine position, given general anesthesia, and prepped and draped in sterile fashion. The abdomen, vulva and vagina were prepped and draped in a sterile manner. A time out procedure was performed. The anterior vaginal mucosa beneath the midurethra was infiltrated with 2% lidocaine with epinephrine. A vertical midline incision was made beneath the midurethra, nearly 1.5 cm length. Careful submucosal dissection was performed bilaterally up to the interior portion of the inferior pubic ramus. The insertion of adductor longus tendon on the patient?s pubic ramus was identified as reference land navneet. Palpated the notch along the internal edge of ischiopubic ramus where the adductor longus tendon and the inferior pubic ramus meet. The Altis single incision sling (SIS) was selected. Then the needle of the SIS inserted aiming at the location of this notch. One of the integrated self-fixating tips place onto the needle by sliding it over the end of the needle. The needle/sling assembly was inserted toward the location of identified reference notch making sure that the flat of the handle is perpendicular to the desired path. The needle was tracked along the posterior surface of the ischiopubic ramus until the midline navneet on the mesh is approximately at the midline position under the urethra. The needle was removed and the same was repeated on the contralateral side until the appropriate sling tension under the urethra was achieved ensuring that the mesh lays flat. The needle was removed and vaginal incision was closed in a running interlocking fashion with 2-0 Vicryl. Bludigo IV was given. The Hassan catheter was noted yielding clear urine. Excellent hemostasis was obtained. Sponge, lap, needle, and instrument counts were correct times three. The patient was taken to the recovery room, awake and in stable condition.
--- NOTE | 2024-07-28 10:10 | ANE.PACU2 ---
Inpatient post-anesthesia follow up: Airway intact: Yes Vital signs: Temperature 97.3 F Pulse Rate 82 Respiratory Rate 16 Blood Pressure 133/86 Pulse Oximetry 94 Oxygen Delivery Me thod Room Air Oxygen Flow Rate 8 Fraction of Inspir ed Oxygen Hydration adequate: Yes Nausea and vomiting: No Pain level: 1 Mental status: Baseline
[2024-07-28] MEDS: ketorolac 30 mg/mL INJ IVP ×3 (11:08→23:16)
[2024-07-28] MEDS: dextrose 5%-lactated ringers 1,000 ML 125 ML IV ×2 (13:15→21:40)
[2024-07-28] MEDS: docusate sodium 100 mg Capsule PO (18:18)
[2024-07-28] MEDS: simethicone 80 mg Chew PO (20:37)
[2024-07-28] MEDS: ropinirole 1 mg Tablet PO (23:16)
[2024-07-29] MEDS: ketorolac 30 mg/mL INJ IVP (04:30)
[2024-07-29 04:39] VITALS: BP 131/79; PULSE 76; RESP 16; TEMP 36.6
[2024-07-29 05:03] LABS: Hematocrit 30.3 % (36-47); Mean Corpuscular HGB Conc 31.7 g/dL (30-55); Mean Corpuscular Hemoglobin 30.9 pg (27-33); Mean Corpuscular Volume 97.4 fl (85-98); Platelet Count 176 10^3/cmm (157-399); Red Blood Count 3.11 10^6/uL (3.85-5.65); White Blood Count 6.93 10^3/uL (3.29-11.43)
[2024-07-29] MEDS: HYDROcodone-acetaminophen 5-325 mg Tablet PO (07:22)
[2024-07-29] MEDS: cholecalciferol (vitamin D3) 1,000 unit Tablet 1000 UNIT PO (09:30)
[2024-07-29] MEDS: duloxetine 60 mg Capsule PO (09:31)
[2024-07-29] MEDS: aspirin 81 mg EC Tablet PO (09:31)
[2024-07-29] MEDS: ascorbic acid 500 mg Tablet PO (09:31)
[2024-07-29] MEDS: potassium chloride ER 10 mEq Tablet 20 MEQ PO (09:31)
[2024-07-29] MEDS: cetirizine 10 mg Tablet PO (09:32)
[2024-07-29] MEDS: flu vacc pf 24-25 (6 mos+) SYRINGE 45 MCG IM (09:33)
[2024-07-29 10:30] VITALS: BP 131/76; PULSE 61; RESP 14; TEMP 36.8; O2SAT 98
--- NOTE | 2024-07-29 10:54 | P.DS_ITS ---
Discharge Providers STUD [employer]EP [employer]ER Date of Admission: 07/28/24 09:52 Date of Discharge: 07/29/24 Attending Provider at Admission: Gerald Ram MD Attending Provider at Discharge: Gerald Ram MD Primary Care Provider: Nora Coyle APN Reason for Visit Reason for Visit: N39.3 Hospital Course Hospital Course Mrs. Espinoza 79-year-old female with a history of mixed urinary incontinence, unresponsive to oxybutynin treatment. Past surgical history significant for colpocleisis performed due to to prolapse but no documentation of urethral support. She was admitted for planned mid urethral sling. The procedure was performed without complications, overnight observation was uneventful. Tolerating diet well. Ambulating without difficulty. PVR within normal limits. She is afebrile hemodynamically stable postoperative day 1. She was counseled regarding pelvic rest for 6 weeks (no sex, no tampons, no vaginal douches). Return to the emergency room if any fever, increased bleeding or pain. Physical Exam Narrative: GA: Alert and oriented ?3. HEENT: WNL. Heart: Regular rate and rhythm. Lungs: Clear to auscultation bilaterally. Abdomen: Bowel sounds present, nontender.. [employer]: spotting bleeding. Extremities: No edema, no cyanosis, no calves pain. Urinary Catheter Management: Hassan: Cath Placed During This Visit: yes, but has since been removed by the nurse Reason for Continuing Indwelling Catheter: Decision to DC Catheter Urinary Catheter Date of Insertion: 07/28/24 Date Urinary Catheter Removed: 07/29/24 Time Urinary Catheter Discontinued: 05:55 History History History 2 Term 2 0 Miscarriages/Ectopic 0 Living Children 2 Discharge Data Studies Completed and Pending Laboratory Results WBC 6.93 10^3/uL (3.29-11.43) 07/29/24 04:34 RBC 3.11 10^6/uL (3.85-5.65) L 07/29/24 04:34 Hgb 9.60 g/dL (11.27-16.99) L 07/29/24 04:34 Hct 30.3 % (36-47) L 07/29/24 04:34 MCV 97.4 fl (85-98) 07/29/24 04:34 MCH 30.9 pg (27-33) 07/29/24 04:34 MCHC 31.7 g/dL (30-55) 07/29/24 04:34 RDW 13.0 % (12.1-15.1) 07/29/24 04:34 Plt Count 176 10^3/cmm (157-399) 07/29/24 04:34 MPV 11.0 fL (7.4-10.4) H 07/29/24 04:34 Neut % (Auto) 64.5 % 07/28/24 07:45 Lymph % (Auto) 21.7 % 07/28/24 07:45 [place] % (Auto) 10.0 % 07/28/24 07:45 Eos % (Auto) 3.1 % 07/28/24 07:45 Baso % (Auto) 0.5 % 07/28/24 07:45 Neut # (Auto) 2.70 10^3/uL (1.8-7.7) 07/28/24 07:45 Lymph # (Auto) 0.9 10^3/uL (0.8-4.8) 07/28/24 07:45 [place] # (Auto) 0.4 10^3/uL (0.2-0.9) 07/28/24 07:45 Eos # (Auto) 0.1 10^3/uL (0.0-0.8) 07/28/24 07:45 Baso # (Auto) 0.0 10^3/uL (0.0-0.1) 07/28/24 07:45 Nucleated RBC % (auto) 0 % 07/28/24 07:45 Nucleated RBCs # 0.0 /100WBC 07/28/24 07:45 Sodium 137 mmol/L (136-145) 07/28/24 07:45 Potassium 4.3 mmol/L (3.5-5.1) 07/28/24 07:45 Chloride 101 mmol/L (98-107) 07/28/24 07:45 Carbon Dioxide 26 mmol/L (22-29) 07/28/24 07:45 Anion Gap 14.3 (5-19) 07/28/24 07:45 BUN 24 mg/dL (8-23) H 07/28/24 07:45 Creatinine 0.5 mg/dL (0.5-0.9) 07/28/24 07:45 GFR Calculation Not Reportable 07/28/24 07:45 Glucose 94 mg/dL (65-115) 07/28/24 07:45 Calculated Osmolality 288 mOsm/kg (285-295) 07/28/24 07:45 Calcium 8.5 mg/dL (8.5-10.5) 07/28/24 07:45 Urine Color Yellow (Yellow) 07/08/24 12:24 Urine Appearance Turbid (CLEAR) A 07/08/24 12:24 Urine pH 7.5 (5-7) 07/08/24 12:24 Ur Specific [place] 1.015 (1.005-1.030) 07/08/24 12:24 Urine Protein Trace (Negative) A 07/08/24 12:24 Urine Glucose (UA) Negative (Normal) 07/08/24 12:24 Urine Ketones Negative (Negative) 07/08/24 12:24 Urine Blood Negative (Negative) 07/08/24 12:24 Urine Nitrate Positive (Negative) A 07/08/24 12:24 Urine Bilirubin Negative (Negative) 07/08/24 12:24 Urine Urobilinogen 1.0 mg/dL (Negative) 07/08/24 12:24 Ur Leukocyte Esterase Trace (Negative) A 07/08/24 12:24 Urine RBC 0-2 /hpf (0-2) 07/08/24 12:24 Urine WBC 11-20 /hpf (0-5) H 07/08/24 12:24 Ur Squamous Epith Cells 0-5 /hpf (0-5) 07/08/24 12:24 Amorphous Sediment Not Reportable 07/08/24 12:24 Urine Bacteria 4+ /hpf (NONE) H 07/08/24 12:24 Hyaline Casts 1.21 /lpf 07/08/24 12:24 Blood Type A Positive 07/28/24 07:45 Rho(D) Type Rh positive 07/28/24 07:45 Antibody Screen Negative 07/28/24 07:45 Procedures Performed Single incision mid urethral sling Vitals Last Vital Signs Temp 97.9 F 07/29/24 04:39 Pulse 76 07/29/24 04:39 Resp 16 07/29/24 04:39 BP 131/79 07/29/24 04:39 Pulse Ox 96 07/28/24 22:00 O2 Del Method Room Air 07/29/24 04:39 O2 Flow Rate 8 07/28/24 09:41 Results Labs OB ([facility]): Blood Type A Positive 07/28/24 Antibody Screen Negative 07/28/24 Hct 30.3 % (36-47) L 07/29/24 Hgb 9.60 g/dL (11.27-16.99) L 07/29/24 Rho(D) Type Rh positive 07/28/24 Plt Count 176 10^3/cmm (157-399) 07/29/24 TSH 1.46 uIU/mL (0.27-4.20) 06/24/23 Hemoglobin A1c 5.2 % (4.0-6.0) 06/24/23 Micro Urine Specimen 07/08/24 Discharge Plan Discharge Patient Disposition: Home Condition: Stable Prescriptions: New ibuprofen 800 mg tablet 800 mg PO TID PRN (Reason: pain) Qty: 60 0RF acetaminophen 325 mg capsule 325 mg PO Q4H PRN (Reason: fever or pain) Qty: 60 0RF mirabegron 25 mg tablet extended release 24 hr 25 mg PO DAILY Qty: 30 0RF Continued simvastatin 20 mg tablet 20 mg PO DAILY celecoxib [Celebrex] 200 mg capsule 200 mg PO BID Qty: 60 1RF Rx Instructions: Back pain oxybutynin chloride 5 mg tablet extended release 24hr 5 mg PO DAILY Qty: 30 0RF alendronate 70 mg tablet 70 mg PO Q7D Rx Instructions: ON SATURDAY aspirin 81 mg tablet,delayed release (DR/EC) 81 mg PO DAILY cetirizine 10 mg tablet 10 mg PO DAILY potassium chloride 20 mEq tablet extended release 20 meq PO DAILY ascorbate calcium (vitamin C) 500 mg tablet 500 mg PO DAILY duloxetine 60 mg capsule,delayed release(DR/EC) 60 mg PO DAILY amlodipine 5 mg tablet 5 mg PO DAILY Qty: 90 1RF lisinopril 10 mg tablet 10 mg PO DAILY Qty: 90 1RF ropinirole 1 mg tablet 1 mg PO DAILY Qty: 90 0RF Rx Instructions: TAKE 1 TABLET BY MOUTH AT NOON, AND 2 TABLETS AT BEDTIME. Medication is for restless legs calcium carbonate 500 mg calcium (1,250 mg) Tablet 500 mg PO DAILY cholecalciferol (vitamin D3) [Vitamin D3] 25 mcg (1,000 unit) Capsule 25 mcg PO DAILY Cayenne PDR 447 mg Capsule 447 mg PO DAILY Discharge Orders: Discharge Order (Routine); Ordered 07/29/24 Ordered By: Gerald Ram Referrals: Gerald Ram MD [Physician] - 2 weeks Discharge Diet: Usual diet Discharge Activity: Limit activity as instructed Patient Instructions: Acute Wound Care (DC), Opioid Safety, Post Anesthesia Care, Bladder Sling for Women (GEN), Urinary Urgency and Frequency (GEN), Overactive Bladder (GEN), Urinary Incontinence (GEN) Activity Restrictions/Additional Instructions: 1. Please call [facility] on next working day to make your post-operative appointment in 2 weeks. 2. Please stay home until you come back to the clinic on first post- hospatilization check up. 3. Please follow instructions on your medications CAREFULLY. 4. If you have abdominal incision, do not cover it unless dressing is necessary because of drainage. OK to shower, but avoid bath. Leave steri-strips until they fall off. If they are still on one week after surgery, you may remove them. 5. If you had vaginal surgery or vaginal repair, Dr. Ram may instruct you to take SITZ bath. 6. Yellow, blood tinged odorous vaginal discharge is usually normal after hysterectomy or vaginal surgeries. 7. No SEXUAL INTERCOURSE, tampons, or douches until you are completely released from the post-operative care. 8. Avoid constipation by eating right and maybe using some Metamucil or Milk of Magnesia. 9. All prescription refills are given during the working hours. Please do no wait till it runs out. Call the clinic at [phone] before your medication runs out. The clinic will get in touch with your doctor to prescribe medications if necessary. 10. Please remain within 40 mile radius from our hospital because emergencies do happen now and then during the post-operative period. 11. If you have stairs at home, take one step at a time slowly and minimize the number of trips. It helps to stay in one floor for the next few days. No lifting except what you can lift by one hand until you are released from the post-operative care. 12. Driving is discouraged until you are well healed. It may be 3-4 weeks before you feel strong enough to drive. You should be able to turn and look through the rear window without pain and you should be able to push the brake pedal very hard without pain before you drive. No fast rules, but SAFETY should be your primary concern. DO NOT drive if you are on sedating medications such as narcotics. 13. Call the clinic (during working hours) to make urgent appointment or go to the Emergency room, if any of the following occurs: i. Vaginal bleeding becomes heavy, more than a period. ii. Incision becomes red and sore, or drains pus. iii. Your TEMPERATURE is over 100.4F or you have chill. iv. IV site becomes red and swollen (a little ``knot?? is usually OK) v. Persistent nausea and vomiting vi. Persistent constipation or diarrhea vii. Rash or allergic reaction to medications. 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
[2024-07-29 12:15] VITALS: BP 126/77; PULSE 74; RESP 16; TEMP 36.6; O2SAT 99
== END 2024-07-29 13:00 | disposition home or self-care (01) ==
LOC: OBGYN 10:07
PROVIDERS: Admitting Provider Obstetrics & Gynecology; PCP Nurse Practitioner; Visit Provider Obstetrics & Gynecology
PROC: (CPT 57288; principal; 2024-07-28 08:15)
DX: N39.46 Mixed incontinence (principal); I10 Essential (primary) hypertension; Z98.1 Arthrodesis status; Z79.82 Long term (current) use of aspirin; F41.1 Generalized anxiety disorder; J44.9 Chronic obstructive pulmonary disease, unspecified; E78.5 Hyperlipidemia, unspecified; Z86.73 Personal history of transient ischemic attack (TIA), and cerebral infarction without residual deficits
CPT/HCPCS: 57288; 36415; 51798; 80048; 81001; 85025; 85027; 86850; 86900; 87077; 87086; 87186; 90471; 90686; 96374; 96376; C1713; G0378; J0690; J1100; J1650; J1885; J2405; J2704; J3010; J3490; J7040; J7121

== ENCOUNTER → 2024-08-13 16:16 | Outpatient (BNVA) | payer MEDICARE, SELFPAY | PROVIDERS: PCP Nurse Practitioner; Visit Provider Nurse Practitioner Women's Health | DX: R32 Unspecified urinary incontinence (principal); R35.0 Frequency of micturition | CPT/HCPCS: 84315; 87086 ==

== ENCOUNTER → 2024-09-10 16:01 | Outpatient (BNVA) | payer MEDICARE, SELFPAY | PROVIDERS: PCP Nurse Practitioner; Visit Provider Orthopaedic Surgery | DX: Z98.1 Arthrodesis status (principal) | CPT/HCPCS: 72072; 99214 ==

== ENCOUNTER 2024-09-14 16:25 | Emergency (ER) | payer MEDICARE, SELFPAY ==
[2024-09-14] VITALS (9 sets, daily range): BP systolic 144–155; BP diastolic 84–107; PULSE 69–112; RESP 16–21; TEMP 36.3; O2SAT 94–99
--- NOTE | 2024-09-14 16:43 | XRR_ITS ---
PROCEDURE INFORMATION: Exam: XR Right Wrist Exam date and time: 09/14/2024 4:45 PM Age: 79 years old Clinical indication: Injury or trauma; Fall; Fracture, traumatic injury; Displaced; Wrist; Right; Additional info: Fall today, right wrist deformity TECHNIQUE: Imaging protocol: Radiologic exam of the right wrist. Comminuted and angulated intra-articular fracture of the distal radius Views: 3 or more views. COMPARISON: No relevant prior studies available. FINDINGS: Bones/joints: Comminuted intra-articular fracture of the distal radius. There is dorsal angulation of the distal fracture fragment. Distal ulnar fracture is noted as well. Questionable lucency through the body of the scaphoid concerning also for nondisplaced fracture. No obvious dislocation. Diffusely decreased bone mineralization. Soft tissues: Soft tissue swelling and deformity about the fracture site. XR/XR wrist RT min 3V* [id number] IMPRESSION: As above.
[2024-09-14] MEDS: ondansetron 2 mg/ML SDV 2 mL 4 MG IVP (17:39)
[2024-09-14] MEDS: morphine 4 mg/mL SDV 1 mL IVP (17:42)
--- NOTE | 2024-09-14 17:48 | W.ED.EXTPRO ---
Documented by User: John Espinoza, 09/15/24 16:53 HPI - Extremity Problem General: Chief complaint: Extremity Injury, Upper Stated complaint: wrist injury Time Seen by Provider: 09/14/24 16:43 History of Present Illness: 79-year-old female presents emergency room with complaint of left wrist pain. She was at home where your [place] tree fell forward landed on an outstretched left hand has an obvious deformity she denies any other injuries at the time of the fall. Associated symptoms: Deny chest pain, fever(s) or rash Related Data Home Medications Medication Instructions Recorded Confirmed alendronate 70 mg tablet 70 mg PO Q7D 03/13/22 09/11/24 ascorbate calcium (vitamin C) 500 500 mg PO DAILY 03/13/22 09/11/24 mg tablet aspirin 81 mg tablet,delayed 81 mg PO DAILY 03/13/22 09/11/24 release cetirizine 10 mg tablet 10 mg PO DAILY 03/13/22 09/11/24 potassium chloride 20 mEq 20 meq PO DAILY 03/13/22 09/11/24 tablet,extended release simvastatin 20 mg tablet 20 mg PO DAILY 10/30/23 09/11/24 calcium carbonate 500 mg PO DAILY 11/07/23 09/11/24 cholecalciferol (vitamin D3) 25 25 mcg PO DAILY 11/19/23 09/11/24 mcg (1,000 unit) capsule (Vitamin D3) duloxetine 60 mg capsule,delayed 60 mg PO DAILY 04/14/24 09/11/24 release capsicum (cayenne) 447 mg capsule 447 mg PO DAILY 07/08/24 09/11/24 Previous Rx's Medication Instructions Recorded celecoxib 200 mg capsule (Celebrex) 200 mg PO BID #60 caps 04/23/24 amlodipine 5 mg tablet 5 mg PO DAILY #90 tabs 07/10/24 lisinopril 10 mg tablet 10 mg PO DAILY #90 tabs 07/10/24 acetaminophen 325 mg capsule 325 mg PO Q4H PRN fever or pain 07/29/24 #60 caps ibuprofen 800 mg tablet 800 mg PO TID PRN pain #60 tabs 07/29/24 mirabegron 25 mg tablet,extended 25 mg PO DAILY #30 tabs 07/29/24 release 24 hr ropinirole 1 mg tablet See Rx Instructions PO DAILY #90 08/06/24 tabs oxybutynin chloride 5 mg See Rx Instructions .Route 09/02/24 tablet,extended release 24 hr .COMPLEX #60 tabs cyclobenzaprine 10 mg tablet 10 mg PO TID PRN muscle spasm 14 09/10/24 days #42 tabs tizanidine 2 mg tablet 2 mg PO DAILY PRN muscle 09/10/24 spasticity #7 tabs hydrocodone 5 mg-acetaminophen 325 1 tab PO Q8H PRN pain #10 tabs 09/14/24 mg tablet Allergies Allergy/AdvReac Type Severity Reaction Status Date / Time No Known Allergies Allergy Verified 09/14/24 16:39 Review of Systems Const: Denies: fever(s) or chills Card: Denies: chest pain Resp: Denies: dyspnea GI: Denies: abdominal pain : Denies: dysuria, urinary frequency or urinary urgency Musc: Reports: joint pain and joint swelling; Denies: neck pain or back pain Skin/Breast: Denies: rash PFSH ED PFSH: Medical History Cerebral vascular accident (~2017) Thoracoabdominal aortic dissection Generalized anxiety disorder COPD (chronic obstructive pulmonary disease) RLS (restless legs syndrome) Lumbar spondylolysis Scoliosis Aortic dissection Essential hypertension Hyperlipidemia Heart disease Iron deficiency History of CVA (cerebrovascular accident) Surgical History History of colpocleisis (~01/2022) Dr Taveras in [facility] H/O midurethral sling procedure (~07/28/24) performed by Yo for mixed incontinence. History of prosthetic aortic valve S/P spinal fusion Family History Father Depression Heart disease Stroke Mother Hypertension Sister Hypertension Denies family history of Colon cancer Ovarian cancer Prostate cancer Diabetes Hyperlipidemia Breast cancer Uterine cancer Thyroid disease Social History Smoking and tobacco/nicotine status: never used tobacco/nicotine Second hand smoke exposure: No Alcohol intake: never Physical Exam Const: COMMON NORMALS: no acute distress GENERAL APPEARANCE: cooperative and comfortable ORIENTATION/CONSCIOUSNESS: Yes awake, Yes oriented to person, Yes oriented to place and Yes oriented to time HENMT: COMMON NORMALS: normocephalic, atraumatic and hearing grossly normal bilaterally HEAD & SCALP: normocephalic and atraumatic Resp: COMMON NORMALS: normal respiratory effort, No retractions, No use of accessory muscles and clear to auscultation bilaterally AUSCULTATION: clear to auscultation bilaterally Cardio: COMMON NORMALS: regular rate, regular rhythm and No murmurs present (Cardio) RATE: regular rate RHYTHM: regular rhythm GI: COMMON NORMALS: Soft to palpation and No hepatosplenomegaly present AUSCULTATION: Yes normoactive bowel sounds PALPATION: Yes Soft to palpation, No Tenderness to palpation present (GI), No Guarding due to palpation present (GI) and Yes No hepatosplenomegaly present Extremity: COMMON NORMALS: normal to inspection, capillary refill normal, no clubbing, cyanosis or edema, no calf tenderness and no pedal edema Neuro: SENSORIUM/ORIENTATION: Yes oriented to person, Yes oriented to place and Yes oriented to time Skin: COMMON NORMALS: no rashes or lesions noted GENERAL SKIN EXAM: no rashes or lesions noted Course Vital Signs: Vital signs: Vital Signs Temperature 97.4 F L 09/14/24 16:29 Pulse Rate 89 09/14/24 19:31 Respiratory Rate 21 H 09/14/24 19:31 Blood Pressure 152/84 09/14/24 19:31 Pulse Oximetry 97 09/14/24 19:31 Oxygen Delivery Me thod Nasal Cannula 09/14/24 19:15 Oxygen Flow Rate 2 09/14/24 19:15 MDM - Extremity (Nontraumatic) Medical Decision Making Care signed out to Dr. Haskins at change of shift. See final notes for diagnosis and disposition. 79-year-old female checked out at shift change. She has a comminuted displaced distal radius fracture. It was reduced under conscious sedation successfully without complication. She is placed in a sugar-tong splint. we spoke with orthopedics from the emergency department. She will follow-up as an outpatient in a few days for repeat x-ray, and further management as needed. Lab Data Radiology Impressions Wrist X-Ray 09/14/24 18:57 IMPRESSION: As above. Discharge Plan Discharge Patient Disposition: Home Clinical Impression: Fracture of wrist Qualifiers: Encounter type: initial encounter Fracture type: closed Laterality: right Qualified Code(s): S62.101A - Fracture of unspecified carpal bone, right wrist, initial encounter for closed fracture Condition: Stable Prescriptions: New hydrocodone-acetaminophen 5-325 mg tablet 1 tab PO Q8H PRN (Reason: pain) Qty: 10 0RF No Action simvastatin 20 mg tablet 20 mg PO DAILY celecoxib [Celebrex] 200 mg capsule 200 mg PO BID Qty: 60 1RF Rx Instructions: Back pain cyclobenzaprine 10 mg tablet 10 mg PO TID PRN (Reason: muscle spasm) 14 Days Qty: 42 0RF tizanidine 2 mg tablet 2 mg PO DAILY PRN (Reason: muscle spasticity) Qty: 7 0RF alendronate 70 mg tablet 70 mg PO Q7D Rx Instructions: ON SATURDAY aspirin 81 mg tablet,delayed release (DR/EC) 81 mg PO DAILY cetirizine 10 mg tablet 10 mg PO DAILY potassium chloride 20 mEq tablet extended release 20 meq PO DAILY ascorbate calcium (vitamin C) 500 mg tablet 500 mg PO DAILY duloxetine 60 mg capsule,delayed release(DR/EC) 60 mg PO DAILY amlodipine 5 mg tablet 5 mg PO DAILY Qty: 90 1RF lisinopril 10 mg tablet 10 mg PO DAILY Qty: 90 1RF ropinirole 1 mg tablet See Rx Instructions PO DAILY Qty: 90 3RF Rx Instructions: orally daily; TAKE 1 TABLET BY MOUTH AT NOON, AND 2 TABLETS AT BEDTIME. Medication is for restless legs oxybutynin chloride 5 mg tablet extended release 24hr See Rx Instructions .ROUTE .COMPLEX Qty: 60 0RF Dose Instruction: TAKE 1 TABLET BY MOUTH IN THE MORNING AND 2 TABLETS IN THE EVENING FOR FOR BLADDER Rx Instructions: TAKE 1 TABLET BY MOUTH IN THE MORNING AND 2 TABLETS IN THE EVENING FOR FOR BLADDER calcium carbonate 500 mg calcium (1,250 mg) Tablet 500 mg PO DAILY cholecalciferol (vitamin D3) [Vitamin D3] 25 mcg (1,000 unit) Capsule 25 mcg PO DAILY capsicum (cayenne) 447 mg Capsule 447 mg PO DAILY ibuprofen 800 mg tablet 800 mg PO TID PRN (Reason: pain) Qty: 60 0RF acetaminophen 325 mg capsule 325 mg PO Q4H PRN (Reason: fever or pain) Qty: 60 0RF mirabegron 25 mg tablet extended release 24 hr 25 mg PO DAILY Qty: 30 0RF Discharge Orders: Discharge ED (Routine); Ordered 09/14/24 Ordered By: Santo Haskins Referrals: Nora Coyle FNP [Primary Care Provider] - Otf Valiente DO [Physician] - 4-7 days Patient Instructions: Wrist Fracture in Adults (ED), Closed Reduction (ED), Opioid Safety, Pain Management Activity Restrictions/Additional Instructions: Stay in splint until seen by orthopedics. Call in the morning for an appointment Coding Level of Care Code ED Clinical Consultant for Chg Fwd Documented by User: Santo Haskins DO 09/14/24 20:28 HPI - Extremity Problem General: Chief complaint: Extremity Injury, Upper Stated complaint: wrist injury Time Seen by Provider: 09/14/24 16:43 Related Data Home Medications Medication Instructions Recorded Confirmed alendronate 70 mg tablet 70 mg PO Q7D 03/13/22 09/11/24 ascorbate calcium (vitamin C) 500 500 mg PO DAILY 03/13/22 09/11/24 mg tablet aspirin 81 mg tablet,delayed 81 mg PO DAILY 03/13/22 09/11/24 release cetirizine 10 mg tablet 10 mg PO DAILY 03/13/22 09/11/24 potassium chloride 20 mEq 20 meq PO DAILY 03/13/22 09/11/24 tablet,extended release simvastatin 20 mg tablet 20 mg PO DAILY 10/30/23 09/11/24 calcium carbonate 500 mg PO DAILY 11/07/23 09/11/24 cholecalciferol (vitamin D3) 25 25 mcg PO DAILY 11/19/23 09/11/24 mcg (1,000 unit) capsule (Vitamin D3) duloxetine 60 mg capsule,delayed 60 mg PO DAILY 04/14/24 09/11/24 release capsicum (cayenne) 447 mg capsule 447 mg PO DAILY 07/08/24 09/11/24 Previous Rx's Medication Instructions Recorded celecoxib 200 mg capsule (Celebrex) 200 mg PO BID #60 caps 08/01/24 amlodipine 5 mg tablet 5 mg PO DAILY #90 tabs 07/10/24 lisinopril 10 mg tablet 10 mg PO DAILY #90 tabs 07/10/24 acetaminophen 325 mg capsule 325 mg PO Q4H PRN fever or pain 07/29/24 #60 caps ibuprofen 800 mg tablet 800 mg PO TID PRN pain #60 tabs 07/29/24 mirabegron 25 mg tablet,extended 25 mg PO DAILY #30 tabs 07/29/24 release 24 hr ropinirole 1 mg tablet See Rx Instructions PO DAILY #90 08/06/24 tabs oxybutynin chloride 5 mg See Rx Instructions .Route 09/02/24 tablet,extended release 24 hr .COMPLEX #60 tabs cyclobenzaprine 10 mg tablet 10 mg PO TID PRN muscle spasm 14 09/10/24 days #42 tabs tizanidine 2 mg tablet 2 mg PO DAILY PRN muscle 09/10/24 spasticity #7 tabs hydrocodone 5 mg-acetaminophen 325 1 tab PO Q8H PRN pain #10 tabs 09/14/24 mg tablet Allergies Allergy/AdvReac Type Severity Reaction Status Date / Time No Known Allergies Allergy Verified 09/14/24 16:39 [facility] ED PFSH: Medical History Cerebral vascular accident (~2017) Thoracoabdominal aortic dissection Generalized anxiety disorder COPD (chronic obstructive pulmonary disease) RLS (restless legs syndrome) Lumbar spondylolysis Scoliosis Aortic dissection Essential hypertension Hyperlipidemia Heart disease Iron deficiency History of CVA (cerebrovascular accident) Surgical History History of colpocleisis (~01/2022) Dr Taveras in [facility] H/O midurethral sling procedure (~07/28/24) performed by Yo for mixed incontinence. History of prosthetic aortic valve S/P spinal fusion Family History Father Depression Heart disease Stroke Mother Hypertension Sister Hypertension Denies family history of Colon cancer Ovarian cancer Prostate cancer Diabetes Hyperlipidemia Breast cancer Uterine cancer Thyroid disease Social History Smoking and tobacco/nicotine status: never used tobacco/nicotine Second hand smoke exposure: No Alcohol intake: never Physical Exam Extremity: NARRATIVE EXTREMITY EXAM: Examination of the right upper extremity reveals right wrist deformity. There is swelling and discomfort. Finger flexion and extension is intact without extreme pain. Capillary refill is normal. Sensation is intact to fingers. Pulses are normal. Procedures Orthopedic Fracture Reduction Fracture #1: Time Out Performed: Yes Side: right Fracture Reduction Location: radius and ulna Analgesia: procedural sedation Technique: direct manipulation and traction/counter-traction Post Reduction X-rays Demonstrate: acceptable reduction Post-reduction neuro exam: intact Post-reduction vascular exam: intact Splint Applied: Yes Patient Tolerated Procedure: well and no complications Procedural Sedation Indication: fracture/dislocation reduction ASA Class: II Preparation: bicycle courier applied, pulse oximeter, supplemental O2 applied, suction/airway equipment at bedside and IV secured IV Propofol dose (mg): 70 Patient Tolerated Procedure: well and no complications Complications: none Course Vital Signs: Vital signs: Vital Signs Temperature 97.4 F L 09/14/24 16:29 Pulse Rate 89 09/14/24 19:31 Respiratory Rate 21 H 09/14/24 19:31 Blood Pressure 152/84 09/14/24 19:31 Pulse Oximetry 97 09/14/24 19:31 Oxygen Delivery Me thod Nasal Cannula 09/14/24 19:15 Oxygen Flow Rate 2 09/14/24 19:15 MDM - Extremity (Nontraumatic) Medical Decision Making 79-year-old female checked out at shift change. She has a comminuted displaced distal radius fracture. It was reduced under conscious sedation successfully without complication. She is placed in a sugar-tong splint. we spoke with orthopedics from the emergency department. She will follow-up as an outpatient in a few days for repeat x-ray, and further management as needed. Lab Data Radiology Impressions Wrist X-Ray 09/14/24 18:57 IMPRESSION: As above. All radiology interpretation(s) finalized by discharge Discharge Plan Discharge Patient Disposition: Home Clinical Impression: Fracture of wrist Qualifiers: Encounter type: initial encounter Fracture type: closed Laterality: right Qualified Code(s): S62.101A - Fracture of unspecified carpal bone, right wrist, initial encounter for closed fracture Condition: Stable Prescriptions: New hydrocodone-acetaminophen 5-325 mg tablet 1 tab PO Q8H PRN (Reason: pain) Qty: 10 0RF No Action simvastatin 20 mg tablet 20 mg PO DAILY celecoxib [Celebrex] 200 mg capsule 200 mg PO BID Qty: 60 1RF Rx Instructions: Back pain cyclobenzaprine 10 mg tablet 10 mg PO TID PRN (Reason: muscle spasm) 14 Days Qty: 42 0RF tizanidine 2 mg tablet 2 mg PO DAILY PRN (Reason: muscle spasticity) Qty: 7 0RF alendronate 70 mg tablet 70 mg PO Q7D Rx Instructions: ON SATURDAY aspirin 81 mg tablet,delayed release (DR/EC) 81 mg PO DAILY cetirizine 10 mg tablet 10 mg PO DAILY potassium chloride 20 mEq tablet extended release 20 meq PO DAILY ascorbate calcium (vitamin C) 500 mg tablet 500 mg PO DAILY duloxetine 60 mg capsule,delayed release(DR/EC) 60 mg PO DAILY amlodipine 5 mg tablet 5 mg PO DAILY Qty: 90 1RF lisinopril 10 mg tablet 10 mg PO DAILY Qty: 90 1RF ropinirole 1 mg tablet See Rx Instructions PO DAILY Qty: 90 3RF Rx Instructions: orally daily; TAKE 1 TABLET BY MOUTH AT NOON, AND 2 TABLETS AT BEDTIME. Medication is for restless legs oxybutynin chloride 5 mg tablet extended release 24hr See Rx Instructions .ROUTE .COMPLEX Qty: 60 0RF Dose Instruction: TAKE 1 TABLET BY MOUTH IN THE MORNING AND 2 TABLETS IN THE EVENING FOR FOR BLADDER Rx Instructions: TAKE 1 TABLET BY MOUTH IN THE MORNING AND 2 TABLETS IN THE EVENING FOR FOR BLADDER calcium carbonate 500 mg calcium (1,250 mg) Tablet 500 mg PO DAILY cholecalciferol (vitamin D3) [Vitamin D3] 25 mcg (1,000 unit) Capsule 25 mcg PO DAILY capsicum (cayenne) 447 mg Capsule 447 mg PO DAILY ibuprofen 800 mg tablet 800 mg PO TID PRN (Reason: pain) Qty: 60 0RF acetaminophen 325 mg capsule 325 mg PO Q4H PRN (Reason: fever or pain) Qty: 60 0RF mirabegron 25 mg tablet extended release 24 hr 25 mg PO DAILY Qty: 30 0RF Discharge Orders: Discharge ED (Routine); Ordered 09/14/24 Ordered By: Santo Haskins Referrals: Nora Coyle FNP [Primary Care Provider] - Otf Valiente DO [Physician] - 4-7 days Patient Instructions: Wrist Fracture in Adults (ED), Closed Reduction (ED), Opioid Safety, Pain Management Activity Restrictions/Additional Instructions: Stay in splint until seen by orthopedics. Call in the morning for an appointment Coding Level of Care Code ED Clinical Consultant for [place]oul [place]
[2024-09-14] MEDS: propofol 10 mg/mL SDV 20 mL 100 MG IV (18:51)
--- NOTE | 2024-09-14 18:57 | XRR_ITS ---
PROCEDURE INFORMATION: Exam: XR Right Wrist Exam date and time: 09/14/2024 7:00 PM Age: 79 years old Clinical indication: Pain; Wrist; Right; Additional info: Reset TECHNIQUE: Imaging protocol: Radiologic exam of the right wrist. Views: 1 or 2 views. COMPARISON: CR (UP EX, ) 09/14/2024 4:45 PM FINDINGS: Bones/joints: Improved alignment of the distal radius and ulnar fractures. Near anatomic alignment. Soft tissues: Normal. Other findings: Postreduction radiographs. XR/XR wrist RT [id number] IMPRESSION: As above.
--- NOTE | 2024-09-16 09:28 | DCPLANNER ---
Referral sent to Home health-
== END 2024-09-14 20:06 | disposition home or self-care (01) ==
PROVIDERS: Emergency Provider Emergency Medicine; PCP Nurse Practitioner
DX: S62.101A Fracture of unspecified carpal bone, right wrist, initial encounter for closed fracture (principal); Z79.82 Long term (current) use of aspirin; Z86.73 Personal history of transient ischemic attack (TIA), and cerebral infarction without residual deficits; E78.5 Hyperlipidemia, unspecified; I10 Essential (primary) hypertension; J44.9 Chronic obstructive pulmonary disease, unspecified; W19.XXXA Unspecified fall, initial encounter
CPT/HCPCS: 25635; 73100; 73110; 96374; 96375; 99152; 99285; J2270; J2405; J2704

== ENCOUNTER 2024-09-22 11:46 | Emergency (ER) | payer MEDICARE, SELFPAY ==
[2024-09-22 11:58] VITALS: BP 160/80; PULSE 65; TEMP 36.4; O2SAT 98; BMI 21.9
--- NOTE | 2024-09-22 12:12 | W.ED.EXTPRO ---
HPI - Extremity Problem General: Chief complaint: Extremity Injury, Upper Stated complaint: arm injury Time Seen by Provider: 09/22/24 12:07 History of Present Illness: 79-year-old female who is seen last week for wrist fracture is a significant amount of ecchymosis in the arm she has been using a sling keeping her arm supported. No chest pain no shortness of breath. Patient has swelling and ecchymosis just above the splint on the right arm. Mild swelling in the hands. Associated symptoms: Deny chest pain, fever(s) or rash Related Data Home Medications Medication Instructions Recorded Confirmed alendronate 70 mg tablet 70 mg PO Q7D 03/13/22 09/22/24 ascorbate calcium (vitamin C) 500 500 mg PO DAILY 03/13/22 09/22/24 mg tablet aspirin 81 mg tablet,delayed 81 mg PO DAILY 03/13/22 09/22/24 release cetirizine 10 mg tablet 10 mg PO DAILY 03/13/22 09/22/24 potassium chloride 20 mEq 20 meq PO DAILY 03/13/22 09/22/24 tablet,extended release simvastatin 20 mg tablet 20 mg PO DAILY 10/30/23 09/22/24 calcium carbonate 500 mg PO DAILY 11/07/23 09/22/24 cholecalciferol (vitamin D3) 25 25 mcg PO DAILY 11/19/23 09/22/24 mcg (1,000 unit) capsule (Vitamin D3) duloxetine 60 mg capsule,delayed 60 mg PO DAILY 04/14/24 09/22/24 release capsicum (cayenne) 447 mg capsule 447 mg PO DAILY 07/08/24 09/22/24 Previous Rx's Medication Instructions Recorded celecoxib 200 mg capsule (Celebrex) 200 mg PO BID #60 caps 04/23/24 amlodipine 5 mg tablet 5 mg PO DAILY #90 tabs 07/10/24 lisinopril 10 mg tablet 10 mg PO DAILY #90 tabs 07/10/24 acetaminophen 325 mg capsule 325 mg PO Q4H PRN fever or pain 07/29/24 #60 caps ibuprofen 800 mg tablet 800 mg PO TID PRN pain #60 tabs 07/29/24 mirabegron 25 mg tablet,extended 25 mg PO DAILY #30 tabs 07/29/24 release 24 hr ropinirole 1 mg tablet See Rx Instructions PO DAILY #90 08/06/24 tabs oxybutynin chloride 5 mg See Rx Instructions .Route 09/02/24 tablet,extended release 24 hr .COMPLEX #60 tabs cyclobenzaprine 10 mg tablet 10 mg PO TID PRN muscle spasm 14 09/10/24 days #42 tabs tizanidine 2 mg tablet 2 mg PO DAILY PRN muscle 09/10/24 spasticity #7 tabs hydrocodone 5 mg-acetaminophen 325 1 tab PO Q8H PRN pain #10 tabs 09/14/24 mg tablet Allergies Allergy/AdvReac Type Severity Reaction Status Date / Time No Known Allergies Allergy Verified 09/22/24 12:05 Review of Systems Const: Denies: fever(s) or chills Card: Denies: chest pain Resp: Denies: dyspnea GI: Denies: abdominal pain : Denies: dysuria, urinary frequency or urinary urgency Musc: Denies: neck pain or back pain Skin/Breast: Denies: rash PFSH ED PFSH: Medical History Cerebral vascular accident (~2017) Thoracoabdominal aortic dissection Generalized anxiety disorder COPD (chronic obstructive pulmonary disease) RLS (restless legs syndrome) Lumbar spondylolysis Scoliosis Aortic dissection Essential hypertension Hyperlipidemia Heart disease Iron deficiency History of CVA (cerebrovascular accident) Surgical History History of colpocleisis (~01/2022) Dr Taveras in [facility] H/O midurethral sling procedure (~07/28/24) performed by Yo for mixed incontinence. History of prosthetic aortic valve S/P spinal fusion Family History Father Depression Heart disease Stroke Mother Hypertension Sister Hypertension Denies family history of Colon cancer Ovarian cancer Prostate cancer Diabetes Hyperlipidemia Breast cancer Uterine cancer Thyroid disease Social History Smoking and tobacco/nicotine status: never used tobacco/nicotine Second hand smoke exposure: No Alcohol intake: never Physical Exam Const: GENERAL APPEARANCE: cooperative ORIENTATION/CONSCIOUSNESS: Yes awake, Yes oriented to person, Yes oriented to place and Yes oriented to time HENMT: COMMON NORMALS: normocephalic, atraumatic and hearing grossly normal bilaterally HEAD & SCALP: normocephalic and atraumatic Resp: COMMON NORMALS: normal respiratory effort, No retractions, No use of accessory muscles and clear to auscultation bilaterally AUSCULTATION: clear to auscultation bilaterally Cardio: COMMON NORMALS: regular rate, regular rhythm and No murmurs present (Cardio) RATE: regular rate RHYTHM: regular rhythm GI: COMMON NORMALS: Soft to palpation and No hepatosplenomegaly present AUSCULTATION: Yes normoactive bowel sounds PALPATION: Yes Soft to palpation, No Tenderness to palpation present (GI), No Guarding due to palpation present (GI) and Yes No hepatosplenomegaly present Extremity: COMMON NORMALS: normal to inspection, capillary refill normal, no clubbing, cyanosis or edema, no calf tenderness and no pedal edema Neuro: SENSORIUM/ORIENTATION: Yes oriented to person, Yes oriented to place and Yes oriented to time Skin: COMMON NORMALS: no rashes or lesions noted GENERAL SKIN EXAM: no rashes or lesions noted Course Vital Signs: Vital signs: Vital Signs Temperature 97.5 F L 09/22/24 11:58 Pulse Rate 70 09/22/24 12:30 Blood Pressure 131/67 09/22/24 12:30 Pulse Oximetry 94 09/22/24 12:30 Oxygen Delivery Me thod Room Air 09/22/24 11:58 MDM - Extremity (Nontraumatic) Medical Decision Making Ecchymosis seen is from fracture wrist fracture was quite severe and she is having some dependent edema shifted to the elbow because of positioning of her arm in a sling along with the Justice wrap. Not concerned about a venous clot at this point this blood is all extravascular from the fracture. Discussed with the patient discharged home follow-up as with Ortho as planned Medical Records I reviewed the patient's medical records. Lab Data I reviewed the patient's lab results. No radiology studies performed this visit Discharge Plan Discharge Patient Disposition: Home Clinical Impression: Hematoma, Fracture of right wrist Condition: Stable Prescriptions: No Action simvastatin 20 mg tablet 20 mg PO DAILY celecoxib [Celebrex] 200 mg capsule 200 mg PO BID Qty: 60 1RF Rx Instructions: Back pain cyclobenzaprine 10 mg tablet 10 mg PO TID PRN (Reason: muscle spasm) 14 Days Qty: 42 0RF tizanidine 2 mg tablet 2 mg PO DAILY PRN (Reason: muscle spasticity) Qty: 7 0RF alendronate 70 mg tablet 70 mg PO Q7D Rx Instructions: ON SATURDAY aspirin 81 mg tablet,delayed release (DR/EC) 81 mg PO DAILY cetirizine 10 mg tablet 10 mg PO DAILY potassium chloride 20 mEq tablet extended release 20 meq PO DAILY ascorbate calcium (vitamin C) 500 mg tablet 500 mg PO DAILY duloxetine 60 mg capsule,delayed release(DR/EC) 60 mg PO DAILY amlodipine 5 mg tablet 5 mg PO DAILY Qty: 90 1RF lisinopril 10 mg tablet 10 mg PO DAILY Qty: 90 1RF ropinirole 1 mg tablet See Rx Instructions PO DAILY Qty: 90 3RF Rx Instructions: orally daily; TAKE 1 TABLET BY MOUTH AT NOON, AND 2 TABLETS AT BEDTIME. Medication is for restless legs oxybutynin chloride 5 mg tablet extended release 24hr See Rx Instructions .ROUTE .COMPLEX Qty: 60 0RF Dose Instruction: TAKE 1 TABLET BY MOUTH IN THE MORNING AND 2 TABLETS IN THE EVENING FOR FOR BLADDER Rx Instructions: TAKE 1 TABLET BY MOUTH IN THE MORNING AND 2 TABLETS IN THE EVENING FOR FOR BLADDER calcium carbonate 500 mg calcium (1,250 mg) Tablet 500 mg PO DAILY hydrocodone-acetaminophen 5-325 mg tablet 1 tab PO Q8H PRN (Reason: pain) Qty: 10 0RF cholecalciferol (vitamin D3) [Vitamin D3] 25 mcg (1,000 unit) Capsule 25 mcg PO DAILY capsicum (cayenne) 447 mg Capsule 447 mg PO DAILY ibuprofen 800 mg tablet 800 mg PO TID PRN (Reason: pain) Qty: 60 0RF acetaminophen 325 mg capsule 325 mg PO Q4H PRN (Reason: fever or pain) Qty: 60 0RF mirabegron 25 mg tablet extended release 24 hr 25 mg PO DAILY Qty: 30 0RF Discharge Orders: Discharge ED (Routine); Ordered 09/22/24 Ordered By: John Espinoza Referrals: Nora Coyle FNP [Primary Care Provider] - Patient Instructions: Opioid Safety, Pain Management Activity Restrictions/Additional Instructions: Thank you for choosing [facility] for your healthcare needs today. It is very important that you follow up as instructed or that you return to the Emergency Department should you have concerns or if your condition changes or worsens in any way. You were seen today because of swelling and bruising from your wrist fracture. The blood is under the skin does not represent a risk for a intravascular clot. 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
[2024-09-22 12:30] VITALS: BP 131/67; PULSE 70; O2SAT 94
== END 2024-09-22 12:31 | disposition home or self-care (01) ==
PROVIDERS: Emergency Provider Family Medicine; PCP Nurse Practitioner
DX: S60.211A Contusion of right wrist, initial encounter (principal); S62.101G Fracture of unspecified carpal bone, right wrist, subsequent encounter for fracture with delayed healing; X58.XXXA Exposure to other specified factors, initial encounter
CPT/HCPCS: 99281

== ENCOUNTER 2024-09-29 08:55 | Outpatient (CLI) | payer MEDICARE, SELFPAY ==
--- NOTE | 2024-09-29 09:00 | CTR_ITS ---
PROCEDURE INFORMATION: Exam: CT Lumbar Spine Without Contrast Exam date and time: 09/29/2024 9:26 AM Age: 79 years old Clinical indication: Low back pain; Prior surgery; Surgery date: 6+ months; Surgery type: T and L spine TECHNIQUE: Imaging protocol: Computed tomography of the lumbar spine without contrast. Radiation optimization: All CT scans at this facility use at least one of these dose optimization techniques: automated exposure control; mA and/or kV adjustment per patient size (includes targeted exams where dose is matched to clinical indication); or iterative reconstruction. COMPARISON: CT lumbar spine w con [id number] 06/28/2023 7:29 PM RADIATION DOSE METRICS: Total DLP (mGy-cm): 479.63 FINDINGS: Bones/joints: There is intact posterolateral fusion from L2 through S1. There is lucency surrounding the left S1 pedicle screw diffusely which is new since 06/28/2023. There is lucency surrounding the right SI joint screw which is new since 06/28/2023. There is intact arthrodesis of the left SI joint without evidence of loosening. There is moderate broad-based convex right lumbar scoliosis centered at L2. Alignment in the sagittal plane is normal. Vertebral body height is maintained. Bones are diffusely osteopenic. No acute fracture. The visible portion of the pelvis and sacrum is intact. No severe spinal stenosis. Lungs: Lung bases are clear. Vasculature: There is chronic dissection of the distal thoracic and upper abdominal aorta measuring up to 4.6 cm diameter, similar to findings on 06/28/2023. Soft tissues: Unremarkable. CT/CT lumbar spine wo con* [id number] IMPRESSION: 1. No acute findings. 2. Intact posterolateral fusion from T12 through S1 with intact hardware. There is evidence of loosening of left S1 pedicle and right SI joint screws which is new since 06/28/2023. 3. Chronic dissection of distal descending and upper abdominal aorta with similar caliber compared to 06/28/2023.
--- NOTE | 2024-09-29 09:30 | CTR_ITS ---
PROCEDURE INFORMATION: Exam: CT Thoracic Spine Without Contrast Exam date and time: 09/29/2024 9:19 AM Age: 79 years old Clinical indication: Pain in thoracic spine; Prior surgery; Surgery date: 6+ months; Surgery type: T and L spine TECHNIQUE: Imaging protocol: Computed tomography of the thoracic spine without contrast. Radiation optimization: All CT scans at this facility use at least one of these dose optimization techniques: automated exposure control; mA and/or kV adjustment per patient size (includes targeted exams where dose is matched to clinical indication); or iterative reconstruction. COMPARISON: 1. CR XR thoracic spine 3V* [id number] 09/10/2024 4:[address] ang ches abdpel [id number] 11/19/2023 12:04 AM RADIATION DOSE METRICS: Total DLP (mGy-cm): 575.71 FINDINGS: Bones/joints: Mild broad-based thoracic kyphosis. Trace anterolisthesis of T5 on T6. Mild convex right scoliosis at the thoracolumbar junction. Intact posterolateral fusion hardware from T6 through T9, bridging T10, and from T11 through the lumbar spine. There is lucency surrounding the bilateral T6 pedicle screws diffusely. The right T6 pedicle screw traverses the superior endplate and the tip abuts the inferior endplate of L5. There is mild superior endplate compression deformity of T6. There is resultant mild focal kyphosis at T5-6. There is a moderate severity T10 superior endplate compression fracture with bilateral pedicle screw tracts, similar to 11/19/2023. There is moderate lower cervical disc and facet degeneration. No severe spinal stenosis. There is a chronic fracture of the right posteromedial 3rd rib. Soft tissues: Paraspinous soft tissues are grossly unremarkable but partially obscured by beam hardening artifact. Vasculature: There is chronic thoracic aortic dissection. The proximal descending aorta measures up to 5.7 cm diameter, similar to findings on 11/19/2023. Aortic root replacement noted. Pleural spaces: Trace left pleural effusion or pleural thickening, decreased since 11/19/2023. Heart: There is moderate cardiac enlargement. CT/CT thoracic spin wo con* [id number] IMPRESSION: 1. Mild acute or subacute T6 superior endplate compression fracture. The finding is new since 11/19/2023. There is mild resultant focal thoracic kyphosis. There is trace anterolisthesis of L5 on S1. 2. Lucency surrounding bilateral T6 pedicle screws consistent with loosening, new since 11/19/2023. The left pedicle screw protrudes through the superior endplate of T6 abutting the inferior endplate of T5, progressive since 11/19/2023. 3. Intact posterolateral fusion hardware from T6 through the lumbar spine. 4. Stable chronic T10 compression fracture. 5. Chronic thoracic aortic dissection with similar aortic caliber compared to 11/19/2023. 6. Incidental findings above.
== END 2024-09-29 08:56 | disposition home or self-care (01) ==
LOC: RAD 08:58
PROVIDERS: PCP Nurse Practitioner; Visit Provider Orthopaedic Surgery
DX: M43.06 Spondylolysis, lumbar region (principal); Z98.1 Arthrodesis status; M41.9 Scoliosis, unspecified; M48.54XA Collapsed vertebra, not elsewhere classified, thoracic region, initial encounter for fracture; M40.294 Other kyphosis, thoracic region; M43.17 Spondylolisthesis, lumbosacral region; R93.89 Abnormal findings on diagnostic imaging of other specified body structures; I71.019 Dissection of thoracic aorta, unspecified; M50.30 Other cervical disc degeneration, unspecified cervical region; S22.31XA Fracture of one rib, right side, initial encounter for closed fracture; Z98.890 Other specified postprocedural states; I51.7 Cardiomegaly
CPT/HCPCS: 72128; 72131; 73060; 73110

== ENCOUNTER 2024-09-29 10:57 | Emergency (ER) | payer MEDICARE, SELFPAY ==
[2024-09-29 11:10] VITALS: BP 136/84; PULSE 74; TEMP 36.7; O2SAT 100
--- NOTE | 2024-09-29 11:28 | ED_ITS ---
HPI - Extremity Problem General: Chief complaint: Extremity Injury, Upper Stated complaint: R wrisk injury Time Seen by Provider: 09/29/24 11:21 Source: patient and family Mode of arrival: wheelchair Limitations: no limitations History of Present Illness: Patient is an 79-year-old female here with family regarding her known right wrist fracture. Patient was initially seen here in the emergency department on 09/14 and diagnosed with a right wrist fracture and underwent conscious sedation for this. Plan was to follow-up with orthopedics. There was reportedly some miscommunication and patient never had an orthopedic follow-up appointment placed. She has since seen Dr. Babb for her back but has not seen anybody regarding her right wrist fracture. Patient remains in a splint. MD Complaint: joint pain Onset (ago): week(s) Pain Consistency: constant Location: right and upper extremity Radiation: none Associated symptoms: Reports no associated symptoms Related Data Home Medications Medication Instructions Recorded Confirmed alendronate 70 mg tablet 70 mg PO Q7D 03/13/22 09/22/24 ascorbate calcium (vitamin C) 500 500 mg PO DAILY 03/13/22 09/22/24 mg tablet aspirin 81 mg tablet,delayed 81 mg PO DAILY 03/13/22 09/22/24 release cetirizine 10 mg tablet 10 mg PO DAILY 03/13/22 09/22/24 potassium chloride 20 mEq 20 meq PO DAILY 03/13/22 09/22/24 tablet,extended release simvastatin 20 mg tablet 20 mg PO DAILY 10/30/23 09/22/24 calcium carbonate 500 mg PO DAILY 11/07/23 09/22/24 cholecalciferol (vitamin D3) 25 25 mcg PO DAILY 11/19/23 09/22/24 mcg (1,000 unit) capsule (Vitamin D3) duloxetine 60 mg capsule,delayed 60 mg PO DAILY 04/14/24 09/22/24 release capsicum (cayenne) 447 mg capsule 447 mg PO DAILY 07/08/24 09/22/24 Previous Rx's Medication Instructions Recorded celecoxib 200 mg capsule (Celebrex) 200 mg PO BID #60 caps 04/23/24 amlodipine 5 mg tablet 5 mg PO DAILY #90 tabs 07/10/24 lisinopril 10 mg tablet 10 mg PO DAILY #90 tabs 07/10/24 acetaminophen 325 mg capsule 325 mg PO Q4H PRN fever or pain 07/29/24 #60 caps ibuprofen 800 mg tablet 800 mg PO TID PRN pain #60 tabs 07/29/24 mirabegron 25 mg tablet,extended 25 mg PO DAILY #30 tabs 07/29/24 release 24 hr ropinirole 1 mg tablet See Rx Instructions PO DAILY #90 08/06/24 tabs oxybutynin chloride 5 mg See Rx Instructions .Route 09/02/24 tablet,extended release 24 hr .COMPLEX #60 tabs cyclobenzaprine 10 mg tablet 10 mg PO TID PRN muscle spasm 14 09/10/24 days #42 tabs tizanidine 2 mg tablet 2 mg PO DAILY PRN muscle 09/10/24 spasticity #7 tabs hydrocodone 5 mg-acetaminophen 325 1 tab PO Q8H PRN pain #10 tabs 09/14/24 mg tablet Allergies Allergy/AdvReac Type Severity Reaction Status Date / Time No Known Allergies Allergy Verified 09/29/24 11:15 Review of Systems Musc: Reports: joint pain Neuro: Denies: numbness in extremities or sensory changes PFSH ED PFSH: Medical History Cerebral vascular accident (~2017) Thoracoabdominal aortic dissection Generalized anxiety disorder COPD (chronic obstructive pulmonary disease) RLS (restless legs syndrome) Lumbar spondylolysis Scoliosis Aortic dissection Essential hypertension Hyperlipidemia Heart disease Iron deficiency History of CVA (cerebrovascular accident) Surgical History History of colpocleisis (~01/2022) Dr Taveras in [facility] H/O midurethral sling procedure (~07/28/24) performed by Yo for mixed incontinence. History of prosthetic aortic valve S/P spinal fusion Family History Father Depression Heart disease Stroke Mother Hypertension Sister Hypertension Denies family history of Colon cancer Ovarian cancer Prostate cancer Diabetes Hyperlipidemia Breast cancer Uterine cancer Thyroid disease Social History Smoking and tobacco/nicotine status: never used tobacco/nicotine Second hand smoke exposure: No Alcohol intake: never Physical Exam Const: COMMON NORMALS: no acute distress, average body habitus, no limitations, healthy appearing, alert and well nourished Extremity: NARRATIVE EXTREMITY EXAM: R wrist splinted; distally she is NV intact GENERAL: Yes normal exam except as noted Neuro: SENSORIUM/ORIENTATION: Yes alert Course Vital Signs: Vital signs: Vital Signs Temperature 98.0 F 09/29/24 11:10 Pulse Rate 74 09/29/24 11:10 Blood Pressure 136/84 09/29/24 11:10 Pulse Oximetry 100 09/29/24 11:10 Oxygen Delivery Me thod Room Air 09/29/24 11:10 MDM - Extremity (Nontraumatic) Medical Decision Making House sup involved given the miscommunication. Iman has contacted [facility] ortho and Jose Valiente PA-C will see her today at 1300. They confirm that they will repeat XRs at that visit. Patient was assessed by myself along with Iman in the waiting room and she will be discharged with plan for ortho later today. No radiology studies performed this visit Discharge Plan Discharge Patient Disposition: Home Clinical Impression: Fracture of wrist Qualifiers: Encounter type: initial encounter Fracture type: closed Laterality: right Qualified Code(s): S62.101A - Fracture of unspecified carpal bone, right wrist, initial encounter for closed fracture Condition: Stable Prescriptions: No Action simvastatin 20 mg tablet 20 mg PO DAILY celecoxib [Celebrex] 200 mg capsule 200 mg PO BID Qty: 60 1RF Rx Instructions: Back pain cyclobenzaprine 10 mg tablet 10 mg PO TID PRN (Reason: muscle spasm) 14 Days Qty: 42 0RF tizanidine 2 mg tablet 2 mg PO DAILY PRN (Reason: muscle spasticity) Qty: 7 0RF alendronate 70 mg tablet 70 mg PO Q7D Rx Instructions: ON SATURDAY aspirin 81 mg tablet,delayed release (DR/EC) 81 mg PO DAILY cetirizine 10 mg tablet 10 mg PO DAILY potassium chloride 20 mEq tablet extended release 20 meq PO DAILY ascorbate calcium (vitamin C) 500 mg tablet 500 mg PO DAILY duloxetine 60 mg capsule,delayed release(DR/EC) 60 mg PO DAILY amlodipine 5 mg tablet 5 mg PO DAILY Qty: 90 1RF lisinopril 10 mg tablet 10 mg PO DAILY Qty: 90 1RF ropinirole 1 mg tablet See Rx Instructions PO DAILY Qty: 90 3RF Rx Instructions: orally daily; TAKE 1 TABLET BY MOUTH AT NOON, AND 2 TABLETS AT BEDTIME. Medication is for restless legs oxybutynin chloride 5 mg tablet extended release 24hr See Rx Instructions .ROUTE .COMPLEX Qty: 60 0RF Dose Instruction: TAKE 1 TABLET BY MOUTH IN THE MORNING AND 2 TABLETS IN THE EVENING FOR FOR BLADDER Rx Instructions: TAKE 1 TABLET BY MOUTH IN THE MORNING AND 2 TABLETS IN THE EVENING FOR FOR BLADDER calcium carbonate 500 mg calcium (1,250 mg) Tablet 500 mg PO DAILY hydrocodone-acetaminophen 5-325 mg tablet 1 tab PO Q8H PRN (Reason: pain) Qty: 10 0RF cholecalciferol (vitamin D3) [Vitamin D3] 25 mcg (1,000 unit) Capsule 25 mcg PO DAILY capsicum (cayenne) 447 mg Capsule 447 mg PO DAILY ibuprofen 800 mg tablet 800 mg PO TID PRN (Reason: pain) Qty: 60 0RF acetaminophen 325 mg capsule 325 mg PO Q4H PRN (Reason: fever or pain) Qty: 60 0RF mirabegron 25 mg tablet extended release 24 hr 25 mg PO DAILY Qty: 30 0RF Discharge Orders: Discharge ED (Routine); Ordered 09/29/24 Ordered By: Guerda Cordero Referrals: Nora Coyle FNP [Primary Care Provider] - Activity Restrictions/Additional Instructions: As we discussed, you will see Jose Valiente PA-C at the [facility] orthopedic clinic at 1:00 today. They will repeat x-rays during this visit. 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
== END 2024-09-29 11:32 | disposition home or self-care (01) ==
PROVIDERS: Emergency Provider Physician Assistant; PCP Nurse Practitioner
DX: S62.101A Fracture of unspecified carpal bone, right wrist, initial encounter for closed fracture (principal); Z79.82 Long term (current) use of aspirin; Z86.73 Personal history of transient ischemic attack (TIA), and cerebral infarction without residual deficits; J44.9 Chronic obstructive pulmonary disease, unspecified; I10 Essential (primary) hypertension; E78.5 Hyperlipidemia, unspecified; X58.XXXA Exposure to other specified factors, initial encounter
CPT/HCPCS: 99281

== ENCOUNTER 2024-09-29 14:36 | Outpatient (CLI) | payer MEDICARE, SELFPAY | END 2024-09-29 14:37 | disposition home or self-care (01) | LOC: SPT 14:37 | PROVIDERS: PCP Nurse Practitioner; Visit Provider Physician Assistant | DX: Z46.89 Encounter for fitting and adjustment of other specified devices (principal); S52.591D Other fractures of lower end of right radius, subsequent encounter for closed fracture with routine healing; X58.XXXD Exposure to other specified factors, subsequent encounter | CPT/HCPCS: 97760; L3982 ==

== ENCOUNTER → 2024-10-09 10:44 | Outpatient (BNVA) | payer MEDICARE, SELFPAY | PROVIDERS: PCP Nurse Practitioner; Visit Provider Student in an Organized Health Care Education/Training Program | DX: X58.XXXD Exposure to other specified factors, subsequent encounter; S62.101D Fracture of unspecified carpal bone, right wrist, subsequent encounter for fracture with routine healing | CPT/HCPCS: 73110; 99213 ==

== ENCOUNTER → 2024-11-04 10:23 | Outpatient (BNVA) | payer MEDICARE, SELFPAY | PROVIDERS: PCP Nurse Practitioner; Visit Provider Student in an Organized Health Care Education/Training Program | DX: S62.101A Fracture of unspecified carpal bone, right wrist, initial encounter for closed fracture (principal); X58.XXXA Exposure to other specified factors, initial encounter | CPT/HCPCS: 73110 ==

== ENCOUNTER 2024-11-04 11:47 | Outpatient (CLI) | payer MEDICARE, SELFPAY | END 2024-11-04 11:48 | disposition home or self-care (01) | LOC: SPT 11:48 | PROVIDERS: PCP Nurse Practitioner; Visit Provider Student in an Organized Health Care Education/Training Program | DX: Z46.89 Encounter for fitting and adjustment of other specified devices (principal); S52.591D Other fractures of lower end of right radius, subsequent encounter for closed fracture with routine healing; X58.XXXD Exposure to other specified factors, subsequent encounter | CPT/HCPCS: L3908 ==

== ENCOUNTER 2024-11-09 16:42 | Observation (INO) | payer MEDICARE, SELFPAY ==
[2024-11-09 16:45] VITALS: BP 142/87; PULSE 83; RESP 16; TEMP 36.7; O2SAT 90; BMI 21.2
--- NOTE | 2024-11-09 16:54 | CTR_ITS ---
PROCEDURE INFORMATION: Exam: CT Cervical Spine Without Contrast Exam date and time: 11/09/2024 5:29 PM Age: 79 years old Clinical indication: Injury or trauma; Fall; Blunt trauma; Additional info: Fall, neck pain TECHNIQUE: Imaging protocol: Computed tomography of the cervical spine without contrast. Radiation optimization: All CT scans at this facility use at least one of these dose optimization techniques: automated exposure control; mA and/or kV adjustment per patient size (includes targeted exams where dose is matched to clinical indication); or iterative reconstruction. COMPARISON: CT head wo con* [id number] 11/09/2024 5:29 PM RADIATION DOSE METRICS: Total DLP (mGy-cm): 174.9 FINDINGS: Bones: Preserved cervical vertebral body heights. C2 on C3 and C3 on C4 grade 1 anterolisthesis. C7 on T1 grade 1 anterolisthesis. No traumatic malalignment. Multilevel facet degenerative changes resulting in varying degrees of neural foraminal narrowing. Postsurgical changes of T6 vertebral body incompletely visualized. Multilevel uncovertebral and posterior disc osteophyte complexes. No high-grade spinal canal stenosis. Moderate atlanto dens degenerative changes. Heterogenous appearance of the bone marrow. Lungs: Lung apices are normal. Vasculature: There is a chronic thoracic aortic aneurysm/dissection. Soft tissues: Unremarkable. CT/CT cervical spin wo con* [id number] IMPRESSION: No definite acute displaced cervical spine fracture or traumatic malalignment. Chronic changes as above.
--- NOTE | 2024-11-09 16:54 | CTR_ITS ---
PROCEDURE INFORMATION: Exam: CT Head Without Contrast Exam date and time: 11/09/2024 5:29 PM Age: 79 years old Clinical indication: Injury or trauma; Fall; Blunt trauma (contusions or hematomas); Without loss of consciousness; Additional info: Fall, head injury TECHNIQUE: Imaging protocol: Computed tomography of the head without contrast. Radiation optimization: All CT scans at this facility use at least one of these dose optimization techniques: automated exposure control; mA and/or kV adjustment per patient size (includes targeted exams where dose is matched to clinical indication); or iterative reconstruction. COMPARISON: CT cervical spin wo con* [id number] 11/09/2024 5:29 PM RADIATION DOSE METRICS: Total DLP (mGy-cm): 1205.6 FINDINGS: Brain: Area of encephalomalacia/chronic infarction involving the left frontal lobe. Moderate sequela of chronic microvascular ischemic changes of the white matter. Chronic infarcts in the bilateral insular ribbons. No acute intracranial hemorrhage. No mass effect or midline shift. Underlying brain parenchymal atrophic changes. There is an area of encephalomalacia involving the left occipital lobe. Cerebral ventricles: Prominence of the lateral ventricles likely due to ex vacuo dilatation. Paranasal sinuses: Paranasal sinus mucosal thickening. Mastoid air cells: Visualized mastoid air cells are well aerated. Nasal cavity: Nasal septal deviation to the right with bony spurring. Bones: Unremarkable. No acute fracture. Soft tissues: Unremarkable. CT/CT head wo con* [id number] IMPRESSION: No definite acute intracranial process. Chronic changes as above.
--- NOTE | 2024-11-09 16:54 | XRR_ITS ---
PROCEDURE INFORMATION: Exam: XR Right Knee Exam date and time: 11/09/2024 5:06 PM Age: 79 years old Clinical indication: Injury or trauma; Fall; Blunt trauma; Knee; Right; Additional info: Fall, knee pain TECHNIQUE: Imaging protocol: Radiologic exam of the right knee. Views: 3 views. COMPARISON: No relevant prior studies available. FINDINGS: Bones/joints: Impacted tibial plateau fracture. Tricompartmental degenerative changes. No dislocation. Chondrocalcinosis. Soft tissues: Normal. XR/XR knee RT 3V* [id number] IMPRESSION: As above.
--- NOTE | 2024-11-09 16:54 | XRR_ITS ---
PROCEDURE INFORMATION: Exam: XR Right Hip Exam date and time: 11/09/2024 5:01 PM Age: 79 years old Clinical indication: Injury or trauma; Fall; Blunt trauma (contusions or hematomas); Right; Hip; Additional info: Hip pain TECHNIQUE: Imaging protocol: Radiologic exam of the right hip. Views: 1 view hip with pelvis when performed. COMPARISON: CT ang ches abdpel [id number] 11/19/2023 12:04 AM FINDINGS: Bones/joints: No definite acute displaced fractures. Moderate degenerative changes of the right hip joint. Postsurgical changes of the lower lumbar spine. Soft tissues: Unremarkable. Gastrointestinal tract: Large amount of retained stool in the colon from constipation. XR/XR hip RT 2-3V wo/w pel* [id number] IMPRESSION: Moderate arthritic changes of the right hip joint without a definitive acute displaced fracture. Considering the patient's age can not exclude an underlying occult fracture. Consider follow up with cross-sectional imaging to further confirm.
--- NOTE | 2024-11-09 17:04 | ED_ITS ---
HPI - Fall General: Chief Complaint: Fall Stated Complaint: fall Time Seen by Provider: 11/09/24 16:51 History of Present Illness: 79-year-old female with a history of ost eoporosis, she is in a TLSO with back issues, right hand wrist brace secondary to another injury who presents to the emergency room after a fall with head injury, some neck pain and right pain in her leg just below her knee. No hip pain. No shortening or rotation. No altered mental status. No vomiting. She presents by ambulance. Related Data Home Medications ?Medication ?Instructions ?Recorded ?Confirmed alendronate 70 mg tablet 70 mg PO Q7D 03/13/22 ascorbate calcium (vitamin C) 500 500 mg PO DAILY 02/2211/04/24 mg tablet aspirin 81 mg tablet,delayed 81 mg PO DAILY 03/13/22 0 11/04/24 release cetirizine 10 mg tablet 10 mg PO DAILY 03/13/2210/24 potassium chloride 20 mEq 20 meq PO DAILY 03/13/2209/16 tablet,extended release simvastatin 20 mg tablet 20 mg PO DAILY 10/30/2310/24 calcium carbonate 500 mg PO DAILY 11/07/2309/16 cholecalciferol (vitamin D3) 25 25 mcg PO DAILY 11/04/24 mcg (1,000 unit) capsule (Vitamin D3) duloxetine 60 mg capsule,delayed 60 mg PO DAILY 11/04/24 release capsicum (cayenne) 447 mg capsule 447 mg PO DAILY 06/2311/04/24 Previous Rx's ?Medication ?Instructions ?Recorded celecoxib 200 mg capsule (Celebrex) 200 mg PO BID #60 caps 04/23/24 amlodipine 5 mg tablet 5 mg PO DAILY #90 tabs 07/10 lisinopril 10 mg tablet 10 mg PO DAILY #90 tabs 06/23 05/16 acetaminophen 325 mg capsule 325 mg PO Q4H PRN fever o r pain 07/29/24 #60 caps ibuprofen 800 mg tablet 800 mg PO TID PRN pain #60 t abs 07/29/24 ropinirole 1 mg tablet See Rx Instructions PO DAILY #90 08/06/24 tabs tizanidine 2 mg tablet 2 mg PO DAILY PRN muscle spasticity #7 tabs Volar Fast Form Splint #1 ea 09/29/24 hydrocodone 5 mg-acetaminophen 325 1 tab PO Q6H PRN pa in 5 days #20 09/29/24 mg tablet tabs TLSO brace #1 ea 10/01/24 TLSO fitting #1 ea 10/05/24 cyclobenzaprine 10 mg tablet 10 mg PO TID PRN muscle s pasm 14 10/09/24 days #42 tabs oxybutynin chloride 10 mg 10 mg PO BID #60 tabs tablet,extended release 24 hr velcro wrist brace left #1 ea 11/04/24 volar thermoplastic splint #1 ea 11/04/24 Allergies Allergy/AdvReac Type Severity Reaction Status Date / Time No Known Allergies Allergy Verified 11/04/24 10:26 Review of Systems Narrative: Constitutional symptoms: Negative except as documented in HPI. Skin symptoms: Negative except as documented in HPI. Eye symptoms: Negative except as documented in HPI. ENMT symptoms: Negative except as documented in HPI. Respiratory symptoms: Negative except as documented in HPI. Cardiovascular symptoms: Negative except as documented in HPI. Gastrointestinal symptoms: Negative except as documented in HPI. Genitourinary symptoms: Negative except as documented in HPI. Musculoskeletal symptoms: Negative except as documented in HPI. Neurologic symptoms: Negative except as documented in HPI. Psychiatric symptoms: Negative except as documented in HPI. Endocrine symptoms: Negative except as documented in HPI. [facility] PFSH: Medical History Cerebral vascular accident (~2017) Thoracoabdominal aortic dissection Generalized anxiety disorder COPD (chronic obstructive pulmonary disease) RLS (restless legs syndrome) Lumbar spondylolysis Scoliosis Aortic dissection Essential hypertension Hyperlipidemia Heart disease Iron deficiency History of CVA (cerebrovascular accident) Surgical History History of colpocleisis (~01/2022) Dr Taveras in [facility] H/O midurethral sling procedure (~07/28/24) performed by Yo for mixed incontinence. History of prosthetic aortic valve S/P spinal fusion Family History Father Depression Heart disease Stroke Mother Hypertension Sister Hypertension Denies family history of Colon cancer Ovarian cancer Prostate cancer Diabetes Hyperlipidemia Breast cancer Uterine cancer Thyroid disease Social History Smoking and tobacco/nicotine status: never used tobacco/nicotine Second hand smoke exposure: No Alcohol intake: never Physical Exam Narrative: EXAM NARRATIVE: General: Alert, no acute distress. Skin: Warm, dry. Head: Normocephalic, atraumatic. Neck: Supple, trachea midline. Eye: Extraocular movements are intact. Ears, nose, mouth and throat: mucosa moist. Cardiovascular: Regular, Normal peripheral perfusion. Respiratory: Lungs are clear to auscultation, respirations are non-labored, breath sounds are equal, Symmetrical chest wall expansion. Gastrointestinal: Soft, Nontender, Non distended Musculoskeletal: Had some tenderness below her right knee. Currently this is improved after she received pain medication on the ambulance. No shortening or rotation. Neurological: Alert and oriented, No focal neurological deficit observed. Psychiatric: Cooperative, appropriate mood & affect. Course Vital Signs: Vital signs: Vital Signs Temperature 98.1 F 11/09/24 16:45 Pulse Rate 81 11/09/24 18:26 Respiratory Rate 16 11/09/24 18:26 Blood Pressure 141/83 11/09/24 18:26 Pulse Oximetry 92 11/09/24 18:26 Oxygen Delivery Me thod Room Air 11/09/24 18:26 MDM - Fall Medical Decision Making CT of the cervical spine: No fracture. Good alignment. No step-offs. This was reviewed and interpreted by myself the emergency room physician. I also reviewed the radiologist report. CT head: No acute intracranial process. no intracranial hemorrhage, no evidence of infarct. no evidence of acute fracture.This was reviewed and interpreted by myself the ER physician. Hip and pelvis: No acute changes. Patient has no pain. This was reviewed and interpreted by myself the emergency room physician. I also reviewed the radiology report. X-ray of the knee shows a nondisplaced tibial plateau fracture. This was reviewed and interpreted by myself the emergency room physician. I also reviewed the radiology report. Consultation: I spoke with Dr. Nance who is on-call for orthopedics at this time. She recommends a [place] brace with a hands. Currently all we have is a knee immobilizer. Dr. Carmona will see the patient in consult tomorrow. Reexamination: Patient is having some increased pain after pain medications were off so some Dilaudid and Zofran are being given. No altered mental status. No focal motor deficits. I talked with her and family and they feel like she will not be able to manage this at home alone. Her has just went into the hospital. She has an arm with a brace now on immobilize leg and then a TLSO brace. Consultation: I spoke with , Who is on-call for the hospitalist service who agrees to admission. Basic lab work has been ordered. Blood work is pending. Urinalysis shows possi ble early UTI so Rocephin has been given. Assessment and plan: Tibial plateau fracture Multiple falls Debility -I discussed the patient with the hospitalist on-call who is admitting the patient. - Discussed findings and plan with patient. Answered any questions. - All laboratory values were reviewed and interpreted personally by myself, the ER physician - All imaging was reviewed and interpreted personally by myself, the ER physician. - Evaluation and treatment of this problem were appropriate in the emergency setting Lab Data Radiology Impressions Cervical Spine CT 11/09/24 16:54 IMPRESSION: No definite acute displaced cervical spine fracture or traumatic malalignment. Chronic changes as above. Head CT 11/09/24 16:54 IMPRESSION: No definite acute intracranial process. Chronic changes as above. Hip/Pelvis X-Ray 11/09/24 16:54 IMPRESSION: Moderate arthritic changes of the right hip joint without a definitive acute displaced fracture. Considering the patient's age can not exclude an underlying occult fracture. Consider follow up with cross-sectional imaging to further confirm. Knee X-Ray 11/09/24 16:54 IMPRESSION: As above. Laboratory Results Urine Color Yellow (Yellow) 11/09/24 18:39 Urine Appearance Cloudy (CLEAR) A 11/09/24 18:39 Urine pH 7.0 (5-7) 11/09/24 18:39 Ur Specific [place] 1.013 (1.005-1.030) 11/09/24 18:39 Urine Protein Trace (Negative) A 11/09/24 18:39 Urine Glucose (UA) Negative (Normal) 11/09/24 18:39 Urine Ketones Negative (Negative) 11/09/24 18:39 Urine Blood Negative (Negative) 11/09/24 18:39 Urine Nitrate Positive (Negative) A 11/09/24 18:39 Urine Bilirubin Negative (Negative) 11/09/24 18:39 Urine Urobilinogen 0.2 mg/dL (Negative) 11/09/24 18:39 Ur Leukocyte Esterase Negative (Negative) 11/09/24 18:39 Urine RBC 0-2 /hpf (0-2) 11/09/24 18:39 Urine WBC 6-10 /hpf (0-5) 11/09/24 18:39 Ur Squamous Epith Cells 0-5 /hpf (0-5) 11/09/24 18:39 Amorphous Sediment Not Reportable 11/09/24 18:39 Urine Bacteria Exceeds /hpf (NONE) 11/09/24 18:39 Hyaline Casts 0-4 /lpf H 11/09/24 18:39 All radiology interpretation(s) finalized by discharge Discharge Plan Discharge Patient Disposition: Placed in Observation Clinical Impression: Closed fracture of tibial plateau, Multiple falls, Debility Coding Level of Care Code ED 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
[2024-11-09 18:26] VITALS: BP 141/83; PULSE 81; RESP 16; O2SAT 92
--- NOTE | 2024-11-09 18:48 | ECG_ITS ---
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 Measurements Intervals [place] Rate: 100 P: 55 MS: 252 QRS: 108 QRSD: 68 T: 88 QT: 348 QTc: 449 Interpretive Statements SINUS TACHYCARDIA WITH FIRST DEGREE AV BLOCK WITH OCCASIONAL SUPRAVENTRICULAR PREMATURE COMPLEXES RIGHT AXIS DEVIATION [QRS AXIS > 100] LOW QRS VOLTAGE IN PRECORDIAL LEADS [QRS DEFLECTION < 1.0 mV IN CHEST LEADS] POSSIBLE RIGHT VENTRICULAR CONDUCTION DELAY [RSR (QR) IN V1/V2] SEPTAL MYOCARDIAL INFARCTION , OF INDETERMINATE AGE [40+ ms Q WAVE IN V1/V2] Compared to ECG 11/18/2023 22:31:47 First degree AV block now present. Right-axis deviation now present Low QRS voltage now present. Myocardial infarct finding now present Sinus rhythm no longer present. Indeterminate axis no longer present T-wave abnormality no longer present Electronically Signed On 11-09-2024 20:26:35 [employer] by Kurt Weathers M.D. [email or web address]
[2024-11-09 18:50] LABS: Bilirubin Urine Negative (Negative); Blood Urine Negative (Negative); Glucose Urine UA Negative (Normal); Ketones Urine Negative (Negative); Leukocyte Esterase Urine Negative (Negative); Nitrate Urine Positive (Negative); Protein Urine Trace (Negative); Specific Gravity, Urine 1.013 (1.005-1.030); Urine Appearance Cloudy (CLEAR); Urine Color Yellow (Yellow); Urobilinogen Urine 0.2 mg/dL (Negative)
[2024-11-09 18:54] LABS: Bacteria Urine EXCEEDS /hpf; Hyaline Casts Urine 0-4 /lpf; RBC Urine 0-2 /hpf (0-2); Squamous Epithelial Cell Urine 0-5 /hpf (0-5)
[2024-11-09 19:32] LABS: Influenza A NEGATIVE (Negative); Influenza B NEGATIVE (Negative); Respiratory Syncytial Virus Ce NEGATIVE (Negative); SARS-CoV-2 PCR NEGATIVE (Negative)
[2024-11-09] MEDS: cefTRIAXone 1,000 mg SDV 1000 MG IVP (19:44)
[2024-11-09] MEDS: HYDROMORPHONE HCL 0.5 MG/0.5 ML INJ 1 MG IVP (19:44)
[2024-11-09] MEDS: ondansetron 2 mg/ML SDV 2 mL 4 MG IVP (19:44)
--- NOTE | 2024-11-09 19:57 | PM.HP ---
Providers/Chief Complaint Primary Care Provider: Nora Coyle APN Chief Complaint: fall History of Present Illness Viry Espinoza is a 79 year old female with history of recurrent falls, presented today after another fall at home. Patient is stating that recently her right wrist splint was removed, she fractured her wrist after a fall as well, she is denying syncope, chest pain was related activity. Stating that at home she was trying to use at 2 stepstool in order to grab a piece of puzzle when she lost her balance and fell on the ground and hit her head against the wooden side plank of the bed, this time she has not noticed any loss of consciousness, dizziness vertigo, nausea vomiting or chest pain. No recent fever or diarrhea. In the ER trauma scan is remarkable for right tibial plateau fracture, her right leg is immobilized with a splint, Patient is stating that she uses a four-wheel walker at home sometimes uses wheelchair for her Dr. Carmona consulted by the ER physician Review of Systems Const: Denies: fever(s) Eyes: Denies: change in vision ENMT: Denies: throat pain Card: Denies: chest pain Resp: Denies: dyspnea GI: Denies: abdominal pain : Denies: flank pain Musc: Reports: neck pain and back pain Skin/Breast: Denies: rash Medications/Allergies Home Medications ?Medication ?Instructions ?Recorded ?Confirmed ?Last Taken ?Type alendronate 70 mg tablet 70 mg PO Q7D 03/13/22 11/04/24 07/04/24 History ascorbate calcium (vitamin C) 500 500 mg PO DAILY 03/13/22 11/04/24 07/08/24 History mg tablet aspirin 81 mg tablet,delayed 81 mg PO DAILY 03/13/22 11/04/24 07/08/24 History release cetirizine 10 mg tablet 10 mg PO DAILY 03/13/22 11/04/24 07/08/24 History potassium chloride 20 mEq 20 meq PO DAILY 03/13/22 11/04/24 07/08/24 History tablet,extended release simvastatin 20 mg tablet 20 mg PO DAILY 10/30/23 11/04/24 07/08/24 History calcium carbonate 500 mg PO DAILY 11/07/23 11/04/24 07/08/24 History cholecalciferol (vitamin D3) 25 25 mcg PO DAILY 11/19/23 11/04/24 07/08/24 History mcg (1,000 unit) capsule (Vitamin D3) duloxetine 60 mg capsule,delayed 60 mg PO DAILY 04/14/24 11/04/24 07/08/24 History release celecoxib 200 mg capsule (Celebrex) 200 mg PO BID #60 caps 04/23/24 11/04/24 07/08/24 Rx capsicum (cayenne) 447 mg capsule 447 mg PO DAILY 07/08/24 11/04/24 07/08/24 History amlodipine 5 mg tablet 5 mg PO DAILY #90 tabs 07/10/24 11/04/24 Unknown Rx lisinopril 10 mg tablet 10 mg PO DAILY #90 tabs 07/10/24 11/04/24 Unknown Rx acetaminophen 325 mg capsule 325 mg PO Q4H PRN fever or pain 07/29/24 11/04/24 Unknown Rx #60 caps ibuprofen 800 mg tablet 800 mg PO TID PRN pain #60 tabs 07/29/24 11/04/24 Unknown Rx ropinirole 1 mg tablet See Rx Instructions PO DAILY #90 08/06/24 11/04/24 Unknown Rx tabs tizanidine 2 mg tablet 2 mg PO DAILY PRN muscle 09/10/24 11/04/24 Unknown Rx spasticity #7 tabs Volar Fast Form Splint #1 ea 09/29/24 11/04/24 Unknown Rx hydrocodone 5 mg-acetaminophen 325 1 tab PO Q6H PRN pain 5 days #20 09/29/24 11/04/24 Unknown Rx mg tablet tabs TLSO brace #1 ea 10/01/24 11/04/24 Unknown Rx TLSO fitting #1 ea 10/05/24 11/04/24 Unknown Rx cyclobenzaprine 10 mg tablet 10 mg PO TID PRN muscle spasm 14 10/09/24 11/04/24 Unknown Rx days #42 tabs oxybutynin chloride 10 mg 10 mg PO BID #60 tabs 10/29/24 11/04/24 Unknown Rx tablet,extended release 24 hr velcro wrist brace left #1 ea 11/04/24 11/04/24 Unknown Rx volar thermoplastic splint #1 ea 11/04/24 11/04/24 Unknown Rx Allergies Allergy/AdvReac Type Severity Reaction Status Date / Time No Known Allergies Allergy Verified 11/04/24 10:26 PFSH Acute PFSH: Medical History (Updated 11/09/24 @ 23:04 by Ana Aguirre MD) Chronic headache Constipation Dysphagia Fatigue Shingles Intracranial aneurysm Chronic lumbar radiculopathy Mass of joint of left shoulder Neuropathy Opioid dependence Osteoporosis Disorder of bone and cartilage Synovial cyst of knee Unspecified tinnitus Varicose veins of bilateral lower extremities with other complications PVC (premature ventricular contraction) Chronic SI joint pain Chronic interstitial cystitis Pelvic joint pain Cerebral vascular accident (~2017) Thoracoabdominal aortic dissection Generalized anxiety disorder COPD (chronic obstructive pulmonary disease) RLS (restless legs syndrome) Lumbar spondylolysis Scoliosis Aortic dissection Essential hypertension Hyperlipidemia Heart disease Iron deficiency History of CVA (cerebrovascular accident) Surgical History (Updated 11/09/24 @ 23:04 by Ana Aguirre MD) History of lumbar fusion History of colpocleisis (~01/2022) Dr Taveras in [facility] H/O midurethral sling procedure (~07/28/24) performed by Yo for mixed incontinence. History of prosthetic aortic valve S/P spinal fusion Family History Father Depression Heart disease Stroke Mother Hypertension Sister Hypertension Denies family history of Colon cancer Ovarian cancer Prostate cancer Diabetes Hyperlipidemia Breast cancer Uterine cancer Thyroid disease Social History Smoking and tobacco/nicotine status: never used tobacco/nicotine Second hand smoke exposure: No Alcohol intake: never Vitals/I&O/Wt Last Vital Signs Temp 98.1 F 11/09/24 16:45 Pulse 81 11/09/24 18:26 Resp 16 11/09/24 18:26 BP 141/83 11/09/24 18:26 Pulse Ox 92 11/09/24 18:26 O2 Del Method Room Air 11/09/24 18:26 11/09/24 11/09/24 11/09/24 06:59 14:59 22:59 Intake Total 0 / 0 Balance 0 / 0 Weight last 48 hrs Weight 54.431 kg Physical Exam Narrative: Patient distress secondary to pain in the right leg Right leg is swollen as compared to left which is chronic as per the patient No vascular compromise noted Swelling 1+ edema GCS 15 AOx4 S1, S2 Currently on 2 L nasal cannula Family at the bedside Pleasant and cooperative Complaining of muscle cramps Data 11/09/24 19:18 11/09/24 19:18 A&P Assessment and plan (1) Essential hypertension: (2) Closed fracture of tibial plateau: (3) S/P spinal fusion: (4) RLS (restless legs syndrome): (5) Multiple falls: (6) Debility: Plan Recurrent falls Mechanical fall to the ground Chronic back pain, no sign of cauda equina, check B12, TSH normal No loss of consciousness or chest pain No history of seizure History of lumbar fusion Hassan catheter to be placed Request physical therapy Patient is agreeable for short-term rehab, stating that she does not want to go to [facility], she had bad experience last time Dr. Carmona consulted will keep her n.p.o. after midnight, continue opioids along anti-inflammatory DVT prophylaxis on board Knee immobilizer in place Continue Requip and muscle relaxer Full code Patient lives alone for now is at [facility] for a surgery, patient is in a lot of help for ambulation, will request Hassan catheter Patient will need additional vitamin D, calcium and bisphosphonates PDMP PDMP Reviewed: Not Reviewed Attestations Medical Necessity Statement*: Anticipating discharge to [facility] in next 48 hours Diagnoses Essential hypertension I10 Closed fracture of tibial plateau S82.143A S/P spinal fusion Z98.1 RLS (restless legs syndrome) G25.81 Multiple falls R29.6 Debility R53.81
[2024-11-09 19:58] LABS: Basophils % 0.2 %; Eosinophils % 0.5 %; Hematocrit 40.2 % (36-47); Lymphocytes # 0.8 10^3/uL (0.8-4.8); Lymphocytes % 11.9 %; Mean Corpuscular HGB Conc 31.8 g/dL (30-55); Mean Corpuscular Hemoglobin 30.1 pg (27-33); Mean Corpuscular Volume 94.6 fl (85-98); Mean Platelet Volume 10.3 fL (7.4-10.4); Monocytes # 0.2 10^3/uL (0.2-0.9); Monocytes % 2.9 %; Neutrophils # 5.55 10^3/uL (1.8-7.7); Neutrophils % 84.2 %; Nucleated Red Blood Cells % 0 %; Platelet Count 180 10^3/cmm (157-399); Red Blood Count 4.25 10^6/uL (3.85-5.65); Red Cell Distribution Width 12.8 % (12.1-15.1); White Blood Count 6.58 10^3/uL (3.29-11.43)
[2024-11-09 20:15] LABS: Alanine Aminotransferase 23 U/L (0-33); Albumin Level 4.5 g/dL (3.5-5.2); Alkaline Phosphatase 128 U/L (35-105); Anion Gap 16.9 (5-19); Aspartate Amino Transferase 26 U/L (0-32); Blood Urea Nitrogen 23 mg/dL (8-23); Calcium 9.9 mg/dL (8.5-10.5); Carbon Dioxide 27 mmol/L (22-29); Chloride 98 mmol/L (98-107); Creatinine Clr Calc Pharmacy 46.3299; Glucose 108 mg/dL (65-115); Osmolality Calculated 290 mOsm/kg (285-295); Potassium 3.9 mmol/L (3.5-5.1); Sodium 138 mmol/L (136-145); Total Bilirubin 0.4 mg/dL (0.15-1.2); Total Protein 7.5 g/dL (6.6-8.7)
[2024-11-09 23:00] VITALS: BP 130/68; PULSE 80; RESP 18; TEMP 36.6; O2SAT 95
[2024-11-09 23:43] VITALS: BP 114/73; PULSE 98; RESP 14; O2SAT 96
[2024-11-09] MEDS: ropinirole 1 mg Tablet 2 MG PO (23:55)
[2024-11-10] MEDS: tizanidine 4 mg Tablet 2 MG PO ×2 (00:17→17:22)
[2024-11-10 01:50] LABS: Vitamin B12 276 pg/mL (232-1245)
[2024-11-10 04:55] VITALS: BP 104/64; PULSE 109; RESP 17; TEMP 36.6; O2SAT 90
[2024-11-10] MEDS: HYDROcodone-acetaminophen 5-325 mg Tablet 1 TAB PO ×4 (06:08→20:46)
[2024-11-10 06:11] LABS: Blood Urea Nitrogen 27 mg/dL (8-23); Carbon Dioxide 25 mmol/L (22-29); Chloride 99 mmol/L (98-107); Glucose 134 mg/dL (65-115); Magnesium 2.2 mg/dL (1.7-2.3); Osmolality Calculated 289 mOsm/kg (285-295); Sodium 136 mmol/L (136-145)
[2024-11-10 06:30] LABS: Anion Gap 16.4 (5-19); Potassium 4.4 mmol/L (3.5-5.1)
[2024-11-10 08:22] VITALS: BP 109/70; PULSE 90; RESP 17; TEMP 36.9; O2SAT 94
[2024-11-10] MEDS: duloxetine 60 mg Capsule PO (09:08)
[2024-11-10] MEDS: aspirin 81 mg EC Tablet PO (09:08)
[2024-11-10] MEDS: lisinopril 10 mg Tablet PO (09:08)
[2024-11-10] MEDS: sennosides-docusate Tablet 2 TAB PO (09:08)
--- NOTE | 2024-11-10 09:30 | PC.CHAP ---
Pastoral Care Encounter/Spiritual Assessment Type of Contact [] Declined geospatial applications developer visit [] Patient/Family/Request visit [] Outpatient visit [] Follow-up visit [] Physician referral [] Code/Alert [] Routine visit [] Staff referral [] Actively dying [] Patient sleeping [] Family support [] [] Out of room [] Palliative care [] [x] Receiving care in room [] Pre-surgical visit [] Trauma [] Long length of stay [] ICU visit [] Other: Relational/Emotional Strength [] Patient feels connected with others/family/visitors/staff [] Distress [] Loneliness/isolation [] Abandonment Spirituality of Patient [] Person of Jina [] Attends Mormonism of their Jina [] Believes in Prayer [] Reads Bible or Oriental Orthodox materials [] There are Spiritual issues to be addressed Salesforce Consultant Interventions [] Prayer [] Active listening [] Non-anxious presence [] Spiritual/emotional support [] Crisis/trauma care [] Spiritual counseling [] Bereavement support [] Provided bereavement packet [] Provided Bible/devotional materials [] Provided toy/stuffed animal, coloring book to patient or family member [] Provided Communion [] Anointing/[place] [] Salvation [] Completed spiritual assessment [] Other: Impact on Illness or Injury [] Angry [] Fearful [] Anxious [] Often cries [] Exhaustion [] Unable to work [] Unable to attend orthodoxy [] Unable to walk/stand [] Unable to read [] Unable to drive [] Unable to eat/drink [] Unable to sleep [] Unable to be with family [] Patient intubated [] Other: Summary Time spent with patient
[2024-11-10] MEDS: ropinirole 1 mg Tablet PO (11:29)
[2024-11-10 12:00] VITALS: BP 133/85; PULSE 108; RESP 17; TEMP 36.5; O2SAT 94
--- NOTE | 2024-11-10 15:06 | PM.PN ---
Subjective Subjective: Patient was seen this morning, she tells me that she has had a stroke back in 2018, she had right-sided hemiplegia, clinically improved, ambulating such that she did not need a walker anymore, she had a long hospitalization and rehab for this, but back in August, she had fallen due to unsteadiness on her feet, while she was reaching for a [employer] gift under the [employer] tree, and she fractured her right wrist, since then, her balance has been off, she is never fully recovered from that and again she has had another fall, this time when she was using a 2 step stepstool to grab a piece of of a puzzle, when she lost her balance, Vitals/I&O/Wt Last Vital Signs Temp 97.7 F 11/10/24 12:00 Pulse 108 H 11/10/24 12:00 Resp 17 11/10/24 12:00 BP 133/85 11/10/24 12:00 Pulse Ox 94 11/10/24 12:00 O2 Del Method Nasal Cannula 11/10/24 12:00 O2 Flow Rate 3 11/10/24 04:55 11/10/24 11/10/24 11/10/24 06:59 14:59 22:59 Intake Total 240 / 240 Output Total 500 / 500 Balance -500 / -500 240 / 240 Weight last 48 hrs Weight 57.788 kg Weight 57.606 kg Weight 54.431 kg Physical Exam Const: COMMON NORMALS: no acute distress and patient oriented x3 Resp: COMMON NORMALS: normal respiratory effort, No retractions, No use of accessory muscles and clear to auscultation bilaterally AUSCULTATION: clear to auscultation bilaterally Cardio: COMMON NORMALS: regular rate, regular rhythm, S1 normal heart sound present and S2 normal heart sound present RATE: regular rate RHYTHM: regular rhythm HEART SOUNDS: S1 normal heart sound present and S2 normal heart sound present GI: COMMON NORMALS: Normal to inspection, nondistended, normoactive bowel sounds present and non-tender Extremity: COMMON NORMALS: no pedal edema Neuro: COMMON NORMALS: patient oriented x3 and CN's II-XII intact bilaterally Psych: COMMON NORMALS: mental status grossly normal Skin: NARRATIVE SKIN EXAM: Right wrist in a splint Right knee in a knee brace Urinary Catheter Management: Hassan: Cath Placed During This Visit: yes Reason for Continuing Indwelling Catheter: Other Urinary Catheter Date of Insertion: 11/09/24 Urinary Catheter Time of Insertion: 23:24 Data 11/09/24 19:18 11/10/24 05:15 A&P Assessment and plan (1) Essential hypertension: (2) Closed fracture of tibial plateau: (3) S/P spinal fusion: (4) RLS (restless legs syndrome): (5) Multiple falls: (6) Debility: Plan Recurrent falls Mechanical fall PT OT Urinary tract infection, Rocephin Impacted tibial plateau fracture -Dr. Carmona on consult -Currently in a knee brace -Hydrocodone for pain control -Flexeril for muscle spasms Chronic back pain, history of surgery/lumbar fusion -Monitor -Will consider x-ray based on clinical progress History of lumbar fusion History of CVA CT head Brain: Area of encephalomalacia/chronic infarction involving the left frontal lobe. Moderate sequela of chronic microvascular ischemic changes of the white matter. Chronic infarcts in the bilateral insular ribbons. No acute intracranial hemorrhage. No mass effect or midline shift. Underlying brain parenchymal atrophic changes. There is an area of encephalomalacia involving the left occipital lobe. DVT prophylaxis Lovenox Full code Patient's has been dealing with neck pain, with plans on possible surgery, PDMP PDMP Reviewed: Not Reviewed Attestations Medical Necessity Statement*: Patient requires hospitalization for recurrent falls, UTI, impacted tibial plateau fracture, Diagnoses Essential hypertension I10 Closed fracture of tibial plateau S82.143A S/P spinal fusion Z98.1 RLS (restless legs syndrome) G25.81 Multiple falls R29.6 Debility R53.81
[2024-11-10 16:38] VITALS: BP 125/72; PULSE 85; RESP 17; TEMP 36.6; O2SAT 92
[2024-11-10] MEDS: cefTRIAXone 1,000 mg SDV 1000 MG IVP (17:21)
[2024-11-10] MEDS: oxybutynin chloride XL 5 MG TABLET 10 MG PO (17:21)
[2024-11-10] MEDS: carvedilol 6.25 mg Tablet PO (17:22)
--- NOTE | 2024-11-10 17:47 | PM.CONSULT ---
Providers/Reason For Consult Consulting Physician/Specialty*: Lainey Carmona MD / Orthopedics Reason for Consult*: Right medial tibial plateau fracture Requesting Physician: Dr. Kate Mitchell Attending Physician: Gary Mclaughlin MD Primary Care Provider: Nora Coyle APN History of Present Illness History of Present Illness Viry Espinoza is a 79 year old female who was in her usual state of health when she fell at home. The patient has had multiple recent falls requiring the services of our spine surgeon Dr. Babb as well as Dr. Valiente for recent wrist fracture. She denies syncope. She stated she was attempting to get her 500 piece puzzles down, all of them, and she lost her balance and fell. She denied any loss of consciousness dizziness vertigo and in fact, she recalls the puzzle pieces around her as she fell. She was seen in the emergency department where she was found to have a medial tibial plateau fracture. There is some irregularity to the lateral tibial plateau as well. Additionally, she had hip images which demonstrate degenerative osteoarthritic change, however, she will require a CT scan to further rule out fracture in this area. She complains of muscle tightness, but no significant pain in the hip however. Medications/Allergies Home Medications ?Medication ?Instructions ?Recorded ?Confirmed ?Last Taken ?Type alendronate 70 mg tablet 70 mg PO Q7D 03/13/22 11/10/24 07/04/24 History ascorbate calcium (vitamin C) 500 500 mg PO DAILY 03/13/22 11/10/24 07/08/24 History mg tablet aspirin 81 mg tablet,delayed 81 mg PO DAILY 03/13/22 11/10/24 07/08/24 History release cetirizine 10 mg tablet 10 mg PO DAILY 03/13/22 11/10/24 07/08/24 History potassium chloride 20 mEq 20 meq PO DAILY 03/13/22 11/10/24 07/08/24 History tablet,extended release simvastatin 20 mg tablet 20 mg PO DAILY 10/30/23 11/10/24 07/08/24 History calcium carbonate 500 mg PO DAILY 11/07/23 11/10/24 07/08/24 History cholecalciferol (vitamin D3) 25 25 mcg PO DAILY 11/19/23 11/10/24 07/08/24 History mcg (1,000 unit) capsule (Vitamin D3) duloxetine 60 mg capsule,delayed 60 mg PO DAILY 04/14/24 11/10/24 07/08/24 History release celecoxib 200 mg capsule (Celebrex) 200 mg PO BID #60 caps 04/23/24 11/10/24 07/08/24 Rx capsicum (cayenne) 447 mg capsule 447 mg PO DAILY 07/08/24 11/10/24 07/08/24 History amlodipine 5 mg tablet 5 mg PO DAILY #90 tabs 07/10/24 11/10/24 Unknown Rx lisinopril 10 mg tablet 10 mg PO DAILY #90 tabs 07/10/24 11/10/24 Unknown Rx acetaminophen 325 mg capsule 325 mg PO Q4H PRN fever or pain 07/29/24 11/10/24 Unknown Rx #60 caps ibuprofen 800 mg tablet 800 mg PO TID PRN pain #60 tabs 07/29/24 11/10/24 Unknown Rx ropinirole 1 mg tablet See Rx Instructions PO DAILY #90 08/06/24 11/10/24 Unknown Rx tabs tizanidine 2 mg tablet 2 mg PO DAILY PRN muscle 09/10/24 11/10/24 Unknown Rx spasticity #7 tabs hydrocodone 5 mg-acetaminophen 325 1 tab PO Q6H PRN pain 5 days #20 09/29/24 11/10/24 Unknown Rx mg tablet tabs cyclobenzaprine 10 mg tablet 10 mg PO TID PRN muscle spasm 14 10/09/24 11/10/24 Unknown Rx days #42 tabs oxybutynin chloride 10 mg 10 mg PO BID #60 tabs 10/29/24 11/10/24 Unknown Rx tablet,extended release 24 hr carvedilol 6.25 mg tablet 6.25 mg PO BID 11/10/24 11/10/24 Unknown History Allergies Allergy/AdvReac Type Severity Reaction Status Date / Time No Known Allergies Allergy Verified 11/04/24 10:26 Current Medications Generic Name Dose Route Start Last Admin Trade Name Freq PRN Reason Stop Dose Admin Hydrocodone Bitart/Acetaminophen 1 tab 11/10/24 16:13 11/10/24 16:17 Hydrocodone-Acetaminophen 5-325 Mg Tablet PO 1 tab Q4H PRN Administration pain Aspirin 81 mg 11/10/24 09:00 11/10/24 09:08 Aspirin 81 Mg Ec Tablet PO 81 mg DAILY SHEYLA Administration Carvedilol 6.25 mg 11/10/24 18:00 11/10/24 17:22 Carvedilol 6.25 Mg Tablet PO 6.25 mg BID SHEYLA Administration Ceftriaxone Sodium 1,000 mg 11/10/24 18:00 11/10/24 17:21 Ceftriaxone 1,000 Mg Sdv IVP 1,000 mg Q24H SHEYLA Administration Protocol Duloxetine HCl 60 mg 11/10/24 09:00 11/10/24 09:08 Duloxetine 60 Mg Capsule PO 60 mg DAILY SHEYLA Administration Lisinopril 10 mg 11/10/24 09:00 11/10/24 09:08 Lisinopril 10 Mg Tablet PO 10 mg DAILY SHEYLA Administration Oxybutynin Chloride 10 mg 11/10/24 18:00 11/10/24 17:21 Oxybutynin Chloride Xl 5 Mg Tablet PO 10 mg BID SHEYLA Administration Ropinirole HCl 1 mg 11/10/24 12:00 11/10/24 11:29 Ropinirole 1 Mg Tablet PO 1 mg 1200 SHEYLA Administration Ropinirole HCl 2 mg 11/09/24 23:00 11/09/24 23:55 Ropinirole 1 Mg Tablet PO 2 mg BEDTIME SHEYLA Administration Senna/Docusate Sodium 2 tab 11/10/24 09:00 11/10/24 17:13 Sennosides-Docusate Tablet PO Not Given BID [facility] Tizanidine HCl 2 mg 11/10/24 10:08 11/10/24 17:22 Tizanidine 4 Mg Tablet PO 2 mg Q8H PRN Administration muscle spasticity PFSH Acute PFSH: Medical History (Updated 11/10/24 @ 19:53 by Lainey Carmona MD) Chronic headache Constipation Dysphagia Fatigue Shingles Intracranial aneurysm Chronic lumbar radiculopathy Mass of joint of left shoulder Neuropathy Opioid dependence Osteoporosis Disorder of bone and cartilage Synovial cyst of knee Unspecified tinnitus Varicose veins of bilateral lower extremities with other complications PVC (premature ventricular contraction) Chronic SI joint pain Chronic interstitial cystitis Pelvic joint pain Cerebral vascular accident (~2018) Thoracoabdominal aortic dissection Generalized anxiety disorder COPD (chronic obstructive pulmonary disease) RLS (restless legs syndrome) Lumbar spondylolysis Scoliosis Aortic dissection Essential hypertension Hyperlipidemia Heart disease Iron deficiency History of CVA (cerebrovascular accident) Surgical History (Updated 11/09/24 @ 23:04 by Ana Aguirre MD) History of lumbar fusion History of colpocleisis (~01/2022) Dr Taveras in [facility] H/O midurethral sling procedure (~07/28/24) performed by Yo for mixed incontinence. History of prosthetic aortic valve S/P spinal fusion Family History Father Depression Heart disease Stroke Mother Hypertension Sister Hypertension Denies family history of Colon cancer Ovarian cancer Prostate cancer Diabetes Hyperlipidemia Breast cancer Uterine cancer Thyroid disease Social History Smoking and tobacco/nicotine status: never used tobacco/nicotine Second hand smoke exposure: No Alcohol intake: never Vitals/I&O/Wt Last Vital Signs Temp 97.8 F 11/10/24 16:38 Pulse 85 11/10/24 16:38 Resp 17 11/10/24 16:38 BP 125/72 11/10/24 16:38 Pulse Ox 92 11/10/24 16:38 O2 Del Method Room Air 11/10/24 16:38 O2 Flow Rate 3 11/10/24 04:55 11/10/24 11/10/24 11/10/24 06:59 14:59 22:59 Intake Total 240 / 240 480 / 720 Output Total 500 / 500 250 / 250 Balance -500 / -500 240 / 240 230 / 470 Weight last 48 hrs Weight 127 lb 6.4 oz Weight 127 lb Weight 120 lb Physical Exam Const: COMMON NORMALS: no acute distress, average body habitus, patient oriented x3 and alert GENERAL APPEARANCE: cooperative and comfortable ORIENTATION/CONSCIOUSNESS: Yes awake HENMT: COMMON NORMALS: normocephalic and atraumatic HEAD & SCALP: normocephalic and atraumatic Eye: GENERAL EYE: appearance normal, both eyes and all related structures Chest: COMMONS NORMALS: normal inspection of the chest Resp: COMMON NORMALS: normal respiratory effort EFFORT & INSPECTION: Yes able to speak in complete sentences and Yes symmetric chest movement Extremity: RIGHT LOWER EXTREMITY: Yes hip joint (No complaints of tenderness) and Yes knee joint (Reagan brace is in place) Right knee: Yes inspection (No significant swelling or bruising), Yes palpation (Tender around knee), Yes ROM (Not evaluated), Yes neurovascular exam (Able to wiggle foot, no evidence of DVT) and Yes other (Patient has had a stroke affecting her right side with weakness.) Neuro: COMMON NORMALS: patient oriented x3 SENSORIUM/ORIENTATION: Yes alert Psych: COMMON NORMALS: mental status grossly normal APPEARANCE: Yes grossly normal ATTITUDE: Yes calm and Yes engaged ATTENTION/CONCENTRATION: Yes attention grossly intact Skin: COMMON NORMALS: no rashes or lesions noted GENERAL SKIN EXAM: no rashes or lesions noted Urinary Catheter Management: Hassan: Cath Placed During This Visit: yes Reason for Continuing Indwelling Catheter: Required Immobilization for Trauma or Surgery or Anesthesia Urinary Catheter Date of Insertion: 11/09/24 Urinary Catheter Time of Insertion: 23:24 Data 11/09/24 19:18 11/10/24 05:15 Xray Ortho: My impression: I have personally reviewed both the hip and knee imaging. There is evidence of an obvious medial tibial plateau fracture on the right knee. There is some irregularity to the lateral aspect as well. There is minimal to no depression of the fracture. Additional imaging of the hip was also evaluated, and there is significant degenerative osteoarthritis with osteophytic spurs around the subcapital area. In order to rule out occult fracture, a CT will be obtained. At the same time, we will order a CT of the patient's knee. A&P Assessment and plan (1) Right medial tibial plateau fracture: Patient presented with significant knee pain, and x-rays demonstrated a medial tibial plateau fracture of the patient's right knee. Patient was diagnosed with medial tibial plateau fracture, and I do have some concerns about the lateral tibial plateau. For this reason, I will obtain a CT scan in the morning . To better characterize the extent of the fracture. In the meantime, the patient is in a [place] brace currently set at 10 degrees of flexion. She will continue this brace and will be nonweightbearing with physical therapy. Qualifiers: Encounter type: initial encounter Fracture type: closed Qualified Code(s): S82.131A - Displaced fracture of medial condyle of right tibia, initial encounter for closed fracture (2) Primary osteoarthritis of right hip: There is some concern regarding irregularity of the subcapital area. I believe this is secondary to osteophytic change, but we will order a CT to further characterize this area as well. PDMP PDMP Reviewed: Not Reviewed Consult [facility] Necessity Statement: Per hospitalist team. Likely skilled facility will be required. Coding Level of Care Code Acute Code for [facility] Fwd Diagnoses Closed fracture of medial portion of right tibial plateau, initial encounter S82.131A Encounter type: initial encounter Fracture type: closed Primary osteoarthritis of right hip M16.11
--- NOTE | 2024-11-10 19:55 | CTR_ITS ---
PROCEDURE INFORMATION: Exam: CT Right Lower Extremity, Knee Exam date and time: 11/10/2024 9:38 PM Age: 79 years old Clinical indication: Injury or trauma; Fall; Blunt trauma; Knee; Right; Additional info: CT right knee to characterize tibial plateau fractures, amended per notes by Dr. Carmona, ct RT knee TECHNIQUE: Imaging protocol: CT of the right lower extremity without contrast was performed. Exam focused on the knee. Radiation optimization: All CT scans at this facility use at least one of these dose optimization techniques: automated exposure control; mA and/or kV adjustment per patient size (includes targeted exams where dose is matched to clinical indication); or iterative reconstruction. COMPARISON: CT hip RT wo con* [id number] 11/10/2024 9:38 PM RADIATION DOSE METRICS: Total DLP (mGy-cm): 327.3 FINDINGS: Bones/joints: The bone density is decreased. There is an impacted fracture involving the metadiaphysis of the proximal tibia with extension into the medial and lateral tibial plateaus. No additional fractures identified. There is a small joint effusion. Soft tissues: Normal. Vasculature: Vascular calcification present. CT/CT knee RT wo con* [id number] IMPRESSION: 1. Impacted fracture involving the metadiaphysis of the proximal tibia with extension into the medial and lateral tibial plateaus 2. Decreased bone density. 3. Joint effusion.
--- NOTE | 2024-11-10 19:55 | CTR_ITS ---
PROCEDURE INFORMATION: Exam: CT Right Lower Extremity, Hip Exam date and time: 11/10/2024 9:38 PM Age: 79 years old Clinical indication: Injury or trauma; Fall; Blunt trauma; Hip; Right; Additional info: Evaluate for occult fracture TECHNIQUE: Imaging protocol: CT of the right lower extremity without contrast was performed. Exam focused on the hip. Radiation optimization: All CT scans at this facility use at least one of these dose optimization techniques: automated exposure control; mA and/or kV adjustment per patient size (includes targeted exams where dose is matched to clinical indication); or iterative reconstruction. COMPARISON: CR (PELVIS, ) 11/09/2024 5:01 PM RADIATION DOSE METRICS: Total DLP (mGy-cm): 235.7 FINDINGS: Bones/joints: The bone density is decreased. Negative exam for fracture. There is right hip joint space narrowing with subchondral cyst formation. Incompletely imaged postoperative changes involve the right SI joint. Degenerative changes involve the pubic symphysis. Soft tissues: Normal. Vasculature: Vascular calcification involves the visualized iliac arteries Bowel: There is nonspecific fullness of the low rectum/anus Urinary bladder: The urinary bladder is decompressed with a Hassan catheter. CT/CT hip RT wo con* [id number] IMPRESSION: Negative exam for fracture. No acute bony abnormality.
[2024-11-10 20:00] VITALS: BP 100/64; PULSE 94; RESP 15; TEMP 36.5; O2SAT 94
[2024-11-10] MEDS: ropinirole 1 mg Tablet 2 MG PO (20:46)
[2024-11-10 23:50] VITALS: BP 113/68; PULSE 88; RESP 19; TEMP 36.5; O2SAT 94
[2024-11-11] MEDS: HYDROcodone-acetaminophen 5-325 mg Tablet 1 TAB PO ×5 (02:23→21:18)
[2024-11-11] MEDS: tizanidine 4 mg Tablet 2 MG PO ×2 (02:24→14:32)
[2024-11-11 04:00] VITALS: BP 100/57; PULSE 67; RESP 16; TEMP 36.6; O2SAT 95
[2024-11-11 06:00] VITALS: BMI 22.6
[2024-11-11 06:07] LABS: Basophils % 0.2 %; Eosinophils # 0.2 10^3/uL (0.0-0.8); Eosinophils % 3.9 %; Hematocrit 28.8 % (36-47); Lymphocytes # 0.7 10^3/uL (0.8-4.8); Lymphocytes % 13.7 %; Mean Corpuscular HGB Conc 31.9 g/dL (30-55); Mean Corpuscular Hemoglobin 31.3 pg (27-33); Mean Platelet Volume 10.3 fL (7.4-10.4); Monocytes # 0.3 10^3/uL (0.2-0.9); Monocytes % 5.4 %; Neutrophils # 3.68 10^3/uL (1.8-7.7); Neutrophils % 76.4 %; Nucleated Red Blood Cells % 0 %; Platelet Count 113 10^3/cmm (157-399); Red Blood Count 2.94 10^6/uL (3.85-5.65); White Blood Count 4.82 10^3/uL (3.29-11.43)
[2024-11-11 06:37] LABS: Alanine Aminotransferase 32 U/L (0-33); Albumin Level 3.2 g/dL (3.5-5.2); Alkaline Phosphatase 91 U/L (35-105); Anion Gap 13.9 (5-19); Aspartate Amino Transferase 33 U/L (0-32); Blood Urea Nitrogen 25 mg/dL (8-23); Calcium 8.5 mg/dL (8.5-10.5); Carbon Dioxide 28 mmol/L (22-29); Chloride 97 mmol/L (98-107); Glucose 120 mg/dL (65-115); Osmolality Calculated 286 mOsm/kg (285-295); Potassium 3.9 mmol/L (3.5-5.1); Sodium 135 mmol/L (136-145); Total Bilirubin 0.3 mg/dL (0.15-1.2); Total Protein 5.2 g/dL (6.6-8.7)
[2024-11-11] MEDS: oxybutynin chloride XL 5 MG TABLET 10 MG PO ×2 (07:17→17:15)
[2024-11-11] MEDS: carvedilol 6.25 mg Tablet PO ×2 (07:17→17:18)
[2024-11-11] MEDS: aspirin 81 mg EC Tablet PO (07:17)
[2024-11-11] MEDS: lisinopril 10 mg Tablet PO (07:17)
[2024-11-11] MEDS: duloxetine 60 mg Capsule PO (07:17)
[2024-11-11 07:31] VITALS: BP 109/61; PULSE 62; RESP 19; TEMP 36.6; O2SAT 95
[2024-11-11] MEDS: sennosides-docusate Tablet 2 TAB PO ×2 (08:47→17:16)
[2024-11-11 11:27] VITALS: BP 105/62; PULSE 64; RESP 18; TEMP 36.7; O2SAT 94
[2024-11-11] MEDS: ropinirole 1 mg Tablet PO (11:39)
--- NOTE | 2024-11-11 13:15 | P.PN_ITS ---
Subjective 2 Subjective: Patient is seen in her room. She is up in a chair and comfortable. Her [place] brace has been adjusted. Plans are being made for her discharge to a senior living facility as she has issues with her wrist and also the current problem with her tibial plateau. She is advised that the tibial plateau fracture is bicondylar. Medications: Reviewed: Yes Vitals/I&O/Wt Last Vital Signs Temp 98.0 F 11/11/24 11:27 Pulse 64 11/11/24 11:27 Resp 18 11/11/24 11:27 BP 105/62 11/11/24 11:27 Pulse Ox 94 11/11/24 11:27 O2 Del Method Nasal Cannula 11/11/24 11:27 O2 Flow Rate 3 11/11/24 04:00 11/10/24 11/11/24 11/11/24 22:59 06:59 14:59 Intake Total 720 / 960 240 / 1200 600 / 600 Output Total 350 / 350 200 / 550 Balance 370 / 610 40 / 650 600 / 600 Weight last 48 hrs Weight 127 lb 4.8 oz Weight 128 lb 3 oz Weight 127 lb 6.4 oz Weight 127 lb Weight 120 lb Physical Exam 2 Const: COMMON NORMALS: no acute distress, average body habitus, patient oriented x3 and alert GENERAL APPEARANCE: cooperative and comfortable O RIENTATION/CONSCIOUSNESS: Yes awake HENMT: COMMON NORMALS: normocephalic and atraumatic HEAD & SCALP: n ormocephalic and atraumatic Eye: GENERAL EYE: appearance normal, both eyes and all related structures Chest: COMMONS NORMALS: normal inspection of the chest Resp: COMMON NORMALS: normal respiratory effort EFFORT & INSPECTION: Yes able to speak in complete sentences and Yes symmetric chest movement Extremity: RIGHT LOWER EXTREMITY: Yes knee joint ([place] brace and is in place.) Right knee: Yes neurovascular exam ( Intact with no evidence of DVT) Neuro: COMMON NORMALS: patient oriented x3 SENSORIUM/ORIENTATION: Yes alert Psych: COMMON NORMALS: mental status grossly normal APPEARANCE: Yes grossly normal ATTITUDE: Yes calm and Yes engaged ATTENTION/CONCENTRATION: Yes attention grossly intact Skin: COMMON NORMALS: no rashes or lesions noted GENERAL SKIN EXAM: no rashes or lesions noted Urinary Catheter Management: Hassan: Cath Placed During This Visit: yes Reason for Continuing Indwelling Catheter: Required Immobilization for Trauma or Surgery or Anesthesia Urinary Catheter Date of Insertion: 11/09/24 Urinary Catheter Time of Insertion: 23:24 Data 11/11/24 05:17 11/11/24 05:17 Other Imaging: My impression: CT of the hip was negative for fracture. CT of the knee demonstrated the fracture is actually bicondylar and does involve the medial and lateral plateaus. A&P Assessment and plan (1) Closed bicondylar fracture of right tibial plateau: Patient presented with significant knee pain, and x-rays demonstrated a medial tibial plateau fracture of the patient's right knee. Patient was diagnosed with medial tibial plateau fracture, and I do have some concerns about the lateral tibial plateau. CT demonstrated bicondylar tibial plateau fracture. The patient is in a [place] brace currently set at 10 degrees of flexion. She will continue this brace and will be nonweightbearing with physical therapy. Hip CT was negative for fracture. The patient has been accepted by [facility] for treatment to the [facility] facility. She is awaiting authorization. (2) Primary osteoarthritis of right hip: There is some concern regarding irregularity of the subcapital area. I believe this is secondary to osteophytic change, but we will order a CT to further characterize this area as well. PDMP PDMP Reviewed: Not Reviewed Attestations 2 Medical Necessity Statement*: Per hospitalist team Coding Level of Care Code Acute Code for [facility] Fwd Diagnoses Closed bicondylar fracture of right tibial plateau S82.141A Primary osteoarthritis of right hip M16.11
[2024-11-11 15:48] VITALS: BP 126/69; PULSE 77; RESP 18; TEMP 36.7; O2SAT 93
--- NOTE | 2024-11-11 16:45 | P.PN_ITS ---
Subjective 2 Subjective: Patient was seen this morning, she is sitting up to the side of the bed, her pain is well-controlled denies any fevers, no chills, no cough Vitals/I&O/Wt Last Vital Signs Temp 98.0 F 11/11/24 15:48 Pulse 77 11/11/24 15:48 Resp 18 11/11/24 15:48 BP 126/69 11/11/24 15:48 Pulse Ox 93 11/11/24 15:48 O2 Del Method Nasal Cannula 11/11/24 15:48 O2 Flow Rate 3 11/11/24 04:00 11/11/24 11/11/24 11/11/24 06:59 14:59 22:59 Intake Total 240 / 1200 600 / 600 Output Total 200 / 550 Balance 40 / 650 600 / 600 Weight last 48 hrs Weight 57.742 kg Weight 58.145 kg Weight 57.788 kg Weight 57.606 kg Physical Exam 2 Const: COMMON NORMALS: no acute distress and patient oriented x3 Resp: COMMON NORMALS: normal respiratory effort, No retractions, No use of accessory muscles and clear to auscultation bilaterally AUSCULTATION: clear to auscultation bilaterally Cardio: COMMON NORMALS: regular rate, regular rhythm, S1 normal heart sound present and S2 normal heart sound present RATE: regular rate RHYTHM: r egular rhythm HEART SOUNDS: S1 normal heart sound present and S2 normal heart sound present GI: COMMON NORMALS: Normal to inspection, nondistended, normoactive bowel sounds present and non-tender Extremity: COMMON NORMALS: no pedal edema NARRATIVE EXTREMITY EXAM: Right lower extremity in a long l hinged brace Neuro: COMMON NORMALS: patient oriented x3 Psych: COMMON NORMALS: mental status grossly normal Urinary Catheter Management: Hassan: Cath Placed During This Visit: yes Reason for Continuing Indwelling Catheter: Required Immobilization for Trauma or Surgery or Anesthesia Urinary Catheter Date of Insertion: 11/09/24 Urinary Catheter Time of Insertion: 23:24 Data 11/11/24 05:17 11/11/24 05:17 A&P Assessment and plan (1) Essential hypertension: (2) Closed fracture of tibial plateau: (3) S/P spinal fusion: (4) RLS (restless legs syndrome): (5) Multiple falls: (6) Debility: Plan Recurrent falls Mechanical fall PT OT Urinary tract infection, Rocephin Impacted tibial plateau fracture CT/CT knee RT wo con* [id number] IMPRESSION: 1. Impacted fracture involving the metadiaphysis of the proximal tibia with extension into the medial and lateral tibial plateaus 2. Decreased bone density. 3. Joint effusion. -Dr. Carmona on consult, medical management -Currently in a knee hinged brace -Hydrocodone for pain control -Flexeril for muscle spasms Chronic back pain, history of surgery/lumbar fusion -Monitor -Will consider x-ray based on clinical progress History of lumbar fusion History of CVA CT head Brain: Area of encephalomalacia/chronic infarction involving the left frontal lobe. Moderate sequela of chronic microvascular ischemic changes of the white matter. Chronic infarcts in the bilateral insular ribbons. No acute intracranial hemorrhage. No mass effect or midline shift. Underlying brain parenchymal atrophic changes. There is an area of encephalomalacia involving the left occipital lobe. DVT prophylaxis Lovenox Full code Patient's has been dealing with neck pain, with plans on possible surgery, PDMP PDMP Reviewed: Not Reviewed Attestations 2 Medical Necessity Statement*: Patient requires hospitalization for recurrent falls, Diagnoses Essential hypertension I10 Closed fracture of tibial plateau S82.143A S/P spinal fusion Z98.1 RLS (restless legs syndrome) G25.81 Multiple falls R29.6 Debility R53.81
[2024-11-11] MEDS: cefTRIAXone 1,000 mg SDV 1000 MG IVP (17:15)
[2024-11-11 20:00] VITALS: BP 113/65; PULSE 95; RESP 17; TEMP 36.7; O2SAT 95
[2024-11-11] MEDS: ropinirole 1 mg Tablet 2 MG PO (21:17)
[2024-11-11 23:53] VITALS: BP 134/90; PULSE 83; RESP 18; TEMP 36.6; O2SAT 95
[2024-11-12] MEDS: tizanidine 4 mg Tablet 2 MG PO ×3 (01:16→20:45)
[2024-11-12 04:00] VITALS: BP 153/75; PULSE 97; RESP 18; TEMP 36.9; O2SAT 96
[2024-11-12] MEDS: HYDROcodone-acetaminophen 5-325 mg Tablet 1 TAB PO ×4 (05:35→20:45)
[2024-11-12 06:10] LABS: Basophils % 0.2 %; Eosinophils # 0.2 10^3/uL (0.0-0.8); Eosinophils % 4.2 %; Hematocrit 29.1 % (36-47); Lymphocytes # 0.5 10^3/uL (0.8-4.8); Lymphocytes % 9.8 %; Mean Corpuscular Hemoglobin 30.6 pg (27-33); Mean Corpuscular Volume 95.7 fl (85-98); Mean Platelet Volume 10.4 fL (7.4-10.4); Monocytes # 0.3 10^3/uL (0.2-0.9); Monocytes % 6.6 %; Neutrophils # 3.93 10^3/uL (1.8-7.7); Neutrophils % 78.6 %; Nucleated Red Blood Cells % 0 %; Platelet Count 118 10^3/cmm (157-399); Red Blood Count 3.04 10^6/uL (3.85-5.65); Red Cell Distribution Width 13.2 % (12.1-15.1)
[2024-11-12 06:28] LABS: Alanine Aminotransferase 24 U/L (0-33); Albumin Level 3.2 g/dL (3.5-5.2); Alkaline Phosphatase 89 U/L (35-105); Aspartate Amino Transferase 21 U/L (0-32); Blood Urea Nitrogen 17 mg/dL (8-23); Calcium 8.5 mg/dL (8.5-10.5); Carbon Dioxide 27 mmol/L (22-29); Chloride 95 mmol/L (98-107); Creatinine Clr Calc Pharmacy 47.6411; Globulin 2.2 g/dL (1.3-4.6); Glucose 130 mg/dL (65-115); Osmolality Calculated 279 mOsm/kg (285-295); Sodium 133 mmol/L (136-145); Total Bilirubin 0.4 mg/dL (0.15-1.2); Total Protein 5.4 g/dL (6.6-8.7)
[2024-11-12 07:37] VITALS: BP 119/64; PULSE 64; RESP 18; TEMP 36.3; O2SAT 97
[2024-11-12] MEDS: oxybutynin chloride XL 5 MG TABLET 10 MG PO ×2 (08:45→17:05)
[2024-11-12] MEDS: duloxetine 60 mg Capsule PO (08:45)
[2024-11-12] MEDS: carvedilol 6.25 mg Tablet PO ×2 (08:45→17:05)
[2024-11-12] MEDS: lisinopril 10 mg Tablet PO (08:46)
[2024-11-12] MEDS: aspirin 81 mg EC Tablet PO (08:46)
[2024-11-12] MEDS: sennosides-docusate Tablet 2 TAB PO ×2 (08:46→17:05)
[2024-11-12] MEDS: ropinirole 1 mg Tablet PO (10:56)
[2024-11-12 11:55] VITALS: BP 139/76; PULSE 98; RESP 18; TEMP 36.4; O2SAT 96
--- NOTE | 2024-11-12 14:57 | P.PN_ITS ---
Subjective 2 Subjective: Patient was seen this morning, she is sitting up in a chair, pain is under control, no fevers, no chills, no cough Vitals/I&O/Wt Last Vital Signs Temp 97.5 F L 11/12/24 11:55 Pulse 98 11/12/24 11:55 Resp 18 11/12/24 11:55 BP 139/76 11/12/24 11:55 Pulse Ox 96 11/12/24 11:55 O2 Del Method Room Air 11/12/24 11:55 O2 Flow Rate 3 11/12/24 04:00 11/11/24 11/12/24 11/12/24 22:59 06:59 14:59 Intake Total 240 / 840 240 / 1080 240 / 240 Output Total 600 / 600 500 / 1100 Balance -360 / 240 -260 / -20 240 / 240 Weight last 48 hrs Weight 58.196 kg Weight 57.742 kg Weight 58.145 kg Physical Exam 2 Const: COMMON NORMALS: no acute distress and patient oriented x3 Resp: COMMON NORMALS: normal respiratory effort, No retractions, No use of accessory muscles and clear to auscultation bilaterally AUSCULTATION: clear to auscultation bilaterally Cardio: COMMON NORMALS: regular rate, regular rhythm, S1 normal heart sound present and S2 normal heart sound present RATE: regular rate RHYTHM: r egular rhythm HEART SOUNDS: S1 normal heart sound present and S2 normal heart sound present GI: COMMON NORMALS: Normal to inspection, nondistended, normoactive bowel sounds present and non-tender Extremity: NARRATIVE EXTREMITY EXAM: 1+ edema Neuro: COMMON NORMALS: patient oriented x3 Psych: COMMON NORMALS: mental status grossly normal Urinary Catheter Management: Hassan: Cath Placed During This Visit: yes Reason for Continuing Indwelling Catheter: Other Urinary Catheter Date of Insertion: 11/09/24 Urinary Catheter Time of Insertion: 23:24 Data 11/12/24 05:40 11/12/24 05:40 A&P Assessment and plan (1) Essential hypertension: (2) Closed fracture of tibial plateau: (3) S/P spinal fusion: (4) RLS (restless legs syndrome): (5) Multiple falls: (6) Debility: Plan Recurrent falls Mechanical fall PT OT Urinary tract infection, Rocephin Impacted tibial plateau fracture CT/CT knee RT wo con* [id number] IMPRESSION: 1. Impacted fracture involving the metadiaphysis of the proximal tibia with extension into the medial and lateral tibial plateaus 2. Decreased bone density. 3. Joint effusion. -Dr. Carmona on consult, medical management -Currently in a knee hinged brace -Hydrocodone for pain control -Flexeril for muscle spasms Chronic back pain, history of surgery/lumbar fusion -Monitor -Will consider x-ray based on clinical progress History of lumbar fusion History of CVA CT head Brain: Area of encephalomalacia/chronic infarction involving the left frontal lobe. Moderate sequela of chronic microvascular ischemic changes of the white matter. Chronic infarcts in the bilateral insular ribbons. No acute intracranial hemorrhage. No mass effect or midline shift. Underlying brain parenchymal atrophic changes. There is an area of encephalomalacia involving the left occipital lobe. DVT prophylaxis Lovenox Full code Patient's has been dealing with neck pain, Plan for today PT OT, continue pain control PDMP PDMP Reviewed: Not Reviewed Attestations 2 Medical Necessity Statement*: Patient requires hospitalization for UTI, impacted tibial plateau fracture, waiting on placement to [facility] facility Diagnoses Essential hypertension I10 Closed fracture of tibial plateau S82.143A S/P spinal fusion Z98.1 RLS (restless legs syndrome) G25.81 Multiple falls R29.6 Debility R53.81
[2024-11-12 16:00] VITALS: BP 118/82; PULSE 79; RESP 19; TEMP 36.7; O2SAT 97
[2024-11-12] MEDS: enoxaparin 40 mg/0.4 mL Syringe SUBCUT (17:04)
[2024-11-12] MEDS: cefTRIAXone 1,000 mg SDV 1000 MG IVP (17:05)
[2024-11-12 20:00] VITALS: BP 154/95; PULSE 102; RESP 16; TEMP 36.8; O2SAT 92
[2024-11-12] MEDS: ropinirole 1 mg Tablet 2 MG PO (20:46)
[2024-11-13] VITALS (12 sets, daily range): BP systolic 77–144; BP diastolic 48–80; PULSE 60–89; RESP 15–17; TEMP 36.6–36.9; O2SAT 90–98; BMI 23.0
[2024-11-13] MEDS: HYDROcodone-acetaminophen 5-325 mg Tablet 1 TAB PO ×4 (03:10→22:13)
[2024-11-13 05:26] LABS: Basophils % 0.3 %; Eosinophils # 0.2 10^3/uL (0.0-0.8); Eosinophils % 5.3 %; Hematocrit 29.6 % (36-47); Lymphocytes # 0.6 10^3/uL (0.8-4.8); Lymphocytes % 15.8 %; Mean Corpuscular HGB Conc 31.4 g/dL (30-55); Mean Corpuscular Hemoglobin 29.9 pg (27-33); Mean Corpuscular Volume 95.2 fl (85-98); Mean Platelet Volume 10.2 fL (7.4-10.4); Monocytes # 0.4 10^3/uL (0.2-0.9); Monocytes % 10.4 %; Neutrophils # 2.66 10^3/uL (1.8-7.7); Neutrophils % 67.7 %; Nucleated Red Blood Cells % 0 %; Platelet Count 146 10^3/cmm (157-399); Red Blood Count 3.11 10^6/uL (3.85-5.65); Red Cell Distribution Width 12.9 % (12.1-15.1); White Blood Count 3.93 10^3/uL (3.29-11.43)
[2024-11-13 05:45] LABS: Alanine Aminotransferase 27 U/L (0-33); Albumin Level 3.2 g/dL (3.5-5.2); Alkaline Phosphatase 106 U/L (35-105); Anion Gap 13.2 (5-19); Aspartate Amino Transferase 25 U/L (0-32); Blood Urea Nitrogen 18 mg/dL (8-23); Calcium 8.7 mg/dL (8.5-10.5); Carbon Dioxide 27 mmol/L (22-29); Chloride 93 mmol/L (98-107); Creatinine Clr Calc Pharmacy 47.6411; Globulin 2.4 g/dL (1.3-4.6); Glucose 108 mg/dL (65-115); Osmolality Calculated 270 mOsm/kg (285-295); Potassium 4.2 mmol/L (3.5-5.1); Sodium 129 mmol/L (136-145); Total Bilirubin 0.4 mg/dL (0.15-1.2); Total Protein 5.6 g/dL (6.6-8.7)
[2024-11-13] MEDS: oxybutynin chloride XL 5 MG TABLET 10 MG PO ×2 (08:40→17:24)
[2024-11-13] MEDS: lisinopril 10 mg Tablet PO (08:40)
[2024-11-13] MEDS: sodium chloride 1 gm Tablet PO ×2 (08:40→17:24)
[2024-11-13] MEDS: carvedilol 6.25 mg Tablet PO (08:40)
[2024-11-13] MEDS: aspirin 81 mg EC Tablet PO (08:40)
[2024-11-13] MEDS: tizanidine 4 mg Tablet 2 MG PO ×3 (08:40→21:00)
[2024-11-13] MEDS: duloxetine 60 mg Capsule PO (08:40)
--- NOTE | 2024-11-13 11:26 | PM.DCS ---
Discharge Providers Date of Admission: 11/09/24 19:07 Date of Discharge: November 13, 2024 Attending Provider at Admission: Ana Aguirre MD Attending Provider at Discharge: Gary Mclaughlin MD Primary Care Provider: Nora Coyle APN Diagnoses at Discharge Discharge Diagnosis (1) Essential hypertension: Status: Acute (2) Closed fracture of tibial plateau: Status: Acute (3) S/P spinal fusion: Status: Acute (4) RLS (restless legs syndrome): Status: Acute (5) Multiple falls: Status: Acute (6) Debility: Status: Acute Reason for Visit Reason for Visit: fall Hospital Course Hospital Course This is a 79-year-old female with a past medical history of CVA residual right-sided deficits, history of falls, currently right wrist in a splint due to history of fracture and right wrist, who presents to [facility] for a fall Patient was admitted to [facility] Impacted tibial plateau fracture CT/CT knee RT wo con* [id number] IMPRESSION: 1. Impacted fracture involving the metadiaphysis of the proximal tibia with extension into the medial and lateral tibial plateaus 2. Decreased bone density. 3. Joint effusion. -Dr. Carmona on consult, recommended medical management -Patient received PT OT as inpatient nonweightbearing right lower extremity, pain control -Currently in a knee hinged brace -Will be discharged on hydrocodone for pain control, tizanidine for muscle spasms. Patient was advised to use medication sparingly, do not use them together, do not drive or operate machinery or drink while taking medication Patient also had urinary tract infection during hospitalization discharged on cefdinir For her acute on chronic hyponatremia serum sodium 129 potentially related to her duloxetine, poor oral intake. Her serum sodiums fluctuate between 1 27-136. Denies headaches, no blurry vision, no nausea, no vomiting, relatively asymptomatic during hospitalization. Advised long term to recheck serum sodiums in 48 hours Physical Exam Const: COMMON NORMALS: no acute distress and patient oriented x3 Resp: COMMON NORMALS: normal respiratory effort, No retractions, No use of accessory muscles and clear to auscultation bilaterally AUSCULTATION: clear to auscultation bilaterally Cardio: COMMON NORMALS: regular rate, regular rhythm, S1 normal heart sound present and S2 normal heart sound present RATE: regular rate RHYTHM: regular rhythm HEART SOUNDS: S1 normal heart sound present and S2 normal heart sound present GI: COMMON NORMALS: Normal to inspection, nondistended, normoactive bowel sounds present and non-tender Extremity: COMMON NORMALS: no pedal edema NARRATIVE EXTREMITY EXAM: Right lower extremity in a hinged brace Right hand in a brace Neuro: COMMON NORMALS: patient oriented x3 Psych: COMMON NORMALS: mental status grossly normal Urinary Catheter Management: Hassan: Cath Placed During This Visit: yes Reason for Continuing Indwelling Catheter: Acute Urinary Retention or Obstruction Urinary Catheter Date of Insertion: 11/09/24 Urinary Catheter Time of Insertion: 23:24 Discharge Data Studies Completed and Pending Completed Studies During Hospitalization Category Date Time Status CT cervical spin wo con* [id number] Stat Cat Scan 11/09/24 16:[address] head wo con* [id number] Stat Cat Scan 11/09/24 16:[address] hip RT wo con* [id number] Routine Cat Scan 11/10/24 19:[address] knee RT wo con* [id number] Routine Cat Scan 11/10/24 19:55 Completed XR hip RT 2-3V wo/w pel* [id number] Stat Exams 11/09/24 16:54 Completed XR knee RT 3V* [id number] Stat Exams 11/09/24 16:54 Completed Radiology Impressions Cervical Spine CT 11/09/24 16:54 IMPRESSION: No definite acute displaced cervical spine fracture or traumatic malalignment. Chronic changes as above. Head CT 11/09/24 16:54 IMPRESSION: No definite acute intracranial process. Chronic changes as above. Hip/Pelvis X-Ray 11/09/24 16:54 IMPRESSION: Moderate arthritic changes of the right hip joint without a definitive acute displaced fracture. Considering the patient's age can not exclude an underlying occult fracture. Consider follow up with cross-sectional imaging to further confirm. Knee X-Ray 11/09/24 16:54 IMPRESSION: As above. Hip CT 11/10/24 19:55 IMPRESSION: Negative exam for fracture. No acute bony abnormality. Knee CT 11/10/24 19:55 IMPRESSION: 1. Impacted fracture involving the metadiaphysis of the proximal tibia with extension into the medial and lateral tibial plateaus 2. Decreased bone density. 3. Joint effusion. Laboratory Results WBC 3.93 10^3/uL (3.29-11.43) 11/13/24 05:13 RBC 3.11 10^6/uL (3.85-5.65) L 11/13/24 05:13 Hgb 9.30 g/dL (11.27-16.99) L 11/13/24 05:13 Hct 29.6 % (36-47) L 11/13/24 05:13 MCV 95.2 fl (85-98) 11/13/24 05:13 MCH 29.9 pg (27-33) 11/13/24 05:13 MCHC 31.4 g/dL (30-55) 11/13/24 05:13 RDW 12.9 % (12.1-15.1) 11/13/24 05:13 Plt Count 146 10^3/cmm (157-399) L 11/13/24 05:13 MPV 10.2 fL (7.4-10.4) 11/13/24 05:13 Neut % (Auto) 67.7 % 11/13/24 05:13 Lymph % (Auto) 15.8 % 11/13/24 05:13 Morrison % (Auto) 10.4 % 11/13/24 05:13 Eos % (Auto) 5.3 % 11/13/24 05:13 Baso % (Auto) 0.3 % 11/13/24 05:13 Neut # (Auto) 2.66 10^3/uL (1.8-7.7) 11/13/24 05:13 Lymph # (Auto) 0.6 10^3/uL (0.8-4.8) L 11/13/24 05:13 Morrison # (Auto) 0.4 10^3/uL (0.2-0.9) 11/13/24 05:13 Eos # (Auto) 0.2 10^3/uL (0.0-0.8) 11/13/24 05:13 Baso # (Auto) 0.0 10^3/uL (0.0-0.1) 11/13/24 05:13 Nucleated RBC % (auto) 0 % 11/13/24 05:13 Nucleated RBCs # 0.0 /100WBC 11/13/24 05:13 Sodium 129 mmol/L (136-145) L 11/13/24 05:13 Potassium 4.2 mmol/L (3.5-5.1) 11/13/24 05:13 Chloride 93 mmol/L (98-107) L 11/13/24 05:13 Carbon Dioxide 27 mmol/L (22-29) 11/13/24 05:13 Anion Gap 13.2 (5-19) 11/13/24 05:13 BUN 18 mg/dL (8-23) 11/13/24 05:13 Creatinine 0.5 mg/dL (0.5-0.9) 11/13/24 05:13 GFR Calculation Not Reportable 11/13/24 05:13 Glucose 108 mg/dL (65-115) 11/13/24 05:13 Calculated Osmolality 270 mOsm/kg (285-295) L 11/13/24 05:13 Calcium 8.7 mg/dL (8.5-10.5) 11/13/24 05:13 Magnesium 2.2 mg/dL (1.7-2.3) 11/10/24 05:15 Total Bilirubin 0.4 mg/dL (0.15-1.2) 11/13/24 05:13 AST 25 U/L (0-32) 11/13/24 05:13 ALT 27 U/L (0-33) 11/13/24 05:13 Alkaline Phosphatase 106 U/L (35-105) H 11/13/24 05:13 Total Protein 5.6 g/dL (6.6-8.7) L 11/13/24 05:13 Albumin 3.2 g/dL (3.5-5.2) L 11/13/24 05:13 Globulin 2.4 g/dL (1.3-4.6) 11/13/24 05:13 Vitamin B12 276 pg/mL (232-1245) 11/09/24 19:18 Urine Color Yellow (Yellow) 11/09/24 18:39 Urine Appearance Cloudy (CLEAR) A 11/09/24 18:39 Urine pH 7.0 (5-7) 11/09/24 18:39 Ur Specific [place] 1.013 (1.005-1.030) 11/09/24 18:39 Urine Protein Trace (Negative) A 11/09/24 18:39 Urine Glucose (UA) Negative (Normal) 11/09/24 18:39 Urine Ketones Negative (Negative) 11/09/24 18:39 Urine Blood Negative (Negative) 11/09/24 18:39 Urine Nitrate Positive (Negative) A 11/09/24 18:39 Urine Bilirubin Negative (Negative) 11/09/24 18:39 Urine Urobilinogen 0.2 mg/dL (Negative) 11/09/24 18:39 Ur Leukocyte Esterase Negative (Negative) 11/09/24 18:39 Urine RBC 0-2 /hpf (0-2) 11/09/24 18:39 Urine WBC 6-10 /hpf (0-5) 11/09/24 18:39 Ur Squamous Epith Cells 0-5 /hpf (0-5) 11/09/24 18:39 Amorphous Sediment Not Reportable 11/09/24 18:39 Urine Bacteria Exceeds /hpf (NONE) 11/09/24 18:39 Hyaline Casts 0-4 /lpf H 11/09/24 18:39 Influenza A (PCR) Negative (Negative) 11/09/24 18:47 Influenza Type B (PCR) Negative (Negative) 11/09/24 18:47 RSV (PCR) Negative (Negative) 11/09/24 18:47 SARS-CoV-2 (PCR) Negative (Negative) 11/09/24 18:47 Vitals Last Vital Signs Temp 98.0 F 11/13/24 07:42 Pulse 75 11/13/24 07:42 Resp 15 11/13/24 07:42 BP 144/80 11/13/24 07:42 Pulse Ox 91 11/13/24 07:42 O2 Del Method Room Air 11/13/24 07:42 O2 Flow Rate 3 11/12/24 04:00 Discharge Plan Discharge Patient Disposition: Xfer SNF Condition: Stable Prescriptions: New cefdinir 300 mg capsule 300 mg PO BID 2 Days Qty: 4 0RF sennosides-docusate sodium [Stool Softener-Laxative] 8.6-50 mg Tablet 2 tab PO BID 30 Days Qty: 120 0RF Continued simvastatin 20 mg tablet 20 mg PO DAILY alendronate 70 mg tablet 70 mg PO Q7D Rx Instructions: ON SATURDAY aspirin 81 mg tablet,delayed release (DR/EC) 81 mg PO DAILY cetirizine 10 mg tablet 10 mg PO DAILY potassium chloride 20 mEq tablet extended release 20 meq PO DAILY ascorbate calcium (vitamin C) 500 mg tablet 500 mg PO DAILY duloxetine 60 mg capsule,delayed release(DR/EC) 60 mg PO DAILY amlodipine 5 mg tablet 5 mg PO DAILY Qty: 90 1RF ropinirole 1 mg tablet See Rx Instructions PO DAILY Qty: 90 3RF Rx Instructions: orally daily; TAKE 1 TABLET BY MOUTH AT NOON, AND 2 TABLETS AT BEDTIME. Medication is for restless legs oxybutynin chloride 10 mg tablet extended release 24hr 10 mg PO BID Qty: 60 3RF calcium carbonate 500 mg calcium (1,250 mg) Tablet 500 mg PO DAILY carvedilol 6.25 mg tablet 6.25 mg PO BID cholecalciferol (vitamin D3) [Vitamin D3] 25 mcg (1,000 unit) Capsule 25 mcg PO DAILY capsicum (cayenne) 447 mg Capsule 447 mg PO DAILY acetaminophen 325 mg capsule 325 mg PO Q4H PRN (Reason: fever or pain) Qty: 60 0RF Changed hydrocodone-acetaminophen 5-325 mg tablet 1 tab PO Q4H PRN (Reason: pain) 7 Days Qty: 42 0RF tizanidine 2 mg tablet 2 mg PO Q12H PRN (Reason: muscle spasticity) 7 Days Qty: 21 0RF Discontinued celecoxib [Celebrex] 200 mg capsule 200 mg PO BID Qty: 60 1RF Rx Instructions: Back pain lisinopril 10 mg tablet 10 mg PO DAILY Qty: 90 1RF cyclobenzaprine 10 mg tablet 10 mg PO TID PRN (Reason: muscle spasm) 14 Days Qty: 42 0RF ibuprofen 800 mg tablet 800 mg PO TID PRN (Reason: pain) Qty: 60 0RF Discharge Orders: Discharge Order (Routine); Ordered 11/13/24 Ordered By: Gary Mclaughlin Referrals: [facility] [Outside] Nora Coyle FNP [Primary Care Provider] - Lainey Carmona MD [Physician] - 4-7 days Discharge Diet: Cardiac Discharge Activity: Resume usual activity Patient Instructions: Opioid Safety Activity Restrictions/Additional Instructions: - Your sodium on discharge was 129, please have your long term recheck your sodium levels in 48 hours -If any confusion, nausea, vomiting please come back to the hospital -Tillman brace currently set at 10 degrees of flexion. She will continue this brace and will be nonweightbearing with physical therapy. Follow-up with Dr. Carmona -Please use hydrocodone sparingly for pain, do not drive or operate heavy machinery or drink while taking medication ? Please use Flexeril sparingly Discharge Attestations Time Spent in Discharge Care*: greater than 30 min Quality Metrics Clinical Quality Measures [ No reported AMI, CVA or VTE this stay] Coding Level of Care Code 00986 Total time (in minutes) for Discharge: 45 Diagnoses Essential hypertension I10 Closed fracture of tibial plateau S82.143A S/P spinal fusion Z98.1 RLS (restless legs syndrome) G25.81 Multiple falls R29.6 Debility R53.81
[2024-11-13] MEDS: lactated ringers 500 ML 999 ML IV (12:40)
[2024-11-13] MEDS: ropinirole 1 mg Tablet PO (12:41)
[2024-11-13 13:45] LABS: Basophils % 0.5 %; Eosinophils # 0.2 10^3/uL (0.0-0.8); Eosinophils % 4.3 %; Hematocrit 28.3 % (36-47); Lymphocytes # 0.6 10^3/uL (0.8-4.8); Lymphocytes % 14.3 %; Mean Corpuscular HGB Conc 32.5 g/dL (30-55); Mean Corpuscular Hemoglobin 30.9 pg (27-33); Monocytes # 0.4 10^3/uL (0.2-0.9); Monocytes % 8.5 %; Neutrophils # 2.98 10^3/uL (1.8-7.7); Neutrophils % 71.9 %; Nucleated Red Blood Cells % 0 %; Platelet Count 144 10^3/cmm (157-399); Red Blood Count 2.98 10^6/uL (3.85-5.65); Red Cell Distribution Width 12.8 % (12.1-15.1); White Blood Count 4.14 10^3/uL (3.29-11.43)
[2024-11-13 14:04] LABS: Anion Gap 15.2 (5-19); Blood Urea Nitrogen 19 mg/dL (8-23); Calcium 8.4 mg/dL (8.5-10.5); Carbon Dioxide 24 mmol/L (22-29); Chloride 93 mmol/L (98-107); Creatinine Clr Calc Pharmacy 47.9295; Glucose 143 mg/dL (65-115); Osmolality Calculated 271 mOsm/kg (285-295); Potassium 4.2 mmol/L (3.5-5.1); Sodium 128 mmol/L (136-145)
[2024-11-13 14:05] LABS: Lactic Sepsis W/Reflex 1.4 mmol/L (0.5-2.2)
[2024-11-13] MEDS: acetaminophen 500 mg Tablet PO ×2 (14:46→20:59)
--- NOTE | 2024-11-13 16:05 | P.PN_ITS ---
Subjective 2 Subjective: Patient was seen this morning, she is sitting up in a chair, denies any fevers, no chills, no cough no lightheadedness, dizziness -Plan on discharging today -However patient's blood pressure droppe d to 70s over 40s she was relatively asymptomatic, placed in Trendelenburg, given a 500 cc normal saline bolus, repeat CBC, BMP, lactic acid -Blood pressure medications held -Blood pressures have improved now 90s o kerry 60s she is asymptomatic, and for now discharge will be helpful monitor for the next 24 hours -Sodium is 128, will monitor serum sodiu m closely, TSH, urine test, serum osmolality ordered Vitals/I&O/Wt Last Vital Signs Temp 98.4 F 11/13/24 15:31 Pulse 75 11/13/24 15:31 Resp 16 11/13/24 15:31 BP 116/68 11/13/24 15:31 Pulse Ox 90 11/13/24 15:31 O2 Del Method Room Air 11/13/24 15:31 O2 Flow Rate 3 11/12/24 04:00 11/13/24 11/13/24 11/13/24 06:59 14:59 22:59 Intake Total 120 / 1260 670 / 670 Balance 120 / 860 670 / 670 Weight last 48 hrs Weight 59.024 kg Weight 58.196 kg Physical Exam 2 Const: COMMON NORMALS: no acute distress and patient oriented x3 Resp: COMMON NORMALS: normal respiratory effort, No retractions, No use of accessory muscles and clear to auscultation bilaterally AUSCULTATION: clear to auscultation bilaterally Cardio: COMMON NORMALS: regular rate, regular rhythm, S1 normal heart sound present and S2 normal heart sound present RATE: regular rate RHYTHM: r egular rhythm HEART SOUNDS: S1 normal heart sound present and S2 normal heart sound present GI: COMMON NORMALS: Normal to inspection, nondistended, normoactive bowel sounds present and non-tender Extremity: COMMON NORMALS: no pedal edema NARRATIVE EXTREMITY EXAM: Right knee in a hinged knee Neuro: COMMON NORMALS: patient oriented x3 Psych: COMMON NORMALS: mental status grossly normal Urinary Catheter Management: Hassan: Cath Placed During This Visit: yes Reason for Continuing Indwelling Catheter: Acute Urinary Retention or Obstruction Urinary Catheter Date of Insertion: 11/09/24 Urinary Catheter Time of Insertion: 23:24 Data 11/13/24 13:32 11/13/24 13:32 A&P Assessment and plan (1) Essential hypertension: (2) Closed fracture of tibial plateau: (3) S/P spinal fusion: (4) RLS (restless legs syndrome): (5) Multiple falls: (6) Debility: Plan Recurrent falls Mechanical fall PT OT Urinary tract infection, Rocephin Impacted tibial plateau fracture CT/CT knee RT wo con* [id number] IMPRESSION: 1. Impacted fracture involving the metadiaphysis of the proximal tibia with extension into the medial and lateral tibial plateaus 2. Decreased bone density. 3. Joint effusion. -Dr. Carmona on consult, medical management -Currently in a knee hinged brace -Hydrocodone for pain control -Flexeril for muscle spasms Chronic back pain, history of surgery/lumbar fusion -Monitor -Will consider x-ray based on clinical progress History of lumbar fusion History of CVA CT head Brain: Area of encephalomalacia/chronic infarction involving the left frontal lobe. Moderate sequela of chronic microvascular ischemic changes of the white matter. Chronic infarcts in the bilateral insular ribbons. No acute intracranial hemorrhage. No mass effect or midline shift. Underlying brain parenchymal atrophic changes. There is an area of encephalomalacia involving the left occipital lobe. DVT prophylaxis Lovenox Full code Patient's has been dealing with neck pain, Hypotension, with hyponatremia acute on chronic -Hold blood pressure medications -500cc normal saline bolus -Ambulation with care -Monitor normal serum sodium, started on salt tablets PDMP PDMP Reviewed: Last Reviewed 11/13/24 12:25 EST by Gary Mclaughlin MD Attestations 2 Medical Necessity Statement*: Patient requires hospitalization due to hypotension and hyponatremia requiring inpatient monitoring Diagnoses Essential hypertension I10 Closed fracture of tibial plateau S82.143A S/P spinal fusion Z98.1 RLS (restless legs syndrome) G25.81 Multiple falls R29.6 Debility R53.81
[2024-11-13 16:46] LABS: Thyroid Stimulating Hormone 1.83 uIU/mL (0.27-4.20)
[2024-11-13] MEDS: sennosides-docusate Tablet 2 TAB PO (17:24)
[2024-11-13] MEDS: enoxaparin 40 mg/0.4 mL Syringe SUBCUT (17:24)
[2024-11-13] MEDS: cefTRIAXone 1,000 mg SDV 1000 MG IVP (17:24)
[2024-11-13] MEDS: ropinirole 1 mg Tablet 2 MG PO (20:59)
[2024-11-14] VITALS (7 sets, daily range): BP systolic 122–170; BP diastolic 73–93; PULSE 71–102; RESP 15–17; TEMP 36.6–36.8; O2SAT 90–94
[2024-11-14] MEDS: HYDROcodone-acetaminophen 5-325 mg Tablet 1 TAB PO ×5 (04:08→19:52)
[2024-11-14 04:11] LABS: Urine Creatinine 78 mg/dL (28-217)
[2024-11-14 04:13] LABS: Urine Random Sodium 12 mmol/L
[2024-11-14 04:17] LABS: Eosinophil Urine No Eosinophils Seen; Urine Eosinophil Count 0 (0-0)
[2024-11-14 06:03] LABS: Basophils % 0.6 %; Eosinophils # 0.2 10^3/uL (0.0-0.8); Eosinophils % 4.9 %; Hematocrit 29.6 % (36-47); Lymphocytes # 0.7 10^3/uL (0.8-4.8); Lymphocytes % 19.9 %; Mean Corpuscular HGB Conc 32.1 g/dL (30-55); Mean Corpuscular Hemoglobin 30.3 pg (27-33); Mean Corpuscular Volume 94.3 fl (85-98); Monocytes # 0.4 10^3/uL (0.2-0.9); Monocytes % 11.8 %; Neutrophils # 2.15 10^3/uL (1.8-7.7); Neutrophils % 61.9 %; Nucleated Red Blood Cells % 0 %; Platelet Count 149 10^3/cmm (157-399); Red Blood Count 3.14 10^6/uL (3.85-5.65); Red Cell Distribution Width 12.7 % (12.1-15.1); White Blood Count 3.47 10^3/uL (3.29-11.43)
[2024-11-14] MEDS: HYDROMORPHONE HCL 0.5 MG/0.5 ML INJ 0.4 MG IVP (06:10)
[2024-11-14 06:31] LABS: Alanine Aminotransferase 43 U/L (0-33); Albumin Level 3.2 g/dL (3.5-5.2); Alkaline Phosphatase 137 U/L (35-105); Anion Gap 13.2 (5-19); Aspartate Amino Transferase 41 U/L (0-32); Blood Urea Nitrogen 17 mg/dL (8-23); Calcium 8.6 mg/dL (8.5-10.5); Carbon Dioxide 28 mmol/L (22-29); Chloride 97 mmol/L (98-107); Creatinine Clr Calc Pharmacy 48.9523; Globulin 2.5 g/dL (1.3-4.6); Glucose 100 mg/dL (65-115); Osmolality Calculated 280 mOsm/kg (285-295); Potassium 4.2 mmol/L (3.5-5.1); Sodium 134 mmol/L (136-145); Total Bilirubin 0.5 mg/dL (0.15-1.2); Total Protein 5.7 g/dL (6.6-8.7)
[2024-11-14] MEDS: duloxetine 30 mg Capsule PO (08:18)
[2024-11-14] MEDS: oxybutynin chloride XL 5 MG TABLET 10 MG PO ×2 (08:18→16:50)
[2024-11-14] MEDS: sodium chloride 1 gm Tablet PO ×2 (08:18→16:50)
[2024-11-14] MEDS: tizanidine 4 mg Tablet 2 MG PO ×2 (08:18→15:45)
[2024-11-14] MEDS: aspirin 81 mg EC Tablet PO (08:18)
[2024-11-14] MEDS: sennosides-docusate Tablet 2 TAB PO ×2 (08:18→16:50)
[2024-11-14] MEDS: ropinirole 1 mg Tablet PO (11:34)
--- NOTE | 2024-11-14 12:33 | PC.SOCIAL ---
Called [facility] to ensure patient was still ok to transfer back today. They stated yes. Discharge medications and summary faxed. [facility] ambulance to transport patient to facility at discharge.
--- NOTE | 2024-11-14 12:47 | PC.NURSE ---
This nurse called report to VIVEK Mendoza at [facility] at 1247. D/C pending EMS transport.
[2024-11-14] MEDS: acetaminophen 500 mg Tablet PO (16:50)
--- NOTE | 2024-11-14 21:00 | PC.NURSE ---
Patient given hydrocodone at 1951 and left facility via EMS at 1999. All questions answered by EMS at this time. [facility] called by this nurse and talked to SOREN Fraser to let her know patient was leaving our facility. All questions were addressed and answered. Patient vitals stable for transfer. All belongings were gathered by family at bedside and taken from the room.
[2024-11-16 15:05] LABS: Osmolality Serum 278 mOsm/kg (278-305)
[2024-11-17 15:00] LABS: Osmolality Urine 407 mOsm/kg (50-1200)
== END 2024-11-14 20:00 | disposition skilled nursing facility (03) ==
LOC: ER 19:21 → ER IP 20:09 → MEDSURG 21:39
PROVIDERS: Admitting Provider Internal Medicine; Emergency Provider Emergency Medicine; PCP Nurse Practitioner; Visit Provider Family Medicine
DX: S82.141A Displaced bicondylar fracture of right tibia, initial encounter for closed fracture (principal); Z79.899 Other long term (current) drug therapy; Z79.82 Long term (current) use of aspirin; Z86.73 Personal history of transient ischemic attack (TIA), and cerebral infarction without residual deficits; J44.9 Chronic obstructive pulmonary disease, unspecified; G25.81 Restless legs syndrome; F41.1 Generalized anxiety disorder; E78.5 Hyperlipidemia, unspecified; I11.9 Hypertensive heart disease without heart failure; Z98.1 Arthrodesis status; S09.90XA Unspecified injury of head, initial encounter; R29.6 Repeated falls; W08.XXXA Fall from other furniture, initial encounter; M81.0 Age-related osteoporosis without current pathological fracture; I10 Essential (primary) hypertension; R53.81 Other malaise; N39.0 Urinary tract infection, site not specified; M16.11 Unilateral primary osteoarthritis, right hip; I95.9 Hypotension, unspecified; E87.1 Hypo-osmolality and hyponatremia
CPT/HCPCS: 36415; 51702; 70450; 72125; 73502; 73562; 73700; 80048; 80053; 81001; 82570; 82607; 83605; 83735; 83930; 83935; 84300; 84443; 85025; 85999; 87637; 93005; 96372; 96374; 96375; 96376; 97110; 97162; 97165; 97530; 97535; 97760; 99285; G0378; J0696; J1171; J1650; J2405; J7120; L1820

== ENCOUNTER → 2024-11-27 08:21 | Outpatient (BNVA) | payer MEDICARE, SELFPAY | PROVIDERS: PCP Nurse Practitioner; Visit Provider Nurse Practitioner | DX: S82.141D Displaced bicondylar fracture of right tibia, subsequent encounter for closed fracture with routine healing (principal); X58.XXXD Exposure to other specified factors, subsequent encounter | CPT/HCPCS: 73562; 99024 ==

== ENCOUNTER → 2024-12-14 11:00 | Outpatient (BNVA) | payer MEDICARE, SELFPAY | PROVIDERS: PCP Nurse Practitioner; Visit Provider Specialist | DX: S82.141D Displaced bicondylar fracture of right tibia, subsequent encounter for closed fracture with routine healing (principal); X58.XXXD Exposure to other specified factors, subsequent encounter | CPT/HCPCS: 73562; 99024 ==

== ENCOUNTER → 2024-12-21 14:45 | Outpatient (BNVA) | payer MEDICARE, SELFPAY | PROVIDERS: PCP Nurse Practitioner; Visit Provider Nurse Practitioner | DX: M25.561 Pain in right knee (principal) | CPT/HCPCS: 73562 ==

== ENCOUNTER → 2025-01-04 10:39 | Outpatient (BNVA) | payer MEDICARE, SELFPAY | PROVIDERS: PCP Nurse Practitioner; Visit Provider Specialist | DX: S82.141D Displaced bicondylar fracture of right tibia, subsequent encounter for closed fracture with routine healing (principal); X58.XXXD Exposure to other specified factors, subsequent encounter | CPT/HCPCS: 73560; 73562; 73565; 99024 ==

== ENCOUNTER → 2025-01-12 09:08 | Outpatient (BNVA) | payer MEDICARE, SELFPAY | PROVIDERS: PCP Nurse Practitioner; Visit Provider Podiatrist Foot & Ankle Surgery | DX: M79.671 Pain in right foot (principal); M72.2 Plantar fascial fibromatosis; M24.571 Contracture, right ankle | CPT/HCPCS: 20550; 73630; 99203; J1100; J3301; J9999 ==

== ENCOUNTER 2025-01-21 05:00 | Outpatient (RCR) | payer MEDICARE, SELFPAY | END 2025-02-20 23:59 | disposition home or self-care (01) | LOC: MPT 05:00 | PROVIDERS: Visit Provider Specialist | DX: S82.141D Displaced bicondylar fracture of right tibia, subsequent encounter for closed fracture with routine healing (principal); X58.XXXD Exposure to other specified factors, subsequent encounter | CPT/HCPCS: 97110; 97162 ==

== ENCOUNTER → 2025-02-03 10:39 | Outpatient (BNVA) | payer MEDICARE, SELFPAY | PROVIDERS: PCP Nurse Practitioner; Visit Provider Specialist | DX: S82.141A Displaced bicondylar fracture of right tibia, initial encounter for closed fracture (principal); S82.141D Displaced bicondylar fracture of right tibia, subsequent encounter for closed fracture with routine healing; S82.131D Displaced fracture of medial condyle of right tibia, subsequent encounter for closed fracture with routine healing; X58.XXXD Exposure to other specified factors, subsequent encounter | CPT/HCPCS: 73590; 99024 ==

== ENCOUNTER 2025-02-21 05:00 | Outpatient (RCR) | payer MEDICARE, SELFPAY | END 2025-03-22 23:59 | disposition home or self-care (01) | LOC: MPT 05:00 | PROVIDERS: PCP Nurse Practitioner; Visit Provider Specialist | DX: S82.141D Displaced bicondylar fracture of right tibia, subsequent encounter for closed fracture with routine healing (principal); X58.XXXD Exposure to other specified factors, subsequent encounter | CPT/HCPCS: 97110 ==

== ENCOUNTER → 2025-03-11 16:36 | Outpatient (BNVA) | payer MEDICARE, SELFPAY | PROVIDERS: PCP Nurse Practitioner; Visit Provider Nurse Practitioner | DX: N39.0 Urinary tract infection, site not specified (principal) | CPT/HCPCS: 81000 ==

== ENCOUNTER → 2025-03-17 11:35 | Outpatient (BNVA) | payer MEDICARE, SELFPAY | PROVIDERS: PCP Nurse Practitioner; Visit Provider Nurse Practitioner | DX: I10 Essential (primary) hypertension (principal); R30.0 Dysuria | CPT/HCPCS: 80053; 81000; 84443; 85025; 87086 ==

== ENCOUNTER 2025-03-21 01:50 | Inpatient (IN) | payer MEDICARE, SELFPAY ==
[2025-03-21] VITALS (19 sets, daily range): BP systolic 109–149; BP diastolic 53–97; PULSE 67–95; RESP 16–25; TEMP 36.4–37.1; O2SAT 90–99; BMI 15.9
--- NOTE | 2025-03-21 01:51 | ECG_ITS ---
[facility] Test Date: 2025-03-21 Pat Name: Roya Espinoza Department: Room: Gender: Female Psychological Operations Specialist: : 1945 Requested By: Santo Garcia Order Number: [id number] Ekaterina MD: Jeremiah Chester M.D. Measurements Intervals [place] Rate: 73 P: 0 TX: 0 QRS: 99 QRSD: 86 T: 83 QT: 386 QTc: 427 Interpretive Statements ATRIAL FIBRILLATION BORDERLINE RIGHT AXIS DEVIATION [QRS AXIS > 90] POSSIBLE RIGHT VENTRICULAR CONDUCTION DELAY [RSR (QR) IN V1/V2] NONSPECIFIC T-WAVE ABNORMALITY Compared to ECG 11/09/2024 18:48:53 T-wave abnormality now present Sinus tachycardia no longer present First degree AV block no longer present Myocardial infarct finding no longer present Electronically Signed On 03-25-2025 09:14:08 CDT by Jeremiah Chester M.D. [email or web address]
--- OUTSIDE RECORDS SUMMARY | 2025-03-21 01:58 | XMS_ITS | Clinical Summary ---
Author Organization [facility] Address [address] Attn: [place] [id number] Care Team Providers Care Jumpbasting Lining Baster Name Role Phone Marina Black MD Primary Care Provider Unav ailable Encounters Date Type Department Care Team Description 03/10/2025 External Device Data [facility] Provider, Abstract 03/09/2025 External Device Data [facility] Provider, Abstract 02/11/2025 External Device Data [facility] Provider, Abstract 02/10/2025 External Device Data [facility] Provider, Abstract 02/10/[address] [id number] Provider, Abstract 02/09/2025 External Device Data [facility] Provider, Abstract from Last 3 Months Immunizations Immunization Administration Dates Next Due (PNEUMOVAX 23)(50 YRS UP) PN EUMOCOCCAL POLYSACCHARIDE (PPV23) 0.5 ML, IM 03/23/2002 Influenza Seasonal Unspecified Formulation IM Social History Tobacco Use Types Packs/Day Years Used Date Smoking Tobacco: Never Assessed Comments Unknown Sex and Gender Information Value Date Recorded Sex Assigned at Not on file Legal Sex Female 5:26 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
--- NOTE | 2025-03-21 02:19 | XRR_ITS ---
PROCEDURE INFORMATION: Exam: XR Chest Exam date and time: 03/21/2025 2:20 AM Age: 80 years old Clinical indication: Chest pressure; Prior surgery; Surgery date: 6+ months; Surgery type: Aortic valve replacement. Spinal fusion; C/O chest pain; Additional info: Cp TECHNIQUE: Imaging protocol: Radiologic exam of the chest. Views: 1 view. COMPARISON: CT chest con [id number] 11/18/2023 11:11 PM FINDINGS: Lungs: Interval development of moderate interstitial pulmonary edema. Interval development of right middle lobe, right lower lobe, left lingular, and left lower lobe atelectasis. Pleural spaces: Interval development of large right and moderate left pleural effusions. No pneumothorax. Heart/Mediastinum: A prosthetic aortic valve is stable in position. Stable moderate enlargement of the cardiac silhouette. Vasculature: Stable dilatation of the thoracic aorta. Bones/joints: Poststernotomy changes in the chest. Long segment spinal fusion in the visualized thoracolumbar spine. Bones are diffusely osteopenic. Degenerative changes in the spine and shoulders. Osseous findings are stable. XR/XR chest 1V portable [id number] IMPRESSION: 1. Interval development of moderate interstitial pulmonary edema with large right and moderate left pleural effusions and right middle lobe, right lower lobe, left lingular, and left lower lobe atelectasis. 2. Stable dilatation of the thoracic aorta. 3. Incidental/nonacute findings are listed in the report.
[2025-03-21] MEDS: morphine 4 mg/mL SDV 1 mL 2 MG IVP (02:35)
[2025-03-21] MEDS: ondansetron 2 mg/ML SDV 2 mL 4 MG IVP (02:35)
[2025-03-21 02:53] LABS: Troponin(5th) Baseline 34 ng/L (0-10)
[2025-03-21 02:53] LABS: Basophils % 0.4 %; Eosinophils # 0.2 10^3/uL (0.0-0.8); Eosinophils % 3.4 %; Hematocrit 33.4 % (36-47); Lymphocytes # 0.7 10^3/uL (0.8-4.8); Mean Corpuscular HGB Conc 30.8 g/dL (30-55); Mean Corpuscular Hemoglobin 29.6 pg (27-33); Mean Platelet Volume 9.3 fL (7.4-10.4); Monocytes # 0.4 10^3/uL (0.2-0.9); Monocytes % 8.8 %; Neutrophils # 3.36 10^3/uL (1.8-7.7); Nucleated Red Blood Cells % 0 %; Platelet Count 235 10^3/cmm (157-399); Red Blood Count 3.48 10^6/uL (3.85-5.65); Red Cell Distribution Width 14.5 % (12.1-15.1); White Blood Count 4.67 10^3/uL (3.29-11.43)
[2025-03-21 03:02] LABS: Alanine Aminotransferase 61 U/L (0-33); Albumin Level 3.1 g/dL (3.5-5.2); Alkaline Phosphatase 83 U/L (35-105); Anion Gap 16.3 (5-19); Aspartate Amino Transferase 70 U/L (0-32); Blood Urea Nitrogen 22 mg/dL (8-23); Calcium 8.8 mg/dL (8.5-10.5); Carbon Dioxide 28 mmol/L (22-29); Chloride 98 mmol/L (98-107); Creatine Phosphokinase 51 U/L (26-192); Globulin 2.5 g/dL (1.3-4.6); Glucose 99 mg/dL (65-115); NT Pro B Type Natriuretic Pept 4293 pg/mL (0-450); Osmolality Calculated 291 mOsm/kg (285-295); Potassium 3.3 mmol/L (3.5-5.1); Sodium 139 mmol/L (136-145); Total Bilirubin 0.2 mg/dL (0.15-1.2); Total Protein 5.6 g/dL (6.6-8.7)
[2025-03-21 03:05] LABS: INR 0.95 (0.8-1.2)
[2025-03-21] MEDS: ipratropium-albuterol 3 mL Neb INHALATION (03:05)
[2025-03-21 03:08] LABS: Bilirubin Urine Negative (Negative); Blood Urine Negative (Negative); Glucose Urine UA Negative (Normal); Ketones Urine Negative (Negative); Leukocyte Esterase Urine Negative (Negative); Nitrate Urine Negative (Negative); Protein Urine 1+ (Negative); Specific Gravity, Urine 1.016 (1.005-1.030); Urine Appearance Cloudy (CLEAR); Urine Color Yellow (Yellow); Urobilinogen Urine 0.2 mg/dL (Negative); pH Urine 8.5 (5-7)
[2025-03-21 03:09] LABS: Lactic Sepsis W/Reflex 1.5 mmol/L (0.5-2.2)
[2025-03-21 03:13] LABS: Add Urine Microscopic? YES; Bacteria Urine None Seen /hpf; RBC Urine 0-2 /hpf (0-2); Squamous Epithelial Cell Urine 0-5 /hpf (0-5); WBC Urine 0-5 /hpf (0-5)
[2025-03-21 03:19] LABS: UA Slide Review UA Slide Review Perf
[2025-03-21 03:20] LABS: Amorphous Sediment Urine 1+ /hpf
[2025-03-21 03:23] LABS: ABG PCO2 51.3 mmHg (35-45); ABG PH Result 7.42 (7.35-7.45); Arterial Blood Gas Hematocrit 31.4 % (37-47); Blood Gas Allen Test Pos; Blood Gas Operator Identificat gerca; Blood Gas Sample Site Radial, right; Blood Gas Sample Type Arterial; HCO3 ABG 33.6 mmol/L (22-26); Oxygen Device ROOM AIR; PO2 ABG 57.1 mmHg (80.0-100.0); PO2 FiO2 Ratio Arterial Blood 271
[2025-03-21] MEDS: FUROsemide 10 mg/mL SDV 10mL 60 MG IVP (03:38)
[2025-03-21] MEDS: ropinirole 1 mg Tablet PO ×2 (03:59→12:25)
[2025-03-21] MEDS: diphenhydrAMINE 50 mg/mL SDV 1mL 25 MG IVP (03:59)
[2025-03-21] MEDS: potassium chloride oral liq 20 mEq/15 mL UDC 40 MEQ PO (03:59)
--- NOTE | 2025-03-21 04:11 | ED_ITS ---
HPI - Chest Pain 2 General: Chief Complaint: Chest Pain Stated Complaint: CP Time Seen by Provider: 03/21/25 02:11 History of Present Illness: 80-year-old female who presents from [facility] with chest discomfort, shortness of breath. Daughter notes that she has been excessively sleepy for the past 24 to 48 hours. Pain seems to be worse when taking a deep breath. She has a history of aortic dissection. Related Data Home Medications ?Medication ?Instructions ?Recorded ?Confirmed alendronate 70 mg tablet 70 mg PO Q7D 03/13/22 aspirin 81 mg tablet,delayed 81 mg PO DAILY 03/13/22 0 03/19/25 release cetirizine 10 mg tablet 10 mg PO DAILY 03/13/2202/22 Previous Rx's ?Medication ?Instructions ?Recorded acetaminophen 325 mg capsule 325 mg PO Q4H PRN fever o r pain 07/29/24 #60 caps oxybutynin chloride 10 mg 10 mg PO BID #60 tabs tablet,extended release 24 hr hydrocodone 5 mg-acetaminophen 325 1 tab PO Q4H PRN pa in 7 days #42 11/13/24 mg tablet tabs Right extension foot pedal for #1 ea 11/27/24 wheelchair. Regular left foot pedal ketoconazole 2 % shampoo 1 applic topical Q14D #120 m L 01/18/25 ropinirole 1 mg tablet See Rx Instructions PO DAILY #90 01/22/25 tabs hydroxyzine HCl 10 mg tablet 10 mg PO TID PRN itching #30 tabs 01/28/25 nystatin 100,000 unit/gram topical 1 applic topical BI D #30 grams 02/19/25 cream carvedilol 6.25 mg tablet (Coreg) 6.25 mg PO BID #60 t abs 02/25/25 lisinopril 10 mg tablet 10 mg PO DAILY #30 tabs 0602/14 celecoxib 100 mg capsule 100 mg PO DAILY #60 caps Allergies Allergy/AdvReac Type Severity Reaction Status Date / Time No Known Allergies Allergy Verified 03/19/25 08:53 [facility] ED 2 PFS: Medical History (Updated 03/21/25 @ 06:46 by Capo Dumont MD) Aortic aneurysm and dissection Plantar fasciitis of right foot Intractable right heel pain Chronic headache Constipation Dysphagia Fatigue Shingles Intracranial aneurysm Chronic lumbar radiculopathy Mass of joint of left shoulder Neuropathy Opioid dependence Osteoporosis Disorder of bone and cartilage Synovial cyst of knee Unspecified tinnitus Varicose veins of bilateral lower extremities with other complications PVC (premature ventricular contraction) Chronic SI joint pain Chronic interstitial cystitis Pelvic joint pain Cerebral vascular accident (~2018) Thoracoabdominal aortic dissection Generalized anxiety disorder COPD (chronic obstructive pulmonary disease) RLS (restless legs syndrome) Lumbar spondylolysis Scoliosis Aortic dissection Essential hypertension Hyperlipidemia Heart disease Iron deficiency History of CVA (cerebrovascular accident) Surgical History (Updated 03/21/25 @ 06:46 by Capo Dumont MD) H/O aortic valve repair History of lumbar fusion History of colpocleisis (~01/2022) Dr Taveras in [facility] H/O midurethral sling procedure (~07/28/24) performed by Yo for mixed incontinence. 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 She is retired now but still does seamstress work at home she wants DNR status as discussed today with Rox her daughter and Capo Dumont MD on 03/21/2025 Previous occupational history: Seamstress Physical Exam 2 Const: COMMON NORMALS: no acute distress GENERAL APPEARANCE: cooperative; not ill appearing and not frail appearing HENMT: COMMON NORMALS: normocephalic, atraumatic and Normal external nose present HEAD & SCALP: normocephalic and atraumatic FACE & SINUS: normal facial exam and face symmetric NOSE: Normal external nose present Eye: COMMON NORMALS: Equal, round and reactive pupils present and EOMs intact bilaterally PUPIL: Yes Equal, round and reactive pupils present Neck/C-Spine: GENERAL: Yes trachea midline Chest: CHEST: Yes Symmetrical chest wall rise Resp: COMMON NORMALS: normal respiratory effort, No retractions, No use of accessory muscles and clear to auscultation bilaterally AUSCULTATION: clear to auscultation bilaterally Cardio: COMMON NORMALS: regular rate and regular rhythm RATE: regular rate RHYTHM: regular rhythm GI: COMMON NORMALS: Normal to inspection, nondistended, normoactive bowel sounds present Extremity: COMMON NORMALS: no pedal edema Neuro: ALEXUS COMA SCALE: document GCS findings Alexus coma scale eye opening: Spontaneous [place] coma scale verbal response: Orientated Alexus coma scale motor response: Obey commands Alexus coma scale total score: 15 S ENSORY EXAM: Yes extremities (intact) Psych: COMMON NORMALS: speech normal SPEECH: Yes normal speech Skin: COMMON NORMALS: no rashes or lesions noted GENERAL SKIN EXAM: no rashes or lesions noted Course 2 Vital Signs: Vital signs: Vital Signs Temperature 97.8 F 03/21/25 11:37 Pulse Rate 92 03/21/25 13:34 Respiratory Rate 18 03/21/25 13:34 Blood Pressure 109/70 03/21/25 11:37 Pulse Oximetry 92 03/21/25 13:34 Oxygen Delivery Me thod Room Air 03/21/25 13:34 Oxygen Flow Rate 2 03/21/25 11:19 MDM - Chest Pain Medical Decision Making 80 year old female here with chest and back discomfort and shortness of breath. She's slightly hypertensive. Mildly tachycardic, in atrial fibrillation. no acute ST wave changes. CBC is normal period BMP is not remarkable. Chest X-ray however shows bilateral pleural effusions with pulmonary vascular congestion. PCO 2 is 51 on blood gas testing. she is on oxygen now. Saturations were low on room air which she normally breathes. Baseline troponin is 34 and elevated only slightly at two hours. BNP is 4300. She has given lasix. Hassan is placed, with 600 milliliters of output initially after lasix. Oxygenation is beginning to improve to some degree. Her lactic acid is normal. Given her oxygen requirement, effusions present, she will require hospitalization. The patient does have a history of aortic dissection, which is concerning, further imaging may be necessary. Echo has been ordered as well. Hospitalist is seeing the patient in the ER. Lab Data 03/21/25 02:44 03/21/25 14:50 Radiology Impressions Aorta Iliac Vascular Ultrasound 03/21/25 06:55 IMPRESSION: Aneurysmal dilatation of the mid abdominal aorta measuring 3.2 x 2.8 cm. There is eccentric atheromatous plaque in the lumen. No gross rupture. Chest CTA 03/21/25 10:49 IMPRESSION: 1. Worsening aneurysmal dilatation of the ascending thoracic aorta measuring 4.6 x 4.1 cm; previously 4.4 x 3.9 cm. There has been prior surgery involving the ascending thoracic aorta. The descending thoracic aorta is aneurysmally dilated measuring 6.9 cm; previously 6 cm. There is aneurysmal dilatation of the proximal abdominal aorta measuring 5.4 x 3.4 cm; previously 5.4 x 3.1 cm. There is a dissection involving the visualized thoracoabdominal aorta that is poorly assessed secondary to phase of contrast administration; this was present on the study from November 19, 2023. No gross rupture is identified. 2. No pulmonary embolus is identified. 3. Large right and moderate left pleural effusion. 4. New, mild compression fracture at T4. 5. Passive atelectasis in the chest bilaterally. 6. Cardiomegaly with coronary artery disease. 7. Solid pulmonary nodule in the right upper lobe measuring 3.1 mm. As per Fleischner Society 2017 guidelines for follow-up and management of pulmonary nodules: For patients at low risk (minimal or absent history of smoking and of other known risk factors), no routine follow-up. For patient at high risk (history of smoking or of other known risk factors), recommend optional CT at 12 months. ADDENDUM: 03/21/25 1236 Findings discussed with ROBERT FRAGA at 03/21/2025 12:[address] 03/21/25 10:56 IMPRESSION: 1. Moderate senescent changes as above. 2. No acute intracranial abnormality is identified. 3. Old cortical and subcortical infarcts as above. Chest X-Ray 03/21/25 11:11 IMPRESSION: 1. Large right and moderate left pleural effusions are better seen on CT. 2. Bibasilar consolidation likely reflects atelectasis. Laboratory Results WBC 4.67 10^3/uL (3.29-11.43) 03/21/25 02:44 RBC 3.48 10^6/uL (3.85-5.65) L 03/21/25 02:44 Hgb 10.30 g/dL (11.27-16.99) L 03/21/25 02:44 Hct 33.4 % (36-47) L 03/21/25 02:44 MCV 96.0 fl (85-98) 03/21/25 02:44 MCH 29.6 pg (27-33) 03/21/25 02:44 MCHC 30.8 g/dL (30-55) 03/21/25 02:44 RDW 14.5 % (12.1-15.1) 03/21/25 02:44 Plt Count 235 10^3/cmm (157-399) 03/21/25 02:44 MPV 9.3 fL (7.4-10.4) 03/21/25 02:44 Neut % (Auto) 72.0 % 03/21/25 02:44 Lymph % (Auto) 15.0 % 03/21/25 02:44 [place] % (Auto) 8.8 % 03/21/25 02:44 Eos % (Auto) 3.4 % 03/21/25 02:44 Baso % (Auto) 0.4 % 03/21/25 02:44 Neut # (Auto) 3.36 10^3/uL (1.8-7.7) 03/21/25 02:44 Lymph # (Auto) 0.7 10^3/uL (0.8-4.8) L 03/21/25 02:44 [place] # (Auto) 0.4 10^3/uL (0.2-0.9) 03/21/25 02:44 Eos # (Auto) 0.2 10^3/uL (0.0-0.8) 03/21/25 02:44 Baso # (Auto) 0.0 10^3/uL (0.0-0.1) 03/21/25 02:44 Nucleated RBC % (auto) 0 % 03/21/25 02:44 Nucleated RBCs # 0.0 /100WBC 03/21/25 02:44 PT 13.40 SECONDS (12.1-14.9) 03/21/25 02:44 INR 0.95 (0.8-1.2) 03/21/25 02:44 APTT 28.0 SECONDS (23.9-36.7) 03/21/25 02:44 Specimen Type Arterial 03/21/25 03:11 Sample Site Radial, right 03/21/25 03:11 ABG pH 7.42 (7.35-7.45) 03/21/25 03:11 ABG pCO2 51.3 mmHg (35-45) H 03/21/25 03:11 ABG pO2 57.1 mmHg (80.0-100.0) L 03/21/25 03:11 ABG PO2/FiO2 Ratio 271 03/21/25 03:11 ABG HCO3 33.6 mmol/L (22-26) H 03/21/25 03:11 ABG Base Excess 8.0 mmol/L (-2.0-2.0) H 03/21/25 03:11 Anthony Test Pos 03/21/25 03:11 Hematocrit 31.4 % (37-47) L 03/21/25 03:11 O2 Delivery Device Room air 03/21/25 03:11 FiO2 21.0 % 03/21/25 03:11 Metal Patternmaker Apprentice ID [email or web address] 03/21/25 03:11 Sodium 139 mmol/L (136-145) 03/21/25 02:25 Potassium 3.3 mmol/L (3.5-5.1) L 03/21/25 02:25 Chloride 98 mmol/L (98-107) 03/21/25 02:25 Carbon Dioxide 28 mmol/L (22-29) 03/21/25 02:25 Anion Gap 16.3 (5-19) 03/21/25 02:25 BUN 22 mg/dL (8-23) 03/21/25 02:25 Creatinine 0.7 mg/dL (0.5-0.9) 03/21/25 02:25 GFR Calculation Not Reportable 03/21/25 02:25 Glucose 99 mg/dL (65-115) 03/21/25 02:25 Estimat Average Glucose 126 03/21/25 02:44 Hemoglobin A1c 6.0 % (4.0-6.0) 03/21/25 02:44 Calculated Osmolality 291 mOsm/kg (285-295) 03/21/25 02:25 Lactic Acid 1.5 mmol/L (0.5-2.2) 03/21/25 02:44 Calcium 8.8 mg/dL (8.5-10.5) 03/21/25 02:25 Phosphorus 4.2 mg/dL (2.5-4.5) 03/21/25 02:44 Magnesium 2.5 mg/dL (1.7-2.3) H 03/21/25 02:44 Iron 90 ug/dL (37-145) 03/21/25 02:25 TIBC 191 mcg/dl 03/21/25 02:25 % Saturation 47.1 % (20-50) 03/21/25 02:25 Unsat Iron Binding 101 ug/dL (112-347) L 03/21/25 02:25 Total Bilirubin 0.2 mg/dL (0.15-1.2) 03/21/25 02:25 AST 70 U/L (0-32) H 03/21/25 02:25 ALT 61 U/L (0-33) H 03/21/25 02:25 Alkaline Phosphatase 83 U/L (35-105) 03/21/25 02:25 Creatine Kinase 51 U/L (26-192) 03/21/25 02:25 Troponin T Baseline 34 ng/L (0-10) H 03/21/25 02:25 Troponin T 120 Minute 39.14 ng/L (0-10) H 03/21/25 04:08 Delta Troponin T 5.14 ABS# (0-10) 03/21/25 04:08 NT-Pro-B Natriuret Pep 4293 pg/mL (0-450) H 03/21/25 02:25 Total Protein 5.6 g/dL (6.6-8.7) L 03/21/25 02:25 Albumin 3.1 g/dL (3.5-5.2) L 03/21/25 02:25 Globulin 2.5 g/dL (1.3-4.6) 03/21/25 02:25 Vitamin B12 364 pg/mL (232-1245) 03/21/25 02:25 Procalcitonin 0.06 ng/mL (0-0.5) 03/21/25 02:25 TSH 3.36 uIU/mL (0.27-4.20) 03/21/25 02:25 Urine Color Yellow (Yellow) 03/21/25 02:57 Urine Appearance Cloudy (CLEAR) A 03/21/25 02:57 Urine pH 8.5 (5-7) A 03/21/25 02:57 Ur Specific [place] 1.016 (1.005-1.030) 03/21/25 02:57 Urine Protein 1+ (Negative) A 03/21/25 02:57 Urine Glucose (UA) Negative (Normal) 03/21/25 02:57 Urine Ketones Negative (Negative) 03/21/25 02:57 Urine Blood Negative (Negative) 03/21/25 02:57 Urine Nitrate Negative (Negative) 03/21/25 02:57 Urine Bilirubin Negative (Negative) 03/21/25 02:57 Urine Urobilinogen 0.2 mg/dL (Negative) 03/21/25 02:57 Ur Leukocyte Esterase Negative (Negative) 03/21/25 02:57 Urine RBC 0-2 /hpf (0-2) 03/21/25 02:57 Urine WBC 0-5 /hpf (0-5) 03/21/25 02:57 Ur Squamous Epith Cells 0-5 /hpf (0-5) 03/21/25 02:57 Amorphous Sediment 1+ /hpf 03/21/25 02:57 Urine Bacteria None seen /hpf (NONE) 03/21/25 02:57 Hyaline Casts 0.40 /lpf 03/21/25 02:57 All radiology interpretation(s) finalized by discharge Discharge Plan Discharge Patient Disposition: Admitted As Inpatient Admit Provider: Capo Dumont Clinical Impression: Acute hypoxemic respiratory failure, Pulmonary edema Condition: Stable Coding Level of Care Code ED Senior Accounting Associate for Raoul Camp
[2025-03-21 04:30] LABS: Troponin 5 2HR 39.14 ng/L (0-10); Troponin 5 2HR Delta 5.14 ABS# (0-10)
[2025-03-21 05:50] LABS: Magnesium 2.5 mg/dL (1.7-2.3); Phosphorus 4.2 mg/dL (2.5-4.5)
--- NOTE | 2025-03-21 06:30 | USCV_ITS ---
Roya Espinoza Age: 80 Gender: F : 1945 Exam Date: 03/21/2025 07:47 Ordering Phys: Capo Dumont MD Technologist: Anthony Tang [place] [facility] [place] new onset chf and history of AO dissection BP: 129 / 80 HR: 79 Rhythm: Atrial fibrillation Technical Quality: Adequate MEASUREMENTS (Male / Female) Normal Values 2D ECHO LV Diastolic Diameter PLAX 4.4 cm 4.2 - 5.9 / 3.9 - 5.3 cm IVS Diastolic Thickness 0.9 cm 0.6 - 1.0 / 0.6 - 0.9 cm IVS Systolic Thickness 1.5 cm LVPW Diastolic Thickness 1.0 cm 0.6 - 1.0 / 0.6 - 0.9 cm LVPW Systolic Thickness 1.6 cm LVOT Diameter 2.0 cm LV Ejection Fraction 2D Teich 67.1 % LV Ejection Fraction MOD 4C 64.6 % LV Ejection Fraction MOD 2C 62.0 % LV Ejection Fraction 2C AL 65.8 % LA Diameter 5.6 cm RA Systolic Volume 4C AL 41.0 ml RA Systolic Volume 4C MOD 41.9 ml LA Sys Volume AL 59.6 cm cubed LA Sys Volume Index AL 44.7 cm cubed/m squared Aorta at Sinotubular Diameter 2.6 cm IVC Diameter 2.4 cm M-MODE LA Ao Ratio MM 1.8 AV Cusp Separation MM 1.2 cm DOPPLER AV Peak Velocity 214.0 cm/s LVOT Peak Velocity 86.0 cm/s AV Area Cont Eq vti 1.5 cm squared AV Area Cont Eq pk 1.3 cm squared MV Peak Velocity 148.0 cm/s MV Area PHT 8.5 cm squared Mitral E to A Ratio 2.9 TV Peak Velocity 367.0 cm/s TR Peak Velocity 380.0 cm/s TR Peak Gradient 57.8 mmHg TR Mean Velocity 282.0 cm/s TR Mean Gradient 36.1 mmHg TR Velocity Time Integral 115.6 cm PV Peak Velocity 76.0 cm/s RV Ejection Time 0.3 s FINDINGS Left Ventricle Left ventricle is normal in size. LV systolic function is normal with EF of 55-60%. No regional wall motion abnormalities are seen. Right Ventricle Normal in size and function Right Atrium Normal in size Left Atrium Dilated Mitral Valve Moderate mitral valve calcification. Mild mitral regurgitation. Aortic Valve Bioprosthetic aortic valve is thickened. Mild aortic stenosis with aortic valve area 1.46 cm squared and mean gradient of 11 mmHg. Trace aortic regurgitation Tricuspid Valve Moderate tricuspid regurgitation. RVSP is 55-60 mmHg. This is consistent with moderate pulmonary hyperpretension Pulmonic Valve Mild pulmonic regurgitation. Pericardium Trace pericardial effusion Aorta Ascending aorta is dilated with diameter of 4.1cm IVC Appears to be dilated CONCLUSIONS LV systolic function is normal with EF of 55-60% Left atrial dilation Mild mitral regurgitation Bioprosthetic aortic valve is thickened. Mild aortic stenosis with aortic valve area 1.46 cm squared and mean gradient of 11 mmHg. Trace aortic regurgitation Moderate tricuspid regurgitation. Moderate pulmonary hypertension Mild pulmonic regurgitation. Trace pericardial effusion Ascending aorta is dilated with diameter of 4.1cm IVC is dilated Jeremiah Chester MD (Electronically Signed) Final Date: 21 March 2025 13:12 S
--- NOTE | 2025-03-21 06:36 | PM.HP ---
Providers/Chief Complaint Admitting Physician: Capo Dumont MD Primary Care Provider: LUISA Cummings Chief Complaint: CP History of Present Illness Roya Espinoza is a 80 year old female with history of aortic dissection and partial repair comes in with shortness of breath, chest discomfort and new pleural effusions. Her pain is primarily with deep breaths and is resolved now. She is companied by her daughter Rox and they explained that in 2018 she had an aortic dissection that resulted in a stroke and she went to a snf. The vascular surgeon said that surgery was too dangerous. Additionally a year ago she was flown to [facility] and vascular surgeon said the aneurysm was too close to the heart and that surgery was risky. They did offer surgery but patient declined. Patient states that at 4 PM today she had some difficulty getting deep breaths but at 1:30 AM she had chest pain with deep breaths so presented to the ER. She has no chest pain now she has had some cough but takes Zicam Gummies for symptomatic control. It is a right retrosternal discomfort. Patient had a multilevel back fusion by Dr. Babb on June 19, 2023 this was to repair scoliosis and kyphosis and get her walking upright without a cane but has not been completely successful Patient has noted a few scattered papular skin lesions. Nurse was concerned this could be shingles Review of Systems Narrative: General no fevers chills weight gain weight loss Cardiovascular positive for chest pain no palpitations positive for edema Respiratory some cough and orthopnea with laying flat. GI no nausea vomiting she had a bad bout of diarrhea 3 weeks ago and occasionally has diarrhea or constipation but that is not a big problem currently she had altered mental status and some dysuria 2 weeks ago. This has improved with treatment from Dr. 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 no vaginal bleeding Malignancy no history of cancer Hematologic patient has a history of lung and leg clots for which she was treated with Xarelto Medications/Allergies Home Medications ?Medication ?Instructions ?Recorded ?Confirmed ?Last Taken ?Type alendronate 70 mg tablet 70 mg PO Q7D 03/13/22 03/19/25 07/04/24 History aspirin 81 mg tablet,delayed 81 mg PO DAILY 03/13/22 03/19/25 07/08/24 History release cetirizine 10 mg tablet 10 mg PO DAILY 03/13/22 03/19/25 07/08/24 History acetaminophen 325 mg capsule 325 mg PO Q4H PRN fever or pain 07/29/24 03/19/25 Unknown Rx #60 caps oxybutynin chloride 10 mg 10 mg PO BID #60 tabs 11/12/24 03/19/25 Unknown Rx tablet,extended release 24 hr hydrocodone 5 mg-acetaminophen 325 1 tab PO Q4H PRN pain 7 days #42 11/13/24 03/19/25 Unknown Rx mg tablet tabs Right extension foot pedal for #1 ea 11/27/24 03/19/25 Unknown Rx wheelchair. Regular left foot pedal ketoconazole 2 % shampoo 1 applic topical Q14D #120 mL 01/18/25 03/19/25 Unknown Rx ropinirole 1 mg tablet See Rx Instructions PO DAILY #90 01/22/25 03/19/25 Unknown Rx tabs hydroxyzine HCl 10 mg tablet 10 mg PO TID PRN itching #30 tabs 01/28/25 03/19/25 Unknown Rx nystatin 100,000 unit/gram topical 1 applic topical BID #30 grams 02/19/25 03/19/25 Unknown Rx cream carvedilol 6.25 mg tablet (Coreg) 6.25 mg PO BID #60 tabs 02/25/25 03/19/25 Unknown Rx lisinopril 10 mg tablet 10 mg PO DAILY #30 tabs 02/25/25 03/19/25 Unknown Rx celecoxib 100 mg capsule 100 mg PO DAILY #60 caps 03/17/25 03/19/25 Unknown Rx Allergies Allergy/AdvReac Type Severity Reaction Status Date / Time No Known Allergies Allergy Verified 03/19/25 08:53 PFSH Acute PFSH: Medical History (Updated 03/21/25 @ 06:46 by Capo Dumont MD) Aortic aneurysm and dissection Plantar fasciitis of right foot Intractable right heel pain Chronic headache Constipation Dysphagia Fatigue Shingles Intracranial aneurysm Chronic lumbar radiculopathy Mass of joint of left shoulder Neuropathy Opioid dependence Osteoporosis Disorder of bone and cartilage Synovial cyst of knee Unspecified tinnitus Varicose veins of bilateral lower extremities with other complications PVC (premature ventricular contraction) Chronic SI joint pain Chronic interstitial cystitis Pelvic joint pain Cerebral vascular accident (~2018) Thoracoabdominal aortic dissection Generalized anxiety disorder COPD (chronic obstructive pulmonary disease) RLS (restless legs syndrome) Lumbar spondylolysis Scoliosis Aortic dissection Essential hypertension Hyperlipidemia Heart disease Iron deficiency History of CVA (cerebrovascular accident) Surgical History (Updated 03/21/25 @ 06:46 by Capo Dumont MD) H/O aortic valve repair History of lumbar fusion History of colpocleisis (~01/2022) Dr Taveras in [facility] H/O midurethral sling procedure (~07/28/24) performed by Yo for mixed incontinence. 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 She is retired now but still does seamstress work at home she wants DNR status as discussed today with Rox her daughter and Capo Dumont MD on 03/21/2025 Previous occupational history: Seamstress Vitals/I&O/Wt Last Vital Signs Temp 98.7 F 03/21/25 01:57 Pulse 81 03/21/25 06:22 Resp 21 H 03/21/25 06:22 BP 129/80 03/21/25 06:22 Pulse Ox 98 03/21/25 06:22 O2 Del Method Nasal Cannula 03/21/25 05:46 O2 Flow Rate 2 03/21/25 05:46 03/20/25 03/20/25 03/21/25 14:59 22:59 06:59 Intake Total 0 / 0 Balance 0 / 0 Weight last 48 hrs Weight 40.823 kg Physical Exam Narrative: General well-developed thin female in no acute cardiopulmonary stress she is somnolent and continually falls asleep when not actively answering questions. She is otherwise a relatively good historian regarding dates and details CV controlled rate irregular rhythm Lungs diminished breath sounds in the bases crackles heard in the mid to lower lung rowe lung excursion otherwise good but poor cooperation with exam. Back with some hardware near the surface not tender or erythematous. Back with scoliosis Abdomen positive bowel tones soft nontender no palpable pleural pulsation Calves 3+ bilateral pretibial edema Skin she has a few scattered macular papular lesions these are only 1 to 3 mm they are not rhomboid or following a dermatome. They are on both sides and also some on the back Urinary Catheter Management: Hassan: Cath Placed During This Visit: yes Reason for Continuing Indwelling Catheter: Accurate Measurement of Urinary Output in Critically Ill Patients Urinary Catheter Date of Insertion: 03/21/25 Urinary Catheter Time of Insertion: 03:50 Data 03/21/25 02:44 03/21/25 02:25 Micro: Microbiology 03/21/25 03:05 Blood Culture - Preliminary Blood SPECIMEN COLLECTED A&P Assessment and plan (1) Pulmonary edema: Patient diuresed 650 cc in the first 2 hours after furosemide in the ER. She needs potassium replaced. Continue with IV furosemide diuresis. Echocardiogram to evaluate heart function valvular function and aortic ascending arch. (2) Bilateral pleural effusion: As above with oxygen support for acute hypoxic respiratory failure mild currently (3) Aortic aneurysm and dissection: Patient is not a good candidate for surgery. She does not want elective surgery and though would like to discuss emergent surgery if that was recommended she states she is likely to decline surgery. She agrees to DO NOT RESUSCITATE status and states that her has recommended that. Her daughter is present at bedside. Will obtain an abdominal ultrasound of the aorta (4) H/O aortic valve repair: Will obtain records from [facility]. Dr. Sarmiento CT surgery 11/18/2023. Beyond the echo I have not proceeded with CT angiogram currently because the patient will need to diurese and I think the risk to her kidneys is present and we are not likely to do anything different with the aorta as she is clinically stable. Abdominal exam is without obvious tenderness. PDMP PDMP Reviewed: Not Reviewed Attestations Medical Necessity Statement*: Patient is admitted for new onset congestive heart failure and pulmonary edema for diuresis and cardiac monitoring and is expected to be hospitalized greater than 2 midnights Coding Level of Care Code 59307 Diagnoses Pulmonary edema J81.1 Bilateral pleural effusion J90 Aortic aneurysm and dissection I71.00 H/O aortic valve repair Z98.890; Z86.79 Time Spent (min) 70
--- NOTE | 2025-03-21 06:55 | USR_ITS ---
PROCEDURE INFORMATION: Exam: US Duplex Scan of Aorta, Inferior Vena Cava, Iliac Vasculature, or Bypass Grafts, Complete Exam date and time: 03/21/2025 8:14 AM Age: 80 years old Clinical indication: Ascending and descending aortic aneurysm, history of aortic aneurysm repair and dissection; Prior surgery; Surgery date: 6+ months; Surgery type: Unsure of dates. History of ao repair TECHNIQUE: Imaging protocol: Real-time duplex ultrasound scan of the Aorta, IVC, iliac vasculature, or bypass grafts in the abdomen with color Doppler flow and spectral waveform analysis with image documentation. Complete exam. COMPARISON: CT ang ches abdpel [id number] 11/19/2023 12:04 AM FINDINGS: The proximal abdominal aorta measures 1.6 x 1.5 cm. The peak systolic velocity in the proximal abdominal aorta is 63 cm/s. There is aneurysmal dilatation of the mid abdominal aorta measuring 3.2 x 2.8 cm. There is eccentric atheromatous plaque in the lumen. No gross rupture. The peak systolic velocity is 42 cm/s. The distal abdominal aorta measures 2.1 x 1.6 cm. The peak systolic velocity is 47 cm/s. The right common iliac artery measures 0.9 x 1.0 cm. The peak systolic velocity is 50 cm/s. The left common iliac artery measures 0.7 x 1.0 cm. The peak systolic velocity is 67 cm/s. US/CV duplex aorta [id number] IMPRESSION: Aneurysmal dilatation of the mid abdominal aorta measuring 3.2 x 2.8 cm. There is eccentric atheromatous plaque in the lumen. No gross rupture.
[2025-03-21] MEDS: enoxaparin 40 mg/0.4 mL Syringe SUBCUT (06:59)
[2025-03-21] MEDS: aspirin 81 mg EC Tablet PO (08:43)
[2025-03-21] MEDS: CELEcoxib 100 mg Capsule PO (08:43)
[2025-03-21] MEDS: cetirizine 10 mg Tablet PO (08:43)
[2025-03-21] MEDS: oxybutynin chloride XL 5 MG TABLET 10 MG PO ×2 (08:43→17:42)
[2025-03-21] MEDS: carvedilol 6.25 mg Tablet PO ×2 (08:44→17:42)
[2025-03-21] MEDS: potassium chloride ER 20 mEq Tablet 40 MEQ PO ×2 (08:44→12:25)
[2025-03-21] MEDS: lisinopril 10 mg Tablet PO (08:44)
[2025-03-21] MEDS: FUROsemide 10 mg/mL SDV 2mL 20 MG IVP ×2 (08:44→17:42)
[2025-03-21] MEDS: docusate sodium 100 mg Capsule PO ×2 (08:44→17:42)
[2025-03-21] MEDS: spironolactone 25 mg Tablet PO (08:44)
[2025-03-21] MEDS: nystatin cream 30 gm 1 APPLIC TOPICAL ×2 (08:45→17:42)
--- NOTE | 2025-03-21 09:28 | ECG_ITS ---
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 Measurements Intervals [place] Rate: 86 P: 0 MO: 0 QRS: 98 QRSD: 87 T: 0 QT: 375 QTc: 450 Interpretive Statements ATRIAL FIBRILLATION BORDERLINE RIGHT AXIS DEVIATION [QRS AXIS > 90] POSSIBLE RIGHT VENTRICULAR CONDUCTION DELAY [RSR (QR) IN V1/V2] NONSPECIFIC T-WAVE ABNORMALITY Compared to ECG 03/21/2025 01:56:29 No significant changes Electronically Signed On 03-25-2025 09:37:00 CDT by Jeremiah Chester M.D. [email or web address]
[2025-03-21 09:58] LABS: Troponin 5 6HR 38.75 ng/L (0-10); Troponin 5 6HR Delta 4.75 ng/L (0-12)
--- NOTE | 2025-03-21 10:49 | CTR_ITS ---
PROCEDURE INFORMATION: Exam: CTA Chest With Contrast Exam date and time: 03/21/2025 11:48 AM Age: 80 years old Clinical indication: Shortness of breath; Prior surgery; Surgery date: 6+ months; Surgery type: Spine, heart; Additional info: H/o aortic dissection, chf TECHNIQUE: Imaging protocol: Computed tomographic angiography of the chest with contrast. Exam focused on the arteries. 3D rendering (Not supervised by radiologist): MIP and/or 3D reconstructed images were created by the technologist. Radiation optimization: All CT scans at this facility use at least one of these dose optimization techniques: automated exposure control; mA and/or kV adjustment per patient size (includes targeted exams where dose is matched to clinical indication); or iterative reconstruction. Contrast material: OMNIPAQUE 350; Contrast volume: 100 ml; Contrast route: INTRAVENOUS (IV); COMPARISON: CT chest wo con [id number] 11/18/2023 11:11 PM RADIATION DOSE METRICS: Total DLP (mGy-cm): 340.44 FINDINGS: Pulmonary arteries: No pulmonary embolus is identified. Aorta: Worsening aneurysmal dilatation of the ascending thoracic aorta measuring 4.6 x 4.1 cm; previously 4.4 x 3.9 cm. There has been prior surgery involving the ascending thoracic aorta. The descending thoracic aorta is aneurysmally dilated measuring 6.9 cm; previously 6 cm. There is aneurysmal dilatation of the proximal abdominal aorta measuring 5.4 x 3.4 cm; previously 5.4 x 3.1 cm. There is a dissection involving the visualized thoracoabdominal aorta that is poorly assessed secondary to phase of contrast administration; this was present on the study from November 19, 2023. No gross rupture is identified. Lungs: There is passive atelectasis in the chest bilaterally. Solid pulmonary nodule in the right upper lobe measuring 3.1 mm (image 98). Pleural spaces: Large right and moderate left pleural effusion. No pneumothorax. Heart: No pericardial effusion. The heart is enlarged. Prosthetic aortic valve. Coronary arteries: Coronary arterial calcifications are seen. Lymph nodes: No significant mediastinal lymphadenopathy. Diaphragm: No hiatal hernia. Bones/joints: A compression fracture at T10 appears similar to prior. New, mild compression fracture at T4. Unchanged compression fracture at T6. Median sternotomy wires are noted. Soft tissues: There is subcutaneous edema involving lower chest wall which may reflect anasarca. CT/CT angio chest PE protcl [id number] IMPRESSION: 1. Worsening aneurysmal dilatation of the ascending thoracic aorta measuring 4.6 x 4.1 cm; previously 4.4 x 3.9 cm. There has been prior surgery involving the ascending thoracic aorta. The descending thoracic aorta is aneurysmally dilated measuring 6.9 cm; previously 6 cm. There is aneurysmal dilatation of the proximal abdominal aorta measuring 5.4 x 3.4 cm; previously 5.4 x 3.1 cm. There is a dissection involving the visualized thoracoabdominal aorta that is poorly assessed secondary to phase of contrast administration; this was present on the study from November 19, 2023. No gross rupture is identified. 2. No pulmonary embolus is identified. 3. Large right and moderate left pleural effusion. 4. New, mild compression fracture at T4. 5. Passive atelectasis in the chest bilaterally. 6. Cardiomegaly with coronary artery disease. 7. Solid pulmonary nodule in the right upper lobe measuring 3.1 mm. As per Fleischner Society 2017 guidelines for follow-up and management of pulmonary nodules: For patients at low risk (minimal or absent history of smoking and of other known risk factors), no routine follow-up. For patient at high risk (history of smoking or of other known risk factors), recommend optional CT at 12 months.
--- NOTE | 2025-03-21 10:56 | CTR_ITS ---
PROCEDURE INFORMATION: Exam: CT Head Without Contrast Exam date and time: 03/21/2025 11:43 AM Age: 80 years old Clinical indication: Injury or trauma; Fall; Blunt trauma (contusions or hematomas); Without loss of consciousness; Additional info: Post fall TECHNIQUE: Imaging protocol: Computed tomography of the head without contrast. Radiation optimization: All CT scans at this facility use at least one of these dose optimization techniques: automated exposure control; mA and/or kV adjustment per patient size (includes targeted exams where dose is matched to clinical indication); or iterative reconstruction. COMPARISON: CT head wo con* [id number] 11/09/2024 5:29 PM RADIATION DOSE METRICS: Total DLP (mGy-cm): 306 FINDINGS: Brain: No acute intracranial hemorrhage.Old left frontoparietal and left occipital infarcts with associated encephalomalacia and gliosis. No acute intracranial hemorrhage. Unchanged lacunar infarct in the right thalamus. Unchanged lacunar infarct in the left basal ganglia. No mass, mass effect or midline shift. There is no evidence of acute large vessel infarct. There is moderate patchy subcortical and periventricular hypodensity, most commonly associated with small vessel ischemic disease of indeterminate age. The posterior fossa is grossly unremarkable; however, it is partially obscurred by beam hardening artifact. Cerebral ventricles: The ventricles are prominent, compatible with moderate parenchymal volume loss. Paranasal sinuses: The visualized paranasal sinuses are clear. Mastoid air cells: No mastoid effusion. Orbital cavities: The visualized orbits are unremarkable. Bones: No acute fracture is seen. Soft tissues: No significant scalp soft tissue swelling. CT/CT head wo con* [id number] IMPRESSION: 1. Moderate senescent changes as above. 2. No acute intracranial abnormality is identified. 3. Old cortical and subcortical infarcts as above.
--- NOTE | 2025-03-21 11:11 | XRR_ITS ---
PROCEDURE INFORMATION: Exam: XR Chest Exam date and time: 03/21/2025 11:49 AM Age: 80 years old Clinical indication: Shortness of breath; Prior surgery; Surgery date: 6+ months; Surgery type: Cabg, aortic graft, valve replacement, tod rods; Chest pain; SOB; Chf; Additional info: Chest pain and SOB TECHNIQUE: Imaging protocol: Radiologic exam of the chest. Views: 1 view. COMPARISON: CT angio chest PE protcl [id number] 03/21/2025 11:48 AM FINDINGS: Lungs: Bibasilar consolidation likely reflects atelectasis. Pleural spaces: Large right and moderate left pleural effusions are better seen on CT. No pneumothorax. Heart/Mediastinum: The cardiac silhouette is grossly unchanged. Prosthetic cardiac valve. No gross evidence of pneumomediastinum. Bones/joints: Spinal rods are noted bilaterally. Median sternotomy wires are seen. No gross fracture. XR/XR chest 1V portable [id number] IMPRESSION: 1. Large right and moderate left pleural effusions are better seen on CT. 2. Bibasilar consolidation likely reflects atelectasis.
--- NOTE | 2025-03-21 11:14 | ECG_ITS ---
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 Measurements Intervals [place] Rate: 69 P: 0 SC: 0 QRS: 98 QRSD: 87 T: 101 QT: 409 QTc: 440 Interpretive Statements ATRIAL FIBRILLATION BORDERLINE RIGHT AXIS DEVIATION [QRS AXIS > 90] NONSPECIFIC T-WAVE ABNORMALITY Compared to ECG 03/21/2025 09:28:38 No significant changes Electronically Signed On 03-25-2025 09:12:22 CDT by Jeremiah Chester M.D. [email or web address]
[2025-03-21] MEDS: HYDROcodone-acetaminophen 5-325 mg Tablet 1 TAB PO ×2 (11:35→15:54)
[2025-03-21 11:44] LABS: Estmated Average Glucose 126
[2025-03-21 11:53] LABS: Procalcitonin 0.06 ng/mL (0-0.5); Thyroid Stimulating Hormone 3.36 uIU/mL (0.27-4.20); Vitamin B12 364 pg/mL (232-1245)
[2025-03-21] MEDS: iohexol 350 mg/mL 500 mL Btl (per mL) IV (11:54)
[2025-03-21 12:03] LABS: Iron 90 ug/dL (37-145); Percent Saturation 47.1 % (20-50); Total Iron Binding Capacity 191 mcg/dl; Unsaturated Iron Binding 101 ug/dL (112-347)
--- NOTE | 2025-03-21 12:32 | PM.PN ---
Subjective Subjective: Admitted overnight. On examination laying comfortably in bed on examination sleeping but on waking up is awake and alert. Did complain of chest pain 1 time during hospitalization today morning. Vitals were stable. She was on 2 L saturating 98%. Patient states she usually is ambulatory only with a walker. Discussed her care in detail with daughter over the phone. Vitals/I&O/Wt Last Vital Signs Temp 97.8 F 03/21/25 11:37 Pulse 67 03/21/25 11:37 Resp 18 03/21/25 11:37 BP 109/70 03/21/25 11:37 Pulse Ox 98 03/21/25 11:37 O2 Del Method Room Air 03/21/25 11:37 O2 Flow Rate 2 03/21/25 11:19 03/20/25 03/21/25 03/21/25 22:59 06:59 14:59 Intake Total 0 / 0 360 / 360 Balance 0 / 0 360 / 360 Weight last 48 hrs Weight 40.823 kg Weight 40.823 kg Physical Exam Narrative: General well-developed thin female in no acute cardiopulmonary stress she is somnolent and continually falls asleep when not actively answering questions. She is otherwise a relatively good historian regarding dates and details CV controlled rate irregular rhythm Lungs diminished breath sounds in the bases crackles heard in the mid to lower lung rowe lung excursion otherwise good but poor cooperation with exam. Back with some hardware near the surface not tender or erythematous. Back with scoliosis Abdomen positive bowel tones soft nontender no palpable pleural pulsation Calves 3+ bilateral pretibial edema Skin she has a few scattered macular papular lesions these are only 1 to 3 mm they are not rhomboid or following a dermatome. They are on both sides and also some on the back Urinary Catheter Management: Hassan: Cath Placed During This Visit: yes Reason for Continuing Indwelling Catheter: Accurate Measurement of Urinary Output in Critically Ill Patients Urinary Catheter Date of Insertion: 03/21/25 Urinary Catheter Time of Insertion: 03:50 Data 03/21/25 02:44 03/21/25 02:25 Micro: Microbiology 03/21/25 03:05 Blood Culture - Preliminary Blood SPECIMEN COLLECTED A&P Assessment and plan (1) Pulmonary edema: Patient diuresed 650 cc in the first 2 hours after furosemide in the ER. She needs potassium replaced. Continue with IV furosemide diuresis. Echocardiogram to evaluate heart function valvular function and aortic ascending arch. (2) Bilateral pleural effusion: As above with oxygen support for acute hypoxic respiratory failure mild currently (3) Aortic aneurysm and dissection: Patient is not a good candidate for surgery. She does not want elective surgery and though would like to discuss emergent surgery if that was recommended she states she is likely to decline surgery. She agrees to DO NOT RESUSCITATE status and states that her has recommended that. Her daughter is present at bedside. Will obtain an abdominal ultrasound of the aorta (4) H/O aortic valve repair: Will obtain records from [facility]. Dr. Sarmiento CT surgery 11/18/2023. Beyond the echo I have not proceeded with CT angiogram currently because the patient will need to diurese and I think the risk to her kidneys is present and we are not likely to do anything different with the aorta as she is clinically stable. Abdominal exam is without obvious tenderness. Plan Plan for the day: Given concern for severe aortic aneurysm with dissection which was partially repaired and deemed unrepairable going forward for now we will check CTA chest for further evaluation of the aneurysm as patient symptoms of heart failure and chest pain could be related. Continue with IV Lasix 20 mg daily. Fluid restriction to less than 1500 cc. Medical reconciliation done for nephrotoxic drugs. Discontinue celecoxib. Discontinue spironolactone, lisinopril. Goal blood pressure less than 140/90 mmHg. Continue with home dose of Coreg. If needed can add amlodipine. IV hydralazine 10 mg every 6 hours as needed for systolic of more than 160 mmHg. Telemetry. Patient did have a fall few days ago and has a bruise under her right eye. Will check CT head. Goals of care discussion: CTA chest shows aortic root and thoracic aorta ascending aorta dilatation of 4.6 x 4.1 cm, descending thoracic aortic aneurysm worsening to 6.9 cm which was 6 cm a year ago, aneurysm dilatation of proximal abdominal aorta to 5.4 x 3.4 along with dissection and involving thoracoabdominal aorta. Discussed CT results with patient's DPOA/daughter over the phone. Daughter states it was repaired by Dr. Sarmiento at [place] and was later reviewed by his partner after Dr. Sarmiento retired. As per Dr. Sarmiento's partner because the aneurysm was too close to the heart it is unrepairable and she is at a high risk of mortality during the procedure. Family and patient at that time had decided not to go ahead with the procedure. We discussed patient's symptoms of difficulty in breathing on and off, on and off chest pain could be related to worsening aneurysm. We discussed she is at a higher risk of a stroke, CA because of coronary dissection or sudden because of aneurysm rupture. Daughter verbalizes understanding. We discussed even if she has an CA she is at a higher risk of mortality given significant aneurysm and dissection. Daughter verbalizes understanding and states patient and their goal is to keep her comfortable because of multiple comorbidities, significant aneurysm and baseline quality of life. She states even if she has an CA they do not want to go ahead for revascularization or evaluation. Discussed possible set up of hospice. Daughter verbalized understanding and would discuss further with her brother before making a decision. Did tell daughter if they decide for hospice they can get in touch with foster care case manager will be available on Saturday and would be able to set up hospice if needed. Daughter is agreeable and interested but wants to confirm with family before excepting. DNR/DNI Cardiac diet Protonix for PUD prophylaxis SCD for DVT prophylaxis. Discontinue Lovenox as patient is at a high risk of bleeding given significant aneurysm. PDMP PDMP Reviewed: Not Reviewed Attestations Medical Necessity Statement*: Requires further hospitalization for management of chest pain with symptoms of congestive heart failure in a patient with history of severe aortic aneurysm and dissection Diagnoses Pulmonary edema J81.1 Bilateral pleural effusion J90 Aortic aneurysm and dissection I71.00 H/O aortic valve repair Z98.890; Z86.79
[2025-03-21] MEDS: pantoprazole 40 mg SDV IVP (13:33)
[2025-03-21] MEDS: levalbuterol 0.63 mg/3 mL Neb INHALATION ×2 (13:34→21:06)
[2025-03-21] MEDS: ipratropium 0.5 mg/2.5 mL Neb INHALATION ×2 (13:34→21:06)
[2025-03-21 15:17] LABS: Anion Gap 13.2 (5-19); Blood Urea Nitrogen 22 mg/dL (8-23); Carbon Dioxide 33 mmol/L (22-29); Chloride 98 mmol/L (98-107); Glucose 85 mg/dL (65-115); Osmolality Calculated 293 mOsm/kg (285-295); Potassium 4.2 mmol/L (3.5-5.1); Sodium 140 mmol/L (136-145)
[2025-03-21] MEDS: potassium chloride ER 20 mEq Tablet PO (15:54)
[2025-03-21] MEDS: ropinirole 1 mg Tablet 2 MG PO (20:09)
[2025-03-21] MEDS: budesonide 0.5 mg/2 mL Neb INHALATION (21:06)
[2025-03-21] MEDS: diphenhydrAMINE 25 mg Capsule PO (23:53)
[2025-03-22] VITALS (12 sets, daily range): BP systolic 140–160; BP diastolic 70–98; PULSE 72–104; RESP 16–18; TEMP 36.3–37; O2SAT 90–95
[2025-03-22] MEDS: HYDROcodone-acetaminophen 5-325 mg Tablet 1 TAB PO ×2 (02:28→11:35)
[2025-03-22] MEDS: levalbuterol 0.63 mg/3 mL Neb INHALATION ×3 (02:31→13:35)
[2025-03-22] MEDS: ipratropium 0.5 mg/2.5 mL Neb INHALATION ×3 (02:31→13:35)
[2025-03-22 05:18] LABS: Basophils % 0.4 %; Eosinophils # 0.2 10^3/uL (0.0-0.8); Eosinophils % 3.3 %; Hematocrit 34.3 % (36-47); Lymphocytes % 21.8 %; Mean Corpuscular HGB Conc 30.6 g/dL (30-55); Mean Corpuscular Hemoglobin 29.2 pg (27-33); Mean Corpuscular Volume 95.5 fl (85-98); Mean Platelet Volume 9.3 fL (7.4-10.4); Monocytes # 0.4 10^3/uL (0.2-0.9); Monocytes % 7.8 %; Neutrophils # 2.98 10^3/uL (1.8-7.7); Neutrophils % 66.3 %; Nucleated Red Blood Cells % 0 %; Platelet Count 232 10^3/cmm (157-399); Red Blood Count 3.59 10^6/uL (3.85-5.65); Red Cell Distribution Width 14.6 % (12.1-15.1)
[2025-03-22 05:39] LABS: Alanine Aminotransferase 147 U/L (0-33); Albumin Level 3.4 g/dL (3.5-5.2); Alkaline Phosphatase 105 U/L (35-105); Aspartate Amino Transferase 137 U/L (0-32); Blood Urea Nitrogen 25 mg/dL (8-23); Calcium 8.9 mg/dL (8.5-10.5); Carbon Dioxide 28 mmol/L (22-29); Chloride 102 mmol/L (98-107); Globulin 2.4 g/dL (1.3-4.6); Glucose 99 mg/dL (65-115); Osmolality Calculated 294 mOsm/kg (285-295); Sodium 140 mmol/L (136-145); Total Bilirubin 0.3 mg/dL (0.15-1.2); Total Protein 5.8 g/dL (6.6-8.7)
[2025-03-22 05:47] LABS: Magnesium 2.6 mg/dL (1.7-2.3)
[2025-03-22 05:50] LABS: Folate Level 9.8 ng/mL (4.8-37.3)
[2025-03-22] MEDS: budesonide 0.5 mg/2 mL Neb INHALATION (07:34)
--- NOTE | 2025-03-22 08:00 | XR_ITS ---
WS: [id number] XR chest 2V* 20996 REASON FOR EXAM: pleural effusion and aortic dissection and aneurysm FINDINGS: Compared to the previous day: There is aneurysmal dilatation of the posterior aortic arch and descending thoracic aorta. This finding appears stable. Lungs are less well-expanded. On today's examination. There are bilateral pleural effusions larger on the right. These appear stable. There is increased opacity in the left lower hemithorax which is felt to represent atelectasis. Increased opacity over the right lower lung which could represent posterior layering pleural effusion superimposed or interval development of early congestive failure. Central pulmonary veins are prominent. The heart is enlarged with prosthetic aortic valve. XR/XR chest 2V* [id number] IMPRESSION: Decreased expansion and aeration of the lungs compared to the previous day. Increased atelectasis in the left lower lung. Increased opacity in the right lower hemithorax as described and above.
--- NOTE | 2025-03-22 08:07 | PC.SOCIAL ---
IMM Update Pg. 2 of IMM Updated and reviewed with patient, who verbalized understanding. Copy provided at bedside.
[2025-03-22] MEDS: diphenhydrAMINE 25 mg Capsule PO (08:49)
[2025-03-22] MEDS: pantoprazole 40 mg SDV IVP (08:49)
[2025-03-22] MEDS: lisinopril 10 mg Tablet PO (08:49)
[2025-03-22] MEDS: FUROsemide 10 mg/mL SDV 2mL 20 MG IVP (08:49)
[2025-03-22] MEDS: carvedilol 6.25 mg Tablet PO (08:49)
[2025-03-22] MEDS: oxybutynin chloride XL 5 MG TABLET 10 MG PO (08:49)
[2025-03-22] MEDS: potassium chloride ER 20 mEq Tablet PO (08:49)
[2025-03-22] MEDS: cetirizine 10 mg Tablet PO (08:49)
[2025-03-22] MEDS: docusate sodium 100 mg Capsule PO (08:49)
[2025-03-22] MEDS: aspirin 81 mg EC Tablet PO (08:49)
[2025-03-22] MEDS: nystatin cream 30 gm 1 APPLIC TOPICAL (08:54)
--- NOTE | 2025-03-22 11:14 | PC.OT ---
OT EVALUATION ORDERS RECEIVED; PATIENT IS BEING PLACED ON HOSPICE AND STATES NO OT EVAL AT THIS TIME
[2025-03-22] MEDS: ropinirole 1 mg Tablet PO (11:36)
[2025-03-22] MEDS: gabapentin 100 mg Capsule 200 MG PO (14:15)
--- NOTE | 2025-03-22 15:03 | PM.DCS ---
Discharge Providers Date of Admission: 03/21/25 04:35 Date of Discharge: March 22, 2025 Attending Provider at Admission: Capo Dumont MD Attending Provider at Discharge: Fransico Mitchell Primary Care Provider: LUISA Cummings Diagnoses at Discharge Discharge Diagnosis (1) Pulmonary edema: Status: Acute (2) Bilateral pleural effusion: Status: Acute (3) Aortic aneurysm and dissection: Status: Acute (4) H/O aortic valve repair: Status: Acute Reason for Visit Reason for Visit: CP Hospital Course Hospital Course 80-year-old lady with history of prosthetic aortic valve, aortic aneurysm intracranial aneurysm CVA thoracoabdominal aortic dissection hypertension hyperlipidemia heart disease other medical problems was admitted after presenting with chest pain and shortness of breath with finding of new pleural effusions. 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 Year ago also found to have an aneurysm which was partially repaired in [place] by Dr. Sarmiento. She has had residual aneurysm which was 2 proximal with intervention considered too risky. Surgery was considered, her, she had declined. She was evaluated by CT presentation with finding of worsening aortic aneurysm with enlargement to 6.9 cm with persistent dissection going down to abdominal aorta. Echocardiogram was obtained showing EF 55 to 60%, left atrial dilation, mild MVR, bioprosthetic aortic valve with mild aortic stenosis, trace AVR, moderate TVR, moderate pulmonary hypertension, moderate PVR, IVC dilated. Trace pericardial effusion. She was treated with Lasix and fluid restriction for pulmonary edema with pleural effusions. Findings were discussed with patient and family who verbalized she would not want surgical intervention, understand risk of progression of dissection. Risks and alternatives were discussed including hospice care which today prefer to pursue. Arrangements were made and she will be returning home with continued hospice care today. She has had some ongoing pruritus for close to about a month which has not responded to antihistamines. She was recently on gabapentin which she had discontinued. Will try pregabalin in addition to topical measures as discussed for example with capsaicin. She may stop either or both medications if they are not working. Physical Exam Narrative: Sitting up in chair. During return visit in bed, accompanied by her . Const: COMMON NORMALS: patient oriented x3 and alert GENERAL APPEARANCE: cooperative and frail appearing ORIENTATION/CONSCIOUSNESS: Yes awake HENMT: COMMON NORMALS: oropharynx normal Eye: OTHER: Was around MRI Neck/C-Spine: COMMON NORMALS: no JVD Resp: COMMON NORMALS: normal respiratory effort and clear to auscultation bilaterally AUSCULTATION: clear to auscultation bilaterally Cardio: COMMON NORMALS: no JVD, regular rhythm, S1 normal heart sound present, S2 normal heart sound present and No murmurs present (Cardio) RHYTHM: regular rhythm HEART SOUNDS: S1 normal heart sound present and S2 normal heart sound present GI: COMMON NORMALS: Normal to inspection, nondistended, normoactive bowel sounds present, Soft to palpation and non-tender PALPATION: Yes Soft to palpation Extremity: COMMON NORMALS: no joint enlargement and no pedal edema Neuro: COMMON NORMALS: patient oriented x3 and moves all extremities SENSORIUM/ORIENTATION: Yes alert Skin: COMMON NORMALS: no rashes or lesions noted GENERAL SKIN EXAM: no rashes or lesions noted Urinary Catheter Management: Hassan: Cath Placed During This Visit: yes Reason for Continuing Indwelling Catheter: Other Urinary Catheter Date of Insertion: 03/21/25 Urinary Catheter Time of Insertion: 03:50 Discharge Data Studies Completed and Pending Completed Studies During Hospitalization Category Date Time Status CT head wo con* [id number] Routine Cat Scan 03/21/25 10:56 Completed CTA chest [CT angio chest PE protcl 89534] Routine Cat Scan 03/21/25 10:49 Completed CXRP [XR chest 1V portable [id number]] Stat Exams 03/21/25 11:11 Completed XR chest 1V portable [id number] Stat Exams 03/21/25 02:19 Completed XR chest 2V* [id number] Routine Exams 03/22/25 08:00 Completed US duplex aorta [CV duplex aorta 11933] Routine Ultrasound 03/21/25 06:55 Completed US echo complete [CV. echo complete* 97480] Routine Ultrasound 03/21/25 06:30 Completed Pending at discharge Category Date Time Status Blood Culture Stat Lab 03/21/25 03:05 Results Comprehensive Metabolic Panel AM LABS Lab 03/23/25 04:00 Ordered Comprehensive Metabolic Panel AM LABS Lab 03/24/25 04:00 Ordered MAG [Magnesium] AM LABS Lab 03/23/25 04:00 Ordered MAG [Magnesium] AM LABS Lab 03/24/25 04:00 Ordered Radiology Impressions Aorta Iliac Vascular Ultrasound 03/21/25 06:55 IMPRESSION: Aneurysmal dilatation of the mid abdominal aorta measuring 3.2 x 2.8 cm. There is eccentric atheromatous plaque in the lumen. No gross rupture. Chest CTA 03/21/25 10:49 IMPRESSION: 1. Worsening aneurysmal dilatation of the ascending thoracic aorta measuring 4.6 x 4.1 cm; previously 4.4 x 3.9 cm. There has been prior surgery involving the ascending thoracic aorta. The descending thoracic aorta is aneurysmally dilated measuring 6.9 cm; previously 6 cm. There is aneurysmal dilatation of the proximal abdominal aorta measuring 5.4 x 3.4 cm; previously 5.4 x 3.1 cm. There is a dissection involving the visualized thoracoabdominal aorta that is poorly assessed secondary to phase of contrast administration; this was present on the study from November 19, 2023. No gross rupture is identified. 2. No pulmonary embolus is identified. 3. Large right and moderate left pleural effusion. 4. New, mild compression fracture at T4. 5. Passive atelectasis in the chest bilaterally. 6. Cardiomegaly with coronary artery disease. 7. Solid pulmonary nodule in the right upper lobe measuring 3.1 mm. As per Fleischner Society 2017 guidelines for follow-up and management of pulmonary nodules: For patients at low risk (minimal or absent history of smoking and of other known risk factors), no routine follow-up. For patient at high risk (history of smoking or of other known risk factors), recommend optional CT at 12 months. ADDENDUM: 03/21/25 1236 Findings discussed with ROBERT FRAGA at 03/21/2025 12:[address] 03/21/25 10:56 IMPRESSION: 1. Moderate senescent changes as above. 2. No acute intracranial abnormality is identified. 3. Old cortical and subcortical infarcts as above. Chest X-Ray 03/22/25 08:00 IMPRESSION: Decreased expansion and aeration of the lungs compared to the previous day. Increased atelectasis in the left lower lung. Increased opacity in the right lower hemithorax as described and above. Laboratory Results WBC 4.50 10^3/uL (3.29-11.43) 03/22/25 04:47 RBC 3.59 10^6/uL (3.85-5.65) L 03/22/25 04:47 Hgb 10.50 g/dL (11.27-16.99) L 03/22/25 04:47 Hct 34.3 % (36-47) L 03/22/25 04:47 MCV 95.5 fl (85-98) 03/22/25 04:47 MCH 29.2 pg (27-33) 03/22/25 04:47 MCHC 30.6 g/dL (30-55) 03/22/25 04:47 RDW 14.6 % (12.1-15.1) 03/22/25 04:47 Plt Count 232 10^3/cmm (157-399) 03/22/25 04:47 MPV 9.3 fL (7.4-10.4) 03/22/25 04:47 Neut % (Auto) 66.3 % 03/22/25 04:47 Lymph % (Auto) 21.8 % 03/22/25 04:47 [place] % (Auto) 7.8 % 03/22/25 04:47 Eos % (Auto) 3.3 % 03/22/25 04:47 Baso % (Auto) 0.4 % 03/22/25 04:47 Neut # (Auto) 2.98 10^3/uL (1.8-7.7) 03/22/25 04:47 Lymph # (Auto) 1.0 10^3/uL (0.8-4.8) 03/22/25 04:47 [place] # (Auto) 0.4 10^3/uL (0.2-0.9) 03/22/25 04:47 Eos # (Auto) 0.2 10^3/uL (0.0-0.8) 03/22/25 04:47 Baso # (Auto) 0.0 10^3/uL (0.0-0.1) 03/22/25 04:47 Nucleated RBC % (auto) 0 % 03/22/25 04:47 Nucleated RBCs # 0.0 /100WBC 03/22/25 04:47 PT 13.40 SECONDS (12.1-14.9) 03/21/25 02:44 INR 0.95 (0.8-1.2) 03/21/25 02:44 APTT 28.0 SECONDS (23.9-36.7) 03/21/25 02:44 Specimen Type Arterial 03/21/25 03:11 Sample Site Radial, right 03/21/25 03:11 ABG pH 7.42 (7.35-7.45) 03/21/25 03:11 ABG pCO2 51.3 mmHg (35-45) H 03/21/25 03:11 ABG pO2 57.1 mmHg (80.0-100.0) L 03/21/25 03:11 ABG PO2/FiO2 Ratio 271 03/21/25 03:11 ABG HCO3 33.6 mmol/L (22-26) H 03/21/25 03:11 ABG Base Excess 8.0 mmol/L (-2.0-2.0) H 03/21/25 03:11 Anthony Test Pos 03/21/25 03:11 Hematocrit 31.4 % (37-47) L 03/21/25 03:11 O2 Delivery Device Room air 03/21/25 03:11 FiO2 21.0 % 03/21/25 03:11 Keg Washer ID gerca 03/21/25 03:11 Sodium 140 mmol/L (136-145) 03/22/25 04:47 Potassium 5.0 mmol/L (3.5-5.1) 03/22/25 04:47 Chloride 102 mmol/L (98-107) 03/22/25 04:47 Carbon Dioxide 28 mmol/L (22-29) 03/22/25 04:47 Anion Gap 15.0 (5-19) 03/22/25 04:47 BUN 25 mg/dL (8-23) H 03/22/25 04:47 Creatinine 0.9 mg/dL (0.5-0.9) 03/22/25 04:47 GFR Calculation Not Reportable 03/22/25 04:47 Glucose 99 mg/dL (65-115) 03/22/25 04:47 Estimat Average Glucose 126 03/21/25 02:44 Hemoglobin A1c 6.0 % (4.0-6.0) 03/21/25 02:44 Calculated Osmolality 294 mOsm/kg (285-295) 03/22/25 04:47 Lactic Acid 1.5 mmol/L (0.5-2.2) 03/21/25 02:44 Calcium 8.9 mg/dL (8.5-10.5) 03/22/25 04:47 Phosphorus 4.2 mg/dL (2.5-4.5) 03/21/25 02:44 Magnesium 2.6 mg/dL (1.7-2.3) H 03/22/25 04:47 Iron 90 ug/dL (37-145) 03/21/25 02:25 TIBC 191 mcg/dl 03/21/25 02:25 % Saturation 47.1 % (20-50) 03/21/25 02:25 Unsat Iron Binding 101 ug/dL (112-347) L 03/21/25 02:25 Total Bilirubin 0.3 mg/dL (0.15-1.2) 03/22/25 04:47 AST 137 U/L (0-32) H 03/22/25 04:47 ALT 147 U/L (0-33) H 03/22/25 04:47 Alkaline Phosphatase 105 U/L (35-105) 03/22/25 04:47 Creatine Kinase 51 U/L (26-192) 03/21/25 02:25 Troponin T Baseline 34 ng/L (0-10) H 03/21/25 02:25 Troponin T 120 Minute 39.14 ng/L (0-10) H 03/21/25 04:08 Delta Troponin T 5.14 ABS# (0-10) 03/21/25 04:08 Troponin T Hi Sens 6Hr 38.75 ng/L (0-10) H 03/21/25 09:11 Troponin T Hi Sens 6Hr Delta 4.75 ng/L (0-12) 03/21/25 09:11 NT-Pro-B Natriuret Pep 4293 pg/mL (0-450) H 03/21/25 02:25 Total Protein 5.8 g/dL (6.6-8.7) L 03/22/25 04:47 Albumin 3.4 g/dL (3.5-5.2) L 03/22/25 04:47 Globulin 2.4 g/dL (1.3-4.6) 03/22/25 04:47 Vitamin B12 364 pg/mL (232-1245) 03/21/25 02:25 Folate 9.8 ng/mL (4.8-37.3) 03/22/25 04:47 Procalcitonin 0.06 ng/mL (0-0.5) 03/21/25 02:25 TSH 3.36 uIU/mL (0.27-4.20) 03/21/25 02:25 Urine Color Yellow (Yellow) 03/21/25 02:57 Urine Appearance Cloudy (CLEAR) A 03/21/25 02:57 Urine pH 8.5 (5-7) A 03/21/25 02:57 Ur Specific [place] 1.016 (1.005-1.030) 03/21/25 02:57 Urine Protein 1+ (Negative) A 03/21/25 02:57 Urine Glucose (UA) Negative (Normal) 03/21/25 02:57 Urine Ketones Negative (Negative) 03/21/25 02:57 Urine Blood Negative (Negative) 03/21/25 02:57 Urine Nitrate Negative (Negative) 03/21/25 02:57 Urine Bilirubin Negative (Negative) 03/21/25 02:57 Urine Urobilinogen 0.2 mg/dL (Negative) 03/21/25 02:57 Ur Leukocyte Esterase Negative (Negative) 03/21/25 02:57 Urine RBC 0-2 /hpf (0-2) 03/21/25 02:57 Urine WBC 0-5 /hpf (0-5) 03/21/25 02:57 Ur Squamous Epith Cells 0-5 /hpf (0-5) 03/21/25 02:57 Amorphous Sediment 1+ /hpf 03/21/25 02:57 Urine Bacteria None seen /hpf (NONE) 03/21/25 02:57 Hyaline Casts 0.40 /lpf 03/21/25 02:57 Vitals Last Vital Signs Temp 97.9 F 03/22/25 11:35 Pulse 83 03/22/25 13:43 Resp 18 03/22/25 13:35 BP 160/90 03/22/25 11:35 Pulse Ox 94 03/22/25 13:35 O2 Del Method Room Air 03/22/25 13:35 O2 Flow Rate 2 03/21/25 11:19 Discharge Plan Discharge Patient Disposition: Hospice - Home Condition: Fair Prescriptions: New pregabalin 75 mg capsule 75 mg PO DAILY Qty: 30 0RF amlodipine 5 mg tablet 5 mg PO DAILY Qty: 90 0RF furosemide [Lasix] 20 mg tablet 20 mg PO DAILY Qty: 30 0RF Continued (DME) Right extension foot pedal for wheelchair. Regular left foot pedal See Rx Instructions .Route .MEDSUPPLY Qty: 1 0RF Rx Instructions: As directed. 99 days hydroxyzine HCl 10 mg tablet 10 mg PO TID PRN (Reason: itching) Qty: 30 0RF carvedilol [Coreg] 6.25 mg tablet 6.25 mg PO BID Qty: 60 1RF Rx Instructions: must administer with a meal/food lisinopril 10 mg tablet 10 mg PO DAILY Qty: 30 3RF celecoxib 100 mg capsule 100 mg PO DAILY Qty: 60 4RF alendronate 70 mg tablet 70 mg PO Q7D Rx Instructions: ON SATURDAY aspirin 81 mg tablet,delayed release (DR/EC) 81 mg PO DAILY cetirizine 10 mg tablet 10 mg PO DAILY oxybutynin chloride 10 mg tablet extended release 24hr 10 mg PO BID Qty: 60 3RF ropinirole 1 mg tablet See Rx Instructions PO DAILY Qty: 90 3RF Rx Instructions: orally daily; TAKE 1 TABLET BY MOUTH AT NOON, AND 2 TABLETS AT BEDTIME. Medication is for restless legs nystatin 100,000 unit/gram cream 1 applic topical BID Qty: 30 0RF acetaminophen 325 mg capsule 325 mg PO Q4H PRN (Reason: fever or pain) Qty: 60 0RF Discharge Orders: Discharge Order (Routine); Ordered 03/22/25 Ordered By: Fransico Mitchell Referrals: [facility] [Outside] Nora Coyle FNP [Primary Care Provider, Nurse Practitioner] - 4-7 days Discharge Diet: Cardiac Patient Instructions: Hospice Care (GEN), Opioid Safety, Patient Portal & Adrián Instructions Activity Restrictions/Additional Instructions: Continue supportive measures with hospice care. Continue fluid restriction less than 1500 mL/day. Preferred blood pressure 120/80. Discharge Attestations Time Spent in Discharge Care*: greater than 30 min Quality Metrics Clinical Quality Measures [ No reported AMI, CVA or VTE this stay] Coding Level of Care Code 18665 Total time (in minutes) for Discharge: 40 Diagnoses Pulmonary edema J81.1 Bilateral pleural effusion J90 Aortic aneurysm and dissection I71.00 H/O aortic valve repair Z98.890; Z86.79
== END 2025-03-22 17:10 | disposition hospice, home (50) | DRG 299 ==
LOC: ER 04:20 → MEDSURG 05:27
PROVIDERS: Student in an Organized Health Care Education/Training Program; Admitting Provider Internal Medicine; Emergency Provider Emergency Medicine; PCP Nurse Practitioner; Visit Provider Internal Medicine
DX: I71.03 Dissection of thoracoabdominal aorta (principal); I50.31 Acute diastolic (congestive) heart failure; J96.01 Acute respiratory failure with hypoxia; I11.0 Hypertensive heart disease with heart failure; E78.5 Hyperlipidemia, unspecified; I08.3 Combined rheumatic disorders of mitral, aortic and tricuspid valves; I27.20 Pulmonary hypertension, unspecified; G62.9 Polyneuropathy, unspecified; F41.1 Generalized anxiety disorder; S05.10XA Contusion of eyeball and orbital tissues, unspecified eye, initial encounter; W01.0XXA Fall on same level from slipping, tripping and stumbling without subsequent striking against object, initial encounter; I48.91 Unspecified atrial fibrillation; Z66 Do not resuscitate; G25.81 Restless legs syndrome; J44.9 Chronic obstructive pulmonary disease, unspecified; Z79.82 Long term (current) use of aspirin; Z79.891 Long term (current) use of opiate analgesic; Z95.3 Presence of xenogenic heart valve; Z86.73 Personal history of transient ischemic attack (TIA), and cerebral infarction without residual deficits; Z98.1 Arthrodesis status
CPT/HCPCS: 36415; 36600; 51702; 70450; 71045; 71046; 71275; 80048; 80053; 81001; 82550; 82607; 82746; 82803; 83036; 83540; 83550; 83605; 83735; 83880; 84100; 84145; 84443; 84484; 85025; 85610; 85730; 87040; 93005; 93306; 93978; 94640; 96372; 96374; 96375; 99285; J1200; J1650; J1938; J2270; J2405; J2470; J7614; J7626; J7644; J9999

== ENCOUNTER → 2025-04-07 11:35 | Outpatient (BNVA) | payer MEDICARE, SELFPAY | PROVIDERS: PCP Nurse Practitioner; Visit Provider Specialist | DX: M79.642 Pain in left hand (principal); S82.131D Displaced fracture of medial condyle of right tibia, subsequent encounter for closed fracture with routine healing; L03.114 Cellulitis of left upper limb; X58.XXXD Exposure to other specified factors, subsequent encounter | CPT/HCPCS: 73130; 73560; 73565 ==

== ENCOUNTER 2025-04-07 14:21 | Outpatient (CLI) | payer MEDICARE, SELFPAY | END 2025-04-07 14:22 | disposition home or self-care (01) | LOC: SPT 14:22 | PROVIDERS: PCP Nurse Practitioner; Visit Provider Specialist | DX: Z46.89 Encounter for fitting and adjustment of other specified devices (principal); M25.561 Pain in right knee | CPT/HCPCS: 97760; L1812 ==

== ENCOUNTER → 2025-04-13 15:51 | Outpatient (BNVA) | payer MEDICARE, SELFPAY | PROVIDERS: PCP Nurse Practitioner; Visit Provider Nurse Practitioner | DX: M19.032 Primary osteoarthritis, left wrist (principal) | CPT/HCPCS: 73110 ==